=== PATIENT | female | born 1980 | race Caucasian/White ===

== ENCOUNTER 2022-07-09 09:30 | Outpatient (CLI) | payer OTHER, SELFPAY ==
--- OUTSIDE RECORDS SUMMARY | 2022-07-09 10:00 | XMS_ITS | Encounter Summary ---
:1980 Author Organization [facility] Address [address] [place] [address] Care Team Providers Name Role Phone Unavailable Primary Care Provider Unavailable Reason for Visit Reason Comments Skin Check Encounter Details Date Type Department Care Team Description 02/09/2013 Office Visit Ashlyn Moss, Gissell malin for malignant neoplasm of the skin (Primary Dx); Dermatology Dysplastic nevi; [id number] [place] [address] Family history of melanoma; [place] [address] [place], [place] Family history of nonmelanom a skin cancer; [phone] Nevus spilus [phone] (Wo rk) Social History Tobacco Use Types Packs/Day Years Used Date Smoking Tobacco: Never Assessed Sex Assigned at Date Recorded Not on file documented as of this encounter Patient Instructions Patient InstructionsNia Gamble MA - 02/09/2013 1:25 PM CDT DIRECT PHONE NUMBER: NIA [phone]. FEEL FREE TO CALL WITH ANY QUESTIONS OR CONCERNS YOU MAY HAVE. MOLES TO HAVE CHECKED IN CLINIC: BLACK, LEDEZMA OR BROWN IN THE CENTER WITH A RED OR COPPER TONE COLORING AROUND IT. ANY MOLES THAT CHANGE OR DOUBLE IN SIZE. SUNSCREEN: PREFER CLOTHING OVER SUNSCREEN. IF USING SUNSCREEN, PREFER SUNSCREEN WITH ZINC BASE. EX.)VANICREAM SPF 30 OR 60 OR CITIBLOCK BY CLINIQUE. VITAMIN D-3 RECOMMENDATIONS: TAKE VITAMIN D WITH FOOD THAT HAS FAT IN IT THIS HELPS THE BODY ABSORB IT. PREFER GEL CAPSULES OVER SOLID TABLETS. THIS IS AVAILABLE OVER THE COUNTER. VITAMIN D HAS BEENSHOWN TO FIGHT CERTAIN CANCERS, IT'S A NATURAL MOOD BOOSTER, NATURAL IMMUNITY BOOSTER, AND GOOD FOR YOUR MUSCLES, BONES AND BRAIN HEALTH. *RECOMMEND YOU TAKE 2000IU DAILY. FLAKING OF SCALP: *USE A HEAD AND SHOULDERS SHAMPOO WITH ZINC 1 - 2 TIMES WEEK FOR MAINTENANCE. CAN USE MORE OFTEN IF NEEDED. documented in this encounter Progress Notes Ashlyn Wilkinson MD - 02/09/2013 1:34 PM CDT Progress Notes signed by Ashlyn Bingham MD at 02/10/132234 Author: Ashlyn Bingham MD Service: (none) Author Type: Physician Filed: 02/10/132234 Note Time: 02/09/131916 Status: Signed Cash Posting Clerk: Ashlyn Bingham MD (Physician) NAME: ESTER DO MR#: [id number] CSN: [id number] AUTHENTICATING CLINICIAN: Ashlyn Wilkinson MD CONFIRM #: [id number] LOC: 527 CLINIC PROGRESS NOTE DATE OF VISIT: 02/09/2013 : 1980 Ester is a delightful 32-year-old. Her mother is the daughter of Clarence Castillo, and her uncle is Ángel. They both have had atypical moles and Ángel has had a melanoma. She had a fair amount of blistering sunburns growing up. Some sunburns as an adult, but never blistering, and she is out of the sun. She has occasionally use tanning beds, but has not for a long time. She has 2 boys, I think ages 2 and7. PHYSICAL EXAMINATION: On examination, Including scalp, face, neck, chest, back, abdomen, buttocks, groin, arms, legs, hands, feet, nails, perirectal and pubic area, a little bit of red complexion, with both brown and blond hair, highlighted, fair skin, a little bit of acne on the face. We did not discuss. 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 Two slightly darker ones between the scapula that look fine under the dermatoscope, and more fading one closer to the left breast, under it, that is a kind of broken up lacy pattern, reddish brown, light in color, and then one at just above the umbilicus that is darker in the middle, light around the periphery, but uniformly so, and definitely dysplastic, but does not appear to be severely dysplastic. She has a couple dysplastic nevi, inner thighs. Nothing on the genitalia. Perirectal is clear. Arms and legs show less nevi, but there is still definitely a fair amount of brown to light brown nevi. Nothing that was approaching black and nothing that I thought needed to be removed. No sign of any basal cell carcinomas and no actinic keratoses seen either. Again, skin is fair and it is a normal color. ASSESSMENT: Family history of melanoma and non-melanoma skin cancer with blistering sunburns as a child, with dysplastic nevi by exam. PLAN: 1. I would like to see her every 6-12 months. I photographed the back, upper middle and low back, tofollow, and the 2 moles on the abdomen were photographed as well. I will see her back in 6-12 months, sooner if there are any questions or concerns. Talked about what to watch for. 2. Talked about vitamin D. Her level has been checked in the past and it was only 24. I recommend she goes to 2000. Recommend she gives her boys 1000 a day, as well. Talked about sun protection. [employer] Brochure was given. Encouraged Zinc Sunscreen and samples given. VLV:MEDQ C: CONFIRM #: [id number] documented in this encounter Plan of Treatment Not on filedocumented as of this encounter Visit Diagnoses Diagnosis Screening for malignant neoplasm of the skin - Primary Dysplastic nevi Benign neoplasm of skin, site unspecifie d Family history of melanoma Family history of other specified malign ant neoplasm Family history of nonmelanoma skin cance r Family history of skin conditions Nevus spilus Benign neoplasm of skin, site unspecifie d documented in this encounter
--- OUTSIDE RECORDS SUMMARY | 2022-07-09 10:00 | XMS_ITS | Encounter Summary ---
:1980 Author Organization [facility] Address [address] [place] [address] Care Team Providers Name Role Phone Apurva Saldaña M.D. Primary Care Provider [phone] Reason for Referral Outpatient (Routine) - Closed Specialty Diagnoses / Procedures Referred By Contact Refer red To Contact Orthopedic Surgery Cristina Barlow P.A. -C. [facility] Region [address] [place] [address] Referral ID Status Reason Start Date Expiration Date Visits Requ ested Visits Authorized [id number] Closed 03/04/2022 03/04/2023 1 1 MRI/CAT/PET Scan (Routine) - Closed Specialty Diagnoses / Procedures Referred By Contact Refer red To Contact Radiology Diagnoses Pain Knee Left Cristina Barlow P.A.-C. [facility] Region Procedures MR Knee Left without IV Contrast GA MRI LWR EXT JOINT WO CNTRST [address] [place] [address] Referral ID Status Reason Start Date Expiration Date Visits Requ ested Visits Authorized [id number] Closed 03/04/2022 03/04/2023 1 1 Encounter Details Date Type Department Care Team Description 03/04/2022 Orders Only Department of Cristina Barlow, Pain Knee L eft Orthopedic Surgery in P.A[facility]C. (Primary Dx) [place], [place] [address] [facility] [address] [place], [place] [phone] Social History Tobacco Use Types Packs/Day Years Used Date Smoking Tobacco: Never Smokeless Tobacco: Never Alcohol Habits Answer Date Recorded How often do you have a drink containing alcohol? Never 10/21/2021 How many drinks containing alcohol do you have on a typical Not asked day when you are drinking? How often do you have six or more drinks on one occasion? No t asked Comment: Not asked Social Isolation Answer Date Recorded In a typical week, how many times do you More than three trisha es a week 10/21/2021 talk on the phone with family, friends, or neighbors? How often do you get together with friends Twice a week 10/21/2021 or relatives? How often do you attend moravian or Never 2021 tenriism services? Do you belong to any clubs or No 10/21/2021 organizations such as moravian groups, unions, fraternal or athletic groups, or school groups? How often do you attend meetings of the Never 10/21/2021 clubs or organizations you belong to? Are you now , , , 10/21/2021 , never or living with a partner? Physical Activity Answer Date Recorded On average, how many days per week do you engage in moderate to 0 days 10/21/2021 strenuous exercise (like walking fast, running, jogging, dancing, swimming, biking, or other activities that cause a light or heavy sweat)? On average, how many minutes do you engage in exercise at th is 0 min 10/21/2021 level? Stress Answer Date Recorded Do you feel stress - tense, restless, nervous, or anxious, N ot at all 10/21/2021 or unable to sleep at night because your mind is troubled all the time - these days? Financial Resource Strain Answer Date Recorded How hard is it for you to pay for the very basics like Not h amaris at all 10/21/2021 food, housing, medical care, and heating? Intimate Partner Violence Answer Date Recorded Within the last year, have you been afraid of your partner o r No 10/21/2021 ex-partner? Within the last year, have you been humiliated or emotionall y No 10/21/2021 abused in other ways by your partner or ex-partner? Within the last year, have you been kicked, hit, slapped, or No 10/21/2021 otherwise physically hurt by your partner or ex-partner? Within the last year, have you been raped or forced to have any No 10/21/2021 kind of sexual activity by your partner or ex-partner? Food Insecurity Answer Date Recorded Within the past 12 months, you worried that your food would Never true 10/21/2021 run out before you got money to buy more. Within the past 12 months, the food you bought just didn't N ever true 10/21/2021 last and you didn't have money to get more. Transportation Needs Answer Date Recorded In the past 12 months, has lack of transportation kept you f rom No 10/21/2021 medical appointments or from getting medications? In the past 12 months, has lack of transportation kept you f rom No 10/21/2021 meetings, work, or getting things needed for daily living? Housing Stability Answer Date Recorded In the last 12 months, was there a time when you were not ab le No 10/21/2021 to pay the mortgage or rent on time? In the last 12 months, how many places have you lived? 1 10/21/2021 In the last 12 months, was there a time when you did not hav e a No 10/21/[address] to sleep or slept in a alf (including now)? Education Answer Date Recorded What is the highest level of school Associate degree: yisel boateng, 10/20/2021 you have completed or the highest technical, or vocational p maryram degree you have received? 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 documented as of this encounter Plan of Treatment Scheduled Referrals Name Type Priority Associated Order Schedule Diagnoses Orthopedic Surgery Outpatient Referral Routine Ex pected: office visit 03/04/2022 (clinic) (Approximate), Expires: 06/04/2023 documented as of this encounter Results MR Knee Left without IV Contrast (03/11/2022 3:57 PM CDT) Anatomical Region Laterality Modality Lower Extremity, Knee, Musculoskeletal RST LOS, Left Magnetic Resonance Musculoskeletal ARZ LOS, Muskuloskeletal FLA LOS Specimen (Source) Anatomical Collection Method Collection Time Re ceived Time Location / / Volume Laterality 03/12/2022 1:26 PM CDT Impressions 03/12/2022 1:28 PM CDT MRI of the left knee without contrast. ACL and PCL are intact as are the collateral ligaments. Mild intrameniscal degenerati on is present both medially and laterally but no discrete linear tear is present. Mild chondromala camille is present both medially and laterally without a focal defect. Grade I to II chondromalacia but primarily involving the lateral facet with no full-thickness abnormality. The cartilag e of the trochlea is intact. MP FL and lateral retinaculum are intact. Small popliteal cyst. Small joint effusion. Prepatellar bursitis. Narrative 03/12/2022 1:28 PM CDT EXAM: ??MR KNEE LEFT WITHOUT IV CONTRAST COMPARISON: ??Compared to an x-ray from 10/21/2021. Procedure Note Selina Conti M.D. - 03/12/2022For matting of this note might be different from the original. EXAM: MR KNEE LEFT WITHOUT IV CONTRAST COMPARISON: Compared to an x-ray from . IMPRESSION: MRI of the left knee without contrast. A CL and PCL are intact as are the collateral ligaments. Mild intrameniscal degenerati on is present both medially and laterally but no discrete linear tear is present. Mild chondromala camille is present both medially and laterally without a focal defect. Grade I to II chondromalacia but primarily involving the lateral facet with no full-thickness abnormality. The cartilag e of the trochlea is intact. MP FL and lateral retinaculum are intact. Small popliteal cyst. Small joint effusion. Prepatellar bursitis. Cristina Barlow P.A.-C. [facility] MRI PROCEDURES documented in this encounter Visit Diagnoses Diagnosis Pain Knee Left - Primary Pain Knee Left documented in this encounter Additional Health Concerns Assessment Noted Time PHQ-9 Depression Total Score: 3 12/20/2016 9:55 AM CDT documented as of this encounter Care Teams Textile Conservator Relationship Specialty Start Date End Date Apurva Saldaña M.D. PCP - General 03/10/[address] [place] [phone] documented as of this encounter
--- OUTSIDE RECORDS SUMMARY | 2022-07-09 10:00 | XMS_ITS | Encounter Summary ---
:1980 Author Organization [facility] Address [address] [place] [address] Care Team Providers Name Role Phone Unavailable Primary Care Provider Unavailable Reason for Visit Reason Comments Skin Check Encounter Details Date Type Department Care Team Description 03/25/2014 Office Visit Ashlyn Moss, Skin keeleya m for Dermatology malignant neoplasm [address] [address] [facility] (Primary Dx) [place] [address] [place], [place] [phone] (Wo rk) Social History Tobacco Use Types Packs/Day Years Used Date Smoking Tobacco: Never Assessed Sex Assigned at Date Recorded Not on file documented as of this encounter Patient Instructions Patient InstructionsMary Beth Delacruz RN - 03/25/2014 9:09 AM CDT 1. Take Vitamin D 2000 a day. 2. For acne - Adjust diet to Low Sugar, and No Milk. Chocolate, peanuts, peanut butter can also affect skin. Can eat sugar but eat it with a meal. Put protein or fat with sugar. Pop is not good, Diet pop is worse. 3. Use Retin A twice a week for month, you can increase to every other night if needed but don't have to. Can also use on shoulders. 4. Use sunscreen with Zinc in it. Y DIRECT PHONE NUMBER: NIA [phone]. FEEL FREE TO CALL WITH ANY QUESTIONS OR CONCERNS YOU MAY HAVE. MOLES TO HAVE CHECKED IN CLINIC: BLACK, LEDEZMA OR BROWN IN THE CENTER WITH A RED OR COPPER TONE COLORING AROUND IT. ANY MOLES THAT CHANGE OR DOUBLE IN SIZE. SUNSCREEN: PREFER CLOTHING OVER SUNSCREEN. WHEN USING SUNSCREEN, PREFER SUNSCREEN WITH ZINC BASE. * FOR EXAMPLE: VANSREE SPF 30 OR 60, NEUTROGENA SENSITIVE SKIN, CITY BLOCK BY CLINIQUE OR AQUASPORT AVAILABLE AT [employer]. VITAMIN D-3 RECOMMENDATIONS: - TAKE VITAMIN D WITH FOOD THAT HAS FAT IN IT THIS HELPS THE BODY ABSORB IT. - PREFER YOU TAKE IT YEAR ROUND. - CAN ADD UP YOUR VITAMIN D-3 INTAKE FOR THE WEEK AND TAKE IT ALL AT ONCE INSTEAD OF DAILY IF YOU ARE NOT GOOD AT REMEMBERING TO TAKE IT. - PREFER GEL CAPSULES OVER SOLID TABLETS. THIS IS AVAILABLE OVER THE COUNTER. - VITAMIN D HAS BEEN SHOWN TO FIGHT CERTAIN CANCERS, IT'S A NATURAL MOOD BOOSTER, NATURAL IMMUNITY BOOSTER, AND GOOD FOR YOUR MUSCLES, BONES AND BRAIN HEALTH. ACNE: DR. CARRASCO RECOMMENDS THE FOLLOWING DIET ADJUSTMENTS TO HELP IMPROVE ACNE: * DISCONTINUE COWS MILK. ALMOND OR RICE MILK IS OK. SOY MILK IS OK LONG IT IS ORGANIC SOY. (USUALLY OK TO STILL EAT YOGURT, ICE CREAM, AND CHEESE) * REDUCE SUGAR INTAKE. TRY TO EAT SOME PROTEIN WHEN YOU EAT SUGAR TO HELP REDUCE THE INSULIN SURGE. ( HIGH INSULIN CAN CAUSE ACNE) * TRY TO EAT CLEAN. TRY TO AVOID PROCESSED FOODS * AVOID CORN SYRUP * AVOID CORN UNLESS IT IS ORGANIC * TRY TO EAT MORE FRUITS AND VEGETABLES * BE AWARE CHOCOLATE AND PEANUTS CAN CAUSE ACNE FLARES FOR SOME PEOPLE. * REDUCE STRESS LOTION -AQUA GLYCOLIC FACE CREAM -APPLY DAILY TO HELP TREAT THE DRYING EFFECTS OF THE ACNE MEDICATION Thank you for choosing Dermatology at [facility]! We welcome your feedback. Comment cards are located in our lobby. For questions, please call and choose one of the following options: - for appointments and scheduling, press 1 - to speak with a nurse about a medical question from 7:30 am to 5 pm, press 2 - after hours emergencies, follow the instructions to be transferred to the head and neck surgeon provider For medication refills, please contact your pharmacy. For questions regarding billing, please contact [facility] [employer] at . Please consider enrolling in [employer]. Please follow the instructions below to securely access your online medical record. Docstoc allows you to send messages to your doctor, view your test results, renew your prescriptions, schedule appointments, and more. . How Do I Sign Up? 1. In your Internet browser, go to: [email or web address] 2. Click on the Enter Activation Code link under the New User? section. You will see the New Member Sign Up page. 3. Enter your Docstoc Activation Code exactly as it appears below. You will not need to use this code after you???ve completed the sign-up process. If you do not sign up before the expiration date, youmust request a new code. Docstoc Activation Code: [email or web address] Expires: 04/24/2014 9:00 AM 4. Enter the last four digits of your Social Security Number ([id number]) and Date of (mm/dd/yyyy) as indicated and click Next. You will be taken to the next sign-up page. 5. Create a Docstoc ID. This will be your Docstoc login ID and cannot be changed, so think of one that is secure and easy to remember. 6. Create a Docstoc password. You can change your password at any time. 7. Enter your Security Question and Answer. This can be used at a later time if you forget your password. Click Next. 8. Enter your e-mail address. You will receive e-mail notification when new information is availablein Docstoc. 9. Click Sign In. You can now view your medical record. Additional Information If you have questions, you can call [phone] to talk to our Docstoc staff. Remember, Docstoc is NOT to be used for urgent needs. For medical emergencies, dial 911. documented in this encounter Progress Notes Ashlyn Wilkinson MD - 03/25/2014 9:12 AM CDT Progress Notes signed by Ashlyn Carrasco MD at 03/25/14 3170 Author: Ashlyn Carrasco MD Service: (none) Author Type: Physician Filed: 03/25/14 1306 Note Time: 03/25/14 1050 Status: Signed Roof Bolter Operator: Ashlyn Carrasco MD (Physician) NAME: ESTER DO MR#: [id number] CSN: [id number] AUTHENTICATING CLINICIAN: Ashlyn Wilkinson MD CONFIRM #: [id number] LOC: 527 CLINIC PROGRESS NOTE DATE OF VISIT: 03/25/2014 : 1980 Ester is a 33-year-old here for a full-body exam. She has a grandmother, uncle, and a brother that have all had melanoma. Granddaughter of Clarence Castillo. Uncle is Ángel. She has 2 boys, I think age 3 and 8. She has had dysplastic nevi. I have not removed any. I have photographs of some between the scapula, 1 above the umbilicus, and 1 under the left breast. She has a nevus spilus on the left scapular area, about 3 x 1 cm in size. Vitamin D was only 24. I wanted her on 1999. She is currently not taking it. She has seen someone else for acne and was given Retin-A 0.1% that she has at home, and she thinks she might have quit using it because it was irritating. Full-body exam today including scalp, face, neck, chest, back, abdomen, buttocks, groin, arms, legs,hands, feet, nails, perirectal, and pubic area. She is a delightful, beautiful, fair skin, blue eyed, blonde haired, 33-year-old, with freckling over the upper back and shoulders. A fair number of nevi. Some that are fried egg appearance with a little bit darker in the middle and light around it, especially on the low back, and 1 above the umbilicus like that as well. A little bit of a reddish-brown around the periphery, but not worrisome under the dermatoscope. The one above the umbilicus is the largest, maybe 7 mm in size. In the left upper scapula is a nevus spilus. It is unchanged from the photograph. Arms and hands and legs look fine. Face is good as well. A little bit of comedonal acne over the shoulders and the forehead. A little fibrous papule on the left side of the nose. ASSESSMENT: Family history of melanoma with definitely dysplastic nevus, nevus spilus and acne. PLAN: Talked about food and consideration of low sugar and no milk to see if that improved her acne. Chocolate and peanuts are a second thing she could try. She does get it right before her period, but it can be food-induced as well. Went over what to be watching for with the nevi. Encouraged 2000 international units of the vitamin D and a full-body exam on a yearly basis. VLV:EMMANUEL C: CONFIRM #: [id number] documented in this encounter Plan of Treatment Not on filedocumented as of this encounter Visit Diagnoses Diagnosis Skin exam for malignant neoplasm - Prima ry Screening for malignant neoplasm of the skin documented in this encounter
--- OUTSIDE RECORDS SUMMARY | 2022-07-09 10:00 | XMS_ITS | Encounter Summary ---
:1980 Author Organization [facility] Address [address] [place] [address] Care Team Providers Name Role Phone Apurva Saldaña M.D. Primary Care Provider [phone] Encounter Details Date Type Department Care Team Description 05/13/2022 Orders Only [facility] Negrito Larios M.D. [address], [address] [place] [address] [address] [place], [place] [address] [place] [address] [phone] (Wo rk) Social History Tobacco Use Types [...] or relatives? How often do you attend christianity or Never 2021 sikhism services? Do you belong to any clubs or No 10/21/2021 organizations such as christianity groups, unions, fraternal or athletic groups, or [...] place to sleep or slept in a nursing home (including now)? Education Answer Date Recorded What is the highest level of school Associate degree: yisel boateng, 10/20/2021 you have completed or the highest technical, or vocational p ondina degree you have received? 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 PCP - General 03/10/[address] [place] [phone] documented as of this encounter
--- OUTSIDE RECORDS SUMMARY | 2022-07-09 10:00 | XMS_ITS | Encounter Summary ---
:1980 [facility] Address [address] [place] [address] Care Team Providers Name Role Phone Needs Pcp, Assignment Primary Care Provider Reason for Visit Reason Comments APPOINTMENT REQUEST Encounter Details Date Type Department Care Team Description 01/23/2019 Telephone [facility] Kat Carvalho, RN APPOINTMENT REQUEST [address] [place] [address] Social History Tobacco Use Types Packs/Day Years Used Date Smoking Tobacco: Never Smokeless Tobacco: Never Sex Assigned at Date Recorded Not on file documented as of this encounter Nursing Notes Kat Carvalho LPN - 01/25/2019 10:19 AM CDT Ester left message stating that she will take appt on 02/13/19. Scheduled accordingly. Kat Carvalho LPN - 01/25/2019 10:[address] Bingham, offer pt a procedure or surgery time 30min+. Left patient detailed message stating that I have an opening on 02/08/19 at noon or 02/13/19 at 945. Asked her to call back everton and verifyif one of those times would work. SAT Kat Carvalho LPN - 01/23/2019 1:05 PM CDT Pt left message on nurse line stating that she received Dr. Bingham's message about needing to come back next week on January 31 or next week at 945am. Pt is unable to make those times work. She stated she would be available the following week, but there are no 945am slots open. Forwarded to Dr. Bingham to advise if this is to be a surgery time and when patient should be scheduled. documented in this encounter Plan of Treatment Not on filedocumented as of this encounter Visit Diagnoses Not on filedocumented in this encounter Care Teams Behavioral Health Counselor Relationship Specialty Start Date End Date Needs Pcp, Assignment PCP - General 04/06/17 [place] [address] documented as of this encounter
--- OUTSIDE RECORDS SUMMARY | 2022-07-09 10:00 | XMS_ITS | Encounter Summary ---
:1980 Author Organization [facility] Address [address] [place] [address] Care Team Providers Name Role Phone Apurva Saldaña M.D. Primary Care Provider [phone] Reason for Referral Physical Therapy (Routine) - Authorized Specialty Diagnoses / Procedures Referred By Contact Refer red To Contact Diagnoses Pain Knee Left Cristina Barlow P.A.-C. [facility] [place] [facility] Procedures PT Ongoing treatment [address] [place] [address] Referral ID Status Reason Start Date Expiration Date Visits V isits Requested Authorized [id number] Authorized 11/09/2021 09/25/2022 99 99 RVISORY IT SPECIALIST Reason for Visit Physical Therapy (Routine) - Closed Specialty Diagnoses / Procedures Referred By Contact Refer red To Contact Diagnoses Pain Knee Left Cristina Barlow P.A.-[facility] [place] [facility] Procedures PT Evaluate and treat [address] [address] Referral ID Status Reason Start Date Expiration Date Visits Requ ested Visits Authorized [id number] Closed 10/21/2021 10/21/2022 1 1 Encounter Details Date Type Department Care Team Description 11/09/2021 Comprehensive Visit Department of Cristina Barlow P.A.-C. [address] [place] [phone] Pain Knee Left Rehabilitation Liliane Robertson P.T. Services in [address] [phone] Social History Tobacco Use Types Packs/Day Years [...] or relatives? How often do you attend catholic or Never 2021 latter day services? Do you belong to any clubs or No 10/21/2021 organizations such as catholic groups, unions, fraternal or athletic groups, or [...] place to sleep or slept in a fdc (including now)? Education Answer Date Recorded What is the highest level of school Associate degree: yisel boateng, 10/20/2021 you have completed or the highest technical, or vocational p rogram degree you have received? 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 - 11/09/2021 3:00 PM CST Physical Therapy Outpatient Evaluation/Treatment By co-signing this note, the provider certifies the therapy being provided to this patient is reasonable and necessary for the diagnosis or treatment of this patient. SUBJECTIVE Patient's Name: Ester Do Referring Provider: Cristina Barlow P.A.-C. Visit Diagnosis: 1. Pain Knee Left Reason for Referral: Physical therapy evaluate and treat Onset Date: 09/26/19 Payor: [email or web address] / Plan: [employer] / Product Type: Indemnity / NetSpend Visit Count: 1 PERTINENT MEDICAL / SURGICAL HISTORY: Patient Active Problem List Diagnosis ??? Depression Major Recurrent Severe (HCC) ??? Hypothyroidism ??? Acne ??? Bite Cat Hand Open Sequela Left ??? Pain Knee Left Past Surgical History: Procedure Laterality Date ??? AUGMENTATION MAMMOPLASTY N/A 09/26/2006 Breast augmentation ??? CHOLECYSTECTOMY N/A 2000 Cholecystectomy ??? LIGATION OF FALLOPIAN TUBE N/A 2011 Tubal ligation IMAGING: EXAM: DX KNEE LEFT STANDING 3 VIEWS COMPARISON: None FINDINGS: Soft tissues are unremarkable. No fracture or destructive lesion is identified. Knee joint spaces are preserved and symmetric with the right. Incidentally visualized right knee on the AP and sunrise views is unremarkable. IMPRESSION: Negative left knee. Ester Do is a 41 y.o. female who presents to outpatient physical therapy for evaluation. Her symptoms consist of: 1. L knee pain Overall she reports her status is worsening . History of Present Illness:Patient reports having increased left knee pain two years ago while working out. No remarkable MARY GRACE. She reports enjoying treadmill and rowing endurance machines as well as lifting weights. She recalls performing weighted squats with mild pain. She stopped working out in hopes to reduce pain, however pain has just gotten worse over the past two years. 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 Patient goals:Reduce knee pain, return to physical exercise, reduce pain at work Contact monitoring: PPE used during therapy: Therapist was wearing the following PPE throughout entire session: surgicalmask and eye protection Patient was wearing a mask during therapy session: yes OBJECTIVE REVIEW OF SYSTEMS History obtained from chart review PHYSICAL EXAM Pain: pain to palpation to infrapatellar fat pad Gait/Stairs: Patient ambulates with independent upright posture, no antalgia, no assistive device Palpation: Patient has pain to palpation of left infrapatellar fat pad Range of Motion: Patient has full hip, knee, and ankle range of motion Muscle length test: Stew test: positive bilaterally for rectus femoris tightness Hamstrin degrees bilaterally Gastroc: positive for reports of tightness and pulling during ankle DF Von: positive bilaterally for tightness Modified von: negative bilaterally Strength: Full 5/5 strength in hip, knee, and ankle Joint Mobility: 1 quadrant patellar mobility in the medial/lateral and inferior/superior direction Special Tests: Sisi: negative bilaterally TREATMENT Treatment today consisted of: Therapeutic Exercise: -Supine ITB Stretch with Strap -Standing ITB Stretch -Standing Quadriceps Stretch -Seated Hamstring Stretch Home Exercise Program/Education: Access Code: [email or web address] URL: [email or web address] Date: 11/09/2021 Prepared by: JER [place] Exercises Supine ITB Stretch with Strap - 2 x daily - 7 x weekly - 60 hold Standing ITB Stretch - 2 x daily - 7 x weekly - 60 hold Standing Quadriceps Stretch - 2 x daily - 7 x weekly - 60 hold Seated Hamstring Stretch - 2 x daily - 7 x weekly - 60 hold Assessment Clinical Impression: Ms. Do presents to physical therapy with signs and symptoms consistent with L knee pain. Patient presents with patellar hypomobility, pain, decreased muscular contraction, decreased knee mechanics. These impairments impact her ability to perform daily exercise and work related tasks. Patient would benefit from physical therapy to reduce pain and allow full return to prior level of pain free function. Rehab Potential: Ms. Do has Excellent potential to achieve established physical therapy goals within the time frame outlined below, provided she actively participates in her physical therapy treatment plan and home program. Comorbid Conditions: Mental health disorder Clinical Presentation: Stable Examination elements: 3 Clinical Decision Making: Low complexity clinical decision making Functional Goals and Timeframes: PT Outpatient Goals PT Goal #1: Patient will be able to kneel on the ground for work without knee pain PT Goal #1 Date: 11/30/21 PT Goal #2: Patient will be able to perform dual leg squat with 20# weight without knee pain PT Goal #2 Date: 12/14/21 PT Goal #3: Patient will demonstate good patella tracking during quad set in order to improve knee mechanics PT Goal #3 Date: 12/07/21 Plan Ms. Do was educated regarding evaluative findings, diagnosis, prognosis, potential risks andbenefits of rehabilitation interventions. A collaborative effort was used to establish goals and plan of care. She was informed of her right to make decisions regarding her care, including refusal of examination or treatment or selection of services from another provider if desired. The treatment planmay be progressed or modified based upon her response to treatment. Physical Therapy Attestation Statement: Patient agrees with the plan of care and goals. Treatment Plan: Plan: Plan of care initiated Start of Plan of Care: 11/09/2021 Number of Visits:20 visits PT Duration: 90 days PT Frequency: Treatment interventions may include: Treatment/Interventions: Therapeutic exercise, Therapeutic functional activity, Neuromuscular re-education, Manual therapy, Therapeutic modalities as needed Plan for next session: Patellar mobility, STM, strength exercises Time Spent with Patient PT Eval - Low Complexity: 30 min Therapeutic Exercise (min): 15 min Time Calculation Total Timed Units (min): 15 min Total Treatment Time (min): 45 min RVISORY IT SPECIALIST documented in this encounter Plan of Treatment Not on filedocumented as of this encounter Visit Diagnoses Diagnosis Pain Knee Left documented in this encounter Additional Health Concerns Assessment Noted Time PHQ-9 Depression Total Score: 3 12/20/2016 9:55 AM CDT documented as of this encounter Care Teams Transportation Planning Engineer Relationship Specialty Start Date End Date Apurva Saldaña M.D. PCP - General 03/10/[id number] [phone] documented as of this encounter
--- OUTSIDE RECORDS SUMMARY | 2022-07-09 10:00 | XMS_ITS | Encounter Summary ---
:1980 Author Organization [facility] Address [address] [place] [address] Care Team Providers Name Role Phone Unavailable Primary Care Provider Unavailable Reason for Visit Reason Comments Skin Check Encounter Details Date Type Department Care Team Description 06/14/2016 Office Visit Ashlyn Moss, Seborrhe ic keratosis (Primary Dx); Dermatology MD Kathrine oliva; [address] [address] [place] Keloid scar; [place] [address] [place], [place] Other acne; [phone] [id number] Fibrous papule of nose; [phone] (Wo rk) Skin exam for malignant neoplasm; Family hi story of malignant melanoma; Family history of nonmelanoma skin cancer Social History Tobacco Use Types Packs/Day Years Used Date Smoking Tobacco: Never Sex Assigned at Date Recorded Not on file documented as of this encounter Patient Instructions Patient InstructionsMary Beth Dleacruz RN - 06/14/2016 8:54 AM CDT 1. Clothing and shade are the best for sun protection. 2. Use sunscreen with zinc in it. See below for Dr. Bingham's sunscreen recommendations. DIRECT PHONE NUMBER: NIA SOFIA PANFILO [phone]. FEEL FREE TO CALL WITH ANY QUESTIONS OR CONCERNS YOU MAY HAVE. MOLES TO HAVE CHECKED IN CLINIC: BLACK, LEDEZMA OR BROWN IN THE CENTER WITH A RED OR COPPER TONE COLORING AROUND IT. ANY MOLES THAT CHANGE OR DOUBLE IN SIZE. SUNSCREEN: PREFER CLOTHING OVER SUNSCREEN. WHEN USING SUNSCREEN, PREFER SUNSCREEN WITH AT LEAST 5% ZINC BASE. * FOR EXAMPLE: MATT SPF 30 OR 50, NEUTROGENA SENSITIVE SKIN, CITY BLOCK BY CLINIQUE, BLUE LIZARD FOR SENSITIVE SKIN, AND TERRASPORT OR AQUASPORT WHICH ARE AVAILABLE AT [facility]. VITAMIN D-3 RECOMMENDATIONS: - TAKE VITAMIN D [...] A NATURAL MOOD BOOSTER, NATURAL IMMUNITY BOOSTER, NATURAL ANTI-INFLAMMATORY AND GOOD FOR YOUR MUSCLES, BONES AND BRAIN HEALTH. RECOMMENDED LOTIONS: *LOTIONS THAT CONTAIN CERAMIDES. THESE ARE VERY HEALING FOR THE SKIN. *FOR EXAMPLE, CERA VE LOTION, EUCERIN PROFESSIONAL REPAIR, EUCERIN ECZEMA RELIEF, EUCERIN SMOOTHING ESSENTIALS, GOLD SCHUMACHER ECZEMA CARE AND CUREL LOTION. *BEST TO APPLY THESE RIGHT AFTER A SHOWER OR BATH IN ADDITION TO YOUR DAILY USE Thank you for choosing Dermatology at [facility]! We welcome your feedback. Comment cards are located in our lobby. For questions, please call and choose one of the following options: - for appointments and scheduling, press 1 - to speak with a nurse about a medical question from 7:30 am to 5 pm, press 2 - after hours emergencies, follow the instructions to be transferred to the converter operator provider For medication refills, please contact your pharmacy. For questions regarding billing, please contact [facility] at . Please consider enrolling in [employer]. Please follow the instructions below to securely access your online medical record. [employer] allows you to send messages to your doctor, view your test results, renew your prescriptions, schedule appointments, and more. How Do I Sign Up? 1. In your Internet browser, go to: [email or web address] 2. Click on the Enter Activation Code link under the New User? section. You will see the New Member Sign Up page. 3. Enter your [employer] Activation Code exactly as it appears below. You will not need to use this code after you???ve completed the sign-up process. If you do not sign up before the expiration date, youmust request a new code. [employer] Activation Code: [email or web address] Expires: 07/14/2016 8:54 AM 4. Enter the last four digits of your Social Security Number ([id number]) and Date of (mm/dd/yyyy) as indicated and click Next. You will be taken to the next sign-up page. 5. Create a [employer] ID. This will be your [employer] login ID and cannot be changed, so think of one that is secure and easy to remember. 6. Create a [employer] password. You can change your password at any time. 7. Enter your Security Question and Answer. This can be used at a later time if you forget your password. Click Next. 8. Enter your e-mail address. You will receive e-mail notification when new information is availablein [employer]. 9. Click Sign In. You can now view your medical record. Additional Information If you have questions, you can call [phone] to talk to our [employer] staff. Remember, [employer] is NOT to be used for urgent needs. For medical emergencies, dial 911. documented in this encounter Progress Notes Ashlyn Wilkinson MD - 06/14/2016 12:31 PM CDT NAME: ESTER DO MR#: [id number] CSN: [id number] AUTHENTICATING CLINICIAN: Ashlyn Wilkinson MD CONFIRM #: [id number] LOC: 527 CLINIC PROGRESS NOTE DATE OF VISIT: 06/14/2016 : 1980 Ester is a 36-year-old granddaughter of Clarence, niece of Ángle, grandma is Camille. Both Ángel and Camille have had melanoma and her brother has had a melanoma, as well. She has 2 boys, the youngest is in kindergarten this year and I think the oldest is maybe 5th grade. We do have photos of her nevi and I dolike to review that. She is getting less sun. She has asked about what lotion to use on a daily basis on the face, what sunscreen to use. She does use essential oils. Her acne flares before her periods. She is starting a new control pill to see if that helps. If it does not, she will call me andwe will consider spironolactone. She has tried off milk and that was not helpful. She does use Retin-A 0.1% for acne and I will refill that indefinitely. OBJECTIVE: Full-body exam today including scalp, face, neck, chest, back, abdomen, buttocks, groin, arms, legs,hands, feet, nails, perirectal, and pubic area. Beautiful 36-year-old, but with a lot of freckling and sun damage. No lal today. A lot of lentiginous hyperplasia, face, chest and back. Fading mole justabove the belly button that is a little bit browner in the middle, light brown around the periphery,but it looks very much like the picture from a year ago, but fading even more. She has a chocolate brown mole that is probably her darkest, but still small, 4 mm, right upper thigh near the underwear line that looks fine, and a ton of small junctional, probably just mildly dysplastic nevi. She does have inflammatory acne of the jaw and neck area that is not severe, but certainly annoying. A few coleman hemangiomas here and there. ASSESSMENT: Acne, dysplastic nevi, family history of melanoma, small fibrous papule I think on the side of the nose, left. PLAN: As above. Continue sun protection. Talked about what sunscreen I like, talked about clothing 1st, talked about not using chemicals daily through the winter months. Again, she will call if she wants to try spironolactone and she was forewarned I would want to check some labs before and after about a month of being on it. VLV:EMMANUEL C: CONFIRM #: [id number] documented in this encounter Plan of Treatment Not on filedocumented as of this encounter Visit Diagnoses Diagnosis Seborrheic keratosis - Primary Other seborrheic keratosis Nevus spilus Benign neoplasm of skin, site unspecifie d Keloid scar Other acne Fibrous papule of nose Benign neoplasm of skin of other and uns pecified parts of face Skin exam for malignant neoplasm Screening for malignant neoplasm of the skin Family history of malignant melanoma Family history of other specified malign ant neoplasm Family history of nonmelanoma skin cance r Family history of skin conditions documented in this encounter
--- OUTSIDE RECORDS SUMMARY | 2022-07-09 10:00 | XMS_ITS | Encounter Summary ---
:1980 Author Organization [facility] Address [address] [place] [address] Care Team Providers Name Role Phone Apurva Saldaña M.D. Primary Care Provider Encounter Details Date Type Department Care Team Description 04/13/2022 Orders Only [facility] Lamont Nieto M.D. [address] [address] [place], [place] [address] [phone] Social History Tobacco Use Types Packs/Day Years [...] or relatives? How often do you attend judaism or Never 2021 spiritism services? Do you belong to any clubs or No 10/21/2021 organizations such as judaism groups, unions, fraternal or athletic groups, or [...] place to sleep or slept in a chcf (including now)? Education Answer Date Recorded What is the highest level of school Associate degree: yisel boateng, 10/20/2021 you have completed or the highest technical, or vocational p ondina degree you have received? 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 PCP - General 03/10/[address] [place] [phone] documented as of this encounter
--- OUTSIDE RECORDS SUMMARY | 2022-07-09 10:00 | XMS_ITS | Encounter Summary ---
:1980 Author Organization [facility] Address [address] [place] [address] Care Team Providers Name Role Phone Apurva Saldaña M.D. Primary Care Provider [phone] Encounter Details Date Type Department Care Team Description 03/11/2022 Orders Only [facility] [place] P.A.-[place] [address] [address] [place], [place] [phone] (Wo rk) Social History Tobacco Use Types [...] or relatives? How often do you attend anglican or Never 2021 amish services? Do you belong to any clubs or No 10/21/2021 organizations such as anglican groups, unions, fraternal or athletic groups, or [...] place to sleep or slept in a mcfp (including now)? Education Answer Date Recorded What is the highest level of school Associate degree: yisel boateng, 10/20/2021 you have completed or the highest technical, or vocational p ondina degree you have received? 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 PCP - General 03/10/[address] [place] [phone] documented as of this encounter
--- OUTSIDE RECORDS SUMMARY | 2022-07-09 10:00 | XMS_ITS | Encounter Summary ---
:1980 Author Organization [facility] Address [address] [place] [address] Care Team Providers Name Role Phone Apurva Saldaña M.D. Primary Care Provider [phone] Reason for Visit Physical Therapy (Routine) - Authorized Specialty Diagnoses / Procedures Referred By Contact Refer red To Contact Diagnoses Pain Knee Left Cristina Barlow PPelonAPelon-[facility]. [facility] Procedures PT Ongoing treatment [address] [place] [address] Referral ID Status Reason Start Date Expiration Date Visits V isits Requested Authorized [id number] Authorized 11/09/2021 09/25/2022 99 99 Encounter Details Date Type Department Care Team Description 12/01/2021 Clinical Support Department of Cristina Barlow P.APelon-CPelon [address] [place] [phone] Pain Knee Left Rehabilitation Services Liliane Robertson P.T. in [address] [phone] Social History Tobacco Use Types Packs/Day Years [...] or relatives? How often do you attend druze or Never 2021 mormonism services? Do you belong to any clubs or No 10/21/2021 organizations such as druze groups, unions, fraCognection or athletic groups, or school groups? How [...] place to sleep or slept in a senior care (including now)? Education Answer Date Recorded What is the highest level of school Associate degree: yisel boateng, 10/20/2021 you have completed or the highest technical, or vocational p [facility] degree you have received? 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 - 12/01/2021 3:00 PM CST Physical Therapy Outpatient Treatment Note SUBJECTIVE Patient's Name: Ester Loraymundomarielos Referring Provider: Cristina Barlow P.A.-C. Visit Diagnosis: 1. Pain Knee Left Payor: [employer] / Plan: [employer]OURCES / Product Type: Indemnity / No data recorded Epic Visit Count: 4 Patient comments: Patient has been tolerating exercises well. She does not report increased knee pain this session. She has noticed mild improvements in her pain and no longer experiences pain with sitting on the couch. She still avoids kneeling on the knee and twisting motions still cause discomfort. Contact monitoring: PPE used during therapy: Therapist was wearing the following PPE throughout entire session: surgicalmask and eye protection Patient was wearing a mask during therapy session: yes OBJECTIVE Pain: No pain today Sisi's knee: negative on L Thessaly test: mild discomfort on L, did not reproduce familiar pain TREATMENT Treatment today consisted of: Therapeutic Exercise: -Piriformis stretch -Standing quadriceps stretch -Patellar mobilizations -Leg press dual leg 60# -Leg press single leg 30# -Standing band resisted hip abduction -Standing band resisted hip extension -Upright bike x5' -Single leg balance with ball throw to rebounder -Squat with 5 hold at bottom with 15# weight Home Exercise Program/Education: Access Code: [email or web address] URL: [email or web address] ITB stretch, Quad stretch, hamstring stretch, clamshell, sidelying hip abduction, piriformis stretch, band resisted squat, monster walks Pt reports good compliance with her HEP. Assessment Clinical Impression: Patient is a pleasant 41 year old female who presents for continued physical therapy for left knee pain. Patient continues to demonstrate improved quadriceps control during closed chain exercises. She does however demonstrate fatigue with knee valgus after several repetitions. Herpain has decreased slightly, however she does continue to have sharp pain with pivots or kneeling onher L knee. Patient would benefit from physical therapy to reduce pain and allow full return to prior level of pain free function. ?? Functional Goals and Timeframes: PT Goal #1: Patient will be able to kneel on the ground for work without knee pain PT Goal #1 Date: 11/30/2021 PT Goal #2: Patient will be able to perform dual leg squat with 20# weight without knee pain PT Goal #2 Date: 12/14/2021 PT Goal #3: Patient will demonstate good patella tracking during quad set in order to improve knee mechanics PT Goal #3 Date: 12/07/2021 No data recorded Plan Plan for next session: STM, standing quadriceps exercises Time Spent with Patient Therapeutic Exercise (min): 40 min Time Calculation Total Timed Units (min): 40 min Total Treatment Time (min): 40 min R SOFTWARE ENGINEER documented in this encounter Plan of Treatment Not on filedocumented as of this encounter Visit Diagnoses Diagnosis Pain Knee Left documented in this encounter Additional Health Concerns Assessment Noted Time PHQ-9 Depression Total Score: 3 12/20/2016 9:55 AM CDT documented as of this encounter Care Teams Foreign Banknote Teller Trader Relationship Specialty Start Date End Date Apurva Saldaña M.D. PCP - General 03/10/[address] [place] [phone] documented as of this encounter
--- OUTSIDE RECORDS SUMMARY | 2022-07-09 10:00 | XMS_ITS | Encounter Summary ---
:1980 Author Organization [facility] Address [address] [place] [address] Care Team Providers Name Role Phone Needs Pcp, Assignment Primary Care Provider Reason for Visit Reason Comments Skin Check Encounter Details Date Type Department Care Team Description 07/23/2020 Office Visit Ashlyn Moss Sun-dama ged skin (Primary Dx); Dermatology Seborrheic keratosis; [address] [address] [address] Skin exam for malignant neoplasm; [place] [address] [place], [place] Family history of malignant melanoma; [phone] [address] Family history of nonmelanoma skin cance r [phone] (Wo rk) Social History Tobacco Use Types Packs/Day Years Used Date Smoking Tobacco: Never Smokeless Tobacco: Never Sex Assigned at Date Recorded Not on file documented as of this encounter Patient Instructions Patient InstructionsMary Beth Delacruz RN - 07/23/2020 9:00 AM CDT 1. Clothing and shade are the best for sun protection. 2. Use sunblock with zinc in it. See below for Dr. Bingham's sunblock recommendations. DIRECT PHONE NUMBER: PANFILO VLADIMIR MENDEZE [phone]. FEEL FREE TO CALL WITH ANY QUESTIONS OR CONCERNSYOU MAY HAVE. MOLES TO HAVE CHECKED IN CLINIC: BLACK, LEDEZMA OR BROWN IN THE CENTER WITH A RED OR COPPER TONE COLORING AROUND IT. ANY MOLES THAT CHANGE OR DOUBLE IN SIZE. SUNBLOCK: PREFER CLOTHING OVER SUNSCREEN. WHEN USING SUNSCREEN, PREFER SUNBLOCKS THAT ARE ZINC BASED AND ARE AT LEAST 5% ZINC. -VANICREAM SPF 30 OR 50 -CERAVE MINERAL SUNSCREEN -LISA AVAILABLE AT [employer] OR [employer] -BLUE LIZARD (FOR SENSITIVE SKIN OR BABY) -BULLFROG SUNSCREEN -TERRASPORT OR AQUASPORT WHICH ARE AVAILABLE AT [employer] OR ONLINE. -AVEENO MINERAL SUNSCREEN (AVAILABLE AT [email or web address]) *MORE ELEGANT SUNSCREENS WITH ZINC IN IT: -BABO SUNSCREEN (AVAILABLE AT [employer] OR ONLINE) -VIRGILIO AVAILABLE AT [employer] -PACIFICA MINERAL SUNSCREEN AVAILABLE AT [employer] -VIDA-POSAY ANTHELIOS 50 MINERAL ULTRA LIGHT ([email or web address] OR ONLINE) -JUICE BEAUTY SPF 30 TINTED MINERAL MOISTURIZER FOR FACE -JUICE BEAUTY SPORT SPF 30 SPORT SUNSCREEN -BEAUTY COUNTER ALL MINERAL SUNSCREEN STICK, LOTION OR SPRAY -BEAUTY COUNTER DEW SKIN MOISTURIZING COVERAGE FOR FACE -CLINIQUE CITY BLOCK SHEER SPF 25 (NOT CLINIQUE SUPER CITY BLOCK SPF 40) -EVELINE RENNER WHICH IS AVAILABLE AT [employer] *Avoid sunscreens with oxybenzone, parsol 1789 (avobenzone) and octinoxate. ENVIRONMENTAL WORKING GROUP: [email or web address] THIS WILL LIST SUNSCREENS WITH LESS CHEMICALS IN IT THINK DIRTY [employer] THIS WILL LIST PRODUCTS WITH LESS CHEMICALS IN IT VITAMIN D-3 RECOMMENDATIONS: - TAKE VITAMIN D [...] ARE VERY HEALING FOR THE SKIN. *FOR EXAMPLE: -CERA VE CREAM -EUCERIN PROFESSIONAL REPAIR -EUCERIN ECZEMA RELIEF -EUCERIN SMOOTHING ESSENTIALS -GOLD SCHUMACHER ECZEMA CARE *BEST TO APPLY THESE RIGHT AFTER A SHOWER OR BATH IN ADDITION TO YOUR DAILY USE documented in this encounter Progress Notes Ashlyn Wilkinson MD - 07/23/2020 12:00 PM CDT NAME: ESTER DO MR#: [id number] CSN: [id number] AUTHENTICATING CLINICIAN: Ashlyn Wilkinson MD CONFIRM #: [id number] LOC: 527 CLINIC PROGRESS NOTE DATE OF VISIT: 07/23/2020 : 1980 SUBJECTIVE: Ester is a 40-year-old here for full-body exam. She is granddaughter of Clarence, Ángel's niece, and her brother has had a melanoma as well, at least 1. She has had a moderately dysplastic nevus removed that I had to re-excise on the middle upper back superior, and that has healed beautifully. She has kids, 9 and 14. She protects from the sun with clothing and zinc-based sunscreen. She does use Babo and likes it. OBJECTIVE: Full-body exam today including scalp, face, neck, chest, back, abdomen, buttocks, groin, arms, legs,hands, feet, nails, perirectal, and pubic area. I photographed at the right evangelical and the right cheek. She has pigmented AKs and 1 on the left cheek too and I froze those. If they do not clear, she isto call me. She has a fair number of tiny little moles over the chest and back, a few that are a little bit bigger and pinker on the low back. She has a belly button mole above the belly button that has a little hint of an orangey brown color to it, but it looks fine. She is growing a few milia that are minute on the forehead that are not worrisome and maybe 1 fibrous papule on the left side of the nose, not worrisome. No suspicious nevi. Scar on the mid upper back is linear, it has healed well, andno sign of any pigmentation recurring. ASSESSMENT: Probable dysplastic nevi remaining. A dysplastic nevus was excised middle upper back, actually at the same time that was initially biopsied, she had a 2nd normal intradermal nevus, middle upper back. I would like to see her on a yearly basis. We talked about sun protection. We talked about chemicals. I want to talk to her about vitamin D when she returns in a year. Photos were taken and will go from there. VLV:MEDQ C: CONFIRM #: [id number] Betsy Coreas - 07/23/2020 9:00 AM CDT Recall postcard submitted. documented in this encounter Plan of Treatment Not on filedocumented as of this encounter Visit Diagnoses Diagnosis Sun-damaged skin - Primary Other chronic dermatitis due to solar ra diation Seborrheic keratosis Other seborrheic keratosis Skin exam for malignant neoplasm Screening for malignant neoplasm of the skin Family history of malignant melanoma Family history of other specified malign ant neoplasm Family history of nonmelanoma skin cance r Family history of skin conditions documented in this encounter Care Teams Bundle Wrapper Relationship Specialty Start Date End Date Needs Pcp, Assignment PCP - General 04/06/17 [place] [address] documented as of this encounter
--- OUTSIDE RECORDS SUMMARY | 2022-07-09 10:00 | XMS_ITS | Encounter Summary ---
:1980 Author Organization [facility] Address [address] [place] [address] Care Team Providers Name Role Phone Apurva Saldaña M.D. Primary Care Provider [phone] Encounter Details Date Type Department Care Team Description 03/18/2022 Orders Only [facility] Lamont Nieto M.D. [address] [address] [place], [place] [address] [phone] Social History Tobacco Use Types Packs/Day Years [...] or relatives? How often do you attend taoism or Never 2021 amish services? Do you belong to any clubs or No 10/21/2021 organizations such as taoism groups, unions, fraternal or athletic groups, or [...] place to sleep or slept in a jail (including now)? Education Answer Date Recorded What is the highest level of school Associate degree: yisel boateng, 10/20/2021 you have completed or the highest technical, or vocational p ondina degree you have received? 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 PCP - General 03/10/[address] [place] [phone] documented as of this encounter
--- OUTSIDE RECORDS SUMMARY | 2022-07-09 10:00 | XMS_ITS | Encounter Summary ---
:1980 Author Organization [facility] Address [address] [place] [address] Care Team Providers Name Role Phone Apurva Saldaña M.D. Primary Care Provider Reason for Referral Outpatient (Routine) - Closed Specialty Diagnoses / Procedures Referred By Contact Refer red To Contact Diagnoses Pain Knee Left Cristina Barlow P.A.-C. [facility] [place] [facility] Procedures DX Knee Left Standing 3 Views [address] [place] [phone] Referral ID Status Reason Start Date Expiration Date Visits Requ ested Visits Authorized [id number] Closed 10/21/2021 10/21/2022 1 1 STRIAL PAINTER Reason for Visit Outpatient (Routine) - Closed Specialty Diagnoses / Procedures Referred By Contact Refer red To Contact Diagnoses Pain Knee Left Cristina Barlow P.A.-C. [facility] [place] [facility] Procedures DX Knee Left Standing 3 Views [address] [place] [phone] Referral ID Status Reason Start Date Expiration Date Visits Requ ested Visits Authorized [id number] Closed 10/21/2021 10/21/2022 1 1 Encounter Details Date Type Department Care Team Description 10/21/2021 Hospital Encounter Department of Cristina Barlow, Pain Knee Left Radiology in Gerardo Mak P.A.-C. [address] [place] [phone] Social History Tobacco Use Types Packs/Day Years [...] or relatives? How often do you attend islam or Never 2021 mormon services? Do you belong to any clubs or No 10/21/2021 organizations such as islam groups, unions, fraCooledge Lighting or athletic groups, or school groups? How [...] place to sleep or slept in a intermediate (including now)? Education Answer Date Recorded What is the highest level of school Associate degree: yisel boateng, 10/20/2021 you have completed or the highest technical, or vocational p ondina degree you have received? 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 cholecalciferol (VITAMIN Take 1,000 Units by 0 D3) 1,000 Unit tablet mouth. clindamycin-benzoyl Apply topically 2 50 g 2 8 peroxide (BENZACLIN) 1-5 (two) times a day. % gel levothyroxine (SYNTHROID, 2 03/02/2019 LEVOTHROID) 100 mcg tablet levothyroxine (SYNTHROID, Taking one tablet by 0 11/27/2012 LEVOTHROID) 112 mcg mouth every other tablet day ALTERNATING with 100 mcg every other day. UNABLE TO FIND Take 1 each by mouth 1 each 0 05/25/2019 daily. CBD oil, for depression clindamycin-benzoyl APPLY TOPICALLY TWO 50 g 3 021 12/25/2021 peroxide (BENZACLIN) 1-5 TIMES A DAY % gel documented as of this encounter Plan of Treatment Not on filedocumented as of this encounter Procedures Procedure Name Priority Date/Time Associated Comments Diagnosis DX KNEE LEFT RAD - Routine 10/21/2021 8:04 Pain Knee Left Results f or this STANDING 3 VIEWS (most inpatients AM INDUSTRIAL PAINTER procedu re are in and all the results outpatients) section. documented in this encounter Results DX Knee Left Standing 3 Views (10/21/2021 8:04 AM INDUSTRIAL PAINTER) Anatomical Region Laterality Modality Lower Extremity, Knee, Musculoskeletal RST LOS, Left Digital Radiography Musculoskeletal ARZ LOS, Muskuloskeletal FLA LOS Specimen (Source) Anatomical Collection Method Collection Time Re ceived Time Location / / Volume Laterality 10/21/2021 8:11 AM INDUSTRIAL PAINTER Impressions 10/21/2021 8:12 AM INDUSTRIAL PAINTER Negative left knee. Narrative 10/21/2021 8:12 AM INDUSTRIAL PAINTER EXAM: DX KNEE LEFT STANDING 3 VIEWS COMPARISON: None FINDINGS: Soft tissues are unremarkable. No fracture or destructive lesion is identified. Knee joint spaces are preser elizabeth and symmetric with the right. Incidentally visualized right knee on th e AP and sunrise views is unremarkable. Procedure Note Dwight Bernal Jr., M.D. - 2021 EXAM: DX KNEE LEFT STANDING 3 VIEWS COMPARISON: None FINDINGS: Soft tissues are unremarkable. No fracture or destructive lesion is identified. Knee joint spaces are preser elizabeth and symmetric with the right. Incidentally visualized right knee on th e AP and sunrise views is unremarkable. IMPRESSION: Negative left knee. Cristina C Barlow P.A.-C. IMG DIAGNOSTIC IMAGING PROCE DURES documented in this encounter Visit Diagnoses Diagnosis Pain Knee Left documented in this encounter Additional Health Concerns Assessment Noted Time PHQ-9 Depression Total Score: 3 12/20/2016 9:55 AM CDT documented as of this encounter Care Teams Sales Account Director Relationship Specialty Start Date End Date Apurva Saldaña M.D. PCP - General 03/10/[address] [place] [phone] documented as of this encounter
--- OUTSIDE RECORDS SUMMARY | 2022-07-09 10:00 | XMS_ITS | Clinical Summary ---
:1980 Author Organization [facility] [place] [address] Care Team Providers Name Role Phone Lexie Pereira RAIL SPECIALIST Primary Care Provider Allergies Not on File Medications Not on file Active Problems Not on file Social History Tobacco Use Types Packs/Day Years Used Date Never Assessed Sex Assigned at Date Recorded Not on file Plan of Treatment Health Maintenance Due Date Last Done Comments COVID-19 vaccine series (#1) 1980 Tdap 1992 Depression screening for age 12+ 1993 BMI (ht and wt on same day) for age 18+ 1999 Hepatitis C screening for age 18-79 1999 Tetanus booster 2001 Influenza for age 9-49 05/27/2022 Pap test for age 21-65 05/02/2023 05/02/2020, 05/02/2020 Results Not on filefrom Last 3 Months Insurance Payer Benefit Plan / Subscriber ID Effective Dates Phone Addre ss Type Group BLUE CROSS BLUE CROSS OF [id number] 2004-Present [address] [place] [address] Care Teams Ambulance Attendant Relationship Specialty Start Date End Date Lexie Preeira, RAIL SPECIALIST PCP - General Nurse Practitioner 04/11/12 [place] [phone]
--- OUTSIDE RECORDS SUMMARY | 2022-07-09 10:00 | XMS_ITS | Encounter Summary ---
:1980 Author Organization [employer] Address [address] [place] [address] Care Team Providers Name Role Phone Needs Pcp, Assignment Primary Care Provider Reason for Visit Reason Comments Surgery Encounter Details Date Type Department Care Team Description 02/13/2019 Office Visit Ashlyn Moss Dysplast ic nevus Dermatology (Primary Dx) [address] [place] [address] [place] [phone] (Wo rk) Social History Tobacco Use Types Packs/Day Years Used Date Smoking Tobacco: Never Smokeless Tobacco: Never Sex Assigned at Date Recorded Not on file documented as of this encounter Patient Instructions Patient InstructionsMary Beth Delacruz RN - 02/13/2019 9:45 AM CDT 1. Clothing and shade are the best for sun protection. 2. Use sunblock with zinc in it. See below for Dr. Bingham's sunblock recommendations. DIRECT PHONE NUMBER: PANFILO VLADIMIR SUSAN [phone]. FEEL FREE TO CALL WITH ANY QUESTIONS OR CONCERNSYOU MAY HAVE. MOLES TO HAVE CHECKED IN CLINIC: BLACK, LEDEZMA OR BROWN IN THE CENTER WITH A RED OR COPPER TONE COLORING AROUND IT. ANY MOLES THAT CHANGE OR DOUBLE IN SIZE. SUNBLOCK: PREFER CLOTHING OVER SUNSCREEN. WHEN USING SUNSCREEN, PREFER SUNBLOCKS THAT ARE ZINC BASED AND ARE AT LEAST 5% ZINC. -VANICENA SPF 30 OR 50 -VIRGILIO AVAILABLE AT [employer] -PACIFICA MINERAL SUNSCREEN AVAILABLE AT [employer] -LISA AVAILABLE AT [employer] OR [employer] -BLUE LIZARD FOR SENSITIVE SKIN -BULLFROG SUNSCREEN -TERRASPORT OR AQUASPORT WHICH ARE AVAILABLE AT [employer] OR ONLINE. *MORE ELEGANT SUNSCREENS WITH ZINC IN IT: -BABO SUNSCREEN (AVAILABLE AT [employer] OR ONLINE) -JUICE BEAUTY SPF 30 TINTED MINERAL MOISTURIZER FOR FACE -JUICE BEAUTY SPORT SPF 30 SPORT SUNSCREEN -BEAUTY COUNTER ALL MINERAL SUNSCREEN STICK, LOTION OR SPRAY -BEAUTY COUNTER DEW SKIN MOISTURIZING COVERAGE FOR FACE -CLINIQUE CITY BLOCK SHEER SPF 25 (NOT CLINIQUE SUPER CITY BLOCK SPF 40) -EVELINE RENNER WHICH IS AVAILABLE AT [employer] *Avoid sunscreens with oxybenzone, parsol 1789 (avobenzone) [...] BATH IN ADDITION TO YOUR DAILY USE Care Instructions after a Skin Biopsy/Surgery When do I start changing the bandage on my skin biopsy/surgery site? Leave the original bandage/dressing in place for 24 to 48 hours. If you develop bleeding from the site, apply firm pressure directly over the bandage, using the heelof your hand, for [address] bandage on top of the first one - don???t keep removing and replacing dressings. NO PEEKING! Notify us if the bleeding still does not stop. Pain Control: Can ice over the bandage for 20 minutes on, 20 minutes off and rotate on this icing schedule as longas you need. How do I change the bandage on my skin biopsy/surgery site? After the initial 24 to 48 hours, clean the area every day with soap and warm water. Can let the shower water run over the incision. Gently pat dry the area. If you have stitches, use a cotton-tipped applicator to gently remove any crust or scab that has formed. After the area has been cleaned and is dry, apply a small amount of petroleum jelly or Aquaphor healing ointment and apply a new bandage. We prefer that you do not use an antibacterial ointment (i.e. bacitracin, Neosporin) as many people develop a hypersensitivity including a rash and even blistering related to these. Is it okay to shower after having a skin biopsy/surgery? Showering is okay, but please do not soak in a bathtub, hot tub, or pool. This will slow the healingprocess and may create infection. When can I stop bandaging my skin biopsy/surgery site? Continue the wound care process until the area is healed or until stitches are removed. Complete healing usually takes 2-4 weeks. *Can discontinue band- aid/bandage use after one week if wound is dry and healing well, but continue vaseline use until wound is healed or sutures are removed. Wounds heal best when kept moist, try not to let the area dry out. Letting them open to air, drying out, and having a scab form actually causes wounds to take longer to heal. If your skin is getting sensitive to the bandage, use gauze and paper tape. Can I exercise after having a skin biopsy/surgery? Avoid exercising for 2 days and if you have stitches, you will want to restrict your physical activity to avoid strenuous movements that will cause stretching and pulling of the skin for 2 weeks. What signs or symptoms should I call the dermatology department about? Infection after a biopsy or surgery is not likely, but can occur. Mild amounts of redness, bruising,swelling, discomfort and a clear to yellowish to blood- tinged discharge are normal. Signs of Infection include: fever, increasing pain, blood blister, drainage of pus, and extreme heatfrom the site. Please call the clinic at [phone] if you experience any of these symptoms. When should my sutures be removed? Please schedule your nurse appointment at the front office supervisor for the suture removal within 14 days. When will I receive my skin biopsy results? Your skin biopsy specimen will be sent to our laboratory for processing. It will then be interpretedby one of our four board-certified dermatopathologists, Dr. Bryn Cullen, Dr. Roni Arreola, Dr. Tari Hooper, and Dr. Shabbir Son. The dermatopathologists will write their findings in a pathology report. Your provider will then contact you with the results of this pathology report when it is available. Typically you will be contacted 7 to 14 days after your biopsy or procedure. Our pathology services will be listed separately on your bill. If you have further questions about the biopsy process or if you have not received your biopsy results within 2 weeks, please call us at [phone]. documented in this encounter Progress Notes sAhlyn Wilkinson MD - 02/13/2019 12:00 PM CDT NAME: ESTER DO MR#: [id number] CSN: [id number] AUTHENTICATING CLINICIAN: Ashlyn Wilkinson MD CONFIRM #: [id number] LOC: 527 CLINIC PROGRESS NOTE DATE OF VISIT: 02/13/2019 : 1980 SUBJECTIVE: Ester is a 38-year-old granddaughter of Ángel Lima's niece, and her brother has had more than 1 melanoma. She also has a grandmother who has had melanoma. 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 I removed a moleover the middle upper back superiorly last time and it was read out by Dr. Arreola as moderately atypical, extending to the peripheral and deep biopsy margin, excision advised. There were some single cells and irregularly nested cells. With the family history of that, even though there is no pigment remaining in the area, we elected to go back and reexcise it with stitches. EXAMINATION: She has a 1.2 cm shave biopsy scar with no pigmentation, but a mole at about 10 o'clock that is chocolate brown, and a light brown mole at about 4 o'clock from the shave biopsy scar. It was anesthetized with 1% lidocaine with epinephrine at 1:100,000, sterilely prepped and draped. Informed consent wasobtained. Photo was taken pre-excision and post-excision. Elliptical excision, 2.5 cm x 1.2 cm, was made down and through the subcutaneous tissue. Cautery was necessary for hemostasis. Undermining performed, 3 deep 4-0 Vicryl stitches were placed, and five 5-0 Ethilon stitches placed superficially. The deep stitches were in the subcutaneous and dermal tissue. Pressure dressing applied. Wound care inst ructions given verbally and written. My nurses will see her in 2 weeks for suture removal. I will call her in a week with the results and we will go from there. We do need to see her back in 6 months. FINAL DIAGNOSIS Skin and subcutaneous tissue, middle upper back superior, excision: - Organizing biopsy site with no residual dysplastic nevus. ?? COMMENT: I also reviewed the previous biopsy ([id number]). Taken together, the two specimens appear to represent adequate surgical therapy of this melanocyte proliferation. ?? Pt informed on voicemail VLV:MEDQ C: CONFIRM #: [id number] Mary Beth Delacruz RN - 02/13/2019 9:45 AM CDT Images from the original note were not included. Re-excision middle upper back superior Re-excision middle upper back superior documented in this encounter Plan of Treatment Not on filedocumented as of this encounter Procedures Procedure Name Priority Date/Time Associated Comments Diagnosis SURGICAL PATHOLOGY, Routine 02/13/2019 10:04 Dysplastic nevus Results for this DERMATOLOGY AM CDT procedure are i n the results section. documented in this encounter Results Surgical Path, Dermatology (02/13/2019 10:04 AM CDT) Component Value Ref Test Analysis Performed At [facility] gist Range Method Time Signature Case Report Surgical Pathology Report ? Case: [id number] ? 02/16/2019 [facility] Authorizing Provider: ??Ashlyn Cruz MD ? Collected: ? 02/13/2019 10:04 AM ? 11:06 AM DERMATOLO GY Ordering Location: ? [facility] Dermatology ? Received: ?02/14/2019 09:24 AM ? CDT Pathologist: ? Roni Arreola MD ? Specimen: ?Skin excision , middle upper back superior ? FINAL Skin and subcutaneous tissue, middle upper back superi or, excision: 02/16/2019 [facility] Electronically DIAGNOSIS - Organizing biopsy site with no residual dysplastic n evus. 11:06 AM DERMATOLOGY signed by CDT Dm Arreola COMMENT: I also reviewed the previous biopsy ([id number]). Taken together, the two specimens appear to represent adequate surgical therapy of this melanocyte proliferation. MD Dami on 02/16/2019 at 11:06 AM Clinical 02/16/2019 [facility] Information 11:06 AM DERMATOLOGY CDT Gross A. Received in formalin, lab eled with the patient's name and Skin excision - middle upper back superior is a 20 x 10 x 9 mm elliptical excision of skin and subcutis. The resection margin is entirely m 02/16/2019 [facility] 3800 Description arked with blue ink. The spe cimen is serially sectioned into 6 pieces and submitted entirely in 3 cassettes, with tips submitted in cassette 1. CC 11:06 AM DERMATOLOGY CDT Microscopic Microscopic 02/16/2019 [facility] 3800 Description examination is 11:06 AM DERMATOLOGY performed. CDT Embedded 02/16/2019 [facility] 3800 Images 11:06 AM DERMATOLOGY CDT Specimen Anatomical Collection Method Collection Time Receive d Time (Source) Location / / Volume Laterality Skin EXCISION OF SKIN / 02/13/2019 10:04 02/14 9:24 Unknown AM CDT AM CDT Ashlyn Wilkinson MD LAB PATHOLOGY Performing Organization Address City/State/ZIP Code Phon e Number [facility] 3800 DERMATOLOGY [address] [place], [place] [address] documented in this encounter Visit Diagnoses Diagnosis Dysplastic nevus - Primary Benign neoplasm of skin, site unspecifie d documented in this encounter Care Teams Merchant Seaman Relationship Specialty Start Date End Date Needs Pcp, Assignment PCP - General 04/06/17 [place], [place] [id number] documented as of this encounter
--- OUTSIDE RECORDS SUMMARY | 2022-07-09 10:00 | XMS_ITS | Encounter Summary ---
:1980 Author Organization [facility] Address [address] [address] Care Team Providers Name Role Phone Needs Pcp, Assignment Primary Care Provider Reason for Visit Reason Comments Skin Check Encounter Details Date Type Department Care Team Description 01/18/2019 Office Visit Ashlyn Moss, Jarod galvan skin (Primary Dx); Dermatology MD Skin exam for malignant neoplasm; [address] [address] [address] Seborrheic keratosis; [place] [address] [place], [place] Family history of malignant melanoma; [phone] [address] Family history of nonmelanoma skin cance r; [phone] (Wo rk) Neoplasm of skin Social History Tobacco Use Types Packs/Day Years Used Date Smoking Tobacco: Never Smokeless Tobacco: Never Sex Assigned at Date Recorded Not on file documented as of this encounter Patient Instructions Patient InstructionsKat Carvalho LPN - 01/18/2019 8:30 AM CDT 1. Clothing and shade are the best for sun protection. 2. Use sunblock with zinc in it. See below for Dr. Bingham's sunblock recommendations. 3. Milk, high sugar (especially high fructose corn syrup), and processed foods are common causes of adult acne. DIRECT PHONE NUMBER: JUSTIN [phone]. FEEL FREE TO CALL WITH ANY QUESTIONS OR CONCERNSYOU MAY HAVE. Care Instructions after a Skin Biopsy/Surgery When [...] the bandage, use gauze and paper tape. What signs or symptoms should I call the dermatology department about? Infection after a biopsy or surgery is not likely, but can occur. Mild amounts of redness, bruising,swelling, discomfort and a clear to yellowish to blood- tinged discharge are normal. Signs of Infection include: fever, increasing pain, blood blister, drainage of pus, and extreme heatfrom the site. Please call the clinic at [phone] if you experience any of these symptoms. When will I receive my skin biopsy [...] within 2 weeks, please call us at [phone]. Liquid Nitrogen Treatment (Cryotherapy) How it Works: Liquid nitrogen (Cryotherapy) is a cold liquified gas, with a temperature of -321?? F.It's used to freeze and destroy superficial skin growths. Treatment Goals: Treatment with liquid nitrogen may cause the treated area to appear red or swollen anywhere from a few hours to a couple of days. Usually a scab/crust forms, which will fall off by itself in 1 to 3 weeks. The skin growth will fall off with the scab, leaving healthy new skin. This new skin is typically gl accountant, and will usually blend in color-garcia over time. You May Experience: Liquid nitrogen causes stinging and mild pain while the growth is being frozen and then thaws. The worst discomfort occurs during the first five to 10 minutes of the procedure, but can sometimes last significantly longer. A blister, sometimes a blood blister, may form. If this occurs, you may pop the blister with a cleanneedle, but leave the roof of the blister intact on the skin. If this does happen, keep the area covered with a Band-Aid and use Vaseline or antibiotic ointment. Areas that are prone to blistering are the eyelids and hands. The blisters and swelling are part of the treatment and will gradually heal. No special care is needed, you can wash as usual and use makeup or other cosmetics. You also may experience some redness, swelling, tenderness, weeping, or crusts/scabs. Try not to pick at, itch, or scrub the area. If the treated sore area feels sore or irritated, you can keep it covered. Avoid excessive sun exposure since this can result in persistent darkening at the treated sites. PLEASE NOTE: Sometimes, growths have to be re-frozen. If your growth is not cured by liquid nitrogen, please make a return appt. Uncommon: Call the nurse's line below if you have any white, green, or yellow fluid damage or any sign of an apparent infection. Nurse Line: MOLES TO HAVE CHECKED IN CLINIC: BLACK, LEDEZMA OR BROWN IN THE CENTER WITH A RED OR COPPER TONE COLORING AROUND IT. ANY MOLES THAT CHANGE OR DOUBLE IN SIZE. SUNBLOCK: PREFER CLOTHING OVER SUNSCREEN. WHEN USING SUNSCREEN, PREFER SUNBLOCKS THAT ARE ZINC BASED AND ARE AT LEAST 5% ZINC. -VANICREAM SPF 30 OR 50 -VIRGILIO (also available in spray-Sun Sheild Clear [place] SPF 30) AVAILABLE AT [employer] THYME -PACIFICA MINERAL SUNSCREEN AVAILABLE AT [employer] -LISA AVAILABLE AT [employer]! OR [employer] -BLUE LIZARD FOR SENSITIVE SKIN -BULLFROG SUNSCREEN -TERRASPORT OR AQUASPORT WHICH ARE AVAILABLE AT [employer] OR ONLINE. -BABO SUNSCREEN (AVAILABLE AT [employer] OR ONLINE) *MORE ELEGANT SUNSCREENS WITH ZINC IN IT: -JUICE BEAUTY SPF 30 TINTED MINERAL MOISTURIZER FOR FACE -JUICE BEAUTY SPORT SPF 30 SPORT SUNSCREEN -BEAUTY COUNTER ALL MINERAL SUNSCREEN STICK, LOTION OR SPRAY -BEAUTY COUNTER DEW SKIN MOISTURIZING COVERAGE FOR FACE -CLINIQUE CITY BLOCK SHEER SPF 25 (NOT CLINIQUE SUPER CITY BLOCK SPF 40) -EVELINE RENNER WHICH IS AVAILABLE AT [employer] [facility] *Avoid sunscreens with oxybenzone, parsol 1789 (avobenzone) [...] Thank you for choosing Dermatology at [facility]! We welcome your feedback. Comment cards are located in our lobby. For questions, please call and choose one of the following options: - for appointments and scheduling, press 1 - to speak with a nurse about a medical question from 7:30 am to 5 pm, press 2 - after hours emergencies, follow the instructions to be transferred to the manager operations provider For medication refills, please contact your pharmacy. For questions regarding billing, please contact [employer] at . documented in this encounter Progress Notes Ashlyn Wilkinson MD - 01/18/2019 12:00 PM CDT NAME: ESTER DO MR#: [id number] CSN: [id number] AUTHENTICATING CLINICIAN: Ashlyn Wilkinson MD CONFIRM #: [id number] LOC: 527 CLINIC PROGRESS NOTE DATE OF VISIT: 01/18/2019 : 1980 SUBJECTIVE: Ester is a 38-year-old here for full-body exam. She is Clarence's granddaughter, Ángel's niece. Her brother has had melanoma, and her uncle and grandmother have had as well. She has used Retin-A for acnein the past. 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 Her snores, so she has been using earplugs for her ears and she is getting a little bit of pimpling in the ears. She also gets pimples along the hair line. She has had no nevi removed, but I have photographed several and we compared today. She has 1 moleon the right upper back, near midline, that is really sore and gets caught on bras and clothing. OBJECTIVE: Full-body exam, including scalp, face, neck, chest, back, abdomen, buttocks, groin, arms, legs, hands, feet, and nails, perirectal and pubic area. She has a little bit of comedonal acne along the jawline. She has 3 junctional freckles on the right side of the face. She feels like the middle 1 might begetting larger, but she does not want any treatment or biopsy of that today. We photographed to watch. She has a mole that I have a picture of in the chart that looks really worrisome on the chart; on the body, it looks like it is fading and is fine. It is a mole above the umbilicus, it is kind a target like and it is fading and going away. She has a little warty growth on the left inner forearm. Shetried wart treatment and did not clear. She has a nevus spilus on the left back. She has a mole on the middle upper back that I think has changed drastically from the photograph, so maybe increased 50%in size. It is medium brown, but it is losing some color off to the side or spreading out a little bit, light brown, and I just want to get rid of it. It is approaching 8 mm in size and I think it should go. Below that middle upper back one, still on the middle upper back but inferior, is a fleshy, irritated intradermal nevus. She has many other nevi and she should be followed regularly, and she should be out of the sun. Zinc-based sunscreen, but better clothing, just zinc where she cannot clothe. She makes her own zinc sunscreen. ASSESSMENT: Rule out severely dysplastic nevus middle upper back superior. Rule out irritated intradermal nevus middle upper back inferior. Lentigines versus junctional nevi right side of the face; follow. Acne; talked at length about diet, and even though she flares only the week before her period, it still can b e an allergy. I will see her back for full-body exam. I probably should see her in a longer appointment, but informed consent was obtained. 1% lidocaine with epinephrine at 1:100,000 was injected into the back lesions, and deep shave biopsies were done to clear them. The spots on the right cheek were photographed only, and I will want to watch those closely. I want to see her back in 6 months, longerappointment. I will call her in a week with biopsy diagnosis. FINAL DIAGNOSIS A. 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 ?? COMMENT (A): This nevus has architectural features associated with dysplastic nevi and moderate cytologic atypia. Melan-A immunostain highlights single and irregularly nested cells along and above the dermoepidermal junction, involving adnexal epithelium, and in the superficial dermis. As the lesion is present at tjhe biopsy margin, EXCISION IS ADVISED to ensure complete removal. ?? B. 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 Pt informed- will excise on 02/13 VLV:MEDQ C: CONFIRM #: [id number] Kat Carvalho LPN - 01/18/2019 8:30 AM CDT Images from the original note were not included. Middle upper back superior- biopsy Middle upper back inferior- biopsy documented in this encounter Plan of Treatment Not on filedocumented as of this encounter Procedures Procedure Name Priority Date/Time Associated Comments Diagnosis SURGICAL PATHOLOGY, Routine 01/18/2019 8:47 AM Neoplasm of ski n Results for this DERMATOLOGY CDT procedure are i n the results section. documented in this encounter Results Surgical Path, Dermatology (01/18/2019 8:47 AM CDT) Component Value Ref Test Analysis Performed At [facility] gist Range Method Time Signature Case Report Surgical Pathology Report ? Case: [id number] ? 01/23/2019 [facility] 3800 Authorizing Provider: ??Aslhyn Cruz MD ? Collected: ? 01/18/2019 08:47 AM ? 10:11 AM DERMATOLO GY Ordering Location: ? [facility] ? Received: ?01/19/2019 10:22 AM ? CDT Pathologist: ? Roni Arreola MD ? Specimens: ?? A) - Skin shav e, middle upper back superior ? B) - Skin shave, middle upper back inferior ? FINAL A. Skin, middle upper back superior, shave: 01/23/2019 [facility] 3800 Electronically DIAGNOSIS - Compound dysplastic melano cytic nevus with moderate atypia, extending to peripheral and deep biopsy margins. 10:11 AM DERMATOLOGY signed by CDT Dm Arreola COMMENT (A): This nevus has architectural features associated with dysplastic nevi and moderate cytologic atypia. Melan-A immunostain highlights single and irregularly nested cells along and above the judy Lomax MD on ermoepidermal junction, invo lving adnexal epithelium, and in the superficial dermis. As the lesion is present at tjhe biopsy margin, EXCISION IS ADVISED to ensure complete removal. 12/27 at 10:11 AM B. Skin, middle upper back inferior , shave: - Irritated benign intraderm al melanocytic nevus with features of congenital onset, present at deep biopsy margin. Clinical A. r/o atypical nevus 01/23/2019 [facility] 380 0 Information B. r/o atypical nevus 10:11 AM DERMAT OLOGY CDT Gross A. Received in formalin, lab eled with the patient's name and Skin shave - middle upper back superior is a 9 x 8 x 1 mm shave biopsy of skin. The specimen is marked with yellow ink, trisected, and submitted entirely in one cassette. 01/23/2019 [facility] 3800 Description 10:11 AM DERMATOLOGY B. Received in formalin, lab eled with the patient's name and Skin shave - middle upper back inferior is a 7 x 5 x 1 mm shave biopsy of skin. The specimen is marked with black ink, bisected, and submitted entirely in one cassette. DS CDT Microscopic Microscopic 01/23/2019 [facility] 3800 Description examination is 10:11 AM DERMATOLOGY performed. CDT Special Stains The stain controls have been reviewed and stain appr opriately. 01/23/2019 [facility] 3800 10:11 AM DERMATOLOGY CDT Embedded 01/23/2019 [facility] 3800 Images 10:11 AM DERMATOLOGY CDT Specimen (Source) Anatomical Collection Method Collection Time Re ceived Time Location / / Volume Laterality Skin SHAVE BIOPSY OF 01/18/2019 8:47 9 SKIN / Unknown AM CDT 10:22 AM CDT Skin structure SHAVE BIOPSY OF 01/18/2019 8:47 019 (body structure) SKIN / Unknown AM CDT 10:22 AM CDT Ashlyn Wilkinson MD LAB PATHOLOGY Performing Organization Address City/State/ZIP Code Phon e Number [facility] 3800 DERMATOLOGY [address] [place], [place] [address] documented in this encounter Visit Diagnoses Diagnosis Sun-damaged skin - Primary Other chronic dermatitis due to solar ra diation Skin exam for malignant neoplasm Screening for malignant neoplasm of the skin Seborrheic keratosis Other seborrheic keratosis Family history of malignant melanoma Family history of other specified malign ant neoplasm Family history of nonmelanoma skin cance r Family history of skin conditions Neoplasm of skin ([facility]) Neoplasm of unspecified nature of bone, soft tissue, and skin documented in this encounter Care Teams Snow Ranger Relationship Specialty Start Date End Date Needs Pcp, Assignment PCP - General 04/06/17 [place] [address] documented as of this encounter
--- OUTSIDE RECORDS SUMMARY | 2022-07-09 10:00 | XMS_ITS | Clinical Summary ---
:1980 Author Organization [facility] Address [address], [place] [address] Care Team Providers Name Role Phone Needs Pcp, Assignment Primary Care Provider Source Comments You are receiving this document as you are listed as the primary care provider,follow-up provider, or the patient has been referred to you for consultation.This is in compliance with the Medicare and Medicaid EHR Incentive Program,which states Providers who transition their patient to another setting of careor provider of care or refers their patient to another provider of care shouldprovide summarycare record for each transition of care or referral. [employer] Allergies No known active allergies Medications Medication Sig Dispensed Refills Start End Date Status Date levothyroxine (AKA Take 112 mcg 0 Active SYNTHROID) 112 MCG by mouth daily 3 tablet (every 24 hours). tretinoin (AKA Apply 0 Activ e RETIN-A) 0.1 % cream topically 3 nightly. Apply to cleansed and dried skin. clindamycin Apply 0 Active (CLINDAGEL) 1 % gel topically 2 3 times daily. escitalopram oxalate Take 5 mg by 0 Active (AKA LEXAPRO) 5 MG mouth daily 4 tablet (every 24 hours). escitalopram oxalate Take 10 mg by 0 Active (AKA LEXAPRO) 10 MG mouth daily 4 tablet (every 24 hours). cholecalciferol Take 1,000 0 Act leola (VITAMIN D3) 1000 Units by mouth units tablet daily. sertraline (ZOLOFT) daily. 0 Active 50 MG tablet 0 tretinoin, Facial Apply 45 g 11 04/07/20 Di scontinued Wrinkles, (REFISSA) topically 4 15 (Duplicate 0.05 % cream nightly. Apply Th erapy) to cleansed and dried skin. Social History Tobacco Use Types Packs/Day Years Used Date Smoking Tobacco: Never Smokeless Tobacco: Never Sex Assigned at Date Recorded Not on file Plan of Treatment Health Maintenance Due Date Last Done Comments Cervical Cancer Screening Due 1980 Hep C Screening (Preventive 1980 Services) HepB (1) 1980 COVID-19 Vaccine (#1) 1980 HIV Screening (Preventive 1997 Services) Adult Preventive Visit 1999 Influenza (#1) 2022 07/13/2013, 09/26/2009 DTaP/Tdap/Td (2 - Tdap) 05/24/2026 05/24/2016 Zoster/Shingles (1 of 2) 2031 HPV Vaccine Aged Out No longer eligib le based on patient's age to complete this to [facility] HepA Aged Out No longer eligib le based on patient's age to complete this to pic Hib Aged Out No longer eligib le based on patient's age to complete this to pic IPV (Polio) Aged Out No longer eligib le based on patient's age to complete this to pic MCV4 Aged Out No longer eligib le based on patient's age to complete this to pic Pneumococcal Aged Out No longer eligib le based on patient's age to complete this to pic Insurance Payer Benefit Plan Subscriber ID Effective Dates Phone Address Type / Group BCBS BCBS CCS BLUE [id number] 2017-Katherine [address] [address] Commercial LINK t [place] [id number] [facility] [id number] 2021-Prese [phone] [address] [place] [address] Hi, Personal/Family Self 1980 [address] (Home) [address] [phone] AV[place]ASH [place] , ([place]) [place] [address] Care Teams Senior Firewall Engineer Relationship Specialty Start Date End Date Needs Pcp, Assignment PCP - General 04/06/17 [place] [address]
--- OUTSIDE RECORDS SUMMARY | 2022-07-09 10:00 | XMS_ITS | Encounter Summary ---
:1980 Author Organization [facility] Address [address] [place] [address] Care Team Providers Name Role Phone Needs Pcp, Assignment Primary Care Provider Reason for Visit Reason Comments Skin Check Encounter Details Date Type Department Care Team Description 01/12/2018 Office Visit Ashlyn Moss Sun-dama ged skin (Primary Dx); Dermatology Seborrheic keratosis; [address] [address] [address] Skin exam for malignant neoplasm; [place] [address] [place], [place] Family history of malignant melanoma; [phone] [address] Family history of nonmelanoma skin cance r [phone] (Wo rk) Social History Tobacco Use Types Packs/Day Years Used Date Smoking Tobacco: Never Smokeless Tobacco: Never Sex Assigned at Date Recorded Not on file documented as of this encounter Patient Instructions Patient InstructionsMary Beth Delacruz RN - 01/12/2018 9:15 AM CDT 1. Clothing and shade are the best for sun protection. 2. Use sunscreen with zinc in it. See below for Dr. Bingham's sunscreen recommendations. DIRECT PHONE NUMBER: VLADIMIR DAVIS [phone]. FEEL FREE TO CALL WITH ANY QUESTIONS OR CONCERNS YOU MAY HAVE.PANFILO MOLES TO HAVE CHECKED IN CLINIC: BLACK, LEDEZMA OR BROWN IN THE CENTER WITH A RED OR COPPER TONE COLORING AROUND IT. ANY MOLES THAT CHANGE OR DOUBLE IN SIZE. SUNSCREEN: PREFER CLOTHING OVER SUNSCREEN. WHEN USING SUNSCREEN, PREFER SUNSCREEN THAT ARE ZINC BASED AND ARE AT LEAST 5% ZINC. * FOR EXAMPLE: VANICREAM SPF 30 OR 50, NEUTROGENA SENSITIVE SKIN, LISA, BLUE LIZARD FOR SENSITIVE SKIN, BULLFROG SUNSCREEN, AND TERRASPORT OR AQUASPORT WHICH ARE AVAILABLE AT [employer] OR ONLINE. *MORE ELEGANT SUNSCREENS WITH ZINC IN IT CITY BLOCK BY EVELINE BRO MD WHICH IS AVAILABLE AT [employer]: [email or web address] THIS WILL LIST [...] USE Thank you for choosing Dermatology at [facility]! We welcome your feedback. Comment cards are located in our lobby. For questions, please call and choose one of the following options: - for appointments and scheduling, press 1 - to speak with a nurse about a medical question from 7:30 am to 5 pm, press 2 - after hours emergencies, follow the instructions to be transferred to the mason helper provider For medication refills, please contact your pharmacy. For questions regarding billing, please contact [employer] at . Please consider enrolling in [employer]works. Please follow the instructions below to securely access your online medical record. [employer]works allows you to send messages to your doctor, view your test results, renew your prescriptions, schedule appointments, and more. How Do I Sign Up? 1. In your Internet browser, go to: [email or web address] 2. Click on the Enter Activation Code link under the New User? section. You will see the New Member Sign Up page. 3. Enter your [employer]works Activation Code exactly as it appears below. You will not need to use this code after you???ve completed the sign-up process. If you do not sign up before the expiration date, youmust request a new code. [employer] Activation Code: [email or web address] Expires: 02/11/2018 9:13 AM 4. Enter the last four digits of your Social Security Number ([id number]) and Date of (mm/dd/yyyy) as indicated and click Next. You will be taken to the next sign-up page. 5. Create a payworks ID. This will be your payworks login ID and cannot be changed, so think of one that is secure and easy to remember. 6. Create a payworks password. You can change your password at any time. 7. Enter your Security Question and Answer. This can be used at a later time if you forget your password. Click Next. 8. Enter your e-mail address. You will receive e-mail notification when new information is availablein payworks. 9. Click Sign In. You can now view your medical record. Additional Information If you have questions, you can call [phone] to talk to our payworks staff. Remember, [employer]works is NOT to be used for urgent needs. For medical emergencies, dial 911. documented in this encounter Progress Notes Ashlyn Wilkinson MD - 01/12/2018 9:33 AM CDT NAME: ESTER DO MR#: [id number] CSN: [id number] AUTHENTICATING CLINICIAN: Ashlyn Wilkinson MD CONFIRM #: [id number] LOC: 527 CLINIC PROGRESS NOTE DATE OF VISIT: 01/12/2018 : 1980 Ester is a 37-year-old here for full-body exam. She is granddaughter to Clarence and Ángel, and her uncle and Camille, her grandma, have all had melanoma. Her brother has had a melanoma as well. 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 She makes her own sunscreen out of non-nanoparticle zinc, Ramirez butter, coconut oil, essential oils. She uses this on her kids and on herself, but she does more clothing for sun protection as well. She had a fair amount of sun in her younger years. She uses Retin-A for acne, and we talked briefly. She is doing well, and she had no acne on exam today. EXAMINATION: Including scalp, face, neck, chest, back, abdomen, buttocks, groin, arms, legs, hands, feet, nails, perirectal and pubic area. She looks great. She has strawberry-blondish hair. It is certainly dyed but appears to be a strawberry- blond coloration, as well goes along with her family history. She has a fair number of junctional jentigines, lentigines over the shoulders and back and a fair number of nevi scattered over the back as well. I have photographs of the upper back and lower back. She has a nevus spilus left mid lateral back. She has a couple brown moles in the middle back that really are verybanal and look good. She has a few on the low back that are a little bit darker but look fine, lacy p attern. She has 1 on the right upper inner arm that is a little bit teardrop shaped, light brown, and it looks like it is breaking up and fading under the dermatoscope. Most interesting one is above the belly button that is fading. It is darker in the middle, light around the periphery, much supervisor telephone answering service than it has been, and again, broken up, fading pattern, does not look scary or worrisome. Scalp is clear except for a couple coleman hemangiomas. Face is beautiful with some normal compound nevi. Maybe a fibrous papule on the side of the nose near the alar groove. Feet show a couple freckly moles on the toes. Genitalia are clear. Perirectal is clear. A few nevi on the buttocks. She has no lal at all. ASSESSMENT: Very busy exam with strong family history of melanoma and congenital nevi, junctional dysplastic nevi, but excellent sun protection. We went over the ABCDEs of melanoma. Went over her sun protection, and she is a star. Recommended a yearly exam. I would refill Retin-A when needing that. VLV:MEDQ C: CONFIRM #: [id number] documented in this encounter Plan of Treatment [...] conditions documented in this encounter Care Teams Drag Out Worker Relationship Specialty Start Date End Date Needs Pcp, Assignment PCP - General 04/06/17 [place] [address] documented as of this encounter
--- OUTSIDE RECORDS SUMMARY | 2022-07-09 10:00 | XMS_ITS | Clinical Summary ---
:1980 Author Organization [facility] Address [address] [place] [address] Care Team Providers Name Role Phone Apurva Saldaña M.D. Primary Care Provider Source Comments Patient records contain information from all sites at [facility]. For routine questions regarding patient records, call [phone] during business hours, M-F 8:00 AM - 5:00 PM Central Time. Record requests for emergency care only can be directed to [phone] at any time.[facility] Allergies No known active allergies Medications Medication Sig Dispensed Refills Start Date End Date Status clindamycin-benzoyl Apply topically 2 50 g 2 01/25/2018 Active peroxide (BENZACLIN) (two) times a day. 1-5 % gel cholecalciferol Take 1,000 Units 0 Active (VITAMIN D3) 1,000 by mouth. Unit tablet levothyroxine 2 03/02/2019 Activ e (SYNTHROID, LEVOTHROID) 100 mcg tablet levothyroxine Taking one tablet 0 11/27/2012 Active (SYNTHROID, by mouth every LEVOTHROID) 112 mcg other day tablet ALTERNATING with 100 mcg every other day. UNABLE TO FIND Take 1 each by 1 each 0 05/25/2019 Active mouth daily. CBD oil, for depression amoxicillin-pot Take 1 tablet by 20 tablet 0 10/15/2021 Active clavulanate mouth every 12 (AUGMENTIN) 875-125 mg (twelve) hours. per tablet Additional Information Patient not taking. Reported on 04/19/2022 fluocinonide (LIDEX) APPLY TO AFFECTED 60 g 2 05/13/2022 05/13/2023 Active 0.05 % ointment AREA(S) OF HANDS AND FINGERS TOPICALLY TWO TIMES A DAY FOR UP TO 2 WEEKS AT A TIME levothyroxine TAKE 1 TABLET BY 90 tablet 3 04/13/2022 04/13/20 Active (SYNTHROID, LEVOTHROID) MOUTH DAILY 112 mcg tablet levothyroxine TAKE 1 TABLET BY 30 tablet 0 03/18/2022 03/18/20 23 Active (SYNTHROID, LEVOTHROID) MOUTH DAILY 112 mcg tablet sertraline (ZOLOFT) 100 Take 1 tablet (100 30 tablet 5 022 Active mg tablet mg total) by mouth every morning. Active Problems Problem Noted Date Pain Knee Left 11/09/2021 Bite Cat Hand Open Sequela Left 10/18/2021 Hypothyroidism 05/25/2019 Acne 05/25/2019 Depression Major Recurrent Severe 01/28/2014 Overview: Stopped RX treatment 03/2019 Encounters Date Type Specialty Care Team Description 06/01/2022 [facility]amm[facility] Apurva Rosales M.D. Breast Cancer 05/13/2022 Orders Only Pharmacy Negrito Freitas M.D. 04/19/2022 Office Visit Orthopedic Surgery Carlos Enrique Everett, Pain Knee Left M.D. (Primary Dx) 04/13/2022 Orders Only Pharmacy Lamont Flores M.D. from Last 3 Months Immunizations Name Administration Dates Next Due Influenza Split 09/26/2009 Influenza, Unspecified 07/13/2013, 09/26/2009 Rabies (Imovax) 10/18/2021, 10/15/2021 Rabies, intramuscular, historical 10/22/2021 Tdap 10/15/2021, 05/24/2016 Family History Medical History Relation Name Comments Cancer Aunt 1 Cancer Aunt 2 Melanoma Brother Melanoma Grandfather Cancer Grandmother 1 Breast cancer Grandmother 2 Maternal Melanoma Grandmother 2 Maternal Depression Mother EtOH - Alcohol Mother Melanoma Uncle Relation Name Status Comments Aunt 1 Aunt 2 Brother Grandfather Grandmother 1 Grandmother 2 Maternal Mother Uncle Social History Tobacco Use Types Packs/Day Years [...] do you attend islam or Never 2021 mandaen services? Do you belong to any clubs or No 10/21/2021 organizations such as islam groups, unions, fraIdeaForest or athletic groups, or school groups? How [...] place to sleep or slept in a usp (including now)? Education Answer Date Recorded What is the highest level of school Associate degree: yisel boateng, 10/20/2021 you have completed or the highest technical, or vocational p ondina degree you have received? 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 Vital Signs Vital Sign Reading Time Taken Comments Blood Pressure 136/74 10/15/2021 4:40 PM PICTURES EDITOR Pulse 74 10/15/2021 4:40 PM PICTURES EDITOR Temperature 36.8 ??C (98.2 ??F) 10/15/2021 4:40 PM PICTURES EDITOR Respiratory Rate 16 10/15/2021 4:40 PM PICTURES EDITOR Oxygen Saturation 98% 10/15/2021 4:40 PM PICTURES EDITOR Inhaled Oxygen Concentration - - Weight 65 kg (143 lb 4.8 oz) 10/15/2021 4:56 PM PICTURES EDITOR Height 164 cm (5' 4.57) 05/25/2019 11:33 AM CDT Body Mass Index 24.17 05/25/2019 11:33 AM CDT Plan of Treatment Health Maintenance Due Date Last Done Comments Depression Monitoring 1980 (PHQ-9) HIV Screening 1980 Hepatitis B Vaccines (1 of 1980 3 - 3-dose series) Hepatitis C Screening 1980 Mammogram 1980 COVID-19 Vaccine (3 - 04/10/2021 02/13/2021, 01/16/2021 Booster for Moderna series) Influenza Vaccine (#1) 2022 07/13/2013, 09/26/2009, 09/26/2009 Thyroid Stimulating Hormone 03/17/2023 03/17/2022, 10/22/19 22, (TSH) test for thyroid 08/31/2021, Additional function history exists Cervical Cancer Screening 05/02/2023 05/02/2020, 05/24/2016 , 02/27/2013, Additional history exists Lipid (Cholesterol) 04/25/2025 04/25/2020, 03/17/2012 Screening DTaP,Tdap,and Td Vaccines 10/15/2031 10/15/2021, 05/24/2016 (3 - Td or Tdap) Pneumococcal vaccine (0-64 Aged Out No lo nger eligible years) based on patient 's age to complete this topic Insurance Payer Benefit Plan / Subscriber ID Effective Phone Address T ype Group Dates [facility] [id number] 2020-Pres [phone] [address] [employer] [phone] [place] [address] Care Teams Camera Technician Relationship Specialty Start Date End Date Apurva Saldaña M.D. PCP - General 03/10/[address] [place] [address] [place] [phone]
--- OUTSIDE RECORDS SUMMARY | 2022-07-09 10:00 | XMS_ITS | Encounter Summary ---
:1980 Author Organization [facility] Address [address] [place] [address] Care Team Providers Name Role Phone Apurva Saldaña M.D. Primary Care Provider [phone] Reason for Visit Physical Therapy (Routine) - Authorized Specialty Diagnoses / Procedures Referred By Contact Refer red To Contact Diagnoses Pain Knee Left Cristina Barlow P.A.-Gary. [facility] Procedures PT Ongoing treatment [address] [place] [phone] Referral ID Status Reason Start Date Expiration Date Visits V isits Requested Authorized [id number] Authorized 11/09/2021 09/25/2022 99 99 Encounter Details Date Type Department Care Team Description 11/24/2021 Clinical Support Department of Cristina Barlow P.APelon-CPelon [address] [place] [phone] Pain Knee Left Rehabilitation Services Liliane Robertson P.T. in [address] [phone] Social History Tobacco Use Types Packs/Day Years [...] or relatives? How often do you attend tenriism or Never 2021 yarsanism services? Do you belong to any clubs or No 10/21/2021 organizations such as tenriism groups, unions, [email or web address] or athletic groups, or school groups? How [...] place to sleep or slept in a halfway (including now)? Education Answer Date Recorded What is the highest level of school Associate degree: yisel boateng, 10/20/2021 you have completed or the highest technical, or vocational p [facility] degree you have received? 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 - 11/24/2021 3:00 PM CST Physical Therapy Outpatient Treatment Note SUBJECTIVE Patient's Name: Ester Loraymundomarielos Referring Provider: Cristina Barlow P.A.-C. Visit Diagnosis: 1. Pain Knee Left Payor: [employer] / Plan: [employer] / Product Type: Indemnity / No data recorded Epic Visit Count: 3 Patient comments: Patient reports lingering L knee pain. Her pain is the worse when she kneels and when she stands up initially. She has returned to some exercise and completes without pain. Contact monitoring: PPE used during therapy: Therapist was wearing the following PPE throughout entire session: surgicalmask and eye protection Patient was wearing a mask during therapy session: yes OBJECTIVE Pain: L knee tenderness Palpation: Pain to palpation of left inferior fat pad and medial retincular fibers Palpation: Patient has pain to palpation of left infrapatellar fat pad ?? Joint Mobility: 1 quadrant??patellar mobility in the medial/lateral and inferior/superior direction TREATMENT Treatment today consisted of: Manual Therapy: -Patellar mobilization each direction x10 -STM to infrapatellar fat pad and medial retincular fibers Therapeutic Exercise: -Quad set -Straight leg raise -Quad stretch -Forward step ups -Lateral heel taps off step -Backward step ups -Band resisted hip abduction -Band resisted hip extension -Band resisted squat to promote hip abduction -Band resisted monster walks Home Exercise Program/Education: Access Code: [email or web address] URL: [email or web address] ITB stretch, Quad stretch, hamstring stretch, clamshell, sidelying hip abduction, piriformis stretch, band resisted squat, monster walks Pt reports good compliance with her HEP. Assessment Clinical Impression: Patient is a pleasant 41 year old female who presents for continued physical therapy for left knee pain. Today she demonstrates knee valgus with single leg squats. Patient demonstrates decreased strength in L VMO and restrictions in left medial retinacular fibers of the knee causing poor patellar mechanics during knee flexion. We performed STM and strength exercises today to tolerance. Patient would benefit from physical therapy to reduce pain and allow full return to prior level of pain free function. Functional Goals and Timeframes: PT Goal #1: [...] recorded Plan Plan for next session: STM, VMO exercises, strength. Time Spent with Patient Manual Therapy (min): 15 min Therapeutic Exercise (min): 23 min Time Calculation Total Timed Units (min): 38 min Total Treatment Time (min): 38 min T EFFECTS SPECIALIST documented in this encounter Plan of Treatment Not on filedocumented as of this encounter Visit Diagnoses Diagnosis Pain Knee Left documented in this encounter Additional Health Concerns Assessment Noted Time PHQ-9 Depression Total Score: 3 12/20/2016 9:55 AM CDT documented as of this encounter Care Teams Ob Nurse Relationship Specialty Start Date End Date Apurva Saldaña M.D. PCP - General 03/10/[address] [place] [phone] documented as of this encounter
--- OUTSIDE RECORDS SUMMARY | 2022-07-09 10:00 | XMS_ITS | Encounter Summary ---
:1980 Author Organization [facility] Address [address] [place] [address] Care Team Providers Name Role Phone Apurva Saldaña M.D. Primary Care Provider [phone] Reason for Referral MRI/CAT/PET Scan (Routine) - Closed Specialty Diagnoses / Procedures Referred By Contact Refer red To Contact Radiology Diagnoses Pain Knee Left Cristina Barlow P.A.-C. [facility] [place] [facility] Procedures MR Knee Left without IV Contrast AL MRI LWR EXT JOINT WO CNTRST [address] [place] [phone] Referral ID Status Reason Start Date Expiration Date Visits Requ ested Visits Authorized [id number] Closed 03/04/2022 03/04/2023 1 1 Reason for Visit MRI/CAT/PET Scan (Routine) - Closed Specialty Diagnoses / Procedures Referred By Contact Refer red To Contact Radiology Diagnoses Pain Knee Left Cristina Barlow P.A.-C. [facility] [place] [facility] Procedures MR Knee Left without IV Contrast AL MRI LWR EXT JOINT WO CNTRST [address] [place] [phone] Referral ID Status Reason Start Date Expiration Date Visits Requ ested Visits Authorized [id number] Closed 03/04/2022 03/04/2023 1 1 Encounter Details Date Type Department Care Team Description 03/11/2022 Hospital Encounter Department of Cristina Barlow, Pain Knee Left Radiology in [facility]. [address] [place] [phone] Social History Tobacco Use Types Packs/Day [...] or relatives? How often do you attend yarsani or Never 2021 mormonism services? Do you belong to any clubs or No 10/21/2021 organizations such as yarsani groups, unions, fraternal or athletic groups, or [...] place to sleep or slept in a long-term (including now)? Education Answer Date Recorded What is the highest level of school Associate degree: yisel boateng, 10/20/2021 you have completed or the highest technical, or vocational p ondina degree you have received? 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 cholecalciferol (VITAMIN Take 1,000 Units by 0 D3) 1,000 Unit tablet mouth. clindamycin-benzoyl Apply topically 2 50 g 2 8 peroxide (BENZACLIN) 1-5 % (two) times a day. gel levothyroxine (SYNTHROID, 2 03/02/2019 LEVOTHROID) 100 mcg tablet levothyroxine (SYNTHROID, Taking one tablet by 0 11/27/2012 LEVOTHROID) 112 mcg tablet mouth every other day ALTERNATING with 100 mcg every other day. sertraline (ZOLOFT) 100 mg Take 1 tablet (100 mg 30 tablet 5 03/11/2022 tablet total) by mouth every morning. UNABLE TO FIND Take 1 each by mouth 1 each 0 05/25/2019 daily. CBD oil, for depression documented as of this encounter Plan of Treatment Not on filedocumented as of this encounter Procedures Procedure Name Priority Date/Time Associated Comments Diagnosis MR KNEE LEFT RAD - Routine 03/11/2022 3:57 Pain Knee Left Results f or this WITHOUT IV (most inpatients PM CDT procedure a re in CONTRAST and all the results outpatients) section. documented in this encounter Results MR Knee Left without [...] documented as of this encounter Care Teams Catalog Library Assistant Relationship Specialty Start Date End Date Apurva Saldaña M.D. PCP - General 03/10/[address] [place] [phone] documented as of this encounter
--- OUTSIDE RECORDS SUMMARY | 2022-07-09 10:00 | XMS_ITS | Encounter Summary ---
:1980 Author Organization [facility] Address [address], [place] [address] Care Team Providers Name Role Phone Needs Pcp, Assignment Primary Care Provider Reason for Visit Reason Comments Clinician Finder Team Encounter Details Date Type Department Care Team Description 12/22/2017 Telephone CODING DEPT ONLY 5050 Needs Pcp, Clinic viviana Finder Team FAMILY MEDICINE Assignment [place], [place] [address] Social History Tobacco Use Types Packs/Day Years Used Date Smoking Tobacco: Never Sex Assigned at Date Recorded Not on file documented as of this encounter Plan of Treatment Not on filedocumented as of this encounter Visit Diagnoses Not on filedocumented in this encounter Care Teams Still Operator Batch Or Continuous Relationship Specialty Start Date End Date Needs Pcp, Assignment PCP - General 04/06/17 [place] [address] documented as of this encounter
--- OUTSIDE RECORDS SUMMARY | 2022-07-09 10:00 | XMS_ITS | Encounter Summary ---
:1980 Author Organization [facility] Address [address] [place] [address] Care Team Providers Name Role Phone Apurva Saldaña M.D. Primary Care Provider [phone] Reason for Visit Physical Therapy (Routine) - Authorized Specialty Diagnoses / Procedures Referred By Contact Refer red To Contact Diagnoses Pain Knee Left Cristina Barlow P.APelon-Gary. [facility] Procedures PT Ongoing treatment [address] [place] [phone] Referral ID Status Reason Start Date Expiration Date Visits V isits Requested Authorized [id number] Authorized 11/09/2021 09/25/2022 99 99 Encounter Details Date Type Department Care Team Description 11/16/2021 Clinical Support Department of Cristina Barlow P.APelon-CPelon [address] [place] [phone] Pain Knee Left Rehabilitation Services Liliane Robertson P.T. in [address] [phone] Social History Tobacco Use Types Packs/Day Years [...] or relatives? How often do you attend mu-ism or Never 2021 tenriism services? Do you belong to any clubs or No 10/21/2021 organizations such as mu-ism groups, unions, fraComeks or athletic groups, or school groups? How [...] or the highest technical, or vocational p [facility] degree you have received? 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 - 11/16/2021 7:00 AM CST Physical Therapy Outpatient Treatment Note SUBJECTIVE Patient's Name: Ester Loraymundomarielos Referring Provider: Cristina Barlow P.A.-C. Visit Diagnosis: 1. Pain Knee Left Payor: [employer] RESOURCES / Plan: [employer] RESOURCES / Product Type: Indemnity / No data recorded Epic Visit Count: 2 Patient comments: Patient reports feeling okay. Her knee pain remains, she was unable to complete her exercises much last week due to being very busy with work. Contact monitoring: PPE used during therapy: Therapist was wearing the following PPE throughout entire session: surgicalmask and eye protection Patient was wearing a mask during therapy session: yes OBJECTIVE Pain: No pain at rest, minimal pain with activity and with palpation. Palpation: Patient has pain to palpation of left infrapatellar fat pad ?? Joint Mobility: 1 quadrant patellar mobility in the medial/lateral and inferior/superior direction TREATMENT Treatment today consisted of: Manual Therapy: -Patellar mobilization each direction x10 -STM to infrapatellar fat pad Therapeutic Exercise: -Supine ITB Stretch with Strap -Standing ITB Stretch -Standing Quadriceps Stretch -Seated Hamstring Stretch -Passive sidelying quad stretch -Passive sidelying ITB stretch -Supine passive piriformis stretch -Quad set x15 Sidelying Hip Abduction Seated Table Piriformis Stretch Supine Figure 4 Piriformis Stretch with Leg Extension Home Exercise Program/Education: Access Code: [email or web address] URL: [email or web address] Date: 11/09/2021 Prepared by: JER Little ?? Exercises Supine ITB Stretch with Strap - 2 x daily - 7 x weekly - 60 hold Standing ITB Stretch - 2 x daily - 7 x weekly - 60 hold Standing Quadriceps Stretch - 2 x daily - 7 x weekly - 60 hold Seated Hamstring Stretch - 2 x daily - 7 x weekly - 60 hold Clamshell with Resistance - 1 x daily - 5-7 x weekly - 2-3 sets - 10 reps Sidelying Hip Abduction - 1 x daily - 5-7 x weekly - 2-3 sets - 10 reps Seated Table Piriformis Stretch - 2 x daily - 7 x weekly - 60 hold Supine Figure 4 Piriformis Stretch with Leg Extension - 2 x daily - 7 x weekly - 60 hold Pt reports fair compliance with her HEP. Assessment Clinical Impression: Patient is a pleasant 41 year old female who presents for continued physical therapy for left knee pain. Today we provided with patient with hip stretching and strengthening exercises. Patient tolerates well, was encouraged to complete all exercises 1x/week. We will see patient back in 1 week to work on STM, stretching, and standing strength exercises. Patient would benefit from physical therapy to [...] data recorded Plan Plan for next session: Tennis ball for piriformis Time Spent with Patient Therapeutic Exercise (min): 34 min Time Calculation Total Timed Units (min): 34 min Total Treatment Time (min): 34 min PATIONAL THERAPY DIRECTOR documented in this encounter Plan of Treatment Not on filedocumented as of this encounter Visit Diagnoses Diagnosis Pain Knee Left documented in this encounter Additional Health Concerns Assessment Noted Time PHQ-9 Depression Total Score: 3 12/20/2016 9:55 AM CDT documented as of this encounter Care Teams License Issuer Relationship Specialty Start Date End Date Apurva Saldaña M.D. PCP - General 03/10/[address] [place] [phone] documented as of this encounter
--- OUTSIDE RECORDS SUMMARY | 2022-07-09 10:00 | XMS_ITS | Encounter Summary ---
:1980 Author Organization [facility] Address [address] [place] [address] Care Team Providers Name Role Phone Apurva Saldaña M.D. Primary Care Provider [phone] Reason for Referral Outpatient (Routine) - Authorized Specialty Diagnoses / Procedures Referred By Contact Refer red To Contact Diagnoses Screening Mammogram Breast Cancer Apurva Saldaña [facility] [place] [facility] Procedures BI Breast Screening Bilateral with Tomosynthesis Abram Rosales [address] [place] [phone] Referral ID Status Reason Start Date Expiration Date Visits V isits Requested Authorized [id number] Authorized 06/01/2022 06/01/2023 1 1 Encounter Details Date Type Department Care Team Description 06/01/2022 Orders Only [facility] PCP [facility] Daja Osuna, Scr eening Mammogram MARJORIET Apurva Rosales M.D. Breast Cancer [address] [place] [phone] (Wo rk) Social History Tobacco Use Types [...] or relatives? How often do you attend religious or Never 2021 gnosticism services? 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 encounter Plan of Treatment Scheduled Orders Name Type Priority Associated Order Schedule Diagnoses BI Breast Screening Imaging RAD - Routine (most Screening Mamm ogram Expected: Bilateral with inpatients and all Breast Cancer 2021, Tomosynthesis outpatients) Expires: 11/28/2022 documented as of this encounter Visit Diagnoses Diagnosis Screening Mammogram Breast Cancer documented in this encounter Additional Health Concerns Assessment Noted Time PHQ-9 Depression Total Score: 3 12/20/2016 9:55 AM CDT documented as of this encounter Care Teams Block Placer Relationship Specialty Start Date End Date Apurva Saldaña M.D. PCP - General 03/10/[address] [place] [phone] documented as of this encounter
--- OUTSIDE RECORDS SUMMARY | 2022-07-09 10:00 | XMS_ITS | Encounter Summary ---
:1980 Author Organization [employer] Address [address] [place] [address] Care Team Providers Name Role Phone Unavailable Primary Care Provider Unavailable Reason for Visit Reason Comments Skin Check Encounter Details Date Type Department Care Team Description 04/07/2015 Office Visit Ashlyn Moss Sun-dama ged skin (Primary Dx); Dermatology MD Other seborrheic keratosis; [address] [address] [address]; [place] [address] [place], [place] Family history of malignant melanoma; [phone] [address] Family history of nonmelanoma skin cance r; [phone] (Wo rk) Screening for malignant neoplasm of the skin; Dysplasti c nevus; Nevus spilus; Acne, unspecifi ed acne type Social History Tobacco Use Types Packs/Day Years Used Date Smoking Tobacco: Never Assessed Sex Assigned at Date Recorded Not on file documented as of this encounter Patient Instructions Patient InstructionsNia Gamble MA - 04/07/2015 8:46 AM CDT DIRECT PHONE NUMBER: NIA WHITTAKER [phone]. FEEL FREE TO CALL WITH ANY QUESTIONS OR CONCERNS YOU MAY HAVE. MOLES TO HAVE CHECKED IN CLINIC: BLACK, LEDEZMA OR BROWN IN THE CENTER WITH A RED OR COPPER TONE COLORING AROUND IT. ANY MOLES THAT CHANGE OR DOUBLE IN SIZE. SUNSCREEN: PREFER CLOTHING OVER SUNSCREEN. WHEN USING SUNSCREEN, PREFER SUNSCREEN WITH ZINC BASE. * FOR EXAMPLE: VANSREE SPF 30 OR 50, NEUTROGENA SENSITIVE SKIN, CITY BLOCK BY CLINIQUE, BLUE LIZARD OR AQUASPORT WHICH IS AVAILABLE AT [facility]. VITAMIN D-3 RECOMMENDATIONS: - TAKE VITAMIN D [...] LOTION, EUCERIN PROFESSIONAL REPAIR, EUCERIN ECZEMA RELIEF, AND CUREL LOTION. *BEST TO APPLY THESE RIGHT AFTER A SHOWER OR BATH IN ADDITION TO YOUR DAILY USE ACNE: * RETIN-A: USE TWICE A WEEK. - MAY WANT TO RUBBER BAND IT TO YOUR TOOTH PASTE SO YOU CAN REMEMBER TO USE IT. * CLINDAMYCIN: OK TO CONTINUE USING * REFRAIN FROM COWS MILK YOU ALREADY ARE AND THEN REDUCE SUGAR. COULD CONSIDER GLUTEN FREE. (DAIRY PRODUCTS ARE USUALLY STILL FINE TO EAT - YOGURT, ICE-CREAM, AND CHEESE ECT. * CAN CONTINUE TO USE COCONUT OIL YOU DISCUSSED * FOOD ALLERGIES CAN CAUSE ACNE - SOME COMMON FOOD ALLERGIES: STRAWBERRIES, EGGS, SOY, CORN, WHEAT, CHOCOLATE, SHELL FISH, TOMATO, PEANUTS AND NUTS CAN CAUSE ACNE FLARES FOR SOME PEOPLE Thank you for choosing Dermatology at [facility]! We welcome your feedback. Comment cards are located in our lobby. For questions, please call and choose one of the following options: - for appointments and scheduling, press 1 - to speak with a nurse about a medical question from 7:30 am to 5 pm, press 2 - after hours emergencies, follow the instructions to be transferred to the finance consultant provider For medication refills, please contact your pharmacy. For questions regarding billing, please contact [facility] at . Please consider enrolling in [employer]. Please follow the instructions below to securely access your online medical record. [employer] allows you to send messages to your doctor, view your test results, renew your prescriptions, schedule appointments, and more. How Do I Sign Up? 1. In your Internet browser, go to: [email or web address] 2. Click on the Enter Activation Code link under the New User? section. You will see the New Member Sign Up page. 3. Enter your [employer] Activation Code exactly as it appears below. You will not need to use this code after you???ve completed the sign-up process. If you do not sign up before the expiration date, youmust request a new code. [employer] Activation Code: [email or web address] Expires: 05/07/2015 8:28 AM 4. Enter the last four digits of your Social Security Number ([id number]) and Date of (mm/dd/yyyy) as indicated and click Next. You will be taken to the next sign-up page. 5. Create a [employer] ID. This will be your [employer] login ID and cannot be changed, so think of one that is secure and easy to remember. 6. Create a [employer] password. You can change your password at any time. 7. Enter your Security Question and Answer. This can be used at a later time if you forget your password. Click Next. 8. Enter your e-mail address. You will receive e-mail notification when new information is availablein [employer]. 9. Click Sign In. You can now view your medical record. Additional Information If you have questions, you can call [phone] to talk to our [employer] staff. Remember, [employer] is NOT to be used for urgent needs. For medical emergencies, dial 911. documented in this encounter Progress Notes Ashlyn Wilkinson MD - 04/07/2015 9:13 AM CDT Progress Notes signed by Ashlyn Bingham MD at 04/07/152117 Author: Ashlyn Bingham MD Service: (none) Author Type: Physician Filed: 04/07/152117 Note Time: 04/07/15 6992 Status: Signed Electronics Scale Tester: Ashlyn Bnigham MD (Physician) NAME: ESTER DO MR#: [id number] CSN: [id number] AUTHENTICATING CLINICIAN: Ashlyn Wilkinson MD CONFIRM #: [id number] LOC: 527 CLINIC PROGRESS NOTE DATE OF VISIT: 04/07/2015 : 1980 Ester is a 35-year-old granddaughter of Clarence and niece to Ángel. Ángel has had melanoma, and her grandmother Camille has had melanoma as well. Also her brother who lives [place], I believe, has had melanoma. She has 2 boys, age 3 and 8. She has made her own sunscreen but maybe did not put enough zinc in and burned a little bit on the upper back and shoulders recently. She has had terrible acne and sheis not sure why. She did go off milk. She cut down the sugars. She has made her own soap with some essential oils and coconut. We have photographs in the chart of some of her nevi we want to follow. Abhishek give her Retin-A 0.1% for the acne, but she forgets to use it. Full-body exam today including scalp, face, neck, chest, back, abdomen, buttocks, groin, arms, legs,hands, feet, nails, perirectal, and pubic area, reveals strawberry blond with fine inflammatory papules that are tiny, scattered almost diffusely across the forehead and the sides of the face, a littlebit central face, and definitely neck as well. It looks much more allergenic than real true acne, and so we talked at length about topicals, but I did not talk to her about essential oils and that maybe something we will have to think about. 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 She has a mole on the middle midback that is light brown, probably her largest, and 1 on the left upper back that is more of a compound dysplastic nevus. She has a few on the low back, 3 in a row. They are unchanged from the photographs, although the photographs make them look more atypical. Umbilical mole above the belly button is kind of target shaped with a darker center, realty loan specialist periphery, and a small little light brown nevus at the edge, a eloisa within at the edge that is unchanged from the photograph. But the photograph makes this mole look much redder and darker and it is really light in color above the umbilicus, but it is a better size at about 8 mm. Perirectal is clear. A little bit of sunburn over the upper chest, shoulders, upper back. ASSESSMENT: Dysplastic nevi. Family history of melanoma. Acneiform rash, may be contact or allergy. PLAN: Talked about foods to avoid, but I think I will actually call her and tell her to get the essential oils out of her facial wash and see if that makes a difference too, just because people can get allergic. Went over what to be watching for. Encouraged better sun protection with clothing. [employer] brochure given. Retin-A I would restart twice a week, slowly increasing if tolerated and needed, and consider some dietary changes as well. Maybe peanuts eliminate and/or eggs. There are a lot of food allergies in the family, and we will go from there. VLV:MEDQ C: CONFIRM #: [id number] documented in this encounter Plan of Treatment Not on filedocumented as of this encounter Visit Diagnoses Diagnosis Sun-damaged skin - Primary Other chronic dermatitis due to solar ra diation Other seborrheic keratosis Caf?? au lait spot Other dyschromia Family history of malignant melanoma Family history of other specified malign ant neoplasm Family history of nonmelanoma skin cance r Family history of skin conditions Screening for malignant neoplasm of the skin Dysplastic nevus Benign neoplasm of skin, site unspecifie d Nevus spilus Benign neoplasm of skin, site unspecifie d Acne, unspecified acne type documented in this encounter
--- OUTSIDE RECORDS SUMMARY | 2022-07-09 10:00 | XMS_ITS | Encounter Summary ---
:1980 Author Organization [facility] Address [address] [place] [address] Care Team Providers Name Role Phone Apurva Saldaña M.D. Primary Care Provider [phone] Encounter Details Date Type Department Care Team Description 02/24/2022 Clinical Communication [facility] Ros[facility] M.[facility] [address] [address] [place], [place] [phone] (Work) [phone] Social History Tobacco Use Types Packs/Day Years [...] or relatives? How often do you attend mosque or Never 2021 congregation services? Do you belong to any clubs or No 10/21/2021 organizations such as mosque groups, unions, fraternal or athletic groups, or [...] place to sleep or slept in a care home (including now)? Education Answer Date Recorded What is the highest level of school Associate degree: yisel boateng, 10/20/2021 you have completed or the highest technical, or vocational p ondina degree you have received? 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 - 03/04/2022 2:15 PM CDT Patient was left a voicemail to contact scheduling to schedule a left knee mri and follow up with Cristina around a week later. Telephone Encounter - Apurva Saldaña M.D. - 02/25/2022 8:58 AM CDT Forwarding to orthopedics as I have not seen patient for this problem. Telephone Encounter - Phylicia Mattson - 02/25/2022 8:54 AM CDT No mention of MRI in PT notes. Please advise. Telephone Encounter - Gertrude Vu - 02/24/2022 4:22 PM CDT ORDER/LAB/REFERRAL REQUEST: Name of test/referral/order requested: MRI Reason for request: Patient called wondering if provider can order an MRI of her knee based of notesfrom physical therapist, please call patient to advise Date needed: MONIKA Routing: -Order and Lab requests go to [facility] PCP PANEL MANAGERS -Referral Requests go to PCPs METAL RIVET MACHINE OPERATOR pool ??? Please pend orders prior to routing to PCP/Provider ??? DOS/PASS are encouraged to pend orders prior to forwarding message documented in this encounter Plan of Treatment Not on filedocumented as of this encounter Visit Diagnoses Not on filedocumented in this encounter Additional Health Concerns Assessment Noted Time PHQ-9 Depression Total Score: 3 12/20/2016 9:55 AM CDT documented as of this encounter Care Teams Tree Shear Operator Relationship Specialty Start Date End Date Apurva Saldaña M.D. PCP - General 03/10/[address] [place] [phone] documented as of this encounter
--- OUTSIDE RECORDS SUMMARY | 2022-07-09 10:00 | XMS_ITS | Encounter Summary ---
:1980 Author Organization [facility] Address [address] [place] [address] Care Team Providers Name Role Phone Apurva Saldaña M.D. Primary Care Provider [phone] Reason for Visit Reason Comments Pain Follow-up Outpatient (Routine) - Closed Specialty Diagnoses / Procedures Referred By Contact Refer red To Contact Orthopedic Surgery Cristina Barlow P.A. -C. [address] [phone] Referral ID Status Reason Start Date Expiration Date Visits Requ ested Visits Authorized [id number] Closed 03/04/2022 03/04/2023 1 1 Encounter Details Date Type Department Care Team Description 04/19/2022 Office Visit Department of Everett Monaco Pain Knee Left Orthopedic Surgery in [place]. (Primary Dx) [address] [phone] Social History Tobacco Use Types Packs/Day Years [...] or relatives? How often do you attend faith or Never 2021 samaritan services? Do you belong to any clubs or No 10/21/2021 organizations such as faith groups, unions, fraternal or athletic groups, or [...] to sleep or slept in a senior living (including now)? Education Answer Date Recorded What is the highest level of school Associate degree: yisel boateng, 10/20/2021 you have completed or the highest technical, or vocational p ondina degree you have received? 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 - 04/19/2022 1:30 PM CDT CHIEF COMPLAINT/REASON FOR VISIT Follow up left knee pain. HISTORY OF PRESENT ILLNESS Ester is a 42-year-old female who has been dealing with a couple of years of knee pain that is morenoticeable in deep flexion positions. She states that she cannot sit in ijeoma-cross applesauce type position, which is what she noticed 2 years ago. Ultimately, the symptoms continued to be problematic, even with some therapy. She states that therapy has been helpful for her patellofemoral symptoms. She states that the pain at the IT band and about the kneecap has gotten better with PT, but this is only if she does the exercises on a daily basis. She is wondering if there are other options to help her symptoms or if there is something that has damaged the knee that is not allowing her to progress back to her weighted squats and exercises like she used to do. She is still doing some rowing and somelow-impact things without significant pain. She is not using any anti-inflammatories, topical ointments, heat or ice. Again, the therapy has been helpful for her patellofemoral syndrome. OBJECTIVE PHYSICAL EXAMINATION The patient is alert and pleasant, in no acute distress. Evaluation of the left hip reveals flexion of 90, internal rotation of 50, external rotation of 50 without significant pain. Impingement maneuver is negative, but does produce lateral hip pain about the IT band and in the greater trochanteric bursa. She has tenderness along the IT band, all the way down to Gerdy's tubercle. She has excellent patellar tracking with some mild lateral tightness today on clinical exam. She has no J-tracking, but does have tight hamstrings when trying to perform this maneuver actively. She has an intact range of motion with a couple degrees of hyperextension. Flexion is to 130 degrees today without significant pain again and good patellar tracking. Stable ligamentous exam to varus and valgus stress, posterior drawer, and Tanya's. DIAGNOSTICS MRI and x-rays were reviewed with the patient today. MRI does show a well-positioned patella. Some mild chondromalacia laterally without focal loss. Somemild chondromalacia of the condyles, but without focal loss. Collaterals and cruciates are intact. Menisci are intact. ASSESSMENT / PLAN #1 Left knee pain #2 Left patellofemoral pain syndrome PLAN: At this point in time, the patient does have some chondromalacia, but at this juncture, I do not think that is severe enough to warrant further injectable management. I think that the therapy is appropriate for her to continue focusing on stretching and strengthening, but making that next step ba ck into the weighted world where she was doing more active strengthening. I did tell her to be mindful of her position and the technique of squats, lunges, and another activities that she may do, to try and focus on VMO strengthening, and limit the stress across her kneecap. We also discussed some of the lower impact exercises and avoidance of higher impact exercise like running and jumping. In the future, if she were to continue to have some symptoms, hip x-rays to evaluate for any focal signs in the hip that might be contributing to some of the IT band tightness and patellofemoral symptoms would be an appropriate next step. The patient understands the above. Her questions were answered. We will s ee her back in the clinic as discussed for her knee symptomatology. documented in this encounter Plan of Treatment Not on filedocumented as of this encounter Visit Diagnoses Diagnosis Pain Knee Left - Primary documented in this encounter Additional Health Concerns Assessment Noted Time PHQ-9 Depression Total Score: 3 12/20/2016 9:55 AM CDT documented as of this encounter Care Teams Street Car Inspector Relationship Specialty Start Date End Date Apurva Saldaña M.D. PCP - General 03/10/[address] [place] [phone] documented as of this encounter
--- OUTSIDE RECORDS SUMMARY | 2022-07-09 10:00 | XMS_ITS | Encounter Summary ---
:1980 Author Organization [facility] Address [address] [place] [address] Care Team Providers Name Role Phone Apurva Saldaña M.D. Primary Care Provider [phone] Encounter Details Date Type Department Care Team Description 02/24/2022 Clinical Communication Department of Cristina Barlow, [place] [address] [place] [phone] Social History Tobacco Use Types Packs/Day Years [...] or relatives? How often do you attend sikh or Never 2021 mandaen services? Do you belong to any clubs or No 10/21/2021 organizations such as sikh groups, unions, fraternal or athletic groups, or [...] place to sleep or slept in a retirement (including now)? Education Answer Date Recorded What is the highest level of school Associate degree: yisel boateng, 10/20/2021 you have completed or the highest technical, or vocational p ondina degree you have received? 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 PCP - General 03/10/[address] [place] [phone] documented as of this encounter
--- OUTSIDE RECORDS SUMMARY | 2022-07-09 10:01 | XMS_ITS | Encounter Summary ---
:1980 Author Organization [facility] Address [address] [place] [address] Care Team Providers Name Role Phone Apurva Saldaña M.D. Primary Care Provider [phone] Reason for Referral Specialty Diagnoses / Procedures Referred By Contact Refer red To Contact Garo Sawyer, C.N .PPelon [facility] Region [address] [place] [phone] Referral ID Status Reason Start Date Expiration Date Visits Requ ested Visits Authorized Scheduling Instructions Order will need to be released when anirudh ent arrives. SUPERVISOR Reason for Visit Reason Comments Animal Bite Encounter Details Date Type Department Care Team Description 10/15/2021 Emergency [facility] Garo Sawyer B ite Cat Hand Open Initial Left (Primary Dx); Department C.N.P. Need Vaccine Immunization Rabies [address] [place] [address] [address] [place], [place] Prasanth Tripathi [address] [place] [phone] (Wo rk) Social History Tobacco Use Types [...] or relatives? How often do you attend buddhism or Never 2021 pentecostal services? Do you belong to any clubs or No 10/21/2021 organizations such as buddhism groups, unions, fraPinocular or athletic groups, or school groups? How [...] place to sleep or slept in a residential (including now)? Sex Assigned at Date Recorded Female 10/20/2021 8:03 PM DIVE SUPERVISOR documented as of this encounter Last Filed Vital Signs Vital Sign Reading Time Taken Comments Blood Pressure 136/74 10/15/2021 4:40 PM DIVE SUPERVISOR Pulse 74 10/15/2021 4:40 PM DIVE SUPERVISOR Temperature 36.8 ??C (98.2 ??F) 10/15/2021 4:40 PM DIVE SUPERVISOR Respiratory Rate 16 10/15/2021 4:40 PM DIVE SUPERVISOR Oxygen Saturation 98% 10/15/2021 4:40 PM DIVE SUPERVISOR Inhaled Oxygen Concentration - - Weight 65 kg (143 lb 4.8 oz) 10/15/2021 4:56 PM DIVE SUPERVISOR Height - - Body Mass Index 24.17 05/25/2019 11:33 AM CDT documented in this encounter Discharge Instructions Discharge InstructionsStGaro herrera, C.N.P. - 10/15/2021 5:39 PM CST You were given the IMMOVAX for rabies vaccine. You need three more doses to finish the series. Day 3 10/18/21 ( have to get in [facility]) Day 7 10/22/21 - schedule for the clinic [facility] and call them tomorrow to order it. Day 14 10/29/21 at the [facility]. Any signs of infection which includes swelling, redness, drainage, pain return to the ED. Antibiotics as scheduled. SUPERVISOR documented in this encounter Medications at Time of Discharge [...] % gel documented as of this encounter ED Notes Garo Sawyer, C.N.P. - 10/15/2021 5:07 PM CST Images from the original note were not included. CHIEF COMPLAINT/REASON FOR VISIT Animal Bite HISTORY OF PRESENT ILLNESS Ester Do is a 41 y.o. who has no past medical history on file. Patient presents to the emergency Department with complaints of cat bite. Patient presents to the emergency department after a getting bit by a feral cat. Patient states there has been and orange cat that has been out and about in the neighborhood. She states it was in her garage common appeared to be hurts so she went to pick it up and bring it back to the inspector agricultural commodities and the cat scratched and then bit her. She did call 2 people who she thought might have only CT, they both came over looked at it and they both stated that this was not there CT. In the meantime the CT did escape and is now on the run. Patient is concerned since it was essentially a unprovoked bite (cat scared and possibly hurt) if she would need rabies injections. She states she did call the nurse line and they recommend she be evaluated. Patient thinks her tetanus was in last 5 years. Patient is complainingof left hand pain at the site of bites. She has 2 bites on the dorsum of the hand and 2 bites in thepalmar surface of the hand. This happened within the last 2 hours. Patient denies any other injury. History provided by: Patient REVIEW OF SYSTEMS Constitutional: Negative for chills, diaphoresis, fatigue and fever. Respiratory: Negative for cough and shortness of breath. Gastrointestinal: Negative for nausea and vomiting. Musculoskeletal: Positive for extremity pain. Negative for arthralgias and myalgias. Skin: Positive for wound. Negative for rash. Allergic/Immunologic: Negative for immunocompromised state. Neurological: Negative for dizziness, weakness and headaches. Hematological: Negative for adenopathy. Does not bruise/bleed easily. All other systems reviewed and are negative. Allergies Reviewed in medical record Current Medications Reviewed in Medical Record. PAST HISTORY Medical History reviewed. No pertinent past medical history. Patient Active Problem List Diagnosis ??? Depression Major Recurrent Severe (HCC) ??? Hypothyroidism ??? Acne Surgical Past Surgical History: Procedure Laterality Date ??? AUGMENTATION MAMMOPLASTY N/A 09/26/2006 Breast augmentation ??? CHOLECYSTECTOMY N/A 2000 Cholecystectomy ??? LIGATION OF FALLOPIAN TUBE N/A 2011 Tubal ligation Family Reviewed in Medical Record Social History Social History Tobacco Use ??? Smoking status: Never Smoker ??? Smokeless tobacco: Never Used Substance Use Topics ??? Alcohol use: Not on file Social History Substance and Sexual Activity Drug Use Not on file OBJECTIVE Initial Vital Signs / Weights Initial Vitals Temperature Pulse Rate Heart Rate Resp Rate Blood Pressure SpO2 10/15/21 1640 10/15/21 1640 -- 10/15/21 1640 10/15/21 1640 10/15/21 1640 36.8 ??C 74 16 136/74 98 % Pain Score 10/15/21 1701 0 - No pain Wt Readings from Last 3 Encounters: 10/15/21 65 kg 05/25/19 65.4 kg 11/27/12 56.4 kg PHYSICAL EXAMINATION Constitutional: Nursing note and vitals reviewed. She appears well-developed and well-nourished. No distress. HENT: Nose: No nasal discharge. Mouth/Throat: Oropharynx is clear and moist. Mucous membranes are moist. No tonsillar exudate. Eyes: Conjunctivae are normal. Pupils are equal, round, and reactive to light. Neck: Neck supple. Cardiovascular: Normal rate. Pulses are strong and palpable. Capillary refill: takes less than 3 seconds, Pulmonary/Chest: Effort normal. No respiratory distress. Musculoskeletal: General: Normal range of motion. Hands: Cervical back: Normal range of motion and neck supple. Lymphadenopathy: She has no cervical adenopathy. Neurological: Alert and oriented to person, place, and time. Skin: Skin is warm, dry and intact. Psychiatric: She has a normal mood and affect. DIAGNOSTICS Procedures rabbies immune globulin infiltrated around bites on left hand See separate procedure note. ED COURSE Final Diagnoses: as of 10/15/211753 Bite Cat Hand Open Initial Left Need Vaccine Immunization Rabies INTERVENTIONS Medications rabies immune globulin (PF) injection 1,305 Units (HyperRAB,IMOGAM) (1,305 Units intramuscular Givenby Other 10/15/21 1740) rabies (PF) vaccine 2.5 Units (IMOVAX) (2.5 Units intramuscular Given 10/15/21 171) Tdap: Aqiwgfc-iagkepuyyf-klaqbhkwi pertussis (PF) vaccine 0.5 mL (0.5 mL intramuscular Given ) MEDICAL DECISION MAKING IMPRESSION AND PLAN Patient presents to the emergency department with cat bite. This was a feral cat. She was unable to catch it and keep it contained after the bite. She was able to catch it and lock it in her garage until her to neighbors came to look at it to see if it wa there capped, they both stated that it was notthere cat. The cat somehow then got loose. Differential diagnosis includes but not limited to fracture, infection, cat bite, need for immunizations. Did discuss the risk benefits versus rabies vaccination. Since this is a feral cat, she does not believe should be able to catch it in contain it We did start a rabies vaccination as well as the rabiesimmune globulin. She was given the schedule for day 3, day 7, day 14 IMMOVAX rabies vaccination schedule. She will have her return to the emergency department on day 3, however day 7 and 14 she should be able to get at her clinic. The wounds were cleansed, there is no evidence of infection at this time. Her tetanus was updated. The wounds were then dressed. Both the immune globulin which was instilled into the wounds, and the IMMOVAX were initiated on today's visit. Was place on Abx prophylaxis with Augmentin. I reviewed previous medical records including documentation from previous visits. DIAGNOSIS Final diagnoses: [S61.452A] Bite Cat Hand Open Initial Left [Z29.14] Need Vaccine Immunization Rabies DISPOSITION DISCHARGE/TRANSFER VITAL SIGNS Vitals: 10/15/21 1640 BP: 136/74 Pulse: 74 Resp: 16 Temp: 36.8 ??C SpO2: 98% ED DISCHARGE MEDS ED Prescriptions Medication Sig Dispense Start Date End Date Auth. Provider amoxicillin-pot clavulanate (AUGMENTIN) 875-125 mg per tablet Take 1 tablet by mouth every 12 (twelve) hours. 20 tablet 10/15/2021 Garo Sawyer, C.N.P. FOLLOW UP Consults and Follow-ups to Schedule Rabies immunization office visit; Oct 15, 2022 Rabies PEP regimen Days 3, 7, 14. Orders are standing; and may need to be released on today's visit in order to administer and document the vaccine. Region: [facility] Order will need to be released when patient arrives. Garo Sawyer, DNP, ED TRANSPORTER, COMMERCIAL JOURNEYMAN ELECTRICIAN-C, AGACNP-BC, ENP-C Emergency Medicine Garo Sawyer, C.N.P. 10/15/21 180 SUPERVISOR documented in this encounter Plan of Treatment Scheduled Referrals Name Type Priority Associated Diagnoses Order S chedule Rabies immunization Outpatient Routine Bite Cat Hand Open 3 Occurrences office visit; Referral Initial Left starting Need Vaccine 10/15/2021 unti l Immunization Rabies 10/15/19 23 documented as of this encounter Visit Diagnoses Diagnosis Bite Cat Hand Open Initial Left - Primar y Need Vaccine Immunization Rabies documented in this encounter Administered Medications Administered Medications Medication Order MAR Action Action Date Dose Rate Site Rabies Immune Globulin Given 10/15/2021 17:40 DIVE SUPERVISOR 1,305 Units Intramuscular documented in this encounter Additional Health Concerns Assessment Noted Time PHQ-9 Depression Total Score: 3 12/20/2016 9:55 AM CDT documented as of this encounter Care Teams Vacuum Form Operator Relationship Specialty Start Date End Date Apurva Saldaña M.D. PCP - General 03/10/[address] [place] [phone] documented as of this encounter
--- OUTSIDE RECORDS SUMMARY | 2022-07-09 10:01 | XMS_ITS | Encounter Summary ---
:1980 Author Organization [facility] Address [address] [place] [address] Care Team Providers Name Role Phone Apurva Saldaña M.D. Primary Care Provider [phone] Encounter Details Date Type Department Care Team Description 01/13/2021 Orders Only [facility] Sa calixto Carrasquillo M.D. [address] [place], [place] [phone] (Wo rk) Social History Tobacco Use Types [...] do you attend tenriism or Never 2021 congregational services? Do you belong to any clubs or No 10/21/2021 organizations such as tenriism groups, unions, fraternal or athletic groups, or [...] or slept in a long-term (including now)? 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 PCP - General 03/10/[address] [place] [phone] documented as of this encounter
--- OUTSIDE RECORDS SUMMARY | 2022-07-09 10:01 | XMS_ITS | Encounter Summary ---
:1980 Author Organization [facility] Address [address] [place] [address] Care Team Providers Name Role Phone Apurva Saldaña M.D. Primary Care Provider [phone] Reason for Visit Reason Comments rabies vaccine Patient needs second dose of her rabies vaccine Encounter Details Date Type Department Care Team Description 10/18/2021 Emergency [place] Albaro Barboza, Need Vac cine Emergency Department TRANSPORTATION REFRIGERATION TECHNICIAN, C.N.P. Immunization Rabies [address] [place] [address] (Primary Dx) [place] [phone] (Wo rk) Social History Tobacco Use Types [...] or relatives? How often do you attend presybeterian or Never 2021 yazdanism services? Do you belong to any clubs or No 10/21/2021 organizations such as presybeterian groups, unions, fraternal or athletic groups, or [...] at Date Recorded Female 10/20/2021 8:03 PM TAG PRESS OPERATOR documented as of this encounter Discharge Instructions Discharge InstructionsAlbaro Barboza APRN, C.N.P. - 10/18/2021 3:14 PM TAG PRESS OPERATOR Get your day 7 and day 14 shots at [facility] these be on 10/22 and 10/29 PRESS OPERATOR documented in this encounter Medications at Time [...] documented as of this encounter ED Notes Albaro Barboza APRN, C.N.P. - 10/18/2021 3:27 PM CST Images from the original note were not included. SUBJECTIVE CHIEF COMPLAINT/REASON FOR VISIT rabies vaccine (Patient needs second dose of her rabies vaccine) HISTORY OF PRESENT ILLNESS Patient is a 41-year-old female coming for her 2nd rabies shot (day 3 dose). She also notes that shehad some swelling in her left hand after receiving the immune globulin. He was concerned as today isher 1st day of feeling better she just wants her hand evaluated. Denies any fevers chills and statesthat her overall symptoms have significantly improved. She does have her day 7 and day 14 does scheduled at [facility]. She is not appear toxic at this time. History provided by: Patient REVIEW OF SYSTEMS Constitutional: Negative for fatigue and fever. Musculoskeletal: Positive for joint swelling (improved) and extremity pain. Skin: Positive for wound. Negative for color change. Allergic/Immunologic: Negative for immunocompromised state. Hematological: Does not bruise/bleed easily. Psychiatric/Behavioral: The patient is not nervous/anxious. OBJECTIVE Initial Vitals [10/18/21 1523] Temp Pulse Heart Rate Resp BP SpO2 -- -- -- -- -- -- Pain Score 4 PHYSICAL EXAMINATION Constitutional: Nursing note and vitals reviewed. HENT: Head: Normocephalic and atraumatic. Mouth/Throat: Mucous membranes are moist. Cardiovascular: Capillary refill: takes less than 3 seconds, Pulmonary/Chest: Effort normal. Musculoskeletal: General: No tenderness, deformity or edema. Normal range of motion. Hands: Neurological: Alert and oriented to person, place, and time. Skin: Skin is warm, dry and normal color. ASSESSMENT/PLAN IMPRESSION AND PLAN Patient pleasant 41-year-old female coming in for evaluation of left hand after cat bite. She was seen on and was told to come in today for rabies vaccination series. She has her last 2 vaccine ointment set up. Her overall evaluation shows no signs of significant infection at this time. She has been taking her Augmentin. Her swelling has gone down significantly after mucosa injected into thewound. She started to feel better. I provided reassurance. The patient was discharged stable condition after receiving her 2nd dose. Final Diagnoses: as of 10/18/21 1552 Need Vaccine Immunization Rabies - Day 3 dose Albaro Barboza, JOHN, C.N.P. 10/18/21 1556 PRESS OPERATOR documented in this encounter Plan of Treatment Not on filedocumented as of this encounter Visit Diagnoses Diagnosis Need Vaccine Immunization Rabies - Prima ry Bite Cat Hand Open Sequela Left documented in this encounter Additional Health Concerns Assessment Noted Time PHQ-9 Depression Total Score: 3 12/20/2016 9:55 AM CDT documented as of this encounter Care Teams Sheet Layer Relationship Specialty Start Date End Date Apurva Saldaña M.D. PCP - General 03/10/[address] [place] [phone] documented as of this encounter
--- OUTSIDE RECORDS SUMMARY | 2022-07-09 10:01 | XMS_ITS | Encounter Summary ---
:1980 Author Organization [facility] Address [address] [place] [address] Care Team Providers Name Role Phone Apurva Saldaña M.D. Primary Care Provider [phone] Encounter Details Date Type Department Care Team Description 12/25/2020 Orders Only [facility] Alli Barillas M.D. [address] [address] [place], [place] [phone] Social History Tobacco Use Types Packs/Day Years [...] or relatives? How often do you attend congregation or Never 2021 jewish services? Do you belong to any clubs or No 10/21/2021 organizations such as congregation groups, unions, fraternal or athletic groups, or [...] place to sleep or slept in a [facility]cc (including now)? 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 PCP - General 03/10/[address] [place] [phone] documented as of this encounter
--- OUTSIDE RECORDS SUMMARY | 2022-07-09 10:01 | XMS_ITS | Encounter Summary ---
:1980 Author Organization [facility] Address [address] [place] [address] Care Team Providers Name Role Phone Apurva Saldaña M.D. Primary Care Provider [phone] Encounter Details Date Type Department Care Team Description 09/10/2019 Orders Only [facility] Tamanna Saldaña For MNT Apurva Rosales M.D. Therapeutic Drug [address] [place] [address] Therapy [facility] [place] [phone] (Wo rk) Social History Tobacco Use [...] or relatives? How often do you attend rastafarian or Never 2021 confucianist services? Do you belong to any clubs or No 10/21/2021 organizations such as rastafarian groups, unions, fraternal or athletic groups, or [...] place to sleep or slept in a skilled nursing (including now)? 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 PCP - General 03/10/[address] [place] [phone] documented as of this encounter
--- OUTSIDE RECORDS SUMMARY | 2022-07-09 10:01 | XMS_ITS | Encounter Summary ---
:1980 Author Organization [facility] Address [address] [place] [address] Care Team Providers Name Role Phone Apurva Saldaña M.D. Primary Care Provider [phone] Encounter Details Date Type Department Care Team Description 06/02/2021 Orders Only [facility] Daja Osuna, Scr eening Mammogram MNT Apurva Rosales M.D. Breast Cancer [address] [place] [phone] (Wo rk) Social History Tobacco Use Types [...] or relatives? How often do you attend samaritan or Never 2021 confucianist services? Do you belong to any clubs or No 10/21/2021 organizations such as samaritan groups, unions, fraternal or athletic groups, or [...] place to sleep or slept in a assisted (including now)? 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 PCP - General 03/10/[address] [place] [phone] documented as of this encounter
--- OUTSIDE RECORDS SUMMARY | 2022-07-09 10:01 | XMS_ITS | Encounter Summary ---
:1980 Author Organization [facility] Address [address] [place] [address] Care Team Providers Name Role Phone Apurva Saldaña M.D. Primary Care Provider [phone] Encounter Details Date Type Department Care Team Description 06/17/2020 Orders Only [facility] MNT Daja Osuna, Screening Lipid Apurva Rosales M.D. [address] [place] [phone] (Wo rk) Social History Tobacco Use [...] or relatives? How often do you attend rastafari or Never 2021 jainism services? 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 PCP - General 03/10/[address] [place] [phone] documented as of this encounter
--- OUTSIDE RECORDS SUMMARY | 2022-07-09 10:01 | XMS_ITS | Encounter Summary ---
:1980 Author Organization [facility] Address [address] [place] [address] Care Team Providers Name Role Phone Apurva Saldaña M.D. Primary Care Provider [phone] Encounter Details Date Type Department Care Team Description 09/01/2021 Orders Only [facility] MNT Daja Osuna, Screening Lipid Apurva Rosales M.D. [address] [place] [phone] (Wo rk) Social History Tobacco Use [...] or relatives? How often do you attend advent or Never 2021 synagogue services? Do you belong to any clubs or No 10/21/2021 organizations such as advent groups, unions, fraternal or athletic groups, or [...] place to sleep or slept in a group home (including now)? Sex Assigned at Date Recorded Female 10/20/2021 8:03 PM PRIMARY CARE NURSE PRACTITIONER documented as of this encounter Plan of Treatment Not on filedocumented as of this encounter Visit Diagnoses Diagnosis Screening Lipid documented in this encounter Additional Health Concerns Assessment Noted Time PHQ-9 Depression Total Score: 3 12/20/2016 9:55 AM CDT documented as of this encounter Care Teams It Telecom Technician Relationship Specialty Start Date End Date Apurva Saldaña M.D. PCP - General 03/10/[address] [place] [phone] documented as of this encounter
--- OUTSIDE RECORDS SUMMARY | 2022-07-09 10:01 | XMS_ITS | Encounter Summary ---
:1980 [address] Organization [facility] Address [address] [place] [address] Care Team Providers Name Role Phone Apurva Saldaña M.D. Primary Care Provider [phone] Encounter Details Date Type Department Care Team Description 04/28/2020 Clinical Communication Department of [facility], [address] [address] [place], [place] [phone] (Work) [phone] Social History Tobacco Use Types Packs/Day Years [...] or relatives? How often do you attend pentecostal or Never 2021 confucianism services? Do you belong to any clubs or No 10/21/2021 organizations such as pentecostal groups, unions, fraternal or athletic groups, or [...] place to sleep or slept in a correction (including now)? 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 - 04/28/2020 10:56 AM CDT Called Ester and let her know that her orthotics are here and she can pick them up a the front [facility]. documented in this encounter Plan of Treatment Not on filedocumented as of this encounter Visit Diagnoses Not on filedocumented in this encounter Additional Health Concerns Assessment Noted Time PHQ-9 Depression Total Score: 3 12/20/2016 9:55 AM CDT documented as of this encounter Care Teams Senior Risk Manager Relationship Specialty Start Date End Date Apurva Saldaña M.D. PCP - General 03/10/[address] [place] [phone] documented as of this encounter
--- OUTSIDE RECORDS SUMMARY | 2022-07-09 10:01 | XMS_ITS | Encounter Summary ---
:1980 Author Organization [facility] Address [address] [place] [address] Care Team Providers Name Role Phone Apurva Saldaña M.D. Primary Care Provider [phone] Reason for Referral Outpatient (Routine) - Closed Specialty Diagnoses / Procedures Referred By Contact Refer red To Contact Family Medicine Apurva Saldaña MARJORIE Rosales M.D. 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 [address] [place] [phone] (Wo rk) Social History Tobacco Use [...] or relatives? How often do you attend baptist or Never 2021 oriental orthodox services? 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 documented as of this encounter Plan of Treatment Scheduled Orders Name Type Priority Associated Diagnoses [facility] Lab Routine Hypothyroidism Expected: , (Thyroid-Stimulating Expires : 11/27/2023 Hormone - Sensitive) Scheduled Referrals Name Type Priority Associated Diagnoses [facility] Outpatient Referral Routine Expec jose enrique: office visit 12/10/2020, (clinic) Expires: 11/27/2023 documented as of this encounter Visit Diagnoses Diagnosis Hypothyroidism documented in this encounter Additional Health Concerns Assessment Noted Time PHQ-9 Depression Total Score: 3 12/20/2016 9:55 AM CDT documented as of this encounter Care Teams Test Preparer Relationship Specialty Start Date End Date Apurva Saldaña M.D. PCP - General 03/10/[id number] [address] documented as of this encounter
--- OUTSIDE RECORDS SUMMARY | 2022-07-09 10:01 | XMS_ITS | Encounter Summary ---
:1980 Author Organization [facility] Address [address] [place] [address] Care Team Providers Name Role Phone Apurva Saldaña M.D. Primary Care Provider [phone] Encounter Details Date Type Department Care Team Description 06/04/2021 Orders Only [facility] PCP [facility] Daja Osuna, Scr eening Mammogram MNT Apurva Rosales M.D. Breast Cancer [address] [place] [phone] (Wo rk) Social History Tobacco Use Types [...] or relatives? How often do you attend sabianist or Never 2021 spiritism services? 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 PCP - General 03/10/[address] [place] [phone] documented as of this encounter
--- OUTSIDE RECORDS SUMMARY | 2022-07-09 10:01 | XMS_ITS | Encounter Summary ---
:1980 Author Organization [facility] Address [address] [place] [address] Care Team Providers Name Role Phone Apurva Saldaña M.D. Primary Care Provider [phone] Reason for Referral Physical Therapy (Routine) - Closed Specialty Diagnoses / Procedures Referred By Contact Refer red To Contact Diagnoses Pain Knee Left Cristina Barlow P.A.-C. [facility] [place] [facility] Procedures PT Evaluate and treat [address] [place] [phone] Referral ID Status Reason Start Date Expiration Date Visits Requ ested Visits Authorized [id number] Closed 10/21/2021 10/21/2022 1 1 L ADMINISTRATOR Outpatient (Routine) - Closed Specialty Diagnoses / Procedures Referred By Contact Refer red To Contact Diagnoses Pain Knee Left Cristina Barlow P.A.-C. [facility] [place] [facility] Procedures DX Knee Left Standing 3 Views [address] [place] [address] Referral ID Status Reason Start Date Expiration Date Visits Requ ested Visits Authorized [id number] Closed 10/21/2021 10/21/2022 1 1 L ADMINISTRATOR Reason for Visit Reason Comments Pain Encounter Details Date Type Department Care Team Description 10/21/2021 Comprehensive Visit Department of Barlow, Cristina C, Pain Knee Left Orthopedic Surgery P.A.-C. (Primary Dx) in [place], [address] [place] [address] [address] [facility] [address] [place], [place] [phone] (Work) [phone] Social History Tobacco Use Types Packs/Day Years [...] or relatives? How often do you attend shinto or Never 2021 latter-day services? Do you belong to any clubs or No 10/21/2021 organizations such as shinto groups, unions, fraternal or athletic groups, or [...] place to sleep or slept in a detention (including now)? Education Answer Date Recorded What is the highest level of school Associate degree: yisel boateng, 10/20/2021 you have completed or the highest technical, or vocational p maryram degree you have received? 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 - 10/21/2021 8:00 AM CST CHIEF COMPLAINT/REASON FOR VISIT Left knee pain. HISTORY OF PRESENT ILLNESS Ms. Do is a 41-year-old female presents to clinic today with left knee pain. This is anterolateral. She states that sometime ago she started a workout program. She had some knee pain when she first started. This resolved when she consistently was working out. Since she has stopped working out,now has return of her knee pain and discomfort. She is not sure if she should get back to working out or discontinue squats or what the next step should be for her. She denies numbness, tingling, fevers, chills. OBJECTIVE PHYSICAL EXAMINATION Alert and oriented x3, no distress. Skin is intact. Sensation to light touch intact. Capillary refill less than 3 seconds. Palpable pedal pulse. Calf soft, nontender. Negative Elizabeth's. She has range ofmotion today full without limitation. A couple degrees of hyperextension. Flexes to 135 degrees. Stable to valgus and varus stress testing. Tanya's with an endpoint. She has no medial or lateral joint line tenderness. I can reproduce her symptoms with patellar grind testing. She has no swelling or effusion today. ASSESSMENT / PLAN #1 Patellofemoral syndrome, left knee PLAN: At our appointment today we did discuss treatment plan and treatment options. Ultimately, we are going to get her working with physical therapy back to some strengthening. Ultimately, if she has continued symptoms we discussed return to clinic and possible treatment options. All of her questionsand concerns were answered today. She is encouraged to call with any. Radiographs were reviewed. L ADMINISTRATOR documented in this encounter Plan of Treatment Not on filedocumented as of this encounter Results DX Knee Left Standing 3 Views (10/21/2021 8:04 AM EMAIL ADMINISTRATOR) Anatomical Region Laterality Modality Lower Extremity, Knee, Musculoskeletal RST LOS, Left Digital Radiography Musculoskeletal ARZ LOS, Muskuloskeletal FLA LOS Specimen (Source) Anatomical Collection Method Collection Time Re ceived Time Location / / Volume Laterality 10/21/2021 8:11 AM EMAIL ADMINISTRATOR Impressions 10/21/2021 8:12 AM EMAIL ADMINISTRATOR Negative left knee. Narrative 10/21/2021 8:12 AM EMAIL ADMINISTRATOR EXAM: DX KNEE LEFT STANDING 3 VIEWS [...] is unremarkable. IMPRESSION: Negative left knee. Cristina Barlow P.A.-C. [facility] documented in this encounter Visit Diagnoses Diagnosis Pain Knee Left - Primary Pain Knee Left documented in this encounter Additional Health Concerns Assessment Noted Time PHQ-9 Depression Total Score: 3 12/20/2016 9:55 AM CDT documented as of this encounter Care Teams Cell Liner Relationship Specialty Start Date End Date Apurva Saldaña M.D. PCP - General 03/10/[address] [place] [phone] documented as of this encounter
--- OUTSIDE RECORDS SUMMARY | 2022-07-09 10:01 | XMS_ITS | Encounter Summary ---
:1980 Author Organization [facility] Address [address] [place] [address] Care Team Providers Name Role Phone Apurva Saldaña M.D. Primary Care Provider [phone] Reason for Referral Specialty Diagnoses / Procedures Referred By Contact Refer red To Contact Andrew Saldaña M.D. [address] [phone] Referral ID Status Reason Start Date Expiration Date Visits Requ ested Visits Authorized L ERECTOR APPRENTICE Encounter Details Date Type Department Care Team Description 08/25/2021 Orders Only [facility] PCP [facility] Apurva Saldaña M.D. [address] [place] [phone] (Wo rk) Social History Tobacco Use [...] or relatives? How often do you attend mormonism or Never 2021 gnosticism services? Do you belong to any clubs or No 10/21/2021 organizations such as mormonism groups, unions, frafamPlus or athletic groups, or school groups? How [...] place to sleep or slept in a long term (including now)? 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 PCP - General 03/10/[address] [phone] documented as of this encounter
--- OUTSIDE RECORDS SUMMARY | 2022-07-09 10:01 | XMS_ITS | Encounter Summary ---
:1980 Author Organization [facility] Address [address] [place] [address] Care Team Providers Name Role Phone Apurva Saldaña M.D. Primary Care Provider [phone] Reason for Visit Reason Comments Med Refill Encounter Details Date Type Department Care Team Description 03/26/2020 Refill Department of [facility] Andrew Saldaña Med Refill Medicine, [place] [facility], [place] [phone] [place] [phone] Social History Tobacco Use Types Packs/Day Years [...] do you attend shinto or Never 2021 alevism services? Do you belong to any clubs [...] or slept in a fdc (including now)? 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 - 04/01/2020 3:17 PM CDT PO # [phone] Telephone Encounter - Liliane Robison R.N. - 04/01/2020 9:44 AM CDT Called [employer] to request new pair of orthotics for Ester. Telephone Encounter - Liliane Robison R.N. - 03/27/2020 11:47 AM CDT Patient returns call and would like new pair of orthotics, she states her insurance will cover one pair every year. We discuss that I will not be calling insurance to ensure prior auth of payment,that is something she would have to do. I will contact [employer] when I am back working in [place] next week to request a new pair of orthotics. Telephone Encounter - Liliane Robison R.N. - 03/27/2020 9:24 AM CDT Message left asking for patient to return call. Telephone Encounter - Jane Gilbert - 03/26/2020 3:59 PM CDT Name of Medication: Orthopedic inserts Primary Provider: Apurva Osuna M.D. Strength: Frequency: Pharmacy (include location): [facility] Patient states that podiatry got the inserts for her. Please call patient documented in this encounter Plan of Treatment Not on filedocumented as of this encounter Visit Diagnoses Not on filedocumented in this encounter Additional Health Concerns Assessment Noted Time PHQ-9 Depression Total Score: 3 12/20/2016 9:55 AM CDT documented as of this encounter Care Teams Busgirl Relationship Specialty Start Date End Date Apurva Sadlaña M.D. PCP - General 03/10/[address] [place] [phone] documented as of this encounter
--- OUTSIDE RECORDS SUMMARY | 2022-07-09 10:02 | XMS_ITS | Encounter Summary ---
:1980 Author Organization [facility] Address [address] [place] [address] Care Team Providers Name Role Phone Apurva Saldaña M.D. Primary Care Provider [phone] Encounter Details Date Type Department Care Team Description 04/19/2019 Clinical Communication Department of Irina Quiroz [facility] in , [facility], [address] [address] [place], [place] [phone] (Work) [phone] Social History Tobacco Use Types Packs/Day Years Used Date Smoking Tobacco: Never Alcohol Habits Answer Date Recorded [...] or relatives? How often do you attend mandaeism or Never 2021 anglican services? Do you belong to any clubs or No 10/21/2021 organizations such as mandaeism groups, unions, fraternal or athletic groups, or [...] place to sleep or slept in a snf (including now)? 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 - 04/19/2019 1:21 PM CDT Called Ester to notify her that her custom orthotics are ready to be picked up at her conveniece. She will f/u PRN with podiatry. All questions and concerns at this time have been addressed. documented in this encounter Plan of Treatment Not on filedocumented as of this encounter Visit Diagnoses Not on filedocumented in this encounter Additional Health Concerns Assessment Noted Time PHQ-9 Depression Total Score: 3 12/20/2016 9:55 AM CDT documented as of this encounter Care Teams Personal Clothing Laundry Aide Relationship Specialty Start Date End Date Apurva Saldaña M.D. PCP - General 03/10/[address] [place] [phone] documented as of this encounter
--- OUTSIDE RECORDS SUMMARY | 2022-07-09 10:02 | XMS_ITS | Encounter Summary ---
:1980 Author Organization [facility] Address [address] [place] [address] Care Team Providers Name Role Phone Unavailable Primary Care Provider Unavailable Encounter Details Date Type Department Care Team Description 06/13/2015 Hospital Encounter HX [facility] Rancho Manzanares M.D. [address] [place] [phone] (Wo rk) Social History Tobacco Use Types Packs/Day Years Used Date Smoking Tobacco: Never Assessed Alcohol Habits Answer Date Recorded How often [...] or relatives? How often do you attend jew or Never 2021 taoist services? Do you belong to any clubs or No 10/21/2021 organizations such as jew groups, unions, fraternal or athletic groups, or [...] or slept in a detention (including now)? 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 encounter Last Filed Vital Signs Vital Sign Reading Time Taken Comments Blood Pressure 117/69 06/13/2015 8:37 AM CDT Pulse 73 06/13/2015 8:37 AM CDT Temperature - - Respiratory Rate 18 06/13/2015 8:37 AM CDT Oxygen Saturation - - Inhaled Oxygen Concentration - - Weight 62 kg (136 lb 11 oz) 06/13/2015 8:37 AM CDT Height 164 cm (5' 4.57) 06/13/2015 8:37 AM CDT Body Mass Index 23.05 06/13/2015 8:37 AM CDT documented in this encounter Medications at Time of Discharge Medication Sig Dispensed Refills Start Date End Date levothyroxine Taking one tablet by 0 11/27/2012 (SYNTHROID, LEVOTHROID) mouth every other day 112 mcg tablet ALTERNATING with 100 mcg every other day. cholecalciferol, vitamin Chew 1 tablet daily. 0 0 11/27/2012 05/25/2019 D3, (VITAMIN D3) 1,000 unit tablet,chewable clindamycin phosphate Apply topically. 0 02/10/20 13 05/25/2019 (CLINDAGEL) 1 % gel, once daily omega-3 fatty acids Take 1 capsule by 0 3 05/25/2019 (FISH OIL) 500 mg mouth daily. capsule documented as of this encounter H&P Notes Rancho Saldaña M.D. - 06/13/2015 6:27 PM CDT Clinic Full Note CHIEF COMPLAINT/REASON FOR VISIT annual physical, skin talk, labs , refills HISTORY OF PRESENT ILLNESS Ester presents today for annual exam. She has a few things to discuss. Her acne has been driving her crazy. She sees a funeral home assistant annually who thought it looked like she could be having an allergic reaction. She has been on multiple medications in the past. Retin A works but the last time she started, it made her skin worse and when it had not improved after 4 weeks she stopped it. Benzyl peroxide also seems to help but she is not using it currently. Right now she is using clindamycin topical and coconut oil. These medications dry her skin. She reports that her acne gets worse before and during her period and then it takes a month to get back under control. It is especially bad on her neck. Ramon holley has tried eliminating dairy from her diet but that made no difference. Patient states before trying to eliminate anything else she would prefer to see an tapping machine operator automatic. She also feels like she gets a yeast infection before the start of her period and then it improves with her period. She feels like there is some sort of imbalance. This happened in the past before her thyroid problems were diagnosed. Patient also reports that she is up 21 pounds from her average weight. This has been a slow progressionover the past couple of years. She reports that her diet is not the best and she has not had a consistent exercise routine. She was also started on Lexapro during this time. Before being on Lexapro heranxiety would keep her from eating things because it upset her stomach. She is now able to eat more because her anxiety is under better control. MEDICATIONS Benzaclin topical gel, 1 armani, in the morning and the evening(apply to only the affected areas), Topical, 2xDay, 5 refills clindamycin 1% topical gel, 1 armani, Topical, 2xDay, 11 refills levothyroxine 112 mcg (0.112 mg) oral tablet, 112 mcg, 1 tab(s), PO, Daily, 3 refills Lexapro 10 mg oral tablet, 15 mg, 1.5 tab(s), PO, Daily, 3 refills tretinoin 0.05% topical cream, 1 armani, Topical, Bedtime, 11 refills ALLERGIES NKA No Known Medication Allergies PAST MEDICAL HISTORY Chronic Acne vulgaris Depression Major Recurrent Severe Disorder Post Traumatic Stress (PTSD) Prolonged Gestational diabetes Graves' disease Hyperthyroidism NOS, without mention of crisis or storm 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 SOCIAL HISTORY Patient has been for 12 years. She has 2 sons. 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 No tobacco or alcohol. No set exercise routine. SOCIAL HISTORY Date Time: 06/13/2015 08:42 Tobacco: Smoking Status: Never smoker Exposure: Care provider denies smoking in home Alcohol: Use: No Recreational Drugs: Use: None Type: No Results Found FAMILY HISTORY Mother:Positive: Depression; EtOH - Alcohol Father:Family History Unknown. Brother: Negative: Aunt ( at 50 year(s)):Positive: Cancer - unknown origin Aunt ( at 40 year(s)):Positive: Cancer - unknown origin Grandmother ( at 70 year(s)):Positive: Cancer - unknown origin Brother: Negative: Brother:Positive: Melanoma Grandmother (Maternal):Positive: CA - Breast cancer; Melanoma Uncle:Positive: Melanoma Grandfather:Positive: Melanoma HEALTH MAINTENANCE Lipid 2012 Pap 2013 SYSTEMS REVIEW Constitutional: Energy low. Weight gain. No fevers, chills, loss of appetite, weight gain or weightloss. Skin: As per HPI. HEENT: No headaches, blurry vision, double vision, difficulty hearing, ringing in the ears, runny nose, oral lesions, or sore throat. Neck: No neck pain or stiffness. Cardiovascular: Rare palpitations. No chest pain. Lung: No cough, hemoptysis, or shortness of breath. Breast: No masses, rash, or nipple discharge. GI: No abdominal pain, flank tenderness, nausea, vomiting, constipation, diarrhea, or rectal bleeding. : No dysuria, frequency, urgency, or hematuria. Vaginal irritation and bloating before period. Nopelvic pain, vaginal discharge. Musculoskeletal: No joint or muscle pain. No back pain. Neurologic: No numbness, tingling, or vertigo. Psychiatric: Sleep is hit or miss. No anxiety, or depression. Endocrine: No polydipsia, polyuria, or temperature intolerance. VITAL SIGNS T: 37.3 ??C (Core) HR: 73 RR: 18 BP: 117 / 69 SpO2: 98% HT: 164 cm WT: 62 kg BMI: 23.05 PHYSICAL EXAMINATION General: Alert and oriented. No acute distress. Head: Atraumatic. Normocephalic Eyes: Pupils equal, round, and reactive to light. Extraocular movements intact. Ears: Tympanic membranes clear with good light reflex. Nose: No nasal discharge. Mouth: Oral mucosa moist. No oral lesions. Throat: No oropharyngeal erythema. Neck: Supple. No lymphadenopathy. No carotid bruits. No thyromegaly. Cardiovascular exam: Regular rate and rhythm. Normal S1 and S2. No murmurs, rubs, or gallops. Lungs: Clear to auscultation bilaterally. Breasts: Symmetric contour bilaterally. No masses, dimpling, skin changes, or peau d'orange. No nipple discharge. No axillary lymphadenopathy bilaterally. Abdomen: Soft. Nontender. No masses, rebound, or guarding. Normoactive bowel sounds. Extremities: No pedal edema. 2+ dorsalis pedis pulses bilaterally. Skin: Patient has diffuse tiny papules on her face with some erythema. Patient has numerous irregular moles on her back. Psychiatric: Mood is stable. Neurologic: Cranial nerves 2-12 grossly intact. No focal deficits. LAB RESULTS -----CHEMISTRY----- Glucose Fastin TSH: 1.54 06/13/15 IMPRESSION/REPORT/PLAN 1. Exam General Medical NOS (GME) Wellness exams up to date. We discussed recommendations for mammograms. Encouraged patient to starta regular exercise routine to aid in weight management. [place]dered: [place] [facility] [place] [id number] 2. Hypothyroidism NOS TSH normal. Levothyroxine refilled. Ordered: [place] [id number] 3. Gestational Diabetes Mellitus Pers Hx Not Blood sugar checked and normal. Ordered: OV Est Pt Prev Svc [id number] 4. Acne NOS Recommended that she go back to the benzyl peroxide and Clindagel. She may need to try the Retin A in the future again if things are not improving. Ordered: OV Est Pt [place] [facility] [place] [id number] Electronically Signed By: RANCHO MARTINEZ MD On: 06/18/2015 06:30 PM Source: [facility] POWERCHART Document Id: [id number] documented in this encounter Nursing Notes Candie Dumont L.P.N. - 06/26/2015 3:01 PM CDT Patient called reporting that pharmacy does not have the RX for face cream. 06/13/15 Ben[facility]aclin sentto [facility] electronically. Call placed to Pharmacy and they report that prescription was picked upon 06/14/2015 attempt to call patient to clarify message left for her to call back. Electronically Signed By: CANDIE DUMONT LPN On: 06/26/2015 03:06 PM Source: [facility] tagUin Document Id: [id number] documented in this encounter Miscellaneous Notes Miscellaneous - Rancho Saldaña M.D. - 06/18/2015 6:56 PM CDT Normal Results Letter 18 June 2015 ESTER DO [address] [place] [id number] Dear ESTER DO, I am pleased to report that your results from the following diagnostic test(s) are normal. Please follow up with us as we discussed during your visit or sooner if you have any concerns. If you have questions or concerns, please do not hesitate to call our office. Result Name Current Result Previous Result Normal Range Glucose Fasting (mg/dL) 81 06/13/2015 70 - 99 TSH (mIU/L) 1.54 06/13/2015 1.43 08/26/2014 0.27 - 4.20 Sincerely, RANCHO MARTINEZ [address] [place] [id number] Electronic Signature Electronically Signed By: RANCHO MARTINEZ MD On: 18 June 2015 This document has images extracted. Source: [facility] tagUin Document Id: [id number] Electronically signed by Conversion, [facility] Tool Grinder Operator Surface [id number] at 02/21/2017 12:01 PM CDT Miscellaneous - Rancho Saldaña M.D. - 06/13/2015 9:59 AM CDT Ambulatory Patient Summary [address] [id number] Visit Information Name: ESTER DO [facility] Number: [id number] Current Date: 06/13/2015 09:59:26 Physicians Attending Provider: RANCHO MARTINEZ MD Primary Care Provider: RANCHO MARTINEZ MD ESTER DO has been given the following list of follow-up instructions, medication list, and patient education materials: Follow-up Instructions Your Medications Here is a list of your medications. It is important to take your medications as directed. Use a pillbox or chart to help remind you to take your medications. Please let your doctor or nurse know if you have problems taking your medications. Medication/Strength How to Take Indications/Special Instructions/Comments/Notes for Patient Medication Changes/Routing clindamycin-benzoyl peroxide topical (Benzaclin topical gel) 1 armani, Topical, two times a day in the morning and the evening (apply to only the affected areas) Routed to [address] [id number] escitalopram (Lexapro 10 mg oral tablet) 1.5 Tablet(s), Oral, once a day mood Routed to [address] [address] levothyroxine (levothyroxine 112 mcg (0.112 mg) oral tablet) 1 Tablet(s), Oral, once a day low thyroid Routed to [address] [address] tretinoin topical (tretinoin 0.05% topical cream) 1 armani, Topical, once a day (at bedtime) Stop Taking the Following Medications: clindamycin topical (clindamycin 1% topical gel) Medication list as of 06-13-15 09:59 Attention: If you have any medications at home that are not on this list, DO NOT take them until youcontact your provider for clarification. Give a copy of your medication list to your primary care provider. Update your medication list any time medications or doses are changed and carry your medication list at all times in case of emergency. Electronically Signed By: RANCHO MARTINEZ MD Signed On:13-JUN-2015 09:59:12 Your Allergies & Intolerances Substance Reaction Symptoms Category Comments No Known Allergies Drug No Known Medication Allergies Drug NO KNOWN DRUG ALLERGIES Your Problem List Problem Status Onset Comments Gestational diabetes Active 2011 Streptococcosis Active 2012 Acne vulgaris Active 09/26/2010 Hyperthyroidism NOS, without mention of crisis or storm Active 02/27/13 unknown date of dx Graves' disease Active 11/27/2012 Erythrocytosis Active 03/26/2013 12/22/13 No active medical problems Depression Major Recurrent Severe Active Disorder Post Traumatic Stress (PTSD) Prolonged Active Your Upcoming Appointments Date Time Location Provider No Appointments found Attention: Contact your local Clinic if further appointment detail needed. Consider Using Patient Online Services Patient Online Services is a secure online and Mobile application that lets you: ?? View lab and test results ?? View portions of your medical record including clinical notes, immunizations and discharge summaries ?? Request an appointment or medication refill ?? Review your appointment schedule ?? Send secure messages to your care team Its easy to create an account if you dont have one. Go to [email or web address] and click on Create Your Account. Then, follow the directions to complete the online form. Youll be asked for your [facility] number which you can find at the top of this document. Your Goals/Additional instructions: Source: [facility] POWERCHART Document Id: [id number] Miscellaneous - Rancho Saldaña M.D. - 06/13/2015 9:59 AM CDT Ambulatory Discharge Medication List [address] [id number] Visit Information Name: ESTER DO NOE [facility] Number: [id number] Visit Date: 06/13/2015 09:59:24 Attending Provider: RANCHO MARTINEZ MD Primary Care Provider: RANCHO MARTINEZ MD ESTER DO NOE has been given the following list of medications: Your Medications It is important to take your medications as directed. Use a pill box or chart to help remind you to take your medications. Please let your doctor or nurse know if you have problems taking your medications. Medication/Strength How to Take Indications/Special Instructions/Comments/Notes for Patient Medication Changes/Routing clindamycin-benzoyl peroxide topical (Benzaclin topical gel) 1 armani, Topical, two times a day in the morning and the evening (apply to only the affected areas) Routed to [address] [id number] escitalopram (Lexapro 10 mg oral tablet) 1.5 Tablet(s), Oral, once a day mood Routed to [address] [address] levothyroxine (levothyroxine 112 mcg (0.112 mg) oral tablet) 1 Tablet(s), Oral, once a day low thyroid Routed to [address] [id number] tretinoin topical (tretinoin 0.05% topical cream) 1 armani, Topical, once a day (at bedtime) Stop Taking the Following Medications: clindamycin topical (clindamycin 1% topical gel) Medication list as of 06-13-15 09:59 Attention: If you have any medications at home that are not on this list, DO NOT take them until youcontact your provider for clarification. Give a copy of your medication list to your primary care provider. Update your medication list any time medications or doses are changed and carry your medication list at all times in case of emergency. Electronically Signed By: RANCHO MARTINEZ MD Signed On:13-JUN-2015 09:59:12 Additional Information: Source: [facility] POWERCHART Document Id: [id number] Miscellaneous - Lesia Chappell L.P.N. - 06/13/2015 8:42 AM CDT Health Assessment Health Assessment Entered On: 06/13/2015 8:42 CDT Performed On: 06/13/2015 8:42 CDT by LESIA CHAPPELL LPN Health Assessment Complete Health Assessment Complete or Modified : Annual Health Assessment Annual Health Assessment Completed : Yes LESIA CHAPPELL [facility] - 06/13/2015 8:42 CDT Nutrition Nutrition Risk Factors by History Adult : None LESIA CHAPPELL [facility] - 06/13/2015 8:42 CDT Functional Current Daily Living Assistance : None LESIA CHAPPELL [facility] - 06/13/2015 8:42 CDT Dependent Habits Tobacco Use/Currently Using : No Exposure to Tobacco Smoke : Care provider denies smoking in home Smoking Status : Never smoker LESIA CHAPPELL [facility] 06/13/2015 8:42 CDT Caffeine Use Grid Caffeine Use : Current Type : Soft drinks, Tea Frequency : Daily LESIA CHAPPELL [facility] - 06/13/2015 8:42 CDT Recreational Drug Use Grid Drug Use : None LESIA CHAPPELL [facility] 06/13/2015 8:42 CDT Psychosocial Domestic Abuse Concerns : None Behavioral Health Screen/Safety Assmt : No Yarsanism Preference : LESIA Mejia [facility] - 06/13/2015 8:42 CDT Advance Directive Advanced Directives : No Advance Directive Additional Information : No LESIA CHAPPELL [facility] - 06/13/2015 8:42 CDT Educ Needs Learning Style Preference Adult Grid Patient : None Family : None LESIA CHAPPELL [facility] - 06/13/2015 8:42 CDT [facility] Document Id: [id number] CDT!31 Miscellaneous - Lesia Chappell, L.P.N. - 06/13/2015 8:37 AM CDT Adult Ventilating Expert Intake/History Adult Ventilating Expert Intake/History Entered On: 06/13/2015 8:41 CDT Performed On: 06/13/2015 8:37 CDT by LESIA CHAPPELL LPN Intake Chief Complaint : annual physical, skin talk, labs , refills Temperature Core : 37.3 DegC(Converted to: 99.1 DegF) Peripheral Pulse Rate : 73 /min Respiratory Rate : 18 /min Heart Rhythm : Regular Systolic Blood Pressure : 117 mmHg Diastolic Blood Pressure : 69 mmHg NIBP Mean : 85 mmHg BP Location : Left upper extremity Blood Pressure Cuff Size : Regular SpO2 : 98 % Oxygen Therapy : Room air Height : 164 cm(Converted to: 5 ft 5 inch(es), 65 inch(es)) Actual Weight : 62 kg(Converted to: 136 lb 11 oz) Weight Source : Standing scale Dosing Weight Clinic : 62 kg Clinic BSA : 1.68 Body Mass Index : 23.05 kg/m2 LESIA CHAPPELL [facility] - 06/13/2015 8:37 CDT General Info Languages : Slovenian Is Patient Female and 13-50 no hysterectomy : Yes Status : Patient denies Are you ? : No LESIA CHAPPELL [facility] - 06/13/2015 8:37 CDT Subjective Pain Symptoms : No LESIA CHAPPELL [facility] - 06/13/2015 8:37 CDT Dependent Habits Tobacco Use/Currently Using : No Exposure to Tobacco Smoke : Care provider denies smoking in home Smoking Status : Never smoker Alcohol Use : No LESIA CHAPPELL [facility] - 06/13/2015 8:37 CDT Caffeine Use Grid Caffeine Use : Current Type : Soft drinks, Tea Frequency : Daily LESIA CHAPPELL [facility] - 06/13/2015 8:37 CDT Recreational Drug Use Grid Drug Use : None LESIA CHAPPELL [facility] - 06/13/2015 8:37 CDT [facility] Document Id: [id number] CDT!40 Telephone Encounter - Conversion, Historical Provider Ser - 04/09/2015 8:51 AM CDT Addendum by JHONY BASSETT V on 09 April 2015 13:09:45 CDT Submitted: Order:Thyroid Stimulating Hormone (TSH) Details: Routine, 04/23/2015 0:00 CDT, 2 Weeks, Hypothyroidism NOS Signed by JHONY BASSETT V Pt LVM asking to do before visit. From: JHONY BASSETT V To: JHONY BASSETT V; Sent: 04/09/2015 08:51:37 CDT Pt LVM returning Candy's call. Said she would like to have TSH done in the summer (instead of Aug) as that is when she has her annual exam.Call returned & LVM advising she could discuss @ visit as not a fasting test. Or she could have done ahead of time if she preferred. However she may want to just wait & have @ visit in case other labs are needed then she would only need one lab draw. Source: [facility] POWERCHART Document Id: [id number] documented in this encounter Plan of Treatment Not on filedocumented as of this encounter Procedures Procedure Name Priority Date/Time Associated Diagnosis Comme nts GLUCOSE, FASTING, Routine 06/13/2015 8:28 AM Resu lts for this S/P CDT procedure are i n the results section. documented in this encounter Results Glucose, Fasting (06/13/2015 8:28 AM CDT) P athologist Signature Glucose, 81 70 - 99 POWERCHART Fasting, S MGDL Specimen (Source) Anatomical Collection Method Collection Time Re ceived Time Location / / Volume Laterality Blood 06/13/2015 8:28 AM CDT Rancho Osuna M.D. LAB BLOOD NON ADD-ON Performing Organization Address City/State/ZIP Code Phon e Number POWERCHART documented in this encounter Visit Diagnoses Not on filedocumented in this encounter Additional Health Concerns Assessment Noted Time PHQ-9 Depression Total Score: 19 01/28/2014 11:12 AM C DT documented as of this encounter
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
--- OUTSIDE RECORDS SUMMARY | 2022-07-09 10:02 | XMS_ITS | Encounter Summary ---
:1980 Author Organization [facility] Address [address] [place] [address] Care Team Providers Name Role Phone Unavailable Primary Care Provider Unavailable Encounter Details Date Type Department Care Team Description 03/18/2014 Hospital Encounter HX [facility] Radha Butler, Ph.D., M.A., L.M.F.T. Social History Tobacco Use Types Packs/Day Years [...] do you attend islam or Never 2021 mu-ism services? 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 capsule documented as of this encounter Miscellaneous Notes Miscellaneous - Poly Zhou L.P.N. - 03/18/2014 10:30 AM CDT Quality Measures Quality Measures Entered On: 04/05/2014 10:30 CDT Performed On: 03/18/2014 10:30 CDT by POLY ZHOU LPN Depression PHQ-9 Score : 8 POLY ZHOU LPN - 04/05/2014 10:30 CDT Source: [facility] POWERCHART Document Id: [id number] CDT!3 Miscellaneous - Poly Zhou L.P.N. - 03/11/2014 10:30 AM CDT Quality Measures Quality Measures Entered On: 04/05/2014 10:30 CDT Performed On: 03/11/2014 10:30 CDT by POLY ZHOU LPN Depression PHQ-9 Score : 9 POLY ZHOU LPN - 04/05/2014 10:30 CDT Source: [facility] Document Id: [id number] CDT!3 Miscellaneous - Poly Zhou L.P.N. - 03/04/2014 10:30 AM CDT Quality Measures Quality Measures Entered On: 04/05/2014 10:30 CDT Performed On: 03/04/2014 10:30 CDT by POLY ZHOU LPN Depression PHQ-9 Score : 8 POLY ZHOU LPN - 04/05/2014 10:30 CDT Source: [place] Document Id: [id number] CDT!3 Miscellaneous - Poly Zhou L.P.N. - 02/25/2014 9:47 AM CDT Quality Measures Quality Measures Entered On: 04/05/2014 10:30 CDT Performed On: 02/25/2014 9:47 CDT by POLY ZHOU LPN Depression PHQ-9 Score : 9 POLY ZHOU LPN - 04/05/2014 9:47 CDT Source: [facility] Document Id: [id number] CDT!3 Miscellaneous - Poly Zhou L.P.N. - 02/20/2014 9:46 AM CDT Quality Measures Quality Measures Entered On: 04/05/2014 9:46 CDT Performed On: 02/20/2014 9:46 CDT by POLY ZHOU LPN Depression PHQ-9 Score : 11 KURT, POLY Talamantes LPN - 04/05/2014 9:46 CDT Source: [facility] Document Id: [id number] CDT!3 Miscellaneous - Poly Zhou L.P.N. - 02/13/2014 9:45 AM CDT Quality Measures Quality Measures Entered On: 04/05/2014 9:46 CDT Performed On: 02/13/2014 9:45 CDT by POLY ZHOU LPN Depression PHQ-9 Score : 12 KURT POLY Talamantes LPN - 04/05/2014 9:45 CDT Source: [facility] Document Id: [id number] CDT!3 Miscellaneous - Poly Zhou L.P.N. - 02/04/2014 9:45 AM CDT Quality Measures Quality Measures Entered On: 04/05/2014 9:45 CDT Performed On: 02/04/2014 9:45 CDT by POLY ZHOU LPN Depression PHQ-9 Score : 19 POLY ZHOU LPN - 04/05/2014 9:45 CDT Source: [facility] Document Id: [id number] CDT!3 documented in this encounter Plan of Treatment Not on filedocumented as of this encounter Visit Diagnoses Not on filedocumented in this encounter Additional Health Concerns Assessment Noted Time PHQ-9 Depression Total Score: 19 01/28/2014 11:12 AM C DT documented as of this encounter
--- OUTSIDE RECORDS SUMMARY | 2022-07-09 10:02 | XMS_ITS | Encounter Summary ---
:1980 Author Organization [facility] Address [address] [place] [address] Care Team Providers Name Role Phone Unavailable Primary Care Provider Unavailable Encounter Details Date Type Department Care Team Description 06/17/2014 Hospital Encounter HX [facility] Radha Pedersen, Ph.D., M.A., L.M.F.T. Social History Tobacco Use [...] do you attend shinto or Never 2021 confucianism services? Do you [...] slept in a senior care (including now)? 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 capsule documented as of this encounter Plan of Treatment Not on filedocumented as of this encounter Visit Diagnoses Not on filedocumented in this encounter Additional Health Concerns Assessment Noted Time PHQ-9 Depression Total Score: 19 01/28/2014 11:12 AM C DT documented as of this encounter
--- OUTSIDE RECORDS SUMMARY | 2022-07-09 10:02 | XMS_ITS | Encounter Summary ---
:1980 Author Organization [facility] Address [address] [place] [address] Care Team Providers Name Role Phone Apurva Saldaña M.D. Primary Care Provider [phone] Reason for Visit Reason Comments Pre-op Exam D&C on 05/30/2019 [facility] ospital Appointment Request (Routine) - Closed Specialty Diagnoses / Procedures Referred By Contact Refer red To Contact Family Medicine Referral ID Status Reason Start Date Expiration Date Visits Requ ested Visits Authorized [id number] Closed 05/25/2019 05/24/2020 1 1 Encounter Details Date Type Department Care Team Description 05/25/2019 Office Visit Department of Family J Luis Silveira Preope ratienid Exam (Primary Dx); Grace Greene M.D. Bleeding Dysfunctional Uterine; Clinic, in [place], [facility] [address] Depression Major Recurrent Severe (HCC) [place], [place] [address] [address] [address] [phone] (Work) [phone] Social History Tobacco Use Types Packs/Day Years [...] or relatives? How often do you attend jewish or Never 2021 alevism services? 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 - 05/25/2019 11:30 AM CDT CHIEF COMPLAINT: Ester Do is a 39 y.o. female here for preop exam. 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 Polyps seen on recent US. She stopped taking anti-depressant med about one month ago. Started CBD oil instead. So far, depression is well controlled. SYSTEMS REVIEW There is no history of difficulty with anesthesia, bleeding tendencies, blood clots, heart valve disease, chest pain or dyspnea. She is capable of physical exertion without chest pain or dyspnea. Patient denies any recent illness. No fevers, chills, sweats or cough. No recent changes in weight. Wt Readings from Last 3 Encounters: 05/25/19 65.4 kg 11/27/12 56.4 kg PAST MEDICAL HISTORY No past medical history on file. Problem List 1. Depression Major Recurrent Severe (HCC) Overview Stopped RX treatment 03/2019 2. Hypothyroidism Relevant Medications levothyroxine (SYNTHROID, LEVOTHROID) 100 mcg tablet levothyroxine (SYNTHROID, LEVOTHROID) 112 mcg tablet 3. Acne PAST SURGICAL HISTORY Past Surgical History: Procedure Laterality Date ??? AUGMENTATION MAMMOPLASTY N/A 09/26/2006 Breast augmentation ??? CHOLECYSTECTOMY N/A 2000 Cholecystectomy ??? LIGATION OF FALLOPIAN TUBE N/A 2011 Tubal ligation ALLERGIES No Known Allergies Social History Tobacco Use Smoking Status Never Smoker Smokeless Tobacco Never Used FAMILY HISTORY No family history of difficulty with anesthesia, bleeding tendencies or blood clots. OBJECTIVE Patient in no distress. Looks well nourished. BP 112/67 (BP Location: Left arm, Patient Position: Sitting, Cuff Size: Regular) Pulse 60 Temp 36.8 ??C (Temporal) Ht 164 cm Wt 65.4 kg SpO2 99% BMI 24.32 kg/m?? Alert and attentive. Normal mood/behavior. Oropharynx normal. Posterior pharynx seen without tongue depressor. Respiratory effort is normal. Lungs clear to auscultation bilaterally. Heart rate is regular. No murmur. No lower extremity edema bilaterally. Facial motor strength is normal bilaterally. Speech clear. Skin is warm and dry with normal color. POC HGB = 13.6 ASSESSMENT / PLAN New med list after this visit: Current Outpatient Medications Medication Sig Dispense Refill ??? cholecalciferol (VITAMIN D3) 1,000 Unit tablet Take 1,000 Units by mouth. ??? clindamycin-benzoyl peroxide (BENZACLIN) 1-5 % gel Apply topically 2 (two) times a day. 50 g 2 ??? levothyroxine (SYNTHROID, LEVOTHROID) 100 mcg tablet 2 ??? levothyroxine (SYNTHROID, LEVOTHROID) 112 mcg tablet Taking one tablet by mouth every other day ALTERNATING with 100 mcg every other day. ??? UNABLE TO FIND Take 1 each by mouth daily. CBD oil, for depression 1 each 0 No current facility-administered medications for this visit. No evidence of functionally compromising cardiac or pulmonary status. Patient may proceed to surgerywithout further testing. She is low risk for cardiopulmonary complications from this procedure. total time this visit = 25 minutes. 15 min spent in counseling and/or coordination of care for the problems listed above. documented in this encounter Plan of Treatment Not on filedocumented as of this encounter Procedures Procedure Name Priority Date/Time Associated Diagnosis Comme nts HEMOGLOBIN (HGB), Routine 05/25/2019 12:13 Result s for this POCT, B PM CDT procedure are i n the results section. HEMOGLOBIN (HGB), Routine 05/25/2019 12:09 Bleeding Dysfunctio nal Results for this POCT, B PM CDT Uterine procedure are i n the results section. documented in this encounter Results Hemoglobin (HGB), POCT (05/25/2019 12:13 PM CDT) P athologist Signature Hemoglobin, 13.6 11.6 - 15.0 05/25/2019 POCT, B g/dL 12:13 PM CDT Specimen Anatomical Collection Method Collection Time Receive d Time (Source) Location / / Volume Laterality Blood 05/25/2019 12:13 05/25/2019 PM CDT 12:15 PM CDT Generic [facility] POCT ORDERABLES - DEVICE Performing Organization Address City/State/ZIP Code Phon e Number [facility]- [address] [place] [phone] [facility] Hemoglobin (HGB), POCT (05/25/2019 12:09 PM CDT) Analysis Performed At Patho logist Time Signature Hemoglobin, Collected DEFAULT 05/25/2019 POCT, B 12:09 PM CDT Specimen Anatomical Collection Method Collection Time Receive d Time (Source) Location / / Volume Laterality Blood (Blood, 05/25/2019 12:09 05/25/2019 Capillary) PM CDT 12:09 PM CDT J Luis Silveira M.D. LAB POCT ORDERABLES - DEVICE Performing Organization Address City/State/ZIP Code Phon e Number [facility]- [address] [place] [phone] [facility] documented in this encounter Visit Diagnoses Diagnosis Preoperative Exam - Primary Bleeding Dysfunctional Uterine Depression Major Recurrent Severe (HCC) documented in this encounter Additional Health Concerns Assessment Noted Time PHQ-9 Depression Total Score: 3 12/20/2016 9:55 AM CDT documented as of this encounter Care Teams Plastic Eye Technician Relationship Specialty Start Date End Date Apurva Saldaña M.D. PCP - General 03/10/[address] [place] [phone] documented as of this encounter
--- OUTSIDE RECORDS SUMMARY | 2022-07-09 10:02 | XMS_ITS | Encounter Summary ---
:1980 Author Organization [facility] Address [address] [place] [address] Care Team Providers Name Role Phone Unavailable Primary Care Provider Unavailable Encounter Details Date Type Department Care Team Description 06/10/2014 Hospital Encounter HX [facility] Radha [...] or relatives? How often do you attend adventism or Never 2021 buddhism services? Do you belong to any clubs or No 10/21/2021 organizations such as adventism groups, unions, fraternal or athletic groups, or [...] place to sleep or slept in a fpc (including now)? 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 - 06/10/2014 10:52 AM CDT Quality Measures Quality Measures Entered On: 06/11/2014 10:52 CDT Performed On: 06/10/2014 10:52 CDT by POLY ZHOU LPN Depression PHQ-9 Score : 8 POLY ZHOU LPN - 06/11/2014 10:52 CDT Source: [facility] POWERCHART Document Id: [id number] CDT!3 documented in this encounter Plan of Treatment Not on filedocumented as of this encounter Visit Diagnoses Not on filedocumented in this encounter Additional Health Concerns Assessment Noted Time PHQ-9 Depression Total Score: 19 01/28/2014 11:12 AM C DT documented as of this encounter
--- OUTSIDE RECORDS SUMMARY | 2022-07-09 10:02 | XMS_ITS | Encounter Summary ---
:1980 Author Organization [facility] Address [address] [place] [address] Care Team Providers Name Role Phone Unavailable Primary Care Provider Unavailable Encounter Details Date Type Department Care Team Description 08/26/2014 Hospital Encounter HX [facility] Radha [...] or relatives? How often do you attend lutheran or Never 2021 jew services? Do you belong to any clubs or No 10/21/2021 organizations such as lutheran groups, unions, fraternal or athletic groups, or [...] slept in a care home (including now)? 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
--- OUTSIDE RECORDS SUMMARY | 2022-07-09 10:02 | XMS_ITS | Encounter Summary ---
:1980 Author Organization [facility] Address [address] [place] [address] Care Team Providers Name Role Phone Unavailable Primary Care Provider Unavailable Encounter Details Date Type Department Care Team Description 06/13/2015 Hospital Encounter HX [facility] Apurva Saldaña M.D. [address] [phone] (Wo rk) Social History Tobacco Use [...] do you attend shinto or Never 2021 islam services? 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 documented in this encounter Results Thyroid-Stimulating Hormone-Sensitive (s-TSH) (06/13/2015 8:28 AM CDT) P athologist Signature TSH 1.54 0.27 - 4.20 POWERCHART (Thyrotropin) MIUL Specimen (Source) Anatomical Collection Method Collection Time Re ceived Time Location / / Volume Laterality Blood 06/13/2015 8:28 AM CDT Apurva Osuna M.D. LAB BLOOD ADD-ON Performing Organization Address City/State/ZIP Code Phon e Number POWERCHART documented in this encounter Visit Diagnoses Not on filedocumented in this encounter Additional Health Concerns Assessment Noted Time PHQ-9 Depression Total Score: 19 01/28/2014 11:12 AM C DT documented as of this encounter
--- OUTSIDE RECORDS SUMMARY | 2022-07-09 10:02 | XMS_ITS | Encounter Summary ---
:1980 Author Organization [facility] Address [address] [place] [address] Care Team Providers Name Role Phone Apurva Saldaña M.D. Primary Care Provider [phone] Encounter Details Date Type Department Care Team Description 03/28/2019 Orders Only [facility] MNT Daja Osuna, Screening Lipid Apurva Rosales M.D. [address] [place] [phone] (Wo rk) Social History Tobacco Use [...] many times do you More than three rtisha es a week 10/21/2021 talk on the phone with family, friends, or neighbors? How often do you get together with friends Twice a week 10/21/2021 or relatives? How often do you attend bahai or Never 2021 latter day services? Do you belong to any clubs or No 10/21/2021 organizations such as bahai groups, unions, fraternal or athletic groups, or [...] or slept in a alf (including now)? 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 PCP - General 03/10/[address] [place] [phone] documented as of this encounter
--- OUTSIDE RECORDS SUMMARY | 2022-07-09 10:02 | XMS_ITS | Encounter Summary ---
:1980 Author Organization [facility] Address [address] [place] [address] Care Team Providers Name Role Phone Apurva Saldaña M.D. 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 Pain Appointment Request (Routine) - Closed Specialty Diagnoses / Procedures Referred By Contact Refer red To Contact Orthopedic Surgery Referral ID Status Reason Start Date Expiration Date Visits Requ ested Visits Authorized [id number] Closed 02/16/2019 02/16/2020 1 Encounter Details Date Type Department Care Team Description 04/02/2019 Comprehensive Visit Department of Wai Quiroz Generalized (Primary Dx); Orthopedic Surgery [facility] [place] [facility] in [place], [address] [address] [place], [place] [phone] (Work) [phone] Social History Tobacco Use Types Packs/Day Years [...] do you attend presybeterian or Never 2021 anglican services? 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 - 04/02/2019 8:30 AM CDT CHIEF COMPLAINT / REASON FOR VISIT Chief Complaint Patient presents with ??? 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 ??? Left Foot - Pain HISTORY OF PRESENT ILLNESS Ester Do is a 38 y.o. female who presents for evaluation of bilateral foot pain left slightly worse than the right this been going on for several years. She has purchased multiple nkna-uqh-eqglvyh inserts and does wear good tennis shoes. She states she has no pain upon 1st getting up inthe morning but after long period without proper support she has a lot of discomfort in her feet especially her toes. PAST MEDICAL HISTORY, SURGICAL HISTORY, SOCIAL HISTORY, FAMILY HISTORY, ALLERGIES, and MEDICATIONS were reviewed per the electronic health record tab dated 04/02/2019. ROS: Hepatic - negative, Constitutional - negative, Integumentary - negative, GI - negative, Musculoskeletal - see HPI PHYSICAL EXAMINATION: Neurovascular status intact bilaterally. Subtalar joint ankle joint range of motion within normal limits without crepitus pain or restriction. She does have a pes cavus deformity, but no hammertoe development. There is no erythema, edema, ecchymosis, or signs of acute process. No hyperkeratotic lesions plantarly or otherwise. IMPRESSION/REPORT Pes cavus bilaterally with generalized foot pain PLAN: Recommended that we proceed with custom orthotics. It impressions were made today and will be sent in for fabrication. Patient to be notified upon receipt of the orthotics and to break them in gradually with wearing them a little bit more each day. Follow-up if there is any further questions problems concerns or she desires another pair. documented in this encounter Plan of Treatment Not on filedocumented as of this encounter Visit Diagnoses Diagnosis Pain Limb Generalized - Primary Talipes Cavus Congenital documented in this encounter Additional Health Concerns Assessment Noted Time PHQ-9 Depression Total Score: 3 12/20/2016 9:55 AM CDT documented as of this encounter Care Teams Resource Protection Specialist Relationship Specialty Start Date End Date Apurva Saldaña M.D. PCP - General 03/10/[address] [place] [phone] documented as of this encounter
--- OUTSIDE RECORDS SUMMARY | 2022-07-09 10:02 | XMS_ITS | Encounter Summary ---
:1980 Author Organization [facility] Address [address] [place] [address] Care Team Providers Name Role Phone Apurva Saldaña M.D. Primary Care Provider Reason for Visit Reason Comments Med Refill Encounter Details Date Type Department Care Team Description 01/24/2018 Refill Department of [facility] Andrew Saldaña Med Refill Medicine, [facility], [place] [phone] [id number] [phone] Social History Tobacco Use Types Packs/Day Years [...] or relatives? How often do you attend amish or Never 2021 yarsani services? Do you belong to any clubs or No 10/21/2021 organizations such as amish groups, unions, fraternal or athletic groups, or [...] or slept in a chcf (including now)? 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 PCP - General 03/10/[address] [place] [phone] documented as of this encounter
--- OUTSIDE RECORDS SUMMARY | 2022-07-09 10:02 | XMS_ITS | Encounter Summary ---
:1980 Author Organization [facility] Address [address] [place] [address] Care Team Providers Name Role Phone Unavailable Primary Care Provider Unavailable Encounter Details Date Type Department Care Team Description 06/03/2014 Hospital Encounter HX [facility] Radha [...] or relatives? How often do you attend hindu or Never 2021 sikhism services? 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
--- OUTSIDE RECORDS SUMMARY | 2022-07-09 10:02 | XMS_ITS | Encounter Summary ---
:1980 Author Organization [facility] Address [address] [place] [address] Care Team Providers Name Role Phone Unavailable Primary Care Provider Unavailable Encounter Details Date Type Department Care Team Description 08/19/2014 Hospital Encounter [facility]X [facility] Radha [...] or relatives? How often do you attend confucianist or Never 2021 druze services? 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
--- OUTSIDE RECORDS SUMMARY | 2022-07-09 10:02 | XMS_ITS | Encounter Summary ---
:1980 Author Organization [facility] Address [address] [place] [address] Care Team Providers Name Role Phone Unavailable Primary Care Provider Unavailable Encounter Details Date Type Department Care Team Description 05/24/2016 Hospital Encounter HX [facility] Esme Giang M.D. [address] [place], [place] [address] (Wo rk) Social History Tobacco Use Types [...] or relatives? How often do you attend protestant or Never 2021 episcopal services? 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 - 05/24/2016 2:38 PM CDT Clinic Full Note CHIEF COMPLAINT/REASON FOR VISIT Yearly physical. Medication review HISTORY OF PRESENT ILLNESS Patient is a 36 year old female who presents today for a wellness exam. No acute concerns. Current Medical Conditions Grave's disease-- s/p thyroidectomy now with postsurgical hypothyroidism hx of gestational diabetes depression/anxiety/PTSD acne Family History unknown biological history Social History . Two sons 10 and 5. 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 Nonsmoker. HCM Tdap today. PAP 2012. MEDICATIONS Benzaclin topical gel, 1 armani, in the morning and the evening(apply to only the affected areas), Topical, 2xDay, 5 refills clindamycin 1% topical gel, 1 armani, Topical, Daily, 11 refills Fish Oil, PO, Daily levothyroxine 112 mcg (0.112 mg) oral tablet, 112 mcg, 1 tab(s), low thyroid, PO, Daily, 3 refills Lexapro 10 mg oral tablet, 15 mg, 1.5 tab(s), mood, PO, Daily, 3 refills, * tretinoin 0.05% topical cream, 1 armani, Topical, Bedtime, 11 refills Vitamin D3 2000 intl units oral tablet, 2,000 IntU, 1 tab(s), PO, Daily * indicates non-compliance ALLERGIES NKA No Known Medication Allergies PAST MEDICAL HISTORY Chronic Acne vulgaris Depression Major Recurrent Severe Disorder Post Traumatic Stress (PTSD) Prolonged Gestational diabetes Graves' disease Hyperthyroidism NOS, without mention of crisis or storm Streptococcosis Historical No historical problems PROCEDURES/SURGICAL HISTORY Pap smear (2010), Tubal ligation (2010), Breast augmentation (09/26/2006), Cholecystectomy (1999), GENERAL SURG (ABSTRACTED) - lap galbladder (), TUBAL LIGATION - 2010 (). SOCIAL HISTORY Date Time: 05/24/2016 14:05 Tobacco: Smoking Status: Never smoker Exposure: Care provider denies smoking in home, Other: Never Alcohol: Use: No Recreational Drugs: Use: None [...] Breast cancer; Melanoma Uncle:Positive: Melanoma Grandfather:Positive: Melanoma SYSTEMS REVIEW GENERAL: No weight gain, no weight loss, no fever in past month, no chills, no sweats, no fatigue EENT: No blurred vision, no double vision, no eye pain, no sinus problems, no hoarseness, no difficulty swallowing, no mouth sores, no diminished hearing, no ringing in ears, no enlarged glands PULMONARY: No shortness of breath, no cough, no wheezing, no sputum, no hemoptysis CARDIAC: No valve problems, no Chest pain, no Chest pressure, no rapid beating, no irregular beating, no dependent edema, pain in calves or with walking, no difficulty moving arms and legs GI: No heartburn, no nausea, no vomiting, no stomach trouble, no constipation, no diarrhea, no blood in BMs, no change in BMs REPRODUCTIVE: Is heterosexual , no change in sex drive or performance BREAST: No lumps of breast, no nipple discharge, no pain in breast : No vaginal discharge, no burning/pain with urination, no difficulty starting stream, no difficulty emptying bladder, no excessive urination MUSCULOSKELETAL: No joint pain, no joint swelling, no joint stiffness, no muscle pain, no muscle stiffness, no back pain, no back stiffness SKIN: No skin rashes, no skin sores, no change in moles NEURO: No significant headaches, no slurred speech, no seizures, no dizziness, no loss of consciousness, no memory loss ENDOCRINE: No excessive thirst, no excessive bruising VITAL SIGNS T: 37.2 ??C (Core) HR: 60 RR: 16 BP: 110 / 65 SpO2: 100% HT: 164 cm WT: 65.2 kg BMI: 24.24 PHYSICAL EXAMINATION GENERAL: Patient is in no distress. Capable of full communication without difficulty. Patient is polite and cooperative. Appropriately dressed and normal hygiene. HEENT: Normocephalic. EOMI, PERRLA, Canals patent, TMs normal. Oropharynx without lesion of mucosa.Pharyngeal rises symmetrically without exudate. NECK: No nodes, no thyromegaly. No bruit auscultated. HEART: Regular rate and rhythm. No murmurs, gallops or rubs noted. LUNGS: Clear to auscultation bilaterally. No expiratory wheeze. No accessory muscles of respirationnoted. BREASTS: Soft breast tissue without predominant mass or nodularity. No nipple discharge. Nipples everted bilaterally. No axillary or supraclavicular adenopathy. ABDOMEN: Nontender to palpation. No hepato-splenomegaly. No mass. Normal bowel sounds in all 4 quadrants. PELVIS: Normal external genitalia. No vaginal discharge. Mucosa moist and well rugated. Cervix is midline. Pap smear is taken by thin-prep technology. Bimanual exam shows no adnexal fullness. No cervical motion tenderness. Anus appears normal. EXTREMITIES: No neurovascular compromise. No cyanosis, clubbing or edema. No abnormal limb length. IMPRESSION/REPORT/PLAN 1. Well Adult Exam Normal PAP and pelvic today- continue good diet and exercise. 2. Graves' disease TSH and free T4 today. On replacement- refilled today. 3. Encounter for immunization Tdap updated today. Electronically Signed By: LORNA OHARA MD On: 05/29/2016 05:54 PM Source: [facility] POWERCHART Document Id: [id number] documented in this encounter Miscellaneous Notes Telephone Encounter - Conversion, Historical Provider Ser - 09/07/2016 9:52 AM CST *Phone Message Document Contains Addenda Addendum by RANCHO BYRNE CMA on September 07, 2016 10:34:17 HOSTESS CASHIER Pt informed Rx sent to [facility]. From: HECTOR LESTER I ([facility] Client Architect) To: [facility] Nurse Mari; Sent: 09/07/2016 09:52:49 HOSTESS CASHIER Subject: *Phone Message Caller is: ( x ) Patient ( ) Mother ( ) Father ( ) Spouse ( ) Daughter ( ) Son ( ) Pharmacy ( ) Other: Physician: Lorna Ohara MD Patient MRN #: Reason for Call: Message: Patient has been waiting for phone call from Dr Ohara. Please renew Levothyroxine - pharmacy is [facility]. Do not call in RX for control at this time, she is changing PCP. Phone number is [phone]. Advice/Action: Source used: ( ) Verbalizes understanding of instructions ( ) Instructed to call back if symptoms worsen or do not resolve ( ) Refused to see provider ( ) Appointment Scheduled ( ) OK to leave message on voice mail ( ) Patient told to expect return call: ( ) today ( ) tomorrow ( ) next work day ( ) Patient's email ( ) Patient told physician out of office, will call upon return call on ( ) ( ) Patient told physician out of office, routed to other physician ( ) Other ( ) Call back telephone number ( ) Call back cell phone number ( ) [facility] Document Id: [id number] Miscellaneous - Matthew Sutton L.P.N. - 09/03/2016 12:48 PM CST *General Message Document Contains Addenda Addendum by MATTHEW SUTTON LPN on September 03, 2016 16:16:55 HOSTESS CASHIER From: MATTHEW SUTTON LPN ([facility] Nurse Mari) To: MATTHEW SUTTON LPN; Sent: 09/03/2016 16:16:55 HOSTESS CASHIER Subject: FW: *General Message Addendum by TREVOR BAH RN on September 03, 2016 14:55:02 HOSTESS CASHIER Submitted: Order:levothyroxine (levothyroxine 112 mcg (0.112 mg) oral tablet) 1 tab(s) PO Daily low thyroid Qty: 7 tab(s) Duration: 7 day(s) Refills: 0 Substitutions Allowed Route To Pharmacy - [facility] Signed by TREVOR BAH RN 09/03/2016 14:54:35 [facility] Guerra) To: TREVOR BAH RN; Cc: LORNA OHARA MD; Sent: 09/03/2016 12:48:02 HOSTESS CASHIER Subject: *General Message Patient called concerned that she has not had not heard back regarding her requests. She is needing a refill of levothyroxine and control. Request was sent to PCP for levothyroxine but is pendingapproval. Could you please prescribe a weeks worth until provider approves? Patient is also concerned she has not heard back to if she should continue her current controlor start a new based on symptoms she described in a previous portal message. Source: [facility] Document Id: [id number] Electronically signed by Conversion, [facility] Bistro Attendant [id number] at 02/20/2017 2:32 AM CDT Lorna Polanco M.D. - 06/02/2016 4:07 PM CDT Normal Results Letter June 02, 2016 ESTER VERAS [address] [id number] Dear ESTER VERAS, I am pleased to report that your results from the following diagnostic test(s) are normal. Please follow up with us as we discussed during your visit or sooner if you have any concerns. If you have questions or concerns, please do not hesitate to call our office. Normal PAP. Result Name Current Result Accession Nbr-Honor [id number] 05/24/2016 Final Diagnosis-Honor See Comment 05/24/2016 Cytotech-Honor See Comment 05/24/2016 Spec Desc-Honor See Comment 05/24/2016 Sincerely, LORNA OHARA [address] [place] [address] Electronic Signature Electronically Signed By: LORNA OHARA MD On: June 02, 2016 This document has images extracted. Source: [facility] [employer] Document Id: [id number] Electronically signed by Conversion, [facility] Bistro Attendant [id number] at 02/20/2017 2:32 AM CDT Lorna Polanco M.D. - 05/25/2016 9:54 AM CDT Normal Results Letter May 25, 2016 ESTER MEMBRENOQUINTONCody [address] [id number] Dear ESTER VERAS, I am pleased to report that your results from the following diagnostic test(s) are normal. Please follow up with us as we discussed during your visit or sooner if you have any concerns. If you have questions or concerns, please do not hesitate to call our office. Result Name Current Result Previous Result Normal Range T4 Total-Honor (mcg/dL) 9.5 05/24/2016 4.5 - 11.7 - TSH (mIU/L) 0.35 05/24/2016 1.54 06/13/2015 0.27 - 4.20 Sincerely, LORNA OHARA [address] [place] [address] Electronic Signature Electronically Signed By: LORNA OHARA MD On: May 25, 2016 This document has images extracted. Source: [facility] [employer] Document Id: [id number] Miscellaneous - Candie Dumont L.P.NPelon - 05/24/2016 2:22 PM CDT MnVFC Eligibility MnVFC Eligibility Entered On: 05/24/2016 14:22 CDT Performed On: 05/24/2016 14:22 CDT by CANDIE DUMONT LPN [facility] Eligibility Provided MnVFC eligibility information : No CANDIE DUMONT LPN - 05/24/2016 14:22 CDT Source: [facility] [employer] Document Id: [id number] CDT!3 Darielacellaneous - Candie Dumont L.P.N. 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 Medication review Temperature Core : 37.2 DegC(Converted to: 99.0 DegF) Peripheral Pulse Rate : 60 /min Respiratory Rate : 16 /min Heart Rhythm : Regular Systolic Blood Pressure : 110 mmHg Diastolic Blood Pressure : 65 mmHg NIBP Mean : 80 mmHg BP Location : Left upper extremity Blood Pressure Cuff Size : Regular SpO2 : 100 % Oxygen Therapy : Room air Height : 164 cm(Converted to: 5 ft 5 inch(es), 65 inch(es)) Actual Weight : 65.2 kg(Converted to: 143 lb 12 oz) Weight Source : Standing scale Dosing Weight Clinic : 65.2 kg Clinic BSA : 1.72 Body Mass Index : 24.24 kg/m2 CANDIE DUMONT LPN - 05/24/2016 14:05 CDT General Info Languages : Khmer Is Patient Female and 13-50 no hysterectomy : Yes Status : Patient denies Are you ? : No CANDIE DUMONT LPN - 05/24/2016 14:05 CDT Subjective Pain Symptoms : No CANDIE DUMONT LPN - 05/24/2016 14:05 CDT Dependent Habits Exposure to Tobacco Smoke : Care provider denies smoking in home, Other: Never Smoking Status : Never smoker Tobacco 2A : No Tobacco Use/Currently Using : No Tobacco Use/Last 30 Days : No Tobacco Use/Last 12 months : No Alcohol Use : No CANDIE DUMONT LPN - 05/24/2016 14:05 CDT Caffeine Use Grid Caffeine Use : Current Type : Soft drinks, Tea Frequency : Occasionally CANDIE DUMONT LPN - 05/24/2016 14:05 CDT Recreational Drug Use Grid Drug Use : None CANDIE DUMONT LPN - 05/24/2016 14:05 CDT Source: View3 Document Id: [id number] CDT!43 Miscellaneous - Abelardo Jennings - 05/24/2016 11:11 AM CDT Quality Measures Quality Measures Entered On: 05/26/2016 11:12 CDT Performed On: 05/24/2016 11:11 CDT by ABELARDO JENNINGS Depression PHQ-9 Score : 3 ABELARDO JENNINGS - 05/26/2016 11:11 CDT Source: View3 Document Id: [id number] CDT!3 documented in this encounter Plan of Treatment Not on filedocumented as of this encounter Procedures Procedure Name Priority Date/Time Associated Diagnosis Comme nts THINPREP SCREEN HPV Routine 05/24/2016 3:00 PM Re sults for this REFLEX CDT procedure are i n the results section. THYROID-STIMULATING Routine 05/24/2016 2:05 PM Re sults for this HORMONE-SENSITIVE CDT procedure are in (S-TSH) the results section. T4 (THYROXINE), TOT Routine 05/24/2016 2:05 PM Re sults for this ONLY, S CDT procedure are i n the results section. documented in this encounter Results Pathology ThinPrep Screen HPV Reflex (05/24/2016 3:00 PM CDT) [facility] gist Method Time Signature HXAccession [id number] POWERCHART [facility] HXFinal See Comment POWERCHART [facility] Comment: A. ??ThinPrep Pap Test Screen (Cervical/ Endocervical HPV >= 30 years old): Satisfactory for evaluation. Negative for intraepithelial lesion or m alignancy. Fungal organisms morphologically consist ent with Magalie species High Risk HPV testing results are NEGATI VE. See specific genotype results below. HPV with Genotyping, PCR, ThinPrep: HPV High Risk Type 16, PCR: ??NEGATIVE HPV High Risk Type 18, PCR: ??NEGATIVE HPV other High Risk types, PCR: ??NEGATI VE Other High Risk HPV types include: ??31, 33, 35, 39, 45, 51, 52, 56, 58, 59, 66, and 68. [facility] See Comment POWERCHART Comment: Report electronically signed by ISABEL Lui(ASCP) 06/02/2016 09:35 Interpreted by: KATHI Jose(ASCP) Specimen (Source) Anatomical Collection Method Collection Time Re ceived Time Location / / Volume Laterality Cervix/Endocervix 05/24/2016 3:00 PM CDT Lorna Ohara M.D. LAB PAP PATHDX ORDERABLES Performing Organization Address City/State/ZIP Code Phon e Number POWERCHART Thyroid-Stimulating Hormone-Sensitive (s-TSH) (05/24/2016 2:05 PM CDT) P athologist Signature TSH 0.35 0.27 - 4.20 POWERCHART (Thyrotropin) MIUL Comment: Biotin has been identified by the timmy cturer as a potential interfering substance. Higher concentrations of biotin may be found in multivitamins, hair/nail supplements, and workout supplements. If the result does not match clinical observat ions, repeat testing after patient refrains from the use of supplements for at least 12 hours. Specimen (Source) Anatomical Collection Method Collection Time Re ceived Time Location / / Volume Laterality Blood 05/24/2016 2:05 PM CDT Lorna Ohara M.D. LAB BLOOD ADD-ON Performing Organization Address City/State/ZIP Code Phon e Number POWERCHART T4 (Thyroxine), Total Only (05/24/2016 2:05 PM CDT) P athologist Signature T4 (Thyroxine), 9.5 4.5 - 11.7 POWERCHART Total Only, [facility] Comment: Test Performed by: [place] [address] Solar Crew Member: Moses Sanchez II, M.D., Ph.D. Specimen (Source) Anatomical Collection Method Collection Time Re ceived Time Location / / Volume Laterality Blood 05/24/2016 2:05 PM CDT Lorna Ohara M.D. LAB BLOOD ADD-ON Performing Organization Address City/State/ZIP Code Phon e Number POWERCHART documented in this encounter Visit Diagnoses Not on filedocumented in this encounter Additional Health Concerns Assessment Noted Time PHQ-9 Depression Total Score: 19 01/28/2014 11:12 AM C DT documented as of this encounter
--- OUTSIDE RECORDS SUMMARY | 2022-07-09 10:02 | XMS_ITS | Encounter Summary ---
:1980 Author Organization [facility] Address [address] [place] [address] Care Team Providers Name Role Phone Unavailable Primary Care Provider Unavailable Encounter Details Date Type Department Care Team Description 10/07/2014 Hospital Encounter HX [facility] Radha [...] or relatives? How often do you attend synagogue or Never 2021 orthodoxy services? Do you belong to any clubs or No 10/21/2021 organizations such as synagogue groups, unions, fraternal or athletic groups, or [...] place to sleep or slept in a prison (including now)? 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
--- OUTSIDE RECORDS SUMMARY | 2022-07-09 10:02 | XMS_ITS | Encounter Summary ---
:1980 Author Organization [facility] Address [address] [place] [address] Care Team Providers Name Role Phone Unavailable Primary Care Provider Unavailable Encounter Details Date Type Department Care Team Description 04/22/2014 Hospital Encounter HX [facility] Radha Butler, Ph.D., [...] or relatives? How often do you attend sikhism or Never 2021 jewish services? 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 Last Filed Vital Signs Vital Sign Reading Time Taken Comments Blood Pressure - - Pulse - - Temperature - - Respiratory Rate - - Oxygen Saturation - - Inhaled Oxygen Concentration - - Weight - - Height 164 cm (5' 4.57) 04/22/2014 5:52 PM CDT Body Mass Index - - [...] Encounter - Conversion, Historical Provider Ser - 10/07/2014 8:38 AM CST fatigue Document Contains Addenda Addendum by SHERRON ALONZO DNP, FNP on 07 October 2014 09:23:21 HEAD PORTER addressed From: JHONY BASSETT V To: SHERRON ALONZO DNP, FNP; Sent: 10/07/2014 08:38:12 HEAD PORTER Subject: fatigue Pt LVM requesting you call her @ [phone] as she is bothered by fatigue but doesn't want to keepincreasing meds. Last seen by you in December. Indicated she had hoped to make appt today but no openings. Attempted to contact pt for more details as I don't see any recent medication increases. Only able to LVM requesting pt call w/ more info. Source: [facility] POWERCHART Document Id: [id number] Miscellaneous - Conversion, Historical Provider Ser - 06/03/2014 1:39 PM CDT Med Management Document Contains Addenda Addendum by JHONY BASSETT V on 03 June 2014 14:14:28 CDT pt updated Addendum by SHERRON ALONZO DNP, FNP on 03 June 2014 13:43:29 CDT From: SHERRON ALONZO DNP, FNP Sent: 06/03/2014 13:43:28 CDT Subject: RE:Med Management Approved Order:escitalopram (Lexapro 10 mg oral tablet) 1.5 tab(s) PO Daily Qty: 135 tab(s) Duration: 90 day(s) Refills: 1 Substitutions Allowed Route To Pharmacy - [facility] Signed by SHERRON ALONZO DNP, FNP 06/03/2014 13:42:54 From: JHONY BASSETT V To: SHERRON ALONZO DNP, FNP; JHONY BASSETT V; Sent: 06/03/2014 13:39:19 CDT Subject: Med Management On hold pending signature Order:escitalopram (Lexapro 10 mg oral tablet) 1.5 tab(s) PO Daily Qty: 135 tab(s) Duration: 90 day(s) Refills: 1 Substitutions Allowed Route To Pharmacy - [facility] Pt reports you told her to increase her lexapro to 15mg about 6 weeks ago when she had her son in for a visit. No notes found to support this. Pharmacy told her they need a new rx Source: [facility] POWERCHART Document Id: [id number] Miscellaneous - Poly Zhou, L.P.N. - 2014 8:46 AM CDT Quality Measures Quality Measures Entered On: 04/23/2014 8:47 CDT Performed On: 2014 8:46 CDT by POLY ZHOU LPN Depression PHQ-9 Score : 9 POLY ZHOU LPN - 04/23/2014 8:46 CDT Source: [facility] POWERCHART Document Id: [id number] CDT!3 documented in this encounter Plan of Treatment Not on filedocumented as of this encounter Visit Diagnoses Not on filedocumented in this encounter Additional Health Concerns Assessment Noted Time PHQ-9 Depression Total Score: 19 01/28/2014 11:12 AM C DT documented as of this encounter
--- OUTSIDE RECORDS SUMMARY | 2022-07-09 10:02 | XMS_ITS | Encounter Summary ---
:1980 Author Organization [facility] Address [address] [place] [address] Care Team Providers Name Role Phone Unavailable Primary Care Provider Unavailable Encounter Details Date Type Department Care Team Description 01/18/2017 Hospital Encounter HX [facility] Apurva Zamora, Nia SALINAS, C.N.P. [address] [place], [place] [phone] (Wo rk) Social History Tobacco Use Types [...] do you attend tenriism or Never 2021 latter-day services? 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 capsule documented as of this encounter Progress Notes Apurva Thompson R.N. - 01/18/2017 3:25 PM CDT S: Ester is here today as suggested by her PCP. She has bothersome symptoms leading up to her monthly menses that she would like to discusse. She states that for 2 weeks prior to her monthly period, she experiences an increase in stress, agitation, swelling/bloating, acne, night sweats. She also reports that her periods are heavy, cramping - there are 1-2 days each cycle that I wish I could just lay down with a heating pad on my back. She states that she has paid close attention to diet, and made adjustments that have brought a small amount of relief. She tried 2 different OCPs, but stopped dueto headaches and dizziness. Has used some essential oils with slight relief. She has a history of Graves disease, has been stable on her levothyrozine dose. She is also taking Lexapro for anxiety. She had weaned herself off, but now restarted due to worsening anxiety. Today she is inquring if these symptoms may be due to perimenopause, or if there is something that she is overlooking. She states I know some of this might be due to medication side effects, or from the synthetic thyroid replacement.Her Grandmother and aunts (she is unsure about her mother) went through menopause in their 30s. States that prior to children and OCP use, she also experienced heavy periods. Ester also notes today that she has experienced increase in headaches when exercising. She does notfeel that anything is tight or pinched, has made adjustments to they type of exercise she is doing. But, within 10 minutes of physical activity, she will experience a migraine type headache, is not sen sitive to light. Past medical: Erythrocytosis Graves' disease Streptococcosis Gestational diabetes Acne vulgaris Depression Major Recurrent Severe Disorder Post Traumatic Stress (PTSD) Prolonged Hyperthyroidism NOS, without mention of crisis or storm Allergies: NKA No Known Medication Allergies Medications: cholecalciferol: 2,000 IntU,1 tab(s),PO,Daily clindamycin-benzoyl peroxide topical: 1 armani,Topical,2xDay,in the morning and the evening(apply to only the affected areas) escitalopram: 5 mg,0.5 tab(s),PO,Daily,mood levothyroxine: 112 mcg,1 tab(s),PO,Daily,low thyroid levothyroxine: 112 mcg,1 tab(s),PO,Daily,low thyroid omega-3 polyunsaturated fatty acids: PO,Daily tretinoin topical: 1 armani,Topical,Bedtime O: NAD, good affect. appropriate throughout visit. VITAL SIGNS Temperature Core: 36.7 Peripheral Pulse Rate: 60 Respiratory Rate: 18 BLOOD PRESSURE Systolic Blood Pressure: 104 Diastolic Blood Pressure: 64 MEASUREMENTS Height: 164 Actual Weight: 64.2 Body Mass Index: 23.87 A/P: Heavy, crampy periods. PMS symptoms. DId not tolerate OCPs. We discussed trial of Depo provera, Nexplanon, or LnG IUDs. She will consider. We also discussed use of higher doses of NSAIDs 1-2 days priorto onset of menses and continuing for 5-7 days to help with cramping and bleeding. She will try this. I discussed with her the reassurance that her periods are occuring monthly. We reviewed the averageage of menopause in the [place] is age 51, but taking into account her family history she may be perimenopausal. I discussed with her that there is no specific test to diagnose or predict menopause. She verbalizes understanding. We discussed the possibility of her symptoms being due to medication side effects as well. We also discussed further evaluation such as ultrasound and/or endometrial biopsy should her periods become irregular. headaches with exercise. she is considering chiropractic evaluation. I did suggest neurology consultshould her headaches worsen. Electronically Signed By: APURVA THOMPSON CNP, RN On: 01/18/2017 03:46 PM Source: [facility] Document Id: [id number] documented in this encounter Miscellaneous Notes Miscellaneous - Gabrielle Cardozo L.PPelonN. 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/History Entered On: 01/18/2017 14:36 CDT Performed On: 01/18/2017 14:34 CDT by GABRIELLE CARDOZO LPN Intake Chief Complaint : Menopause Temperature Core : 36.7 DegC(Converted to: 98.1 DegF) Peripheral Pulse Rate : 60 /min Respiratory Rate : 18 /min Heart Rhythm : Regular Systolic Blood Pressure : 104 mmHg Diastolic Blood Pressure : 64 mmHg NIBP Mean : 77 mmHg BP Location : Left upper extremity Blood Pressure Cuff Size : Regular Height : 164 cm(Converted to: 5 ft 5 inch(es), 65 inch(es)) Actual Weight : 64.2 kg(Converted to: 141 lb 9 oz) Dosing Weight Clinic : 64.2 kg Clinic BSA : 1.71 Body Mass Index : 23.87 kg/m2 GABRIELLE CARDOZO LPN - 01/18/2017 14:34 CDT General Info Languages : Icelandic Is Patient Female and 13-50 no hysterectomy : Yes Status : Patient denies Are you ? : No GABRIELLE CARDOZO [facility] - 01/18/2017 14:34 CDT Subjective Pain Symptoms : No GABRIELLE CARDOZO [facility] - 01/18/2017 14:34 CDT Dependent Habits Exposure to Tobacco Smoke : Care provider denies smoking in home, Other: Never Smoking Status : Never smoker Tobacco 2A : No Tobacco Use/Currently Using : No Tobacco Use/Last 30 Days : No Tobacco Use/Last 12 months : No GABRIELLE CARDOZO [facility] - 01/18/2017 14:34 CDT Caffeine Use Grid Caffeine Use : Current Type : Soft drinks, Tea Frequency : Occasionally GABRIELLE CARDOZO [facility] 01/18/2017 14:34 CDT Recreational Drug Use Grid Drug Use : None GABRIELLE CARDOZO [facility] 01/18/2017 14:34 CDT Source: [facility] [employer] Document Id: [id number] CDT!39 documented in this encounter Plan of Treatment Not on filedocumented as of this encounter Visit Diagnoses Not on filedocumented in this encounter Additional Health Concerns Assessment Noted Time PHQ-9 Depression Total Score: 3 12/20/2016 9:55 AM CDT documented as of this encounter
--- OUTSIDE RECORDS SUMMARY | 2022-07-09 10:02 | XMS_ITS | Encounter Summary ---
:1980 Author Organization [facility] Address [address] [place] [address] Care Team Providers Name Role Phone Apurva Saldaña M.D. Primary Care Provider [phone] Encounter Details Date Type Department Care Team Description 07/26/2017 Orders Only Department of Family Bobby Saldaña creening Examination Diabetes Mellitus; Medicine, Wayne Rosales M.D. General Medical Examination Adult; [facility], [place] [address] Thyrotox icosis With Diffuse Goiter Without Thyrotoxic Crisis Or Storm [address] [address] [place], [place] [phone] (Work) [phone] Social History Tobacco Use Types Packs/Day Years [...] or relatives? How often do you attend cheondoism or Never 2021 sabianist services? 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 PCP - General 03/10/[address] [place] [phone] documented as of this encounter
--- OUTSIDE RECORDS SUMMARY | 2022-07-09 10:02 | XMS_ITS | Encounter Summary ---
:1980 Author Organization [facility] Address [address] [place] [address] Care Team Providers Name Role Phone Unavailable Primary Care Provider Unavailable Encounter Details Date Type Department Care Team Description 04/08/2014 Hospital Encounter HX [facility] Radha Butler, Ph.D., M.A., L.M.F.T. [...] do you attend taoism or Never 2021 hindu services? Do you belong to any clubs [...] or slept in a mcfp (including now)? 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 - 10/07/2014 8:47 AM CST Quality Measures Quality Measures Entered On: 10/11/2014 8:47 [employer] Performed On: 10/07/2014 8:47 [employer]IM[employer] by POLY ZHOU LPN Depression PHQ-9 Score : 6 POLY ZHOU LPN - 10/11/2014 8:47 [employer]IMMER [employer] Source: [facility] POWERCHART Document Id: [id number] TRIMMER PRESS CLIPPINGS!3 MER PRESS CLIPPINGS documented in this encounter Plan of Treatment Not on filedocumented as of this encounter Visit Diagnoses Not on filedocumented in this encounter Additional Health Concerns Assessment Noted Time PHQ-9 Depression Total Score: 19 01/28/2014 11:12 AM C DT documented as of this encounter
--- OUTSIDE RECORDS SUMMARY | 2022-07-09 10:02 | XMS_ITS | Encounter Summary ---
:1980 Author Organization [facility] Address [address] [place] [address] Care Team Providers Name Role Phone Unavailable Primary Care Provider Unavailable Encounter Details Date Type Department Care Team Description 09/09/2014 Hospital Encounter HX [facility] Radha [...] do you attend hindu or Never 2021 druze services? 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 Last Filed Vital Signs Vital Sign Reading Time Taken Comments Blood Pressure - - Pulse - - Temperature - - Respiratory Rate - - Oxygen Saturation - - Inhaled Oxygen Concentration - - Weight - - Height 164 cm (5' 4.57) 09/09/2014 4:40 PM KNOT TIER Body Mass Index - - documented in [...] of this encounter Miscellaneous Notes Miscellaneous - Conversion, Historical Provider Ser - 09/09/2014 10:28 AM KNOT TIER Med Management Document Contains Addenda Addendum by SHERRON ALONZO DNP, FNP on 10 September 2014 06:16:17 KNOT TIER From: SHERRON ALONZO DNP, FNP Sent: 09/10/2014 06:16:16 KNOT TIER Subject: RE:Med Management Approved with modifications: Order:clindamycin-benzoyl peroxide topical (Benzaclin topical gel) 1 armani Topical 2xDay in the morning and the evening (apply to only the affected areas) Qty: 25 gm Refills: 5 Substitutions Allowed Route To Pharmacy - [facility] Signed by SHERRON ALONZO DNP, FNP 09/10/2014 06:15:40 From: JHONY BASSETT V To: SHERRON ALONZO DNP, FNP; JHONY BASSETT V; Sent: 09/09/2014 10:28:01 KNOT TIER Subject: Med Management On hold pending signature Order:clindamycin-benzoyl peroxide topical (Benzaclin topical gel) 1 armani Topical 2xDay in the morning and the evening (apply to only the affected areas) Qty: 25 gm Refills: 0 Substitutions Allowed Route To Pharmacy - [facility] last seen in December for GI issues. Last filled 05/01 Source: [facility] POWERCHART Document Id: [id number] documented in this encounter Plan of Treatment Not on filedocumented as of this encounter Visit Diagnoses Not on filedocumented in this encounter Additional Health Concerns Assessment Noted Time PHQ-9 Depression Total Score: 19 01/28/2014 11:12 AM C DT documented as of this encounter
--- OUTSIDE RECORDS SUMMARY | 2022-07-09 10:02 | XMS_ITS | Encounter Summary ---
:1980 Author Organization [facility] Address [address] [place] [address] Care Team Providers Name Role Phone Unavailable Primary Care Provider Unavailable Encounter Details Date Type Department Care Team Description 12/20/2016 Hospital Encounter HX [facility] Rancho Manzanares M.D. [address] [place] [phone] (Wo rk) Social History Tobacco Use [...] or relatives? How often do you attend methodist or Never 2021 orthodoxy services? 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 - 12/20/2016 6:02 AM CDT Clinic Full Note CHIEF COMPLAINT/REASON FOR VISIT Here for further evaluation of hormonal symptoms. HISTORY OF PRESENT ILLNESS Ester presents today to discuss her hormones. Since being diagnosed with Grave's disease 4 years ago, nothing has been the same. Recently, she has been dealing with night sweats during her cycle, mood swings, poor sleep, worsening acne, and bloating with her cycle to the point that her clothes don'tfit. She works very hard on a healthy diet and good exercise routine. She has tried limiting wheat, dairy, sugar, and dye. She was tried on Irylt-ooy-aivtnx which she took in the past, but this gave her a migraine for the 3 months that she took it and her other symptoms did not change. She was then tried on a different OCP, but she felt lightheaded and nauseous, so she only took this for 1 month. Selene feels rested. She does not think she snores at night and denies frequent leg movements. She does grind her teeth. She does not know when her mom went through menopause. MEDICATIONS Benzaclin topical gel, 1 armani, in the morning and the evening(apply to only the affected areas), Topical, 2xDay, 5 refills clindamycin 1% topical gel, 1 armani, Topical, Daily, 11 refills Fish Oil, PO, Daily levothyroxine 112 mcg (0.112 mg) oral tablet, 112 mcg, 1 tab(s), low thyroid, PO, Daily, 3 refills levothyroxine 112 mcg (0.112 mg) oral tablet, 112 mcg, 1 tab(s), low thyroid, PO, Daily, 0 refills Lexapro 10 mg oral tablet, 15 mg, 1.5 tab(s), mood, PO, Daily, 3 refills Ortho Tri-Cyclen oral tablet, 1 tab(s), PO, Daily, 3 refills tretinoin 0.05% topical cream, 1 armani, Topical, Bedtime, 11 refills Vitamin D3 2000 intl units oral tablet, 2,000 IntU, 1 tab(s), PO, Daily ALLERGIES NKA No Known Medication Allergies PAST [...] - 2010 (). SOCIAL HISTORY Date Time: 12/20/2016 09:12 Tobacco: Smoking Status: Never smoker Exposure: Care [...] Melanoma Uncle:Positive: Melanoma Grandfather:Positive: Melanoma SYSTEMS REVIEW As per HPI. VITAL SIGNS T: 36.8 ??C (Core) HR: 72 BP: 116 / 64 SpO2: 100% HT: 164 cm WT: 64.2 kg BMI: 23.87 PHYSICAL EXAMINATION General: Alert and oriented. No acute distress. Neck: Supple. No lymphadenopathy. No carotid bruits. No thyromegaly. Cardiovascular exam: Regular rate and rhythm. Normal S1 and S2. No murmurs, rubs, or gallops. Lungs: Clear to auscultation bilaterally. Extremities: No pedal edema. Skin: A few healing papules on her cheeks. IMPRESSION/REPORT/PLAN 1. Premenstrual Syndrome (PMS) Recent labs reviewed. Patient has symptoms consistent with PMS. She has been tried on 2 OCPs without improvement and is on Lexapro. I recommended that we refer to gynecology for further evaluation/treatment. Patient was willing to do this. 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 Some may be past due or may be coming due in the next three months. If youhave already scheduled any or all of these services, thank you. We recognize that this may or may not include all of your individualized health care needs; however, we are happy to help you with any and all primary care concerns you may have. Past Due Diabetes Screening: recommended preventive service starting at age 18 Coming Due (in the next three months) Fasting Lipid Panel (on or soon after Mar 17, 2017): recommended preventive service starting at age 35 Thyroid Stimulating Hormone (TSH) Test (on or soon after May 24, 2017) It may be possible to bundle some of the above services together to make your visit with us more convenient. Please call [phone] to schedule services that are past due or that may shortly become due (thank you if you have already done so). We will follow up in three to six months should you have more services to schedule at that time. If you have already received any of the listed past due or upcoming services outside of [facility], please call [phone] to add them to your medical record. You may want to consider contacting your health insurance company to make sure these services are covered and find out if there will be any [id number] expense. If you have any questions about the services listed above, or if you are no longer receiving care from [facility], please contact us at [phone]. Thank you for partnering to provide you with the best care possible. Thank you for choosing us, Rancho Osuna M.D. and the [facility], for your health care needs! Sincerely, AUSTIN PIMENTEL Electronic Signature Electronically Signed By: AUSTIN PIMENTEL On: March 08, 2017 This document has images extracted. Source: [facility] POWERCHART Document Id: [id number] Miscellaneous - Candie Dumont L.PPelonN. - 12/20/2016 9:55 AM CDT PHQ-9 PHQ-9 Entered On: 12/24/2016 9:56 CDT Performed On: 12/20/2016 9:55 CDT by CANDIE DUMONT LPN PHQ-9 Little interest or pleasure in doing things : Not at all Feeling down, depressed, or hopeless : Not at all Trouble falling or staying asleep, or sleeping too much : More than half the days Feeling tired or having little energy : Several days Poor appetite or overeating : Not at all Feeling bad about yourself or that you are a failure : Not at all Trouble concentrating on things : Not at all Moving or speaking slowly; restless or fidgety : Not at all Thoughts that you would be better off /hurting self : Not at all PHQ-9 Calculated Score : 3 Problems make work, home, or dealing with others : Not difficult at all CANDIE DUMONT LPN - 12/24/2016 9:55 CDT Source: [employer] Document Id: [id number] CDT!13 Miscellaneous - Rancho Yin M.D. - 12/20/2016 9:30 AM CDT Ambulatory Patient Summary [address] [id number] Visit Information Name: EDAESTER NOE [facility] Number: [id number] Current Date: 12/20/2016 09:30:30 Physicians Attending Provider: RANCHO YIN MD Primary Care Provider: RANCHO YIN MD ERICACody ESTER LIU has been given the following list of [...] Take Indications/Special Instructions/Comments/Notes for Patient Medication Changes/Routing cholecalciferol (Vitamin D3 2000 intl units oral tablet) 1 Tablet(s), Oral, once a day clindamycin-benzoyl peroxide topical (Benzaclin topical gel) 1 armani, Topical, two times a day in the morning and the evening (apply to only the affected areas) escitalopram (Lexapro 10 mg oral tablet) 0.5 Tablet(s), Oral, once a day mood This is a CHANGE levothyroxine (levothyroxine 112 mcg (0.112 mg) oral tablet) 1 Tablet(s), Oral, once a day low thyroid levothyroxine (levothyroxine 112 mcg (0.112 mg) oral tablet) 1 Tablet(s), Oral, once a day low thyroid omega-3 polyunsaturated fatty acids (Fish Oil) Oral, once a day tretinoin topical (tretinoin 0.05% topical cream) 1 armani, Topical, once a day (at bedtime) Stop Taking the Following Medications: Medication list as of 12-20-16 09:30 Attention: If you have any medications at home that are not on this list, DO NOT take them until youcontact your provider for clarification. Give a copy of your medication list to your primary care provider. Update your medication list any time medications or doses are changed and carry your medication list at all times in case of emergency. Electronically Signed By: RANCHO YIN MD Signed On:20-DEC-2016 09:30:11 Your Allergies & Intolerances Substance Reaction Symptoms [...] if you dont have one. Go to [email or web address] and click on Create Your Account. Then, follow the directions to complete the online form. Youll be asked for your [facility] number which you can find at the top of this document. Your Goals/Additional instructions: Source: [facility] POWERCHART Document Id: [id number] Miscellaneous - Rancho Yin M.D. - 12/20/2016 9:30 AM CDT Ambulatory Discharge Medication List [address] [id number] Visit Information Name: ESTER DO NOE [facility] Number: [id number] Current Date: 12/20/2016 09:30:29 Attending Provider: RANCHO YIN MD Primary Care Provider: RANCHO YIN MD QAMARJUANYCody ESTER LIU has been given the following list of medications: Your Medications It is important to take your medications as directed. Use a pill box or chart to help remind you to take your medications. Please let your doctor or nurse know if you have problems taking your medications. Medication/Strength How to Take Indications/Special Instructions/Comments/Notes for Patient Medication Changes/Routing cholecalciferol (Vitamin D3 2000 intl units oral tablet) 1 Tablet(s), Oral, once a day clindamycin-benzoyl peroxide topical (Benzaclin topical gel) 1 armani, Topical, two times a day in the morning and the evening (apply to only the affected areas) escitalopram (Lexapro 10 mg oral tablet) 0.5 Tablet(s), Oral, once a day mood This is a CHANGE levothyroxine (levothyroxine 112 mcg (0.112 mg) oral tablet) 1 Tablet(s), Oral, once a day low thyroid levothyroxine (levothyroxine 112 mcg (0.112 mg) oral tablet) 1 Tablet(s), Oral, once a day low thyroid omega-3 polyunsaturated fatty acids (Fish Oil) Oral, once a day tretinoin topical (tretinoin 0.05% topical cream) 1 armani, Topical, once a day (at bedtime) Stop Taking the Following Medications: Medication list as of 12-20-16 09:30 Attention: If you have any medications at home that are not on this list, DO NOT take them until youcontact your provider for clarification. Give a copy of your medication list to your primary care provider. Update your medication list any time medications or doses are changed and carry your medication list at all times in case of emergency. Electronically Signed By: RANCHO YIN MD Signed On:20-DEC-2016 09:30:11 Additional Information: Source: [facility] POWERCHART Document Id: [id number] Miscellaneous - Rosie Lombardi, L.P.N. - 12/20/2016 9:12 AM CDT Health Assessment Health Assessment Entered On: 12/20/2016 9:12 CDT Performed On: 12/20/2016 9:12 CDT by ROSIE LOMBARDI Health Assessment Complete Health Assessment Complete or Modified : Annual Health Assessment Annual Health Assessment Completed : Yes ROSIE LOMBARDI - 12/20/2016 9:12 CDT Nutrition Nutrition Risk Factors by History Adult : None ROSIE LOMBARDI - 12/20/2016 9:12 CDT Functional Current Daily Living Assistance : None ROSIE LOMBARDI - 12/20/2016 9:12 CDT Dependent Habits Exposure to Tobacco Smoke : Care provider denies smoking in home, Other: Never Smoking Status : Never smoker Tobacco 2A : No Tobacco Use/Currently Using : No Tobacco Use/Last 30 Days : No Tobacco Use/Last 12 months : No Alcohol Use : No ROSIE LOMBARDI - 12/20/2016 9:12 CDT Caffeine Use Grid Caffeine Use : Current Type : Soft drinks, Tea Frequency : Occasionally ANGELES LOMBARDIAMERICO Talamantes - 12/20/2016 9:12 CDT Recreational Drug Use Grid Drug Use : None ROSIE LOMBARDI Albin - 12/20/2016 9:12 CDT Psychosocial Domestic Abuse Concerns : None Behavioral Health Screen/Safety Assmt : No Restoration Preference : ANGELES BeltreAMERICO Talamantes - 12/20/2016 9:12 CDT Advance Directive Advanced Directives : No Advance Directive Additional Information : No ANGELES LOMBARDIAMERICO Talamantes - 12/20/2016 9:12 CDT Educ Needs Learning Style Preference Adult Grid Patient : Verbal explanation Family : Verbal explanation LEVIANGELESROSIE L - 12/20/2016 9:12 CDT [facility]: [facility] Document Id: [id number] CDT!35 Miscellaneous - Rosie Lombardi, L.P.N. - 12/20/2016 8:56 AM CDT Adult Lay Out Technician Intake/History Adult Lay Out Technician Intake/History Entered On: 12/20/2016 9:01 CDT Performed On: 12/20/2016 8:56 CDT by ROSIE LOMBARDI Intake Chief Complaint : Here for further evaluation of hormonal symptoms. Ambulatory Intake Additional Information : Entire month is peaks/valleys. Mood swings, acne, bloating, night sweats, poor sleep routine, cramping, heavy flow. Flows 5-8 days depending. Temperature Core : 36.8 DegC(Converted to: 98.2 DegF) Peripheral Pulse Rate : 72 /min Systolic Blood Pressure : 116 mmHg Diastolic Blood Pressure : 64 mmHg NIBP Mean : 81 mmHg BP Location : Left upper extremity Blood Pressure Cuff Size : Regular SpO2 : 100 % Oxygen Therapy : Room air Height : 164 cm(Converted to: 5 ft 5 inch(es), 65 inch(es)) Actual Weight : 64.2 kg(Converted to: 141 lb 9 oz) Weight Source : Standing scale Dosing Weight Clinic : 64.2 kg Clinic BSA : 1.71 Body Mass Index : 23.87 kg/m2 ROSIE LOMBARDI - 12/20/2016 8:56 CDT General Info Information Given By : Patient Languages : Danish Is Patient Female and 13-50 no hysterectomy : Yes Status : Patient denies Are you ? : No ROSIE LOMBARDI - 12/20/2016 8:56 CDT Subjective Pain Symptoms : No ROSIE LOMBARDI - 12/20/2016 8:56 CDT Dependent Habits Exposure to Tobacco Smoke : Care provider denies smoking in home, Other: Never Smoking Status : Never smoker Tobacco 2A : No Tobacco Use/Currently Using : No Tobacco Use/Last 30 Days : No Tobacco Use/Last 12 months : No Alcohol Use : No ROSIE LOMBARDI - 12/20/2016 8:56 CDT Caffeine Use Grid Caffeine Use : Current Type : Soft drinks, Tea Frequency : Occasionally ROSIE LOMBARDI - 12/20/2016 8:56 CDT Recreational Drug Use Grid Drug Use : None ROSIE LOMBARDI - 12/20/2016 8:56 CDT Source: [facility] POWERCHART Document Id: [id number] CDT!43 documented in this encounter Plan of Treatment Not on filedocumented as of this encounter Visit Diagnoses Not on filedocumented in this encounter Additional Health Concerns Assessment Noted Time PHQ-9 Depression Total Score: 3 12/20/2016 9:55 AM CDT documented as of this encounter
--- OUTSIDE RECORDS SUMMARY | 2022-07-09 10:02 | XMS_ITS | Encounter Summary ---
:1980 Author Organization [facility] Address [address] [place] [address] Care Team Providers Name Role Phone Unavailable Primary Care Provider Unavailable Encounter Details Date Type Department Care Team Description 08/26/2014 Hospital Encounter HX [facility] Lexie Alonzo, JOHN, C.N.P., D.N.P. [address], [place] [phone] (Wo rk) Social History Tobacco Use Types [...] or relatives? How often do you attend latter-day or Never 2021 holiness services? 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 - 08/27/2014 6:17 AM CALL CENTER RECEPTIONIST Normal Results Letter 27 August 2014 ESTER VERAS [address] [place] [id number] Dear ESTER VERAS, Your thyroid function is nice and normal! I renewed your medication and sent the prescription to your pharmacy for levothyroxine 112 mcg daily. If you have questions or concerns, please do not hesitateto call our office. Result Name Current Result Previous Result Normal Range TSH (mIU/L) 1.43 08/26/2014 1.01 09/03/2013 0.27 - 4.20 Sincerely, LEXIE ALONZO [id number] [address] Electronic Signature Electronically Signed By: LEXIE ALONZO DNP, ELECTROMECHANICAL ENGINEER On: 27 August 2014 This document has images extracted. Source: [facility] POWERCHART Document Id: [id number] Electronically signed by Conversion, [facility] Ocular Care Technician [id number] at 02/22/2017 9:10 PM CDT documented in this encounter Plan of Treatment Not on filedocumented as of this encounter Procedures Procedure Name Priority Date/Time Associated Diagnosis Comme nts THYROID-STIMULATING Routine 08/26/2014 5:50 PM Re sults for this HORMONE-SENSITIVE CALL CENTER RECEPTIONIST procedure are in (S-TSH) the results section. documented in this encounter Results Thyroid-Stimulating Hormone-Sensitive (s-TSH) (08/26/2014 5:50 PM CALL CENTER RECEPTIONIST) P athologist Signature TSH 1.43 0.27 - 4.20 POWERCHART (Thyrotropin) MIUL Specimen (Source) Anatomical Collection Method Collection Time Re ceived Time Location / / Volume Laterality Blood 08/26/2014 5:50 PM CALL CENTER RECEPTIONIST Lexie Alonzo APRN, C.N.P., D.N.P. LAB BLOOD ADD- ON Performing Organization Address City/State/ZIP Code Phon e Number POWERCHART documented in this encounter Visit Diagnoses Not on filedocumented in this encounter Additional Health Concerns Assessment Noted Time PHQ-9 Depression Total Score: 19 01/28/2014 11:12 AM C DT documented as of this encounter
--- OUTSIDE RECORDS SUMMARY | 2022-07-09 10:02 | XMS_ITS | Encounter Summary ---
:1980 Author Organization [facility] Address [address] [place] [address] Care Team Providers Name Role Phone Unavailable Primary Care Provider Unavailable Encounter Details Date Type Department Care Team Description 01/19/2016 Hospital Encounter [facility]X [facility] Radha [...] do you attend methodist or Never 2021 catholic services? Do you belong to any clubs [...] slept in a senior living (including now)? 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
--- OUTSIDE RECORDS SUMMARY | 2022-07-09 10:02 | XMS_ITS | Encounter Summary ---
:1980 Author Organization [facility] Address [address] [place] [address] Care Team Providers Name Role Phone Unavailable Primary Care Provider Unavailable Encounter Details Date Type Department Care Team Description 08/05/2014 Hospital Encounter [facility]X [facility] Radha [...] do you attend hindu or Never 2021 christian services? 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
--- OUTSIDE RECORDS SUMMARY | 2022-07-09 10:03 | XMS_ITS | Encounter Summary ---
:1980 Author Organization [facility] Address [address] [place] [address] Care Team Providers Name Role Phone Unavailable Primary Care Provider Unavailable Encounter Details Date Type Department Care Team Description 02/13/2014 Hospital Encounter HX [facility] Radha Butler, Ph.D., M.A., L.M.F.T. Social [...] or relatives? How often do you attend uatsdin or Never 2021 pentecostalism services? 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
--- OUTSIDE RECORDS SUMMARY | 2022-07-09 10:03 | XMS_ITS | Encounter Summary ---
:1980 Author Organization [facility] Address [address] [place] [address] Care Team Providers Name Role Phone Unavailable Primary Care Provider Unavailable Encounter Details Date Type Department Care Team Description 03/15/2012 Hospital Encounter [facility] Lexie Pereira, JOHN, C.N.P., D.N.P. [address] [place], [place] [phone] (Wo rk) Social History [...] or relatives? How often do you attend oriental orthodox or Never 2021 episcopalian services? 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
--- OUTSIDE RECORDS SUMMARY | 2022-07-09 10:03 | XMS_ITS | Encounter Summary ---
:1980 Author Organization [facility] Address [address] [place] [address] Care Team Providers Name Role Phone Unavailable Primary Care Provider Unavailable Encounter Details Date Type Department Care Team Description 03/17/2012 Hospital Encounter HX [facility] Lexie Alonzo, JOHN, C.N.P., D.N.P. [address], [place] [phone] (Wo rk) Social History [...] do you attend uatsdin or Never 2021 rastafarian services? 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 - 03/21/2012 2:42 PM CDT Results Notification Document Contains Addenda Addendum by GABRIELLE CHOI LPN on 21 March 2012 16:27:09 CDT Copy of labs sent to patient. From: LEXIE ALONZO DNP, FNP To: GABRIELLE CHOI LPN Sent: 03/21/2012 14:42:44 CDT ! Show up: 03/21/2012 19:42:44 [facility] Subject: Results Notification Actions: Notify patient of results Source: [facility] POWERCHART Document Id: [id number] Miscellaneous - Lexie Alonzo D.N.P., C.N.P. - 03/18/2012 10:58 AM CDT Results Notification From: LEXIE ALONZO DNP, FNP To: CAROL IRWIN RN Sent: 03/18/2012 10:58:26 CDT ! Show up: 03/18/2012 15:58:26 [facility] Subject: Results Notification Actions: Notify patient of results Source: [facility] POWERCHART Document Id: [id number] documented in this encounter Plan of Treatment Not on filedocumented as of this encounter Procedures Procedure Name Priority Date/Time Associated Diagnosis Comme nts LIPID PANEL, S Routine 03/17/2012 8:05 AM Results for this CDT procedure are i n the results section. THYROID AUTOABS Routine 03/17/2012 8:05 AM Result s for this PROFILE, S CDT procedure are i n the results section. T3 Routine 03/17/2012 8:05 AM Results f or this (TRIIODOTHYRONINE), CDT procedur e are in TOT, S the results section. T4 (THYROXINE), Routine 03/17/2012 8:05 AM Result s for this FREE, S CDT procedure are i n the results section. documented in this encounter Results (ABNORMAL) T3 (Triiodothyronine), Total (03/17/2012 8:05 AM CDT) P athologist Signature T3 237 (H) 80 - 190 POWERCHART (Triiodothyron NGDL ine), Total, S Comment: Test Performed by: [facility] [employer] [address] [address] Sales Advisory Manager: Jassi allan III, M.D. Specimen (Source) Anatomical Collection Method Collection Time Re ceived Time Location / / Volume Laterality Blood 03/17/2012 8:05 AM CDT Lexie Alonzo APRN, C.N.P., D.N.P. LAB BLOOD ADD- ON Performing Organization Address City/State/ZIP Code Phon e Number POWERCHART (ABNORMAL) Thyroid Autoantibodies Profile (03/17/2012 8:05 AM CDT) Patholo gist Method Time Signature Thyroperoxidase Ab, 207.8 (H) <9.0 POWERCHART S INTUML Comment: Test Performed by: [facility] [address] [place] [id number] Sales Advisory Manager: Jassi allan III, M.D. Thyroglobulin Antibody, S 556 (H) <116 INTUML PO WERCHART Comment: If thyroglobulin antibody measurement is performed to assess the reliability of the thyrogl obulin assay for thyroid cancer patient follow-up, a thyroglobulin antibody result =/>22 IU/mL may result i n falsely decreased thyroglobulin values. The thyroglobulin antibody testing metho d is an electrochemiluminescence assay manufactu red by [employer] and performed on the Modular or Naty system. Values obtained from different assay met hods or kits may be different and cannot be u sed interchangeably. Test Performed by: [place] [address] Sales Advisory Manager: Jassi allan III, M.D. Specimen (Source) Anatomical Collection Method Collection Time Re ceived Time Location / / Volume Laterality Blood 03/17/2012 8:05 AM CDT Lexie Alonzo APRN, C.N.P., D.N.P. LAB BLOOD NON ADD-ON Performing Organization Address City/[facility]/ZIP Code Phon e Number POWERCHART (ABNORMAL) T4 (Thyroxine), Free (03/17/2012 8:05 AM CDT) P athologist Signature T4 2.5 (H) 0.8 - 1.8 POWERCHART (Thyroxine), NGDL Free, S Specimen (Source) Anatomical Collection Method Collection Time Re ceived Time Location / / Volume Laterality Blood 03/17/2012 8:05 AM CDT Lexie Alonzo APRN, C.N.P., D.N.P. LAB BLOOD ADD- ON Performing Organization Address City/State/ZIP Code Phon e Number POWERCHART (ABNORMAL) Lipid Panel (03/17/2012 8:05 AM CDT) P athologist Signature Cholesterol, 106 0 - 200 POWERCHART Total MGDL Comment: <200 mg/dL Desirable 200-239 mg/dL Borderline High >239 mg/dL High HX HDL 54 35 - 60 MGDL POWERCHART Comment: > 60 mg/dL Desirable 40 ? 60 mg/dL Low Risk <40 mg/dL Undesirable Triglycerides 94 9 - 150 MGDL POWERCHART Comment: <150 mg/dL Desirable 150-199 mg/dL Borderline High 200-499 mg/dL High > 499 Very High Calculated LDL 34 (L) 100 - 129 MGDL POWERCHART Total Cholesterol/HDL Ratio 2 PO WERCHART Specimen (Source) Anatomical Collection Method Collection Time Re ceived Time Location / / Volume Laterality Blood 03/17/2012 8:05 AM CDT Lexie Alonzo APRN, C.N.P., D.N.P. LAB BLOOD ADD- ON Performing Organization Address City/State/ZIP Code Phon e Number POWERCHART documented in this encounter Visit Diagnoses Not on filedocumented in this encounter Additional Health Concerns Assessment Noted Time PHQ-9 Depression Total Score: 17 03/07/2012 7:23 PM CD T documented as of this encounter
--- OUTSIDE RECORDS SUMMARY | 2022-07-09 10:03 | XMS_ITS | Encounter Summary ---
:1980 Author Organization [facility] Address [address] [place] [address] Care Team Providers Name Role Phone Unavailable Primary Care Provider Unavailable Encounter Details Date Type Department Care Team Description 03/16/2013 - Hospital Encounter HX [facility] Alonzo, Evi kishan 10/23/2013 TOBI Talamantes, JOHN, C.N.P., D.N.P. [address] [place] [address] Social History Tobacco Use Types Packs/Day Years [...] do you attend uatsdin or Never 2021 anabaptism services? 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 - 04/27/2013 12:00 AM CDT [id number] DISCHARGE SUMMARY Patient was evaluated and treated within physical therapy for chronic back pain under referral of Sherron Alonzo. She was seen for a total of 1 evaluation and 4 treatment sessions. Her plan of care included patient education in home exercise program, range of motion, stretching, core stabilization and posture training. Patient achieved all goals noting resolution of numbness and tingling, reductionin headaches, reduction in pain levels to a 0 out of 10. The only limitation was noted on cervical range of motion, some tightness noted on the left side bending which is limited by less than 25%. Homeexercise program was going well and without difficulty. She is able to perform her job duties without reproduction of symptoms at this time. She is doing a different task at work as well, which is alsohelping. IMPRESSION/REPORT/PLAN Today, we did perform PA mobs to the thoracic spine, performed manual scapular stretches, manual cervical traction as well stretching the upper trapezius, levator scapulae and suboccipital muscles. We then progressed home exercise program. Patient will perform quadruped positioning on the exercise ball with upper and lower extremity extension, horizontal abduction, turning thumb up beginning with 1-pound weight, prone bilateral shoulder extension on the exercise ball beginning with 2-pounds progressing up to 5-pounds as tolerated. Table push-ups have been going well so we will have her go ahead andtry push-ups on the floor with patient in her knees, prone rows with 2-pounds increasing to 8 to 10-pounds as able, prone on the exercise ball, protraction at 2-pounds, progressing up to 8 to 10-pounds as able, scaption is safe and independent and no difficulty is noted will have patient perform this prone on the exercise ball without resistance, may increase to 1 to 2-pounds as tolerated and prone bilateral shoulder flexion also beginning without weight progressing to a 1 to 2-pounds as able. She will perform these in her home exercise program that 3- times, 10-repetitions every other day. She verbalized understanding, was given a written handout with illustrations. PATIENT EDU #1 Patient Education Ready to learn No apparent learning barriers were identified Learning preferences include listening Explained diagnosis and treatment plan Patient/Child/Caregiver expressed understanding of the content. Tolerated the session well. PLAN: Plan at this time is to discharge patient into an independent home exercise program due to progress and goal achievement. Patient is in agreement with this plan of care. At this time patient willbe discharged from therapy services. Kat Ferrara D.P.T./scot Electronically Signed By: KAT FERRARA On: 04/30/2013 10:02 AM Source: [facility] MHSDOLBEYNONRADSYS Document Id: [id number] documented in this encounter Medications at Time [...] documented as of this encounter Progress Notes Kat Ferrara P.T. - 04/09/2013 12:00 AM CDT [id number] CHIEF COMPLAINT/REASON FOR VISIT Patient has no new complaints. Overall she is feeling improvements, especially on the neck pain still having a fair amount of thoracic pain. IMPRESSION/REPORT/PLAN Today, we did perform PA mobs to the thoracic spine. We also performed manual mobilizations of the scapulas bilaterally as well as manual scapular stretches. We also performed manual traction to the cervical spine as well as cervical stretches of the upper trapezius, levator scapulae and suboccipital muscles. Patient tolerated these well. We did progress her home exercise program. We added scaption with 1-pound weights. She has already added resistance with horizontal abduction. She will continue with this. She will continue with extension in prone. We will have do this on the exercise ball doing it bilaterally. She will also add prone rows and protraction in supine with resistance 2 to 3 pounds. Patient will continue with other exercises as previously instructed. She tolerated the session well. Total treatment time today was 30 minutes. Plan is to continue. Kat Ferrara D.P.T./shaka DOCID: [110] Electronically Signed By: KAT FERRARA On: 04/12/2013 01:28 PM Source: [facility] MHSDOLBEYNONRADSYS Document Id: [id number] Kat Ferrara P.T. - 04/02/2013 12:00 AM CDT [id number] CHIEF COMPLAINT/REASON FOR VISIT Patient has no new complaints. She reports has felt some swelling but no increase in pain. Home exercise program is going well. IMPRESSION/REPORT/PLAN Today we did progress that home exercise program. She will continue with stretching as needed for work. For strengthening, she will perform quadruped positioning, upper and lower extremity extension, as well as bilateral shoulder retraction with purple Thera-Band. Progressed wall push-ups to table push-ups, and also will have patient perform horizontal abduction in supine position without resistance as well as extension without resistance. Patient may increase weight if she is able to do 30 repetitions consecutively increasing by 1 pound performing 3 times 10 repetitions every other day. Patient tolerated these well without difficulty and was given a written handout with illustrations. PATIENT EDUCATION: Ready to learn No apparent learning barriers were identified Learning preferences include listening Explained diagnosis and treatment plan Patient/Child/Caregiver expressed understanding of the content We then performed manual traction to the cervical spine stretching the upper trapezius and levator scapulae. Performed PA mobs at grades 1 and 2 to the thoracic spine. We then performed manual scapularstretches bilaterally. Patient tolerated treatment session well. Total treatment time today was 30 minutes. Plan is to continue. Kat Ferrara D.P.T./shaka DOCID: [110] Electronically Signed By: KAT FERRARA On: 04/13/2013 09:59 AM Source: [facility] [employer] [facility] Document Id: [id number] Kat Ferrara PLolly. - 03/26/2013 12:00 AM CDT [id number] CHIEF COMPLAINT/REASON FOR VISIT Patient has no new complaints. Reporting exercises are going well and minimizing her flareups at work. PHYSICAL EXAMINATION We initiated light manual traction as well as stretching of the suboccipital, levator scapulae and upper trapezius muscles. Performed light trigger point release to the upper trapezius. We also performed scapular mobilizations and PA glides to the thoracic spine to grades 1 and 2. IMPRESSION/REPORT/PLAN Patient tolerated treatment well. Total treat time today was 30 minutes. Plan is to continue. We didreview pectoral door stretch and making mild change which improved her stretching technique. She tolerated this well. Plan is to continue in one week. Kat Ferrara D.P.T./ DOCID: [110] Electronically Signed By: KAT FERRARA On: 03/30/2013 01:51 PM Source: [facility] [employer] You CanSDOLBEYNONRADSYS Document Id: [id number] documented in this encounter Consult Notes Kat Ferrara P.T. - 03/16/2013 12:00 AM CDT [id number] CHIEF COMPLAINT/REASON FOR VISIT Patient is referred physical therapy by Sherron Alonzo. Patient reports her reason for therapy is back pain. She reports her goals of therapy are for advice and instruction on proper movement. She reports her symptoms began with insidious onset 2 to 3 years ago noticed mostly after having her baby she has not had any recent surgery, has not had any treatment or imaging performed. She reports pain ranges from a 5 out of 10 at best to a 9 out of 10 at worst. Symptoms are constant, dull, weak, aching, throbbing, sharp and numbness and tingling also noted. Noted primarily in the thoracic spine. Patient does have headaches associated with this as well. Patient reports her symptoms are constant but dovary in intensity. Symptoms are worse with sitting and prolonged standing, worse at work. The pain does cause her to wake up at night as well as numbness in the arms extending into all digits equal bilaterally. This is intermittent. She is able to reduce this by repositioning in a supine position witharms rested at her side. Patient denies any numbness in the legs. Denies any changes in fine motor skills or dexterity. Symptoms tend to be better with the use of ibuprofen, but she has discontinued that. Physical limitations are noted as sitting, reaching taking a deep breath, turning her head, standing and sleeping. In the past few months, the patient has had headaches, has had pain, denies any fever or chills, nausea or vomiting, numbness in the genital or anal area, dizziness or fainting, unexplained weakness, unexplained weight change, problems with vision, hearing or speech or difficulty withbowel or bladder function. Patient reports her overall health as good. She does exercise three to four times per week, has moderate stress, does not smoke and does drink caffeinated beverages seven times per week. She denies any difficulty with communication. 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 She has been working full duty has not missed any days of work due to her pain. HISTORY OF PRESENT ILLNESS Patient does have bladder leakage and bladder frequency, does have gestational diabetes, does have thyroid problems. She is taking for medications a multivitamin, B12, vitamin D, levothyroxine, and ibuprofen as needed for pain control. PHYSICAL EXAMINATION Patient did complete the ambulatory fall assessment. She has not had any falls within the last year.Patient does not pose an increased risk of falls at this time. Observation: Patient demonstrates a moderate rounded shoulder posture with mild forward head. Patient does have an increase cervical lordosis and thoracic kyphosis. Cervical range of motion, flexion islimited by 25%, extension limited by 90%, bilateral side bending and bilateral rotation are both within normal limits. Upper extremity range of motion is also within normal limits. Trunk range of motion, flexion limited by 25% and extension limited by 75%. Bilateral side bending is within normal limits. Heel and toe walking is negative. Straight leg raises negative. Manual muscle testing of the upperextremities is a 4 out of 5 in strength. Manual muscle testing of the lower extremities is a 5 out of 5 in strength. Manager Cardiac Cath strength is intact and equal bilaterally. Deep tendon reflexes in the arms and the legs are intact and equal bilaterally. Patient demonstrates trigger points in the bilateral uppertrapezius with the left greater than the right. Spurling's compression and distraction were negative. Position, cervical spine does not reproduce symptoms of pain. However, trigger point release does reproduce symptoms of pain in the arms with the left greater than the right. Patient will be treated for back pain. PATIENT EDUCATION: Ready to learn No apparent learning barriers were identified Learning preferences include listening Explained diagnosis and treatment plan Patient/Child/Caregiver expressed understanding of the content Patient consents to physical therapy. She requires skilled physical therapy to develop a home exercise program, reduce her levels of pain, improve her posture, and improve strength and flexibility. IMPRESSION/REPORT/PLAN We initiated extensive home exercise program and provided patient education regarding treatment planof care. Suggested patient try heat for 15 to 20 minutes or a warm bath to help with muscle relaxation. We also encouraged patient to work on stretching on her breaks at work including upper trapezius,levator scapulae, pectoral door stretch and rhomboid stretch holding for 20 seconds, performing 3 to4 repetitions one to two times per day. We also instructed the patient on a home strengthening program which included wall push-ups, bilateral shoulder retraction with a purple Thera-Band and quadrupedpositioning with TA sets and upper extremity elevation progressing up to three times 10 repetitions daily as tolerated. Encouraged patient to perform a walking program. Educated patient on posture and body mechanics as far as lifting up her small children. Patient verbalized understanding. All questions were answered. Patient was provided with a written handout with illustrations. PATIENT GOALS: 1. Patient will safely and independently perform an independent home exercise program in 2 weeks. 2. Patient will report a 50% reduction in pain at worst in 4 to 6 weeks. 3. Patient will demonstrate full cervical and trunk range of motion in 4 to 6 weeks. 3. Patient will demonstrate improved upper extremity strength by a minimum of one muscle grade in 4 to 6 weeks. 4. Patient will note resolution of numbness and tingling in 4 to 6 weeks. PLAN OF CARE: Patient education, home exercise program, stretching, strengthening, core stabilization and posture training. May use modalities as needed for pain control. We will consider the use of TENS to control chronic pain. Also continue further instruction on body mechanics and lifting techniques . Patient will be seen one to two times per week for up to 4 to 6 weeks. Plan of care will be progressed on the next treatment session and we will likely initiate manual therapies for the thoracic spine with pain mobilizations to thoracic spine as well as rhomboid and cervical stretching and manual soft tissue mobilization with trigger point release and progressing home exercise program as able. Kat Ferrara D.P.T./shaka cc: Sherron Alonzo D.N.P./F.N.P Electronically Signed By: KAT FERRARA On: 04/13/2013 03:08 PM Co-Signed By: SHERRON ALONZO [facility] On: 04/16/2013 08:30 AM Source: 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 please let her know. Also let her know that I did order this to be done inOctober, so I don't know why it was canceled, thank you.Also, she does not need an appointment. Addendum by KAT BULLARD RN on 27 August 2013 14:38:48 [employer] From: KAT BULLARD RN To: SHERRON ALONZO DNP, FNP; Sent: 08/27/2013 14:38:48 [employer] Subject: RE: General Message I believe so. She also wanted to know if she needed to see you or just start with the lab. So I am assuming just lab for now...Is that correct? 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 If she wants this again, I can reinstate, is that the case? From: KAT BULLARD RN To: SHERRON ALONZO DNP, FNP; Sent: 08/27/2013 12:56:03 [employer] Subject: General Message Patient thinks she is due for TSH, said you wanted to check it in [address] order, thanks. Also, does she need to see you too or just lab? Source: [facility] [place] Document Id: [id number] Electronically signed by Conversion, [facility] Neurourologist [id number] at 02/23/2017 9:16 AM CDT Miscellaneous - Conversion, Historical Provider Ser - 04/16/2013 1:37 PM CDT Med Management Document Contains Addenda Addendum by SHERRON ALONZO DNP, FNP on 16 April 2013 13:40:09 CDT From: SHERRON ALONZO DNP, FNP To: JHONY BASSETT V; Sent: 04/16/2013 13:40:08 CDT Subject: RE:Med Management Approved Order:fluconazole (Diflucan 150 mg oral tablet) 1 tab(s) PO Once Qty: 1 tab(s) Refills: 0 Substitutions Allowed PRN yeast infection Route To Pharmacy - [facility] Signed by SHERRON ALONZO DNP, FNP 04/16/2013 13:40:04 From: JHONY BASSETT V To: SHERRON ALONZO DNP, FNP; JHONY BASSETT V; Sent: 04/16/2013 13:37:53 CDT Subject: Med Management On hold pending signature Order:fluconazole (Diflucan 150 mg oral tablet) 1 tab(s) PO Once Qty: 1 tab(s) Refills: 0 Substitutions Allowed PRN yeast infection Route To Pharmacy - [facility] Pt reports she started using metronidazole 2 days ago but is going out of town for a wedding so requesting this if cream doesn't work Source: [facility] [place] Document Id: [id number] Miscellaneous - Alok Gómez, RPelonN. - 03/19/2013 11:03 AM CDT Triage From: ALOK DUBOIS RN Sent: 03/19/2013 11:03:05 CDT Subject: Triage Pt called to report an itchy red spot that she thinks is some kind of bug bite. She noticed it yesterday and described it as itchy, red, puffy and raised. Today, her primary complaint is that it is itchy. She states that yesterday she may noticed a red rash immediatly arround the presumed bite area but it is not present today. She thought this might be a bullseye rash. She does not recall receiving abug bite and she did not see a tick on that area or any other area of her body. Denies fever, chills, muscle aches and rash. Advised pt to call the clinic if she develops a bullseye rash, fever, chills, muscle aches or if the bite develpes signs of infection. Pt verbalized understanding and agrees to kaveh daniels. Source: [facility] POWERCHART Document Id: [id number] Electronically signed by Conversion, [facility] Neurourologist [id number] at 02/23/2017 9:16 AM CDT documented in this encounter Plan of Treatment Not on filedocumented as of this encounter Visit Diagnoses Not on filedocumented in this encounter Additional Health Concerns Assessment Noted Time PHQ-9 Depression Total Score: 4 02/28/2013 4:39 PM CDT documented as of this encounter
--- OUTSIDE RECORDS SUMMARY | 2022-07-09 10:03 | XMS_ITS | Encounter Summary ---
:[address] [facility] Address [address] [place] [id number] Care Team Providers Name Role Phone Unavailable Primary Care Provider Unavailable Encounter Details Date Type Department Care Team Description 03/11/2014 Hospital Encounter HX [facility] Radha Butler, Ph.D., M.A., [...] or relatives? How often do you attend roman catholic or Never 2021 yazidism services? Do you belong to any clubs or No 10/21/2021 organizations such as roman catholic groups, unions, fraternal or athletic groups, [...] place to sleep or slept in a longterm (including now)? 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
--- OUTSIDE RECORDS SUMMARY | 2022-07-09 10:03 | XMS_ITS | Encounter Summary ---
:1980 Author Organization [facility] Address [address] [place] [address] Care Team Providers Name Role Phone Unavailable Primary Care Provider Unavailable Encounter Details Date Type Department Care Team Description 01/18/2013 Hospital Encounter HX [facility] Lexie Alonzo, JOHN, C.N.P., D.N.P. [address], [place] [phone] (Wo rk) Social History [...] or relatives? How often do you attend hinduism or Never 2021 yarsanism services? Do you belong to any clubs or No 10/21/2021 organizations such as hinduism groups, unions, fraternal or athletic groups, or [...] slept in a nursing home (including now)? Sex Assigned at Date Recorded Female 10/20/2021 8:03 PM [employer]IST documented as of this encounter Medications at Time of Discharge Medication Sig Dispensed Refills Start Date End Date levothyroxine Taking one tablet by 0 11/27/2012 (SYNTHROID, LEVOTHROID) mouth every other day 112 mcg tablet ALTERNATING with 100 mcg every other day. cholecalciferol, vitamin Chew 1 tablet daily. 0 0 11/27/2012 05/25/2019 D3, (VITAMIN D3) 1,000 unit tablet,chewable omega-3 fatty acids Take 1 capsule by 0 3 05/25/2019 (FISH OIL) 500 mg mouth daily. capsule documented as of this encounter Miscellaneous Notes Miscellaneous - Lexie Alonzo D.N.P., C.N.P. - 01/19/2013 8:03 AM CDT Normal Results Letter 19 January 2013 ESTER VERAS [address] [id number] Dear ESTER VERAS, I am pleased to report that your results from the following diagnostic test(s) are normal. I recommend we target your TSH level between 0.5-3.0. Let's recheck this in 6 months and I will call you with these results. I hope you are otherwise doing well! Please follow up with me if you have any concerns. If you have questions or concerns, please do not hesitate to call our office. Result Name Current Result Previous Result Normal Range TSH (mcIU/mL) 2.91 01/18/2013 (L) <0.00 03/10/2012 0.30 - 5.00 Sincerely, LEXIE ALONZO [address] [place] [address] Electronic Signature Electronically Signed By: LEXIE ALONZO DNP, FNP On: 19 January 2013 This document has images extracted. Source: [facility] POWERCHART Document Id: [id number] documented in this encounter Plan of Treatment Not on filedocumented as of this encounter Procedures Procedure Name Priority Date/Time Associated Diagnosis Comme nts THYROID-STIMULATING Routine 01/18/2013 5:25 PM Re sults for this HORMONE-SENSITIVE CDT procedure are in (S-TSH) the results section. documented in this encounter Results Thyroid-Stimulating Hormone-Sensitive (s-TSH) (01/18/2013 5:25 PM CDT) P athologist Signature TSH 2.91 0.30 - 5.00 POWERCHART (Thyrotropin) MCIUML Specimen (Source) Anatomical Collection Method Collection Time Re ceived Time Location / / Volume Laterality Blood 01/18/2013 5:25 PM CDT Lexie Alonzo APRN, C.N.P., D.N.P. LAB BLOOD ADD- ON Performing Organization Address City/State/ZIP Code Phon e Number POWERCHART documented in this encounter Visit Diagnoses Not on filedocumented in this encounter Additional Health Concerns Assessment Noted Time PHQ-9 Depression Total Score: 17 03/07/2012 7:23 PM CD T documented as of this encounter
--- OUTSIDE RECORDS SUMMARY | 2022-07-09 10:03 | XMS_ITS | Encounter Summary ---
:1980 Author Organization [facility] Address [address] [place] [address] Care Team Providers Name Role Phone Unavailable Primary Care Provider Unavailable Encounter Details Date Type Department Care Team Description 10/12/2013 Hospital Encounter HX [facility]ILY ME Sherron Alonzo, JOHN, C.N.P., D. N.P. [address] [place] [address] (Wo rk) Social History Tobacco Use Types [...] do you attend christianity or Never 2021 pentecostalism services? Do you [...] at Date Recorded Female 10/20/2021 8:03 PM GATEKEEPER documented as of this encounter Last Filed Vital Signs Vital Sign Reading Time Taken Comments Blood Pressure 78/58 10/12/2013 8:14 AM GATEKEEPER Pulse 65 10/12/2013 8:14 AM GATEKEEPER Temperature - - Respiratory Rate 18 10/12/2013 8:14 AM GATEKEEPER Oxygen Saturation - - Inhaled Oxygen Concentration - - Weight 55.1 kg (121 lb 7.6 oz) 10/12/2013 8:14 AM GATEKEEPER Height - - Body Mass Index 20.56 02/27/2013 5:50 PM CDT documented in this encounter Medications [...] documented as of this encounter Progress Notes Sherron Alonzo D.N.P., C.N.P. - 10/12/2013 8:01 AM CST [id number] CHIEF COMPLAINT/REASON FOR VISIT Multiple issues. HISTORY OF PRESENT ILLNESS The patient is a 33-year-old female who presents to the clinic today with a chief complaint of having multiple issues. She indicates that for approximately the past year she has had on and off issues of nausea and a decreased appetite. She then indicates that when she feels the need to have a bowel movement she will begin feeling lightheaded, having chills and sweats and feeling like she might pass out. She indicates that this occurs anywhere from daily to weekly. She indicates that she occasionallyalso has more of a blurry like sensation to her vision. She does have a history of Graves disease, though I will note that her last TSH was obtained on September 03, 2013, noted be 1.01. She is currently taking her levothyroxine in which she tolerates quite well of 112 mcg by mouth daily. She indicates that she has not had any abnormal menstrual bleeding and indicates that her menses is approximately for 6 days duration. She indicates 2 to 3 of these days are generally heavier but indicates that she has not had any breakthrough bleeding or abnormal uterine bleeding. She indicates on average she is getting approximately 9 hours of sleep at night because she is so fatigued. She indicates that she is trying to be more conscientious of her diet and overall eating well. She indicates that she has not had any changes in urination. She denies having fevers, chills, or vomiting and denies shortness of breath or difficulty breathing. PAST MEDICAL/SURGICAL HISTORY Reviewed. Please see chart. FAMILY HISTORY Reviewed. Please see chart. MEDICATIONS Reviewed. Please see chart. ALLERGIES Reviewed. Please see chart. PHYSICAL EXAMINATION GENERAL: The patient is alert and oriented times 3. HEAD: Normocephalic, atraumatic. PUPILS: Pupils equal, round, and reactive to light and accommodation OROPHARYNX: [place] and moist. TMs: Bilateral tympanic membranes are clear. Bony landmarks noted and within normal limits. NARES: Patent. No erythema or drainage noted. NECK: No anterior or posterior lymphadenopathy noted. HEART: Regular. S1, S2. No murmurs, rubs or gallops noted. LUNGS: Clear to auscultation. No prolonged expiratory phases, wheezing, rales or rhonchi noted. SKIN: Without unusual rashes or suspicious lesions LABORATORY: WBC 5.9, hemoglobin 14.1, RDW 11.4, lymphocyte 19.7%, differential otherwise unremarkable. Sodium 138.3, potassium 3.7, creatinine 0.7, GFR greater than 60, AST 18, ALT 13. Urine was yellowand clear. Trace protein, 1+ ketone, 2+ blood were noted. Negative nitrite, leukocytes and white blood cells were noted(patient is presently menstruating). JENNIFER, free T3 and T4 are presently pending. IMPRESSION/REPORT/PLAN Nausea and history of hyperthyroidism. PLAN: Discussed overall findings at length with the patient. Presently at this time I will plan on contacting the patient regarding the remainder of her laboratory results. These findings overall were discussed at length with the patient. Patient stated understanding the plan as she denied having any further questions. Patient ambulated out of the clinic in no acute distress. Patient Education Ready to learn No apparent learning barriers were identified Learning preferences include listening Explained diagnosis and treatment plan Patient/Child/Caregiver expressed understanding of the content Sherron Alonzo D.N.P./[facility] Electronically Signed By: SHERRON ALONZO DNP, FNP On: 10/13/2013 09:09 AM Source: [facility] MHSDOLBEYNONRADSYS Document Id: [id number] KEEPER documented in this encounter Miscellaneous Notes Miscellaneous - Peyton Grimm R.N. - 12/31/2013 12:28 PM CDT General Message Document Contains Addenda Addendum by PEYTON GRIMM RN on 04 January 2014 15:41:04 CDT LM for pt Addendum by SHERRON ALONZO DNP, FNP on 04 January 2014 15:37:07 CDT From: SHERRON ALONZO DNP, FNP To: PEYTON GRIMM RN; Sent: 01/04/2014 15:37:07 CDT Subject: RE: General Message Addendum by SHERRON ALONZO DNP, FNP on 04 January 2014 15:37:04 CDT please call her and let her know to put together a diary and come in and see me again, I think her and I need to start from the beginning again and determine if we need a referral. From: PEYTON GRIMM RN To: SHERRON ALONZO DNP, FNP; JHONY BASSETT V; Sent: 12/31/2013 12:28:22 CDT Subject: General Message Pt calls, visit in September with you. STill having the same issues. You did lab work, she got the normal results. She reports that you said to call if it continued and everything has. If you have any specific questions to ask to help determine what is going on, please call. [phone], [place] to LM. Source: [facility] POWERCHART Document Id: [id number] Electronically signed by Conversion, [facility] Bead Machine Operator [id number] at 02/22/2017 8:52 AM CDT Miscellaneous - Sherron Alonzo D.N.P., C.N.P. - 10/15/2013 2:28 PM GATEKEEPER Results Notification Document Contains Addenda Addendum by SHERRON ALONZO DNP, FNP on 16 October 2013 12:59:00 GATEKEEPER ntoed. Addendum by SHARMILA BRADSHAW LPN on 15 October 2013 15:37:36 GATEKEEPER From: SHARMILA BRADSHAW LPN To: SHERRON ALONZO DNP, FNP; Sent: 10/15/2013 15:37:36 GATEKEEPER Show up: 10/15/2013 15:35:00 GATEKEEPER Subject: RE: Results Notification Spoke with Svitlana regarding below results. States, would like to wait and not do labs right now. From: SHERRON ALONZO DNP, FNP To: SHARMILA BRADSHAW LPN; Sent: 10/15/2013 14:28:44 GATEKEEPER ! Show up: 10/15/2013 20:28:44 [facility] Subject: Results Notification Actions: Notify patient of results Reminder Comments: can you please call svitlana and tell her everything is normal. I could do a fasting AM cortisol levelon her and check her hormones next if she would like??? I am sending a copy of these labs but wantedto see if I should order more. please advise. Results: Date Result Name Value Ref Range 10/12/2013 08:45 T4 Free-Tidwell 1.4 ng/dL 10/12/2013 08:45 JENNIFER Hep-2 Sub-Tidwell <1:40 (<1:40 (Negative) - ) 10/12/2013 08:45 H pylori IgG-Tidwell Negative (Negative - ) 10/12/2013 08:45 H pylori IgG Idx-Tidwell 0.77 Source: [facility] [employer] Document Id: [id number] Electronically signed by Conversion, [facility] Bead Machine Operator [id number] at 02/22/2017 8:52 AM CDT Jelani - Sherron Alonzo D.N.P., C.N.P. - 10/15/2013 2:27 PM GATEKEEPER Normal Results Letter 15 October 2013 SVITLANA EDA [address] [id number] Dear SVITLANA DO, I am pleased to report that your results from the following diagnostic test(s) are all normal. Please follow up with us as we discussed during your visit or sooner if you have any concerns. If you havequestions or concerns, please do not hesitate to call our office. Result Name Current Result Normal Range T4 Free-Tidwell (ng/dL) 1.4 10/12/2013 JENNIFER Hep-2 Sub-Tidwell <1:40 10/12/2013 <1:40 (Negative) - H pylori IgG-Tidwell Negative 10/12/2013 Negative - H pylori IgG Idx-Tidwell 0.77 10/12/2013 Sincerely, SHERRON ALONZO [address] [place] [address] Electronic Signature Electronically Signed By: SHERRON ALONZO DNP, SUZIE On: 15 October 2013 This document has images extracted. Source: [facility] [employer] Document Id: [id number] Electronically signed by Conversion, [facility] Bead Machine Operator [id number] at 02/22/2017 8:52 AM CDT Jelani - Sherron Alonzo D.N.P., C.N.P. - 10/13/2013 9:07 AM GATEKEEPER Normal Results Letter 13 October 2013 SVITLANA DO [address] [id number] Dear SVITLANA DO, I am pleased to report that your results from the following diagnostic test(s) are normal. Please follow up with us as we discussed during your visit or sooner if you have any concerns. If you have questions or concerns, please do not hesitate to call our office. Result Name Current Result Normal Range T3 Free-Tidwell (pg/mL) 2.9 10/12/2013 2.0 - 3.5 - Sincerely, SHERRON ALONZO [address] [place] [id number] Electronic Signature Electronically Signed By: SHERRON ALONZO DNP, FNP On: 13 October 2013 This document has images extracted. Source: [facility] POWERCHART Document Id: [id number] Electronically signed by Conversion, [facility] Bead Machine Operator [id number] at 02/22/2017 8:52 AM CDT Miscellaneous - Sherron Alonzo, D.N.P., C.N.P. - 10/12/2013 2:58 PM GATEKEEPER Ambulatory Patient Summary [address] [address] Visit Information Name: SVITLANA DO [facility] Number: [id number] Current Date: 10/12/2013 14:58:36 Physicians Attending Provider: SHERRON ALONZO DNP, FNP Primary Care Provider: SHERRON ALONZO DNP, FNP SVITLANA DO has been given the following list [...] Take Indications/Special Instructions/Comments/Notes for Patient Medication Changes/Routing clindamycin topical (clindamycin 1% topical gel) 1 armani, Topical, two times a day clindamycin-benzoyl peroxide topical (Benzaclin topical gel) 1 armani, Topical, two times a day in the morning and the evening (apply to only the affected areas) cyanocobalamin (Vitamin B12) 1 tab, Oral, once a day levothyroxine (levothyroxine 112 mcg (0.112 mg) oral tablet) 1 Tablet(s), Oral, once a day multivitamin (multivitamin) Oral, once a day omega-3 polyunsaturated fatty acids (omega-3 polyunsaturated fatty acids 667 mg with Vitamin D oral capsule) 1 cap, Oral, once a day tretinoin topical (tretinoin 0.05% topical cream) 1 armani, Topical, once a day (at bedtime) Stop Taking the Following Medications: fluconazole (Diflucan 150 mg oral tablet) Medication list as of 10-12-13 14:58 Attention: If you have any medications at home that are not on this list, DO NOT take them until youcontact your provider for clarification. Give a copy of your medication list to your primary care provider. Update your medication list any time medications or doses are changed and carry your medication list at all times in case of emergency. 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 Your Goals/Additional instructions: Source: [facility] POWERCHART Document Id: [id number] KEEPER Miscellaneous - Sherron Alonzo, D.N.P., C.N.P. - 10/12/2013 2:58 PM GATEKEEPER Ambulatory Depart Summary [address] [place] [address] Visit Information Name: SVITLANA DO [facility] Number: [id number] Visit Date: 10/12/2013 14:58:32 Attending Provider: SHERRON ALONZO DNP, FNP Primary Care Provider: SHERRON ALONZO DNP, FNP QAMARSVITLANA MOLINA has been given the following list of medications: Your Medications It is important to take your medications as directed. Use a pill box or chart to help remind you to take your medications. Please let your doctor or nurse know if you have problems taking your medications. Medication/Strength How to Take Indications/Special Instructions/Comments/Notes for Patient Medication Changes/Routing clindamycin topical (clindamycin 1% topical gel) 1 armani, Topical, two times a day clindamycin-benzoyl peroxide topical (Benzaclin topical gel) 1 armani, Topical, two times a day in the morning and the evening (apply to only the affected areas) cyanocobalamin (Vitamin B12) 1 tab, Oral, once a day levothyroxine (levothyroxine 112 mcg (0.112 mg) oral tablet) 1 Tablet(s), Oral, once a day multivitamin (multivitamin) Oral, once a day omega-3 polyunsaturated fatty acids (omega-3 polyunsaturated fatty acids 667 mg with Vitamin D oral capsule) 1 cap, Oral, once a day tretinoin topical (tretinoin 0.05% topical cream) 1 armani, Topical, once a day (at bedtime) Stop Taking the Following Medications: fluconazole (Diflucan 150 mg oral tablet) Medication list as of 10-12-13 14:58 Attention: If you have any medications at home that are not on this list, DO NOT take them until youcontact your provider for clarification. Give a copy of your medication list to your primary care provider. Update your medication list any time medications or doses are changed and carry your medication list at all times in case of emergency. Additional Information: Source: [facility] POWERCHART Document Id: [id number] KEEPER Miscellaneous - Sherron Alonzo, Carline.N.P., C.N.P. - 10/12/2013 11:38 AM GATEKEEPER Normal Results Letter 12 October 2013 SVITLANA DO [address] [id number] Dear SVITLANA DO, Please follow up with us as we discussed during your visit or sooner if you have any concerns. If you have questions or concerns, please do not hesitate to call our office. Result Name Current Result Normal Range UA Color Yellow 10/12/2013 Yellow - UA Spec Grav >=1.030 10/12/2013 1.000 - 1.030 UA pH 5.5 10/12/2013 5.0 - 8.0 UA Protein Trace 10/12/2013 Negative - UA Glucose Negative 10/12/2013 Negative - UA Ketones 1+ 10/12/2013 Negative - UA Bili Negative 10/12/2013 Negative - UA Urobilinogen 0.2 10/12/2013 UA Blood 2+ 10/12/2013 Negative - UA Nitrite Negative 10/12/2013 Negative - UA Leuk Est Negative 10/12/2013 Negative - UA WBC Negative 10/12/2013 UA RBC 0-2 10/12/2013 0-2 - UA Appear Clear 10/12/2013 Clear - UA Epi Few 10/12/2013 Sodium Lvl (mM/L) 138.3 10/12/2013 135.0 - 145.0 Potassium Lvl (mmol/L) 3.7 10/12/2013 3.6 - 4.8 Chloride (mmol/L) 102 10/12/2013 98 - 107 CO2 (mmol/L) 26.0 10/12/2013 23.0 - 29.0 AGAP (mmol/L) 14 10/12/2013 10 - 20 Alkaline Phosphatase (U/L) 46 10/12/2013 37 - 98 Glucose Lvl (mg/dL) 84 10/12/2013 [address] - 139 Creatinine (mg/dL) 0.70 10/12/2013 0.60 - 1.30 EGFR (MDRD) (mL/min/1.73m2) >60 10/12/2013 >=60 - EGFR (MDRD) (mL/min/1.73m2) >60 10/12/2013 >=60 - BUN (mg/dL) 14 10/12/2013 7 - 18 Calcium Lvl (mg/dL) 9.0 10/12/2013 8.6 - 10.0 Protein Total (g/dL) 7.3 10/12/2013 6.3 - 7.9 Albumin Lvl (g/dL) 4.7 10/12/2013 3.5 - 5.0 AST (U/L) 18 10/12/2013 12 - 31 ALT (U/L) (L) 13 10/12/2013 15 - 37 Bili Total (mg/dL) 0.9 10/12/2013 0.1 - 1.0 Hgb (g/dL) 14.1 10/12/2013 12.0 - 15.5 Hct (%) 41.3 10/12/2013 34.9 - 44.5 WBC (x10(9)/L) 5.9 10/12/2013 3.4 - 10.5 RBC (x10(12)/L) 4.55 10/12/2013 3.90 - 5.03 MCV (fL) 90.8 10/12/2013 82.0 - 98.0 RDW (%) (L) 11.4 10/12/2013 11.9 - 15.5 Platelet (x10(9)/L) 160 10/12/2013 150 - 450 Neutro % (%) 72.4 10/12/2013 42.0 - 77.0 Lymph % (%) (L) 19.7 10/12/2013 23.0 - 44.0 Ada % (%) 6.9 10/12/2013 2.0 - 18.0 Eos % (%) 1.0 10/12/2013 1.0 - 5.0 Baso % (%) 0.0 10/12/2013 0.0 - 1.0 Neutro Absolute (10(9)/L) 4.27 10/12/2013 1.70 - 7.00 Lymph Absolute (x10(9)/L) 1.16 10/12/2013 0.90 - 2.90 Ada Absolute (x10(9)/L) 0.41 10/12/2013 0.30 - 0.90 Eos Absolute (x10(9)/L) 0.06 10/12/2013 0.05 - 0.50 Baso Absolute (x10(9)/L) 0.00 10/12/2013 0.00 - 0.30 Differential? Auto 10/12/2013 Sincerely, SHERRON ALONZO [facility] [place] [address] Electronic Signature Electronically Signed By: SHERRON ALONZO DNP, FNP On: 12 October 2013 This document has images extracted. Source: [facility] POWERCHART Document Id: [id number] Electronically signed by Marie [facility] Bead Machine Operator [id number] at 02/22/2017 8:52 AM CDT Miscellaneous - Lesia Chappell, L.P.N. - 10/12/2013 8:14 AM CST Adult Salesperson Furniture Intake/History Adult Salesperson Furniture Intake/History Entered On: 10/12/2013 8:17 GATEKEEPER Performed On: 10/12/2013 8:14 GATEKEEPER by LESIA CHAPPELL [facility] Intake Chief Complaint : keep getting sick Onset of Symptoms : 1 year ago Temperature Core : 35.8 DegC(Converted to: 96.4 DegF) (LOW) Peripheral Pulse Rate : 65 /min Respiratory Rate : 18 /min Heart Rhythm : Regular Systolic Blood Pressure : 78 mmHg (<LLOW) Diastolic Blood Pressure : 58 mmHg NIBP Mean : 65 mmHg BP Location : Left upper extremity Blood Pressure Cuff Size : Regular SpO2 : 98 % Oxygen Therapy : Room air Actual Weight : 55.1 kg(Converted to: 121 lb 8 oz) Weight Source : Standing scale Dosing Weight Clinic : 55.1 kg LESIA CHAPPELL CHEESE BLENDER - 10/12/2013 8:14 GATEKEEPER General Info Information Given By : Patient Preferred Communication Mode : Verbal Languages : Maltese LESIA CHAPPELL LPN - 10/12/2013 8:14 GATEKEEPER Subjective Pain Symptoms : No LESIA CHAPPELL LPN - 10/12/2013 8:14 GATEKEEPER Dependent Habits Tobacco Use/Currently Using : No Exposure to Tobacco Smoke : Care provider denies smoking in home Smoking Status : Never smoker LESIA CHAPPELL LPN - 10/12/2013 8:14 GATEKEEPER Tobacco Use Grid Last Use : never LESIA CHAPPELL LPN - 10/12/2013 8:14 GATEKEEPER Alcohol Use : No LESIA CHAPPELL LPN - 10/12/2013 8:14 GATEKEEPER Caffeine Use Grid Caffeine Use : Current Type : Soft drinks, Tea Frequency : Daily LESIA CHAPPELL LPN - 10/12/2013 8:14 GATEKEEPER Recreational Drug Use Grid Drug Use : None LESIA CHAPPELL LPN - 10/12/2013 8:14 GATEKEEPER Source: [facility] POWERCHART Document Id: [id number] KEEPER documented in this encounter Plan of Treatment Not on filedocumented as of this encounter Procedures Procedure Name Priority Date/Time Associated Comments Diagnosis URINALYSIS, ROUTINE Routine 10/12/2013 9:12 AM Re sults for this GATEKEEPER procedure are i n the results section. URINE MICROSCOPIC Routine 10/12/2013 9:12 AM Resu lts for this GATEKEEPER procedure are i n the results section. HELICOBACTER PYLORI Routine 10/12/2013 8:45 AM Re sults for this [facility] [facility] GATEKEEPER procedure are in the results section. AUTOMATED Routine 10/12/2013 8:45 AM Results f or this DIFFERENTIAL, B GATEKEEPER procedure ar e in the results section. ANTINUCLEAR ABS (JENNIFER), Routine 10/12/2013 8:45 AM Results for this HEP-2 SUBSTRATE, S GATEKEEPER procedure are in the results section. CBC WITH DIFFERENTIAL, Routine 10/12/2013 8:45 AM Results for this B GATEKEEPER procedure are i n the results section. T3 (TRIIODOTHYRONINE), Routine 10/12/2013 8:45 AM Results for this FREE, S GATEKEEPER procedure are i n the results section. T4 (THYROXINE), FREE, Routine 10/12/2013 8:45 AM Results for this S GATEKEEPER procedure are i n the results section. COMPREHENSIVE Routine 10/12/2013 8:45 AM Results for this METABOLIC PANEL, S/P GATEKEEPER procedu re are in the results section. documented in this encounter Results Urine Microscopic (10/12/2013 9:12 AM GATEKEEPER) Analysis Performed At Patho logist Time Signature HXUr WBC Negative POWERCHART Red Blood Cell 0-2 0 - 2 POWERCHART Clump, Urine HXUr Epithelial Few POWERCHART Comment: Squamous Specimen Anatomical Collection Method Collection Time Receive d Time (Source) Location / / Volume Laterality Urine 10/12/2013 9:12 AM 4 9:12 GATEKEEPER AM GATEKEEPER Sherron Alonzo APRN C.N.P., D.N.P. LAB URINE IRAM RICHARD Performing Organization Address City/State/ZIP Code Phon e Number POWERCHART Urinalysis, Routine (10/12/2013 9:12 AM GATEKEEPER) Patholo gist Method Time Signature HXUr Color Yellow Yellow POWERCHART Appearance Clear Clear POWERCHART Glucose Negative Negative POWERCHART HXBILIRUBIN Negative Negative POWERCHART Ketones, QL(U) 1+ Negative POWERCHART Specific >=1.030 1.000 - POWERCHART [place], POCT, U 1.030 pH, POCT, Urine 5.5 5.0 - 8.0 POWERCHART Protein, Ur, Dip Trace Negative POWERCHART Urobilinogen 0.2 POWERCHART HXNITRITE Negative Negative POWERCHART HXBLOOD 2+ Negative POWERCHART Leukocyte Negative Negative POWERCHART Esterase Source Clean Void POWERCHART Urine Specimen (Source) Anatomical Collection Method Collection Time Re ceived Time Location / / Volume Laterality Urine 10/12/2013 9:12 AM GATEKEEPER Sherron Alonzo APRN, C.N.P., D.N.P. LAB URINE ORDE RABLES Performing Organization Address City/[facility] Code Phon e Number POWERCHART (ABNORMAL) Automated Differential (10/12/2013 8:45 AM GATEKEEPER) [facility] gist Method Time Signature Neutro % 72.4 42.0 - POWERCHART 77.0 Lymphocytes % 19.7 (L) 23.0 - POWERCHART 44.0 HX Ada % 6.9 2.0 - 18.0 POWERCHART HX Eos % 1.0 1.0 - 5.0 POWERCHART HX Baso % 0.0 0.0 - 1.0 POWERCHART Absolute 4.27 1.70 - POWERCHART Neutrophils 7.00 109L Lymphocytes 1.16 0.90 - POWERCHART 2.90 X109L Monocytes 0.41 0.30 - POWERCHART 0.90 X109L Eosinophils 0.06 0.05 - POWERCHART 0.50 X109L Absolute 0.00 0.00 - POWERCHART Basophil 0.30 X109L Specimen Anatomical Collection Method Collection Time Receive d Time (Source) Location / / Volume Laterality Blood 10/12/2013 8:45 AM 4 8:45 GATEKEEPER AM GATEKEEPER Sherron Alonzo APRN, C.N.P., D.N.P. LAB BLOOD ADD- ON Performing Organization Address City/[facility] Code Phon e Number POWERCHART (ABNORMAL) CBC with Differential (10/12/2013 8:45 AM GATEKEEPER) [facility] gist Method Time Signature Leukocytes 5.9 3.4 - 10.5 POWERCHART X109L Erythrocytes 4.55 3.90 - POWERCHART 5.03 [id number] Hemoglobin 14.1 12.0 - POWERCHART 15.5 GDL Hematocrit 41.3 34.9 - POWERCHART 44.5 MCV 90.8 82.0 - POWERCHART 98.0 FL HX RDW 11.4 (L) 11.9 - POWERCHART 15.5 Platelet Count 160 150 - 450 POWERCHART X109L HXDifferential? Auto POWERCHART Specimen (Source) Anatomical Collection Method Collection Time Re ceived Time Location / / Volume Laterality Blood 10/12/2013 8:45 AM GATEKEEPER Sherron Alonzo APRN C.N.P., D.N.P. LAB BLOOD ADD- ON Performing Organization Address City/State/ZIP Code Phon e Number POWERCHART T3 (Triiodothyronine), Free (10/12/2013 8:45 AM GATEKEEPER) P athologist Signature T3 2.9 2.0 - 3.5 POWERCHART (Triiodothyroni PGML ne), Free, S Comment: Test Performed by: [place] [address] Patients Transporter: Jassi allan III, M.D. Specimen (Source) Anatomical Collection Method Collection Time Re ceived Time Location / / Volume Laterality Blood 10/12/2013 8:45 AM GATEKEEPER Gary Freeman APRN.N.P., D.N.P. LAB BLOOD ADD- ON Performing Organization Address City/State/[facility] Code Phon e Number POWERCHART T4 (Thyroxine), Free (10/12/2013 8:45 AM GATEKEEPER) P athologist Signature T4 (Thyroxine), 1.4 NGDL POWERCHART Free, S Comment: -- REFERENCE VALUE -- 0.8-1.8 Elevated values are seen in patients on thyroxine therapy. Test Performed by: [place] [address] Patients Transporter: Jassi allan III, M.D. Specimen (Source) Anatomical Collection Method Collection Time Re ceived Time Location / / Volume Laterality Blood 10/12/2013 8:45 AM GATEKEEPER Sherron Alonzo APRN, C.N.P., D.N.P. LAB BLOOD ADD- ON Performing Organization Address City/State/ZIP Code Phon e Number POWERCHART JENNIFER (Antinuclear Antibodies), HEp-2 Substrate (10/12/2013 8:45 AM GATEKEEPER) athologist Signature HXANA Hep-2 <1:40 <1:40 POWERCHART [place] (Negative) Comment: No Titer performed, JENNIFER screen is negati ve. Test Performed by: [place] [address] Patients Transporter: Mirta Amos, Ph. D. Specimen (Source) Anatomical Collection Method Collection Time Re ceived Time Location / / Volume Laterality Blood 10/12/2013 8:45 AM GATEKEEPER Sherron Alonzo APRN, C.N.P., D.N.P. LAB BLOOD NON ADD-ON Performing Organization Address City/[facility] Code Phon e Number POWERCHART HELICOBACTER PYLORI IGG AB-[place] SHELG (10/12/2013 8:45 AM GATEKEEPER) athologist [facility] HXH pylori Negative Negative POWERCHART IgG-[place] HXH pylori IgG 0.77 POWERCHART Idx-[place] Comment: Results with Index Values of <8.95 are n egative. Test Performed by: [place] [address] Patients Transporter: Jassi allan III, M.D. Specimen (Source) Anatomical Collection Method Collection Time Re ceived Time Location / / Volume Laterality Blood 10/12/2013 8:45 AM GATEKEEPER Sherron Alonzo APRN, C.N.P., D.N.P. LAB HISTORICAL ORDERS Performing Organization Address City/State/ZIP Code Phon e Number POWERCHART (ABNORMAL) CMP (Comprehensive Metabolic Panel) (10/12/2013 8:45 AM GATEKEEPER) [facility] Method Time Signature Anion Gap 14 10 - 20 POWERCHART MMOLL Alkaline 46 37 - 98 POWERCHART Phosphatase, S UL Alanine 13 (L) 15 - 37 POWERCHART Amniotransferase, LD UL Aspartate 18 12 - 31 POWERCHART Aminotransferase UL (AST), S Bilirubin, Total, S 0.9 0.1 - 1.0 POWERCHART MGDL BUN (Blood Urea 14 7 - 18 POWERCHART Nitrogen), S MGDL Chloride, S 102 98 - 107 POWERCHART MMOLL CO2 Total 26.0 23.0 - POWERCHART 29.0 MMOLL Creatinine 0.70 0.60 - POWERCHART 1.30 MGDL Total Protein, S 7.3 6.3 - 7.9 POWERCHART GDL Glucose 84 70 - 139 POWERCHART MGDL Calcium, Total, S 9.0 8.6 - POWERCHART 10.0 MGDL Sodium, S 138.3 135.0 - POWERCHART 145.0 MML Potassium, S 3.7 3.6 - 4.8 POWERCHART MMOLL Albumin, S 4.7 3.5 - 5.0 POWERCHART GDL HXeGFR (MDRD) >60 >=60 POWERCHART [id number] 2 eGFR Black/ >60 >=60 POWERCHART [place] [id number] 2 Specimen (Source) Anatomical Collection Method Collection Time Re ceived Time Location / / Volume Laterality Blood 10/12/2013 8:45 AM GATEKEEPER Sherron Alonzo APRN, C.N.P., D.N.P. LAB BLOOD ADD- ON Performing Organization Address City/State/ZIP Code Phon e Number POWERCHART documented in this encounter Visit Diagnoses Not on filedocumented in this encounter Additional Health Concerns Assessment Noted Time PHQ-9 Depression Total Score: 4 02/28/2013 4:39 PM CDT documented as of this encounter
--- OUTSIDE RECORDS SUMMARY | 2022-07-09 10:03 | XMS_ITS | Encounter Summary ---
:1980 Author Organization [facility] Address [address] [place] [address] Care Team Providers Name Role Phone Unavailable Primary Care Provider Unavailable Encounter Details Date Type Department Care Team Description 03/26/2013 Hospital Encounter HX [facility] Sandra Shin M.D. [address] [place] [phone] (Wo rk) Social History Tobacco Use Types [...] or relatives? How often do you attend scientologist or Never 2021 latter day services? 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 - 03/26/2013 8:10 AM CDT [id number] CONSULTATION CC: Ester Do is a 32 year old . She is being seen at the request of Lexie López NP, for evaluation and management of vaginal bulge. HPI: Patient has history of two children over 9 pounds. Patient reports pressure all the time, feelslike everything is dropping. She notice increased leakage after urination. She feels like always going to bathroom. She feels like she is not completely emptying, especially at night when she lays down. She does have to wait and wait to empty. Sometimes, she gets up and walks around to empty. She denies bulging in vaginal introitus. She reports increasing discomfort with intercourse. Pain occurs with intercourse. She reports in the last several cycles, she noticed increasing pain after menstruation. She reports leakage with coughing, laughing and sneezing. She reports leakage even sometimes with bending over. Occurrence most of the time. She denies history of endometriosis, fibroids or cysts. She denies history of recent URI, asthma. She reports regular BM for awhile. She was diagnosed with hyperthyroid she had associated constipation. She feels that BM are better, but not regular. She was diagnosed IBS. She reports BM are still every 4 days to twice weekly. She reports a lot of straining sometimes with BM. She denies any rectal bleeding. She reports no history of UTI. Patient's last menstrual period was 03/15/2013. Contraception: tubal ligation Menstrual/Withdraw bleeding: Every 28-30 days Flow: normal for 4-5 Days. 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 Social History Main Topics Smoking status: Never Smoker Smokeless tobacco: Never Used Alcohol Use: No Drug Use: No Sexually Active: Yes -- Male partner(s) Control/ Protection: Surgical tubal ligation Other Topics Concern Not on file Social History Narrative No narrative on file REVIEW OF SYSTEMS: NEUROLOGIC: negative. EYES: negative. ENT: negative. GI: negative. BREAST: negative. 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 CV: negative. PULMONARY: No shortness of breath, dyspnea on exertion, cough, or hemoptysis. MUSCULOSKELETAL: negative. PSYCH: negative. PHYSICAL EXAM BP 100/56 Wt 55.248 kg (121 lb 12.8 oz) LMP 03/15/2013 There is no height on file to calculate BMI. General Appearance: Awake, alert, appropriate appearance for age. No acute distress Neurologic Exam: Normal gait and speech, no tremor. Psychiatric Exam: Normal mood and appropriate affect HEENT Exam: Normocephalic, no lesions; ears atraumatic; eyes PERRLA bilaterally; naso normal; OP normal.l Neck / Thyroid Exam: Supple, no thyroid nodularity or masses, anterior and posterior cervical lymph nodes are negative for lymphadenopathy bilaterally. Chest/Respiratory Exam: Normal chest wall and respirations. Clear to auscultation. Cardiovascular Exam: Regular rate and rhythm. S1, S2, no murmur, click, gallop, or rubs. Breast Exam: On gross exam, there is no dimpling, puckering, skin discoloration, nipple retraction or discharge bilaterally. On palpation, there are no masses, tumors, lumps, bumps bilaterally. Gastrointestinal Exam: Soft, non-tender, no masses, no guarding or rebound tenderness; liver and spleen edges are not palpable. Pelvic Exam Female: Vulva: grossly unremarkable, no lesions or masses noted, labia majora - normal, labia minora - normal, clitoris - normal, Bartholin gland - normal, Dresden's glands - normal Urethral meatus: normal without any lesions. Vagina: normal vaginal mucosa without lesions Cervical Appearance: multiparous without lesions . A Pap smear was obtained: no A GC/Chlam DNA probe was obtained:no Bimanual exam reveals a normal uterus and adnexa, the uterus anteverted, approximately 8 size and non-tender. No CMT. No adnexal tenderness or masses. Bladder non-tender and well supported. No appreciable uterine prolapse, cystocele, rectocele noted. Recto-vaginal confirms bimanual exam; normal external anal sphincter tone; no recto-vaginal septum masses. Lymphatic Exam: Non-palpable nodes in supra-clavicular, axillary, and inguinal lymph nodes bilaterally. Musculoskeletal Exam: Back is straight and non-tender, full ROM of upper and lower extremities. Skin: no rash or abnormalities ASSESSMENT/PLAN: 1. JOE (stress urinary incontinence, female) (625.6) UA Complete ([facility]), URINE CULTURE, PHYSICAL THERAPY (RW/ZU) REFERRAL 2. Dyspareunia (625.0) Differential diagnosis of incontinence discussed with patient including UTI, JOE related to nerve injury. Discussed normal exam with patient. Discussed treatment options with Kegel exercise, referral to PT (pelvic floor training) or surgery; discussed advantages and disadvantages of each option. Patient elected to proceed with pelvic floor training through PT at this time. In regards to dyspareunia, I discussed differential diagnosis with patient. I discussed possible changes after her deliveries related to cervix and uterus. She may be feeling discomfort with pressure on cervix and uterus during intercourse. She will work with position changes during intercourse for now. She will return in 3 months for follow up. Main Antonio MD March 26, 2013 8:38 AM Source: [facility] Document Id: [id number] documented in this encounter Miscellaneous Notes Miscellaneous - Mendoza Antonio M.D. - 03/26/2013 8:10 AM CDT [id number] Ester [place] [address] [facility] [address] March 28, 2013 Dear Ms. Do: I am writing to inform you the results of the laboratory tests you had done during your recent visitto the clinic. Your results included : Your UA was normal. It was a pleasure to see you in the clinic. If you have any further questions or problems, please contact our office at [phone]. Sincerely, Dr Main Antonio MD Dept. JUNIOR MEDIA BUYER [facility] in [place] Source: [facility] Document Id: [id number] documented in this encounter Plan of Treatment Not on filedocumented as of this encounter Visit Diagnoses Not on filedocumented in this encounter Additional Health Concerns Assessment Noted Time PHQ-9 Depression Total Score: 4 02/28/2013 4:39 PM CDT documented as of this encounter
--- OUTSIDE RECORDS SUMMARY | 2022-07-09 10:03 | XMS_ITS | Encounter Summary ---
:1980 Author Organization [facility] Address [address] [place] [address] Care Team Providers Name Role Phone Unavailable Primary Care Provider Unavailable Encounter Details Date Type Department Care Team Description 11/14/2012 Hospital Encounter HX [facility] Lexie Alonzo, JOHN, C.N.P., D.N.P. [address] [place], [place] [phone] (Wo rk) Social History [...] you attend oriental orthodox or Never 2021 judaism services? Do you belong to any clubs [...] at Date Recorded Female 10/20/2021 8:[address] ORDERLY documented as of this encounter Miscellaneous Notes Miscellaneous - Lexie Alonzo D.N.P., C.N.P. - 11/22/2012 1:[address] ORDERLY Results Notification Document Contains Addenda Addendum by LEXIE ALONZO DNP, FNP on 30 November 2012 14:55:04 COURT ORDERLY LM with pt. indicating I was returning her call, will await return call back. Addendum by SHARMILA BRADSHAW LPN on 27 November 2012 10:04:16 COURT ORDERLY From: SHARMILA BRADSHAW LPN To: LEXIE ALONZO DNP, FNP; Sent: 11/27/2012 10:04:16 COURT ORDERLY Show up: 11/27/2012 10:03:00 COURT ORDERLY Subject: RE: Results Notification Ester called today and wants to talk with you regarding her visit at [place]. Also forgot to give her these results. Today at home [phone] From: LEXIE ALONZO DNP, FNP To: HSARMILA BRADSHAW LPN Sent: 11/22/2012 13:59:54 COURT ORDERLY ! Show up: 11/22/2012 19:59:54 [facility] Subject: Results Notification Actions: Note to Nurse Source: [facility] POWERCHART Document Id: [id number] Electronically signed by Marie [facility] Cement Or Concrete Finishing Supervisor [id number] at 02/23/2017 10:09 AM CDT documented in this encounter Plan of Treatment Not on filedocumented as of this encounter Procedures Procedure Name Priority Date/Time Associated Diagnosis Comme nts THYROID FUNCTION Routine 11/14/2012 5:40 PM Resul ts for this CASCADE, S COURT ORDERLY procedure are i n the results section. documented in this encounter Results Thyroid Function [place] (11/14/2012 5:[address] ORDERLY) P athologist Signature TSH, Sensitive 0.7 0.3 - 5.0 POWERCHART JOVANI Comment: Test Performed by: [place] [address] Lever Operator: Jassi allan III, M.D. Specimen (Source) Anatomical Collection Method Collection Time Re ceived Time Location / / Volume Laterality Blood 11/14/2012 5:[address] ORDERLY Lexie Alonzo APRN, C.N.P., D.N.P. LAB BLOOD ADD- ON Performing Organization Address City/State/ZIP Code Phon e Number POWERCHART documented in this encounter Visit Diagnoses Not on filedocumented in this encounter Additional Health Concerns Assessment Noted Time PHQ-9 Depression Total Score: 17 03/07/2012 7:23 PM CD T documented as of this encounter
--- OUTSIDE RECORDS SUMMARY | 2022-07-09 10:03 | XMS_ITS | Encounter Summary ---
:1980 Author Organization [facility] Address [address] [place] [address] Care Team Providers Name Role Phone Unavailable Primary Care Provider Unavailable Encounter Details Date Type Department Care Team Description 09/03/2013 Hospital Encounter HX [facility] Lexie Alonzo, JOHN, C.N.P., D.N.P. [address] [place], [place] [phone] (Wo rk) Social History [...] or relatives? How often do you attend temple or Never 2021 adventist services? 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 - 09/03/2013 11:29 AM HERB DIGGER Normal Results Letter 03 September 2013 ESTER VERAS [address] [id number] Dear ESTER VERAS, Your thyroid results are nicely normal! I would recommend we recheck them again in a year and/or sooner if you think we need to. I have sent a refill of your levothyroxine to [facility] for you. Please follow up with us as we discussed during your visit or sooner if you have any concerns. If you have questions or concerns, please do not hesitate to call our office. Result Name Current Result Previous Result Normal Range TSH (mcIU/mL) 1.01 09/03/2013 2.91 01/18/2013 0.30 - 5.00 Sincerely, LEXIE ALONZO [address] [place] [address] Electronic Signature Electronically Signed By: LEXIE ALONZO DNP, FNP On: 03 September 2013 This document has images extracted. Source: [facility] POWERCHART Document Id: [id number] Electronically signed by Conversion, [facility] Title Manager [id number] at 02/23/2017 4:15 PM CDT documented in this encounter Plan of Treatment Not on filedocumented as of this encounter Procedures Procedure Name Priority Date/Time Associated Diagnosis Comme nts THYROID-STIMULATING Routine 09/03/2013 8:22 AM Re sults for this HORMONE-SENSITIVE HERB DIGGER procedure are in (S-TSH) the results section. documented in this encounter Results Thyroid-Stimulating Hormone-Sensitive (s-TSH) (09/03/2013 8:22 AM HERB DIGGER) P athologist Signature TSH 1.01 0.30 - 5.00 POWERCHART (Thyrotropin) MCIUML Specimen (Source) Anatomical Collection Method Collection Time Re ceived Time Location / / Volume Laterality Blood 09/03/2013 8:22 AM HERB DIGGER Lexie Alonzo APRN, C.N.P., D.N.P. LAB BLOOD ADD- ON Performing Organization Address City/State/ZIP Code Phon e Number POWERCHART documented in this encounter Visit Diagnoses Not on filedocumented in this encounter Additional Health Concerns Assessment Noted Time PHQ-9 Depression Total Score: 4 02/28/2013 4:39 PM CDT documented as of this encounter
--- OUTSIDE RECORDS SUMMARY | 2022-07-09 10:03 | XMS_ITS | Encounter Summary ---
:1980 Author Organization [facility] Address [address] [place] [address] Care Team Providers Name Role Phone Unavailable Primary Care Provider Unavailable Encounter Details Date Type Department Care Team Description 02/13/2014 Hospital Encounter [facility] Radha Butler, Ph.D., M.A., L.M.F.T. [...] do you attend samaritan or Never 2021 bahai services? 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 - 01/28/2014 11:12 AM CDT PHQ-9 PHQ-9 Entered On: 02/01/2014 11:13 CDT Performed On: 01/28/2014 11:12 CDT by POLY ZHOU LPN PHQ-9 Little interest or pleasure in doing things : Nearly every day Feeling down, depressed, or hopeless : Nearly every day Trouble falling or staying asleep, or sleeping too much : Nearly every day Feeling tired or having little energy : Nearly every day Poor appetite or overeating : More than half the days Feeling bad about yourself or that you are a failure : Nearly every day Trouble concentrating on things : More than half the days Moving or speaking slowly; restless or fidgety : Not at all Thoughts that you would be better off /hurting self : Not at all PHQ-9 Calculated Score : 19 Problems make work, home, or dealing with others : Very difficult POLY ZHOU LPN - 02/01/2014 11:12 CDT Source: [facility] POWERCHART Document Id: [id number] CDT!13 documented in this encounter Plan of Treatment Not on filedocumented as of this encounter Visit Diagnoses Not on filedocumented in this encounter Additional Health Concerns Assessment Noted Time PHQ-9 Depression Total Score: 19 01/28/2014 11:12 AM C DT documented as of this encounter
--- OUTSIDE RECORDS SUMMARY | 2022-07-09 10:03 | XMS_ITS | Encounter Summary ---
:1980 Author Organization [facility] Address [address] [place] [address] Care Team Providers Name Role Phone Unavailable Primary Care Provider Unavailable Encounter Details Date Type Department Care Team Description 02/20/2014 Hospital Encounter [facility] Radha Butler, Ph.D., M.A., L.M.F.T. [...] or relatives? How often do you attend alevism or Never 2021 mandaeism services? 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
--- OUTSIDE RECORDS SUMMARY | 2022-07-09 10:03 | XMS_ITS | Encounter Summary ---
:1980 Author Organization [facility] Address [address] [place] [address] Care Team Providers Name Role Phone Unavailable Primary Care Provider Unavailable Encounter Details Date Type Department Care Team Description 01/28/2014 Hospital Encounter [facility] Radha Butler, Ph.D., M.A., [...] do you attend taoism or Never 2021 jainism services? 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 - 01/31/2014 4:56 PM CDT General Message Document Contains Addenda Addendum by LEXIE ALONZO DNP, FNP on 31 Jan 2014 19:53:23 CDT noted, lexapro 10 mg initiated due to depression, discussed with pt. From: LESIA CHAPPELL LPN To: LEXIE ALONZO DNP, SUZIE; Sent: 01/31/2014 16:56:05 CDT Subject: General Message Lexie, spoke with pt. ,she did listen to the message you left .She would still like to speak to you.Also she would like to speak to you about her son OLE Bonilla 03/03/2006.Thank you. co Source: [facility] POWERCHART Document Id: [id number] Electronically signed by Conversion, [facility] Piercing Artist [id number] at 02/22/2017 6:29 AM CDT documented in this encounter Plan of Treatment Not on filedocumented as of this encounter Visit Diagnoses Not on filedocumented in this encounter Additional Health Concerns Assessment Noted Time PHQ-9 Depression Total Score: 19 01/28/2014 11:12 AM C DT documented as of this encounter
--- OUTSIDE RECORDS SUMMARY | 2022-07-09 10:03 | XMS_ITS | Encounter Summary ---
:1980 Author Organization [facility] Address [address] [place] [address] Care Team Providers Name Role Phone Unavailable Primary Care Provider Unavailable Encounter Details Date Type Department Care Team Description 03/04/2014 Hospital Encounter [facility] Radha Butler, Ph.D., M.A., [...] or relatives? How often do you attend gnosticism or Never 2021 anglican services? Do you belong to any clubs or No 10/21/2021 organizations such as gnosticism groups, unions, fraternal or athletic groups, or [...] place to sleep or slept in a half-way (including now)? 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 Medications at [...] Miscellaneous - Conversion, Historical Provider Ser - 01/31/2014 12:27 PM CDT returning your call Document Contains Addenda Addendum by JHONY BASSETT V on 01 Feb 2014 09:26:58 CDT Called pt as it appears you actually sent rx to [facility] Addendum by SHERRON ALONZO DNP, FNP on 31 Jan 2014 16:46:39 CDT From: SHERRON ALONZO DNP, FNP To: JHONY BASSETT V; Sent: 01/31/2014 16:46:39 CDT Subject: RE: returning your call Addendum by SHERRON ALONZO DNP, FNP on 31 Jan 2014 16:46:36 CDT LM returning call, recommend lexapro 10 mg po daily #90 with no refills, scipt not sent as I am notsure if this is something she wants to do, awaiting return call back but out of office tuesday and tuesday, thank you. From: JHONY BASSETT V To: SHERRON ALONZO DNP, FNP; Sent: 01/31/2014 12:27:58 CDT Subject: returning your call Pt returned your call. Details unknown as no notes in chart. Can be reached @ work [phone]. After 4:30pm call cellphone [phone] Source: [facility] POWERCHART Document Id: [id number] documented in this encounter Plan of Treatment Not on filedocumented as of this encounter Visit Diagnoses Not on filedocumented in this encounter Additional Health Concerns Assessment Noted Time PHQ-9 Depression Total Score: 19 01/28/2014 11:12 AM C DT documented as of this encounter
--- OUTSIDE RECORDS SUMMARY | 2022-07-09 10:03 | XMS_ITS | Encounter Summary ---
:1980 Author Organization [facility] Address [address] [place] [address] Care Team Providers Name Role Phone Unavailable Primary Care Provider Unavailable Encounter Details Date Type Department Care Team Description 02/25/2014 Hospital Encounter [facility] Radha Butler, Ph.D., M.A., [...] or relatives? How often do you attend adventist or Never 2021 yazidi services? 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
--- OUTSIDE RECORDS SUMMARY | 2022-07-09 10:03 | XMS_ITS | Encounter Summary ---
:1980 Author Organization [facility] Address [address] [place] [address] Care Team Providers Name Role Phone Unavailable Primary Care Provider Unavailable Encounter Details Date Type Department Care Team Description 01/18/2014 Hospital Encounter HX [facility] ME Sherron Alonzo, JOHN, C.N.P., D. N.P. [address] [place] [address] (Wo rk) Social History Tobacco [...] do you attend adventist or Never 2021 episcopal services? 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 - 01/18/2014 10:25 AM CDT [id number] CHIEF COMPLAINT/REASON FOR VISIT GI issues. HISTORY OF PRESENT ILLNESS Patient is a 33-year-old female that presents to the clinic today with a complicated medical historyof having some gastrointestinal related like symptoms of bowel irritability. She describes this moreas a fullness sensation and indicates that 1 occasion at night she ended up having 16 different bowel movements. She indicates that she is not having any head or neck discomfort and indicates that she did have a history of having some blurred vision which has resolved. She has occasional lightheadedness and indicates that it occurs at any point in time, but maybe movement of her head makes it worse. She indicates that nothing makes it better, nothing makes it worse and it occurs so infrequently she does not even know how often it occurs. She indicates that she is not having shortness of breath or difficulty breathing, fevers, or chills. 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 She indicates that she is not having any heart or lung issues that she is aware of. She reports that she did do a dairy and a gluten free diet for approximately 4 weeks duration with no improvement in her symptoms. She indicates that attimes she will lay wake at night worried that she may wake up sick in the morning which she thinks may underlying exacerbate her symptoms. She indicates that she wonders if she would actually have anxiety that may be stemming from early adolescent years. She is wondering about possibly staying on probiotics that she has just recently initiated versus starting melatonin. She indicates that she is not having any diarrhea or blood in her stool. She otherwise indicates that she is not having any other further concerns or issues at this time. PAST MEDICAL/SURGICAL HISTORY Reviewed. Please see chart. FAMILY HISTORY Reviewed. Please see chart. MEDICATIONS Reviewed. Please see chart. ALLERGIES Reviewed. Please see chart. PHYSICAL EXAMINATION GENERAL: Patient is an alert, well-nourished, 33-year-old female, that appears to be in no acute distress. HEAD: Normocephalic, atraumatic. Remainder of further examination deferred at this time. IMPRESSION/REPORT/PLAN Reports of delayed gastric emptying versus anxiety. PLAN: Discussed the overall findings at length with the patient. We did spend some time counseling regarding her current symptoms as they pertain to possible dietary allergies. However, she has had a complete workup involving gluten testing and has also gone through some trials herself with the process of elimination with her diet. After further discussing the findings, we had come to the conclusion that I felt more than likely her symptoms were exacerbated due to possibly some underlying anxiety. Idid refer the patient to our behavioral therapist which can follow up with her regarding this issue in which an appointment was made for her in 1 week duration. Patient felt very comfortable with this treatment plan. She otherwise denied having any further questions or concerns. Patient ambulated out of the clinic in no acute distress. PATIENT EDUCATION Ready to learn. No apparent learning barriers were identified. Learning preferences include listening. Explained diagnosis and treatment plan. Patient/Child/Caregiver expressed understanding of the content. Sherron Alonzo D.N.P./Beverley/darline Electronically Signed By: SHERRON ALONZO DNP, FNP On: 01/18/2014 03:26 PM Source: [facility] MHSDOLBEYNONRADSYS Document Id: [id number] documented in this encounter Miscellaneous Notes Miscellaneous - Sherron Alonzo D.N.P., C.N.P. - 01/18/2014 11:59 AM CDT Ambulatory Patient Summary [address] [id number] Visit Information Name: ESTER DO [facility] Number: [id number] Current Date: 01/18/2014 11:59:43 Physicians Attending Provider: SHERRON ALONZO DNP, FNP Primary Care Provider: SHERRON ALONZO DNP, FNP QAMAREBONYESTER NO has been given the following list of [...] evening (apply to only the affected areas) levothyroxine (levothyroxine 112 mcg (0.112 mg) oral tablet) 1 Tablet(s), Oral, once a day tretinoin topical (tretinoin 0.05% topical cream) 1 armani, Topical, once a day (at bedtime) Stop Taking the Following Medications: Medication list as of 01-18-14 11:59 Attention: If you have any medications at home that are not on this list, DO NOT take them until youcontact your provider for clarification. Give a copy of your medication list to your primary care provider. Update your medication list any time medications or doses are changed and carry your medication list at all times in case of emergency. 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 Your Goals/Additional instructions: Source: [facility] POWERCHART Document Id: [id number] Miscellaneous - Sherron Alonzo, Carline.N.P., C.N.P. - 01/18/2014 11:59 AM CDT Ambulatory Discharge Medication List [id number] [place], [place] [phone] Visit Information Name: ESTER DO [facility] Number: [id number] Visit Date: 01/18/2014 11:59:41 Attending Provider: SHERRON ALONZO DNP, FNP Primary Care Provider: SHERRON ALONZO DNP, FNP QAMARTRACY ESTER LIU has been given the following [...] evening (apply to only the affected areas) levothyroxine (levothyroxine 112 mcg (0.112 mg) oral tablet) 1 Tablet(s), Oral, once a day tretinoin topical (tretinoin 0.05% topical cream) 1 armani, Topical, once a day (at bedtime) Stop Taking the Following Medications: Medication list as of 01-18-14 11:59 Attention: If you have any medications at home that are not on this list, DO NOT take them until youcontact your provider for clarification. Give a copy of your medication list to your primary care provider. Update your medication list any time medications or doses are changed and carry your medication list at all times in case of emergency. Electronically Signed By: SHERRON ALONZO DNP, FNP Signed On:18-JAN-2014 11:59:33 Additional Information: Source: [facility] POWERCHART Document Id: [id number] Miscellaneous - Yolis South L.P.N. - 01/18/2014 10:28 AM CDT Adult Patient Service Specialist Intake/History Adult Patient Service Specialist Intake/History Entered On: 01/18/2014 10:31 CDT Performed On: 01/18/2014 10:28 CDT by SOUTH, HETTIE L HEALTH AND SAFETY CONSULTANT Intake Chief Complaint : Discuss issues and if needs referral Temperature Core : 36.6 DegC(Converted to: 97.9 DegF) Peripheral Pulse Rate : 56 /min (LOW) Respiratory Rate : 16 /min Heart Rhythm : Regular Systolic Blood Pressure : 96 mmHg Diastolic Blood Pressure : 60 mmHg NIBP Mean : 72 mmHg BP Location : Right upper extremity Blood Pressure Cuff Size : Regular Height : 163.7 cm(Converted to: 5 ft 4 inch(es), 64 inch(es)) Actual Weight : 55.9 kg(Converted to: 123 lb 4 oz) Weight Source : Standing scale Dosing Weight Clinic : 55.9 kg Clinic BSA : 1.59 Body Mass Index : 20.86 kg/m2 YOLIS SOUTH LPN - 01/18/2014 10:28 CDT General Info Information Given By : Patient Languages : Spanish YOLIS SOUTH LPN - 01/18/2014 10:28 CDT Subjective Pain Symptoms : No YOLIS SOUTH LPN - 01/18/2014 10:28 CDT Dependent Habits Tobacco Use/Currently Using : No Tobacco Use/Last 12 months : No Tobacco Use/Advised to Quit : No Exposure to Tobacco Smoke : Care provider denies smoking in home Smoking Status : Never smoker YOLIS SOUTH LPN - 01/18/2014 10:28 CDT Tobacco Use Grid Last Use : never YOLIS SOUTH LPN - 01/18/2014 10:28 CDT Alcohol Use : No YOLIS SOUTH LPN - 01/18/2014 10:28 CDT Caffeine Use Grid Caffeine Use : Current Type : Soft drinks, Tea Frequency : Daily YOLIS SOUTH LPN - 01/18/2014 10:28 CDT Recreational Drug Use Grid Drug Use : None YOLIS SOUTH LPN - 01/18/2014 10:28 CDT [facility] Document Id: [id number]!41 documented in this encounter Plan of Treatment Not on filedocumented as of this encounter Visit Diagnoses Not on filedocumented in this encounter Additional Health Concerns Assessment Noted Time PHQ-9 Depression Total Score: 4 02/28/2013 4:39 PM CDT documented as of this encounter
--- OUTSIDE RECORDS SUMMARY | 2022-07-09 10:03 | XMS_ITS | Encounter Summary ---
:1980 Author Organization [facility] Address [address] [place] [address] Care Team Providers Name Role Phone Unavailable Primary Care Provider Unavailable Encounter Details Date Type Department Care Team Description 02/04/2014 Hospital Encounter HX [facility] Radha Butler, Ph.D., M.A., [...] do you attend christianity or Never 2021 buddhism services? 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
--- OUTSIDE RECORDS SUMMARY | 2022-07-09 10:03 | XMS_ITS | Encounter Summary ---
:1980 Author Organization [facility] Address [address] [place] [address] Care Team Providers Name Role Phone Unavailable Primary Care Provider Unavailable Encounter Details Date Type Department Care Team Description 07/13/2013 Hospital Encounter HX [facility] Lexie Pereira, JOHN, C.N.P., D. N.P. [address] [place] [address] (Wo rk) Social History Tobacco [...] or relatives? How often do you attend anabaptist or Never 2021 synagogue services? 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
--- OUTSIDE RECORDS SUMMARY | 2022-07-09 10:03 | XMS_ITS | Encounter Summary ---
:1980 Author Organization [facility] Address [address] [place] [address] Care Team Providers Name Role Phone Unavailable Primary Care Provider Unavailable Encounter Details Date Type Department Care Team Description 02/27/2013 Hospital Encounter HX [facility] Sherron Alonzo, JOHN, C.N.P., D. N.P. [address] [place] [address] (Wo rk) Social History Tobacco [...] do you attend sabianist or Never 2021 rastafari services? Do you belong to any clubs [...] or slept in a usp (including now)? 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 - 02/27/2013 5:47 PM CDT [id number] CHIEF COMPLAINT/REASON FOR VISIT Routine physical examination. HISTORY OF PRESENT ILLNESS Patient is a 32-year-old female who presents to clinic today for routine physical examination. She otherwise indicates that she has been having some chronic ongoing chronic back pain to the upper mid and lower back. She indicates she is not taking anything to help the symptoms. She indicates that she has also been having some chronic fatigue-like symptoms. She wonders if this may be secondary to the fact that she may not be getting adequate sleep at night. She does indicate that she grits her teeth at night but generally tries to wear her retainer at night. She indicates that she is eating 3 miles per day incorporating fruits and vegetables into her diet and having approximately 3 servings almost at every meal of either. She does indicate that she needs to be a little more proactive regarding hercalcium intake though indicates that she does eat yogurt and cheese and has rice milk in the morning. She is physically active at least three times per week. 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 She otherwise indicates she has also been having some ongoing issues with some stress incontinence. She indicates that she has been trying some Kegel exercise with minimal help. She is wondering if she could follow up with gynecology for further evaluation. She otherwise denies having any other further concerns or issues. PAST MEDICAL HISTORY/SURGICAL HISTORY Past medical history includes acne vulgaris. Gestational by diabetes diagnosed in 2010. Graves' disease diagnosed in 2012. Hypothyroidism diagnosed in 2012. Streptococcus diagnosed in 2011. SURGICAL HISTORY: Past surgical history includes breast augmentation in 2006. Cholecystectomy in 1999. Tubal ligation in 2010. FAMILY HISTORY Past family history includes a mother currently alive with a history of alcoholism and depression. Father with unknown medical history. Two brothers currently alive and well. One aunt at 40 years of age secondary to brain cancer. One aunt at 50 years of age secondary to brain cancer. Grandmother at 70 years of age secondary to brain cancer. A grandmother with history of melanoma and grandfather with history of melanoma. One brother with a history of melanoma and an uncle with history of melanoma. 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 Has 2 children, 2, para 2. She denies any tobacco usage and denies any alcohol usage. Denies any illicit drug use. ALLERGIES Clindamycin. CURRENT MEDICATIONS Medications include: 1. Tretinoin 0.1% topical cream. 2. Levothyroxine 112 mcg by mouth daily. 3. Clindamycin with benzyl peroxide topically twice a day. 4. Fish oil with omega-3 by mouth daily. 5. Multivitamin 1 tablet by mouth daily. 6. Vitamin B12 by mouth daily. PHYSICAL EXAMINATION GENERAL: Patient is alert and oriented x 3. HEENT: Head is normocephalic and atraumatic. PERRLA. Oropharynx is pink and moist. Bilateral TMs areclear. Bony landmarks are noted and within normal limits. Nares are patent with no erythema or drainage noted. NECK: No anterior or posterior lymphadenopathy noted. HEART: Heart is regular with normal S1 and S2. No murmurs, rubs or gallops are noted. LUNGS: Lungs are clear to auscultation. No prolonged expiratory phases. No wheezing, rales or rhonchi are noted. SKIN: Skin without any unusual rashes or suspicious lesions noted. BREASTS: Breast implants are noted on breast examination. BACK: Patient does have some kyphosis noted on examination. LABORATORY: Pap is presently pending. IMPRESSION/REPORT/PLAN 1. History of back pain. 2. Female stress incontinence. 3. Acne vulgaris. 4. Routine medical examination. PLAN: 1. Back pain: At this time, given her kyphosis, I did give her information regarding kyphosis from the [facility] site. We will plan on having her follow up with physical therapy for further evaluation regarding her back pain. Indicated that I would also like her to journal her back pain and any symptoms that she may be having contributing to this over the next couple weeks and update me with this information. Patient felt comfortable with this treatment plan. 2. Female stress incontinence. At this time, we will plan on having her follow up with [facility] for further evaluation. I will note on physical examination with a stress-induced cough, I do feel a little bit of a cystocele, though the examination was otherwise unremarkable. We will plan on having her follow up in which referral has been made. Patient understands the plan. 3. Acne vulgaris: I did authorize of a renewal of the patient's tretinoin that she would like to trial a lower dose of treatment that would be less drying to her face. Tretinoin 0.05% topical cream to be applied to the affected areas at bedtime as needed was prescribed. Advised if symptoms do not improve follow-up would be warranted. The patient understands this plan. 3. Routine medical examination: At this time, we will plan on contacting patient regarding her Pap results. If her Pap is normal, I would recommend she would be next due in 3 years duration. These findings were overall discussed at length with patient. Patient understands this plan. She otherwise denied any further questions or concerns. Patient ambulated out of the clinic in no acute distress. Patient Education #1 Patient/child/caregiver is ready to learn. No apparent learning barriers were identified. Learning preferences included listening. Explained diagnosis and treatment plan. Patient/child/caregiver expressed understanding of the content. Tracy OrtizNPelonPPelon/Beverley/stephanie Electronically Signed By: SHERRON ALONZO DNP, PHARMACEUTICAL OFFICER On: 03/02/2013 03:12 PM Source: [facility] MHSDOLBEYNONRADSYS Document Id: [id number] documented in this encounter Nursing Notes Yolis South L.P.N. 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 Antonio on 03/26/13 at 0810. Electronically Signed By: YOLIS SOUTH LPN On: 03/02/2013 04:29 PM Source: [facility] Watch-Sites Document Id: [id number] Rose Marie Camarillo L.P.NPelon - 03/02/2013 1:19 PM CDT referral Appointment rescheduled for patient with Dr. Antonio on March 26 in [place] at 810am at [facility] tod discuss bladder prolapse. Electronically Signed By: ROSE MARIE CHOI LPN On: 03/02/2013 01:20 PM Source: [facility] Watch-Sites Document Id: [id number] Rose Marie Camarillo L.P.NPelon - 03/02/2013 12:52 PM CDT referral-[facility] Appointment scheduled for patient at [facility] for March [address] Pineda to discuss bladder prolapse. Patient can call [phone] if needing to reschedule. Will fax records to [phone]. Left message for patient to call back. Electronically Signed By: ROSE MARIE CHOI LPN On: 03/02/2013 12:54 PM Source: [facility] Watch-Sites Document Id: [id number] documented in this encounter Miscellaneous Notes Miscellaneous - Sherron Alonzo D.N.P., C.N.P. - 03/06/2013 12:48 PM CDT Normal Results Letter 06 March 2013 ESTER DO [address] [id number] Dear ESTER DO, I am pleased to report that your results from your PAP were normal. Your next PAP will be due in 3 years. Please follow up with us as we discussed during your visit or sooner if you have any concerns. If you have questions or concerns, please do not hesitate to call our office. Sincerely, SHERRON ALONZO [address] [place] [address] Electronic Signature Electronically Signed By: SHERRON ALONZO DNP, PHARMACEUTICAL OFFICER On: 06 March 2013 This document has images extracted. Source: [facility] Watch-Sites Document Id: [id number] Electronically signed by Marie [facility] Cent[facility] Qualitative Executive Researcher [id number] at 02/23/2017 1:02 AM CDT Miscellaneous - Sherron Alonzo D.N.PPelon, C.N.P. - 03/02/2013 12:19 PM CDT General Message Document Contains Addenda Addendum by ROSE MARIE CHOI LPN on 02 March 2013 12:55:37 CDT Appointment scheduled for 03/07/[address] Pineda at [facility]. From: SHERRON ALONZO DNP, PHARMACEUTICAL OFFICER To: ROSE MARIE CHOI LPN; Sent: 03/02/2013 12:19:06 CDT Subject: General Message Maritasunday, can you please schedule an appt. in [place] with [facility] to discuss stress incontinence with pt. She has been doing kegals with no improvement and would like to discuss bladder prolapse with them, thank you. Source: [facility] Document Id: [id number] Electronically signed by Conversion, [facility] Qualitative Executive Researcher [id number] at 02/23/2017 1:02 AM CDT Miscellaneous - Sherron Alonzo, D.N.P., C.N.P. - 03/02/2013 12:17 PM CDT General Message From: SHERRON ALONZO DNP, SUZIE Sent: 03/02/2013 12:17:40 CDT Subject: General Message Source: [employer] Document Id: [id number] Electronically signed by Conversion, [facility] Qualitative Executive Researcher [id number] at 02/23/2017 1:02 AM CDT Miscellaneous - Amber Alarcon, LPelonP.N. - 02/28/2013 4:39 PM CDT PHQ-9 PHQ-9 Entered On: 02/28/2013 16:40 CDT Performed On: 02/28/2013 16:39 CDT by AMBER ALARCON LPN, RT PHQ-9 Little interest or pleasure in doing things : Not at all Feeling down, depressed, or hopeless : Not at all Trouble falling or staying asleep, or sleeping too much : More than half the days Feeling tired or having little energy : More than half the days Poor appetite or overeating : Not at all Feeling bad about yourself or that you are a failure : Not at all Trouble concentrating on things : Not at all Moving or speaking slowly; restless or fidgety : Not at all Thoughts that you would be better off /hurting self : Not at all PHQ-9 Calculated Score : 4 AMBER ALARCON LPN, RT - 02/28/2013 16:39 CDT Source: [facility] POWERCHART Document Id: [id number] CDT!12 Miscellaneous - Sherron Alonzo D.N.P., C.N.P. - 02/27/2013 6:51 PM CDT Ambulatory Patient Summary [id number] [place] [address] Visit Information Name: ESTER DO [facility] Number: [id number] Current Date: 02/27/2013 18:51:07 Physicians Attending Provider: SHERRON ALONZO DNP, FNP Primary Care Provider: SHERRON ALONZO DNP, FNP Your Medications Here is a list of your medications. It is important to take your medications as directed. Use a pillbox or chart to help remind you to take your medications. Please let your doctor or nurse know if you have problems taking your medications. Medication/Strength Dose Route Frequency Indications/Special Instructions/Comments tretinoin topical (tretinoin 0.05% topical cream) 1 armani Topical once a day (at bedtime) omega-3 polyunsaturated fatty acids (omega-3 polyunsaturated fatty acids 667 mg with Vitamin D oral capsule) 1 cap(s) Oral once a day cyanocobalamin (Vitamin B12) 1 tab Oral once a day levothyroxine (levothyroxine 112 mcg (0.112 mg) oral tablet) 112 mcg Oral once a day clindamycin-benzoyl peroxide topical (Benzaclin topical gel) 1 armani Topical two times a day in the morning and the evening (apply to only the affected areas) fluconazole (Diflucan 150 mg oral tablet) 150 mg Oral once as needed for yeast infection multivitamin (multivitamin) Oral once a day Attention: If you have any medications at home that are not on this list, DO NOT take them until youcontact your provider for clarification. 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 - 02/27/2013 6:51 PM CDT Ambulatory Depart Summary [address] [address] Visit Information Name: EDA ESTER NOE [facility] Number: [id number] Visit Date: 02/27/2013 18:51:06 Attending Provider: SHERRON ALONZO DNP, FNP Primary Care Provider: SHERRON ALONZO DNP, FNP HASEEBQUINTONESTER Ross has been given the following list of medications: Your Medications It is important to take your medications as directed. Use a pill box or chart to help remind you to take your medications. Please let your doctor or nurse know if you have problems taking your medications. Medication/Strength Dose Route Frequency Indications/Special Instructions/Comments tretinoin topical (tretinoin 0.05% topical cream) 1 armani Topical once a day (at bedtime) omega-3 polyunsaturated fatty acids (omega-3 polyunsaturated fatty acids 667 mg with Vitamin D oral capsule) 1 cap(s) Oral once a day cyanocobalamin (Vitamin B12) 1 tab Oral once a day levothyroxine (levothyroxine 112 mcg (0.112 mg) oral tablet) 112 mcg Oral once a day clindamycin-benzoyl peroxide topical (Benzaclin topical gel) 1 armani Topical two times a day in the morning and the evening (apply to only the affected areas) fluconazole (Diflucan 150 mg oral tablet) 150 mg Oral once as needed for yeast infection multivitamin (multivitamin) Oral once a day Attention: If you have any medications at home that are not on this list, DO NOT take them until youcontact your provider for clarification. Additional Information: Source: [facility] POWERCHART Document Id: [id number] Miscellaneous - Yolis South L.P.N. 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 Intake/History Entered On: 02/27/2013 17:57 CDT Performed On: 02/27/2013 17:50 CDT by YOLIS SOUTH LPN Intake Chief Complaint : General physical, has concerns and questions Temperature Core : 36.8 DegC(Converted to: 98.2 DegF) Peripheral Pulse Rate : 60 /min Respiratory Rate : 16 /min Systolic Blood Pressure : 94 mmHg Diastolic Blood Pressure : 66 mmHg NIBP Mean : 75 mmHg BP Location : Right upper extremity Blood Pressure Cuff Size : Regular Height : 163.7 cm(Converted to: 5 ft 4 inch(es), 64.45 inch(es)) Actual Weight : 55.6 kg(Converted to: 122 lb 9 oz) Weight Source : Standing scale Dosing Weight Clinic : 55.6 kg Clinic BSA : 1.59 Body Mass Index : 20.75 kg/m2 YOLIS SOUTH LPN - 02/27/2013 17:50 CDT General Info Information Given By : Patient Languages : Dutch YOLIS SOUTH LPN - 02/27/2013 17:50 CDT Subjective Pain Symptoms : No YOLIS SOUTH LPN - 02/27/2013 17:50 CDT Dependent Habits Tobacco Use/Currently Using : No Tobacco Use/Last 12 months : No Tobacco Use/Advised to Quit : No Exposure to Tobacco Smoke : Care provider denies smoking in home Smoking Status : Never smoker YOLIS SOUTH LPN - 02/27/2013 17:50 CDT Tobacco Use Grid Last Use : never YOLIS SOUTH LPN - 02/27/2013 17:50 CDT Alcohol Use : No YOLIS SOUTH LPN - 02/27/2013 17:50 CDT Caffeine Use Grid Caffeine Use : Current Type : Soft drinks, Tea Frequency : Daily YOLIS SOUTH LPN - 02/27/2013 17:50 CDT Recreational Drug Use Grid Drug Use : None YOLIS SOUTH LPN - 02/27/2013 17:50 CDT Allergy (As Of: 02/27/2013 17:57:27 CDT) Allergies (Active) clindamycin Estimated Onset Date: Unspecified ; Created By: ROSE MARIE CHOI LPN; Reaction Status: Active ; Category: Drug ; Substance: clindamycin ; Type: Allergy ; Updated By: ROSE MARIE CHOI LPN; Reviewed Date: 02/27/2013 13:38 CDT Source: [facility] Document Id: [id number] CDT!40 Miscellaneous - Yolis South L.P.N. - 02/27/2013 5:50 PM CDT Health Assessment Health Assessment Entered On: 02/27/2013 17:57 CDT Performed On: 02/27/2013 17:50 CDT by YOLIS SOUTH LPN Health Assessment Complete Health Assessment Complete or Modified : Annual Health Assessment Annual Health Assessment Completed : Yes YOLIS SOUTH LPN - 02/27/2013 17:50 CDT Nutrition Nutrition Risk Factors by History Adult : None YOLIS SOUTH LPN - 02/27/2013 17:50 CDT Functional Current Daily Living Assistance : None YOLIS SOUTH LPN - 02/27/2013 17:50 CDT Dependent Habits Tobacco Use/Currently Using : No Exposure to Tobacco Smoke : Care provider denies smoking in home Smoking Status : Never smoker YOLIS SOUTH LPN - 02/27/2013 17:50 CDT Tobacco Use Grid Last Use : never YOLIS SOUTH LPN - 02/27/2013 17:50 CDT Caffeine Use Grid Caffeine Use : Current Type : Soft drinks, Tea Frequency : Daily YOLIS SOUTH LPN - 02/27/2013 17:50 CDT Recreational Drug Use Grid Drug Use : None YOLIS SOUTH ORTHOPAEDIC SURGEON - 02/27/2013 17:50 CDT Psychosocial Domestic Abuse Concerns : None YOLIS SOUTH ORTHOPAEDIC SURGEON - 02/27/2013 17:50 CDT Advance Directive Advanced Directives : No Advance Directive Additional Information : No YOLIS SOUTH ORTHOPAEDIC SURGEON - 02/27/2013 17:50 CDT Educ Needs Learning Style Preference Adult Grid Patient : None Family : None YOLIS SOUTH ORTHOPAEDIC SURGEON - 02/27/2013 17:50 CDT Source: [facility] POWERCHART Document Id: [id number] CDT!32 documented in this encounter Plan of Treatment Not on filedocumented as of this encounter Procedures Procedure Name Priority Date/Time Associated Diagnosis Comme nts THINPREP SCREEN HPV Routine 02/27/2013 6:50 PM Re sults for this REFLEX CDT procedure are i n the results section. documented in this encounter Results Pathology ThinPrep Screen HPV Reflex (02/27/2013 6:50 PM CDT) [facility] gist Method Time Signature Interpretation [id number] POWERCHART HXThPrep Scrn See Comment POWERCHART [facility] Comment: A. ??ThinPrep Pap Test Screen (Cervical/ Endocervical HPV Reflex): Satisfactory for evaluation. Negative for intraepithelial lesion or m alignancy. HXThPrep Scrn [facility] See Comment CECILIA RCHART Comment: Report electronically signed by KATHI Rosenberg(ASCP) 03/06/2013 08:48 Interpreted by: KATHI Rosenberg(ASCP) [facility] See Comment POWERCHART Comment: A. ??ThinPrep Pap Test Screen (Cervical/ Endocervical HPV Reflex): Received cloudy specimen in ThinPrep via l. Test Performed by: [address] [address] Furnace Liner: Jassi allan III, M.D. Specimen (Source) Anatomical Collection Method Collection Time Re ceived Time Location / / Volume Laterality Cervix/Endocervix 02/27/2013 6:50 PM CDT Sherron Alonzo APRN C.N.P., D.N.P. LAB PAP PATHDX ORDERABLES Performing Organization Address City/State/ZIP Code Phon e Number POWERCHART documented in this encounter Visit Diagnoses Not on filedocumented in this encounter Additional Health Concerns Assessment Noted Time PHQ-9 Depression Total Score: 4 02/28/2013 4:39 PM CDT documented as of this encounter
--- OUTSIDE RECORDS SUMMARY | 2022-07-09 10:03 | XMS_ITS | Encounter Summary ---
:1980 Author Organization [facility] Address [address] [place] [address] Care Team Providers Name Role Phone Unavailable Primary Care Provider Unavailable Encounter Details Date Type Department Care Team Description 03/15/2012 Hospital Encounter HX [facility] Lexie Alonzo, JOHN, C.N.P., D.N.P. [address], [place] [phone] (Wo rk) Social History [...] or relatives? How often do you attend baptism or Never 2021 sikh services? Do you belong to any clubs or No 10/21/2021 organizations such as baptism groups, unions, fraternal or athletic groups, or [...] or slept in a halfway (including now)? 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 From: RYDER ACOSTA To: LEXIE ALONZO DNP, FNP; Sent: 03/16/2012 10:27:50 CDT Subject: General Message Michael Owen, I am wondering if you could call me regarding some add-on testing that you have requested on one of your patients. I have a different option for you if you would like. Thanks, [facility] phone: [phone] Etelvina sent this to your email, but then I thought maybe we should also send you a message via [employer]. Thanks Anthony Pak in lab [facility] Document Id: [id number] documented in this encounter Plan of Treatment Not on filedocumented as of this encounter Visit Diagnoses Not on filedocumented in this encounter Additional Health Concerns Assessment Noted Time PHQ-9 Depression Total Score: 17 03/07/2012 7:23 PM CD T documented as of this encounter
--- OUTSIDE RECORDS SUMMARY | 2022-07-09 10:03 | XMS_ITS | Encounter Summary ---
:1980 Author Organization [facility] Address [address] [place] [address] Care Team Providers Name Role Phone Unavailable Primary Care Provider Unavailable Encounter Details Date Type Department Care Team Description 09/07/[address] [facility] Lexie Alonzo, JOHN, C.N.P., D.N.P. [address] [place], [place] [phone] (Wo rk) Social History [...] or relatives? How often do you attend sabianism or Never 2021 judaism services? 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 - 09/08/2013 8:05 PM FINE PATCHER Normal Results Letter 08 September 2013 ESTER DO [address] [id number] Dear ESTER DO, I am pleased to report that your results from the following diagnostic test(s) are normal. I do not see that there is an allergy to gluten or dairy, but again, as we discussed, some people will have normal results but may have an intolerance or a sensitivity to these kinds of foods. Please follow up with us as we discussed during your visit or sooner if you have any concerns. If you have questions or concerns, please do not hesitate to call our office. Result Name Current Result Normal Range IgE-Tidwell (kU/L) 9.8 09/07/2013 TTG IgA-Tidwell (unit/mL) <1.2 09/07/2013 <4.0 (Negative) - Sincerely, LEXIE ALONZO [address] [place] [address] Electronic Signature Electronically Signed By: LEXIE ALONZO DNP, MEAT CUTTER On: 08 September 2013 This document has images extracted. Source: [facility] POWERCHART Document Id: [id number] documented in this encounter Plan of Treatment Not on filedocumented as of this encounter Procedures Procedure Name Priority Date/Time Associated Comments Diagnosis TISSUE TRANSGLUTAMINASE Routine 09/07/2013 10:10 Results for this (TTG) AB, IGA, S AM FINE PATCHER procedure a re in the results section. IMMUNOGLOBULIN E (IGE), Routine 09/07/2013 10:10 Results for this S AM FINE PATCHER procedure are i n the results section. documented in this encounter Results Immunoglobulin E (IgE) (09/07/2013 10:10 AM FINE PATCHER) [facility] Method Time Signature Immunoglobulin E 9.8 KUL POWERCHART (IgE), S Comment: -- REFERENCE VALUE -- Mean ??13.2 +1SD ??41.0 +2SD 127.0 Test Performed by: [place] [address] Bead Stringer: Jassi allan III, M.D. Specimen (Source) Anatomical Collection Method Collection Time Re ceived Time Location / / Volume Laterality Blood 09/07/2013 10:10 AM FINE PATCHER Gary Freeman APRN.N.PPelon, D.N.P. LAB BLOOD ADD- ON Performing Organization Address City/State/ZIP Code Phon e Number POWERCHART tTG (Tissue Transglutaminase), Antibody, IgA (09/07/2013 10:10 AM FINE PATCHER) [facility] Method Time Signature Tissue <1.2 <4.0 POWERCHART Transglutaminase Ab, (Negative) IgA, S UNITML Comment: Test Performed by: [place] [address] Bead Stringer: Jassi allan III, M.D. Specimen (Source) Anatomical Collection Method Collection Time Re ceived Time Location / / Volume Laterality Blood 09/07/2013 10:10 AM FINE PATCHER Gary Freeman APRN.N.P., D.N.P. LAB BLOOD ADD- ON Performing Organization Address City/State/ZIP Code Phon e Number POWERCHART documented in this encounter Visit Diagnoses Not on filedocumented in this encounter Additional Health Concerns Assessment Noted Time PHQ-9 Depression Total Score: 4 02/28/2013 4:39 PM CDT documented as of this encounter
--- OUTSIDE RECORDS SUMMARY | 2022-07-09 10:04 | XMS_ITS | Encounter Summary ---
:1980 Author Organization [facility] Address [address] [place] [address] Care Team Providers Name Role Phone None, Pcp Primary Care Provider Unavailable Encounter Details Date Type Department Care Team Description 03/27/2021 Ancillary Procedure Wayne Little Radiolo gy [address] [place], [place] [address] Social History Tobacco Use Types Packs/Day Years Used Date Never Smoker Smokeless Tobacco: Never Used Alcohol Use Standard Drinks/Week Comments Not Currently 0 (1 standard drink = 0.6 oz pure alcoho l) Sex Assigned at Date Recorded Not on file documented as of this encounter Plan of Treatment Not on filedocumented as of this encounter Procedures Procedure Name Priority Date/Time Associated Diagnosis Comme nts XR ANKLE 3+ VIEWS Routine 03/27/2021 11:48 AM Grade 2 ankle Re sults for this LEFT CDT sprain, left, procedure are in initial encounter the result s section. documented in this encounter Results X-ray Ankle 3+ Views Left (03/27/2021 11:48 AM CDT) Anatomical Region Laterality Modality Lower Extremities, Ankle Left Radiographic Im aging Specimen (Source) Anatomical Collection Method Collection Time Re ceived Time Location / / Volume Laterality 03/27/2021 11:48 AM CDT Impressions 03/27/2021 12:26 PM CDT IMPRESSION: Unremarkable. Narrative 03/27/2021 12:26 PM CDT INDICATION: left ankle pain after rolling 2 weeks ag o COMPARISON: None FINDINGS: ANKLE COMPLETE LEFT MIN 3 VIEWS There is no soft tissue swelling. ??Bone mineralization is normal. ??No fracture, dislocation or lytic or blasti c lesion. The ankle mortise is intact. Procedure Note Kristy Varela MD - 03/27/2021Formattin g of this note might be different from the original. INDICATION: left ankle pain after rolling 2 weeks ag o COMPARISON: None FINDINGS: ANKLE COMPLETE LEFT MIN 3 VIEWS There is no soft tissue swelling. Bone m ineralization is normal. No fracture, dislocation or lytic or blasti c lesion. The ankle mortise is intact. IMPRESSION: Unremarkable. Alli Caballero MD IMG XR PROCEDURES documented in this encounter Visit Diagnoses Not on filedocumented in this encounter Care Teams Salesperson Meats Relationship Specialty Start Date End Date None, Pcp PCP - General Elevator Constructor Hydraulic 03/27/[address] [place] [phone] documented as of this encounter
--- OUTSIDE RECORDS SUMMARY | 2022-07-09 10:04 | XMS_ITS | Encounter Summary ---
:1980 Author Organization [facility] Address [address] [place] [address] Care Team Providers Name Role Phone None, Pcp Primary Care Provider Unavailable Reason for Visit Reason Onset Date Comments Med Refill 12/25/2020 Encounter Details Date Type Department Care Team Description 12/25/2020 Refill [place] Chitra Berumen, Acne, unspecified acne [address] RISK CONTROL REPRESENTATIVE, RECEPTIONIST SECRETARY type [place], [place] [address] [address] [facility] [address] [phone] [place], [place] [address] Social History Tobacco Use Types Packs/Day Years Used Date Never Smoker Smokeless Tobacco: Never Used Alcohol Use Standard Drinks/Week Comments Not Currently 0 (1 standard drink = 0.6 oz pure alcoho l) Sex Assigned at Date Recorded Not on file documented as of this encounter Miscellaneous Notes Telephone Encounter - Belem Sierra - 01/07/2021 11:21 AM CDT Patient is going to wait a couple months to make an appointment and would like to see female doctor at that time. Telephone Encounter - Apoorva García RN - 12/25/2020 9:38 AM CDT Pt has not been seen in over a year, please assist with scheduling appointment to establish care with new provider Telephone Encounter - Apoorva García RN - 12/25/2020 9:38 AM CDT Last refill 07/25/19, last office visit 05/25/19, please advise on refill Telephone Encounter - Juliette Joseph LPN - 12/25/2020 7:12 AM CDT Former Chitra Berumen pt Has not est with a new PCP Please forward to another provider for an ext until seen Last visit in provider department: 03/02/19 Last visit requested medication was discussed:03/02/19 CP Upcoming appointment with provider: Visit date not found Last Rx: 07/25/19 #50g with 3 refills Requested Prescriptions Pending Prescriptions Disp Refills ??? clindamycin-benzoyl peroxide (BENZACLIN) gel 50 g 3 Sig: Apply topically 2 (two) times a day Apply topically 2 times daily Patient is due for CP and Est with a New PCP appointment. PSR/Nurse: Please contact patient to assist with scheduling. Please forward to a provider for ext documented in this encounter Plan of Treatment Not on filedocumented as of this encounter Visit Diagnoses Diagnosis Acne, unspecified acne type documented in this encounter Care Teams Fabric Machine Operator Relationship Specialty Start Date End Date None, Pcp PCP - General Yarn Hauler 03/27/[address] [place] [phone] documented as of this encounter
--- OUTSIDE RECORDS SUMMARY | 2022-07-09 10:04 | XMS_ITS | Encounter Summary ---
:1980 Author Organization [facility] Address [address] [place] [address] Care Team Providers Name Role Phone Unavailable Primary Care Provider Unavailable Encounter Details Date Type Department Care Team Description 05/20/2008 Hospital Encounter [facility] Esme Flores M.D. [address] [place] [address] (Wo rk) Social History Tobacco Use Types [...] or relatives? How often do you attend congregational or Never 2021 sikhism services? 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
--- OUTSIDE RECORDS SUMMARY | 2022-07-09 10:04 | XMS_ITS | Encounter Summary ---
:1980 Author Organization [facility] Address [address] [place] [address] Care Team Providers Name Role Phone None, Pcp Primary Care Provider Unavailable Encounter Details Date Type Department Care Team Description 08/31/2021 Lab [place] [address] [facility] [address] [place], [place] [address] Social History Tobacco Use [...] Name Priority Date/Time Associated Diagnosis Comme nts TSH Routine 08/31/2021 3:09 PM Results f or this DIRECTOR OF LAND procedure are i n the results section . T4, FREE Routine 08/31/2021 3:09 PM Results f or this DIRECTOR OF LAND procedure are i n the results section . documented in this encounter Results T4, free (08/31/2021 3:09 PM DIRECTOR OF LAND) P athologist Signature Free T4 1.32 0.78 - 2.19 09/01/2021 [facility] ng/dL 2:29 PM DIRECTOR OF LAND [facility] Comment: The results from this or any other diagn ostic test should be used and interpreted only in the context of the overall clinical picture. Heterophilic antibodies in serum or plas ma samples may cause interference in immunoassays. ??Exposure to animal antigens, either in the environment or as part of treatment or imaging procedures, may have circulating anti-an imal antibodies present. These antibodies may interfere with the assay reagents to produce unreliable results. ??Results which are inconsistent with clinical observations indicate the need for additional testing. Specimen Anatomical Collection Method Collection Time Receive d Time (Source) Location / / Volume Laterality 08/31/2021 3:09 PM 1 DIRECTOR OF LAND 12:40 PM DIRECTOR OF LAND Outside Referring Lab Provider LAB BLOOD ORDERABLES Performing Organization Address City/[facility]/ZIP Code Phon e Number [facility] [address] [place] [address] TSH (08/31/2021 3:09 PM DIRECTOR OF LAND) P athologist Signature TSH, Sensitive 1.46 0.46 - 09/01/2021 JON MEDICA L 4.68 mIU/L 2:34 PM DIRECTOR OF LAND CENTER LABORAT[facility] Comment: The results from this or any other diagn ostic test should be used and interpreted only in the context of the overall clinical picture. Biotin levels in serum remain elevated f or up to 24 hours after oral or intravenous biotin adminis tration and may interfere with this assay to produce unr eliable results. Heterophilic antibodies in serum or plas ma samples may cause interference in immunoassays. ??Exposure to animal antigens, either in the environment or as part of treatment or imaging procedures, may have circulating anti-an imal antibodies present. These antibodies may interfere with the assay reagents to produce unreliable results. ??Results which are inconsistent with clinical observations indicate the need for additional testing. Specimen Anatomical Collection Method Collection Time Receive d Time (Source) Location / / Volume Laterality 08/31/2021 3:09 PM DIRECTOR OF LAND 12:40 PM DIRECTOR OF LAND Outside Referring Lab Provider LAB BLOOD ORDERABLES Performing Organization Address City/[facility] Code Phon e Number [facility] [address] [place] [address] documented in this encounter Visit Diagnoses Not on filedocumented in this encounter Care Teams Website/Blog Editor Relationship Specialty Start Date End Date None, Pcp PCP - General Paint Roller Winder 03/27/21 [address] [place] [address] documented as of this encounter
--- OUTSIDE RECORDS SUMMARY | 2022-07-09 10:04 | XMS_ITS | Encounter Summary ---
:1980 Author Organization [facility] Address [address] [place] [address] Care Team Providers Name Role Phone None, Pcp Primary Care Provider Unavailable Encounter Details Date Type Department Care Team Description 03/18/2022 Orders Only Avinash Little Tracy Flores Hypothyroidism, [address] [place] unspecified type Avinash Little [place] [address] (Primary Dx) [phone] [place] [address] Social History Tobacco Use Types Packs/Day Years Used Date Never Smoker Smokeless Tobacco: Never Used Alcohol Use Standard Drinks/Week Comments Not Currently 0 (1 standard drink = 0.6 oz pure alcoho l) Sex Assigned at Date Recorded Not on file documented as of this encounter Plan of Treatment Not on filedocumented as of this encounter Visit Diagnoses Diagnosis Hypothyroidism, unspecified type - Prima ry documented in this encounter Care Teams Consumer Marketing Specialist Relationship Specialty Start Date End Date None, Pcp PCP - General Geology Teacher 03/27/21 [address] [place] [address] documented as of this encounter
--- OUTSIDE RECORDS SUMMARY | 2022-07-09 10:04 | XMS_ITS | Encounter Summary ---
:1980 Author Organization [facility] Address [address] [place] [address] Care Team Providers Name Role Phone None, Pcp Primary Care Provider Unavailable Encounter Details Date Type Department Care Team Description 12/28/2021 Telephone [place] Alli Caballero MD [address] [facility] [address] [place], [place] [address] [place], [place] [phone] (Wo rk) Social History Tobacco Use Types [...] on filedocumented in this encounter Care Teams Managed Services Sales Consultant Relationship Specialty Start Date End Date None, Pcp PCP - General Senior Commercial Loan Officer 03/27/21 [address] [place] [address] documented as of this encounter
--- OUTSIDE RECORDS SUMMARY | 2022-07-09 10:04 | XMS_ITS | Encounter Summary ---
:1980 Author Organization [facility] Address [address] [place] [address] Care Team Providers Name Role Phone Unavailable Primary Care Provider Unavailable Encounter Details Date Type Department Care Team Description 12/13/2008 Hospital Encounter HX [facility] INPT/OBSRV Mick Monaco P.A.-C. [address] [place] [address] (Wo rk) Social History Tobacco Use Types [...] or relatives? How often do you attend orthodoxy or Never 2021 worship services? 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
--- OUTSIDE RECORDS SUMMARY | 2022-07-09 10:04 | XMS_ITS | Encounter Summary ---
:1980 Author Organization [facility] Address [address] [place] [address] Care Team Providers Name Role Phone Unavailable Primary Care Provider Unavailable Encounter Details Date Type Department Care Team Description 01/24/2012 Hospital Encounter HX [facility] Tip Hurt, N.P. [address] [place] [address] (Wo rk) Social History Tobacco Use Types [...] do you attend sikhism or Never 2021 zoroastrian services? Do you belong to any clubs [...] at Date Recorded Female 10/20/2021 8:03 PM FACING END TRIMMER documented as of this encounter Last Filed Vital Signs Vital Sign Reading Time Taken Comments Blood Pressure 113/54 01/24/2012 8:01 AM CDT Pulse 66 01/24/2012 8:01 AM CDT Temperature - - Respiratory Rate 20 01/24/2012 8:01 AM CDT Oxygen Saturation - - Inhaled Oxygen Concentration - - Weight 55.5 kg (122 lb 5.7 oz) 01/24/2012 8:01 AM CDT Height - - Body Mass Index - - documented in this encounter Progress Notes Francisco Javier Hurt NKerwin. - 01/24/2012 12:00 AM CDT [id number] CHIEF COMPLAINT/REASON FOR VISIT Sore throat. HISTORY OF PRESENT ILLNESS Ester is a 31-year-old female who is here today with complaints of not feeling well. She states she has actually had cold symptoms, nasal congestion and a bit of cough for approximately two weeks, but then starting three days ago she developed a very severe sore throat. She has not noted any fever. 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 CURRENT MEDICATIONS Medications reviewed. New prescription today includes amoxicillin 500 mg one tablet three times daily x10 days. ALLERGIES No known drug allergies. PAST MEDICAL/SURGICAL HISTORY 1. Gestational diabetes. VITAL SIGNS Temperature 36.2, pulse 66, respirations 20, blood pressure 113/54. PHYSICAL EXAMINATION GENERAL: Ester is alert, oriented x3, appears in no acute distress. HEENT: Head is normocephalic, atraumatic. Bilateral TMs are shiny, juárez, intact with no erythema or effusion present. Nares are patent. Oropharynx is moderately erythematous and does have petechiae extending into the hard palate. NECK: Neck is supple. No lymphadenopathy. HEART: Heart rate is regular; S1, S2 is present. No murmur or rub. LUNGS: Clear to auscultation. DIAGNOSTICS: 1. Rapid strep is positive. IMPRESSION/REPORT/PLAN 1. Strep throat. Plan: 1. Discussed the rapid strep findings with Ester and opted to go ahead and treat her with amoxicillin 500 mg one tablet three times daily x10 days. She is encouraged to use Tylenol or ibuprofen as needed for fever or discomfort and increase her fluids. Toothbrush precautions were discussed. Ester's questions have been addressed and she is agreeable to this plan of care and will follow up as needed. PATIENT EDUCATION: Ready to learn No apparent learning barriers were identified Learning preferences include listening Explained diagnosis and treatment plan Patient/Child/Caregiver expressed understanding of the content Francisco Javier Hurt N.P. /shaka Electronically Signed By: FRANCISCO JAVIER HURT MARKETING REP On: 01/25/2012 10:55 AM Source: [facility]RADSYS Document Id: [id number] documented in this encounter Miscellaneous Notes Miscellaneous - Poly Zhou L.P.N. - 01/24/2012 8:01 AM CDT Adult Head Of Sales Promotion Intake/History Adult Head Of Sales Promotion Intake/History Entered On: 01/24/2012 8:04 CDT Performed On: 01/24/2012 8:01 CDT by POLY ZHOU LPN Intake Chief Complaint : ? strepp URI Temperature Core : 36.2C(Converted to: 97.2DegF) (LOW) Peripheral Pulse Rate : 66/min Respiratory Rate : 20/min Heart Rhythm : Regular Systolic Blood Pressure : 113mmHg Diastolic Blood Pressure : 54mmHg NIBP Mean : 74mmHg BP Location : Left upper extremity Blood Pressure Cuff Size : Regular Actual Weight : 55.5kg(Converted to: 122lb 6oz) Weight Source : Standing scale Dosing Weight Clinic : 55.50kg POLY ZHOU LPN - 01/24/2012 8:01 CDT Subjective Pain Symptoms : Yes POLY ZHOU LPN - 01/24/2012 8:01 CDT Pain Pain Assessment Grid Pain 1 Location : Throat Intensity : 10 POLY ZHOU LPN - 01/24/2012 8:01 CDT Dependent Habits Tobacco Use/Currently Using : No Tobacco Use/Last 12 months : No Tobacco Use/Advised to Quit : No Exposure to Tobacco Smoke : Care provider denies smoking in home Smoking Status : Never smoker POLY ZHOU Albin LADD - 01/24/2012 8:01 CDT Caffeine Use Grid Caffeine Use : Current Type : Soft drinks, Tea Frequency : Daily POLY ZHOU Albin LADD - 01/24/2012 8:01 CDT Recreational Drug Use Grid Drug Use : None POLY ZHOU Albin LADD - 01/24/2012 8:01 CDT Allergy Allergies (Active) NKA Estimated Onset Date: Unspecified ; Created By: LEONOR MEJIA LPN; Reaction Status: Active ;Category: Drug ; Substance: NKA ; Type: Allergy ; Updated By: LEONOR MEJIA LPN; Reviewed Date: 01/03/2012 7:52 CDT Source: [facility] POWERCHART Document Id: [id number] CDT!36 documented in this encounter Plan of Treatment Not on filedocumented as of this encounter Procedures Procedure Name Priority Date/Time Associated Diagnosis Comme nts RAPID STREP A Routine 01/24/2012 8:05 AM Results for this SCREEN CDT procedure are i n the results section. documented in this encounter Results (ABNORMAL) Rapid Strep A Screen (01/24/2012 8:05 AM CDT) [facility] Method Time Signature HXStrep A (POSITIVE) POWERCHART Screen Rapid HXFinal Positive for POWERCHART Group A Strep by rapid screen. Specimen (Source) Anatomical Collection Method Collection Time Re ceived Time Location / / Volume Laterality Throat 01/24/2012 8:05 AM CDT Francisco Javier Hurt N.P. LAB MICROBIOLOGY - GENERAL O RDERABLES Performing Organization Address City/State/ZIP Code Phon e Number POWERCHART documented in this encounter Visit Diagnoses Not on filedocumented in this encounter
--- OUTSIDE RECORDS SUMMARY | 2022-07-09 10:04 | XMS_ITS | Encounter Summary ---
:1980 Author Organization [facility] Address [address] [place] [address] Care Team Providers Name Role Phone None, Pcp Primary Care Provider Unavailable Reason for Visit Reason Comments Injections Rabies Encounter Details Date Type Department Care Team Description 10/29/2021 Immunization Wayne Little Cat bite of hand, right, [address] initial encounter (Primary MARJORIE Tolbert [address] Dx) [phone] Social History Tobacco Use Types Packs/Day Years Used Date Never Smoker Smokeless Tobacco: Never Used Alcohol Use Standard Drinks/Week Comments Not Currently 0 (1 standard drink = 0.6 oz pure alcoho l) Sex Assigned at Date Recorded Not on file documented as of this encounter Plan of Treatment Not on filedocumented as of this encounter Visit Diagnoses Diagnosis Cat bite of hand, right, initial encount er - Primary documented in this encounter Care Teams Certified Medication Aide Relationship Specialty Start Date End Date None, Pcp PCP - General Reverse Unit Operator 03/27/21 [address] [place] [address] documented as of this encounter
--- OUTSIDE RECORDS SUMMARY | 2022-07-09 10:04 | XMS_ITS | Encounter Summary ---
:1980 Author Organization [facility] Address [address] [place] [address] Care Team Providers Name Role Phone None, Pcp Primary Care Provider Unavailable Reason for Visit Reason Comments Foot Injury fell 2 weeks ago, swollen an d bruised at first, left ankle pain with movement Encounter Details Date Type Department Care Team Description 03/27/2021 Office Visit Alli Pisano, Grade 2 ankle sprain, left, initial encounter (Primary Dx); [address] MD Pain in metatarsus of left foot Avinash Little [place] [address] [place] [address] Avinash Little [place] [phone] [id number] Social History Tobacco Use Types Packs/Day Years Used Date Never Smoker Smokeless Tobacco: Never Used Alcohol Use Standard Drinks/Week Comments Not Currently 0 (1 standard drink = 0.6 oz pure alcoho l) Sex Assigned at Date Recorded Not on file documented as of this encounter Last Filed Vital Signs Vital Sign Reading Time Taken Comments Blood Pressure 104/66 03/27/2021 11:17 AM CDT Pulse 60 03/27/2021 11:17 AM CDT Temperature 37.1 ??C (98.7 ??F) 03/27/2021 11:17 AM CDT Respiratory Rate 16 03/27/2021 11:17 AM CDT Oxygen Saturation 98% 03/27/2021 11:17 AM CDT Inhaled Oxygen Concentration - - Weight 66.3 kg (146 lb 3.2 oz) 03/27/2021 11:17 AM CDT Height 167.6 cm (5' 6) 03/27/2021 11:17 AM CDT Body Mass Index 23.6 03/27/2021 11:17 AM CDT documented in this encounter Patient Instructions Patient InstructionsAlli Caballero MD - 03/27/2021 11:00 AM CDT Images from the original note were not included. Patient Education Ankle Sprain An ankle sprain is a stretch or tear in a ligament in the ankle. Ligaments are tissues that connect bones to each other. The two most common types of ankle sprains are: ?? Inversion sprain. This happens when the foot turns inward and the ankle rolls outward. It affectsthe ligament on the outside of the foot (lateral ligament). ?? Eversion sprain. This happens when the foot turns outward and the ankle rolls inward. It affects the ligament on the inner side of the foot (medial ligament). What are the causes? This condition is often caused by accidentally rolling or twisting the ankle. What increases the risk? You are more likely to develop this condition if you play sports. What are the signs or symptoms? Symptoms of this condition include: ?? Pain in your ankle. ?? Swelling. ?? Bruising. This may develop right after you sprain your ankle or 1-2 days later. ?? Trouble standing or walking, especially when you turn or change directions. How is this diagnosed? This condition is diagnosed with: ?? A physical exam. During the exam, your health care provider will press on certain parts of your foot and ankle and try to move them in certain ways. ?? X-ray imaging. These may be taken to see how severe the sprain is and to check for broken bones. How is this treated? This condition may be treated with: ?? A brace or splint. This is used to keep the ankle from moving until it heals. ?? An elastic bandage. This is used to support the ankle. ?? Crutches. ?? Pain medicine. ?? Surgery. This may be needed if the sprain is severe. ?? Physical therapy. This may help to improve the range of motion in the ankle. Follow these instructions at home: If you have a brace or a splint: ?? Wear the brace or splint as told by your health care provider. Remove it only as told by your health care provider. ?? Loosen the brace or splint if your toes tingle, become numb, or turn cold and blue. ?? Keep the brace or splint clean. ?? If the brace or splint is not waterproof: ? Do not let it get wet. ? Cover it with a watertight covering when you take a bath or a shower. If you have an elastic bandage (dressing): ?? Remove it to shower or bathe. ?? Try not to move your ankle much, but wiggle your toes from time to time. This helps to prevent swelling. ?? Adjust the dressing to make it more comfortable if it feels too tight. ?? Loosen the dressing if you have numbness or tingling in your foot, or if your foot becomes cold and blue. Managing pain, stiffness, and swelling ?? Take bhwj-liw-pvjpcew and prescription medicines only as told by your health care provider. ?? For 2-3 days, keep your ankle raised (elevated) above the level of your heart as much as possible. ?? If directed, put ice on the injured area: ? If you have a removable brace or splint, remove it as told by your health care provider. ? Put ice in a plastic bag. ? Place a towel between your skin and the bag. ? Leave the ice on for 20 minutes, 2-3 times a day. General instructions ?? Rest your ankle. ?? Do not use the injured limb to support your body weight until your health care provider says thatyou can. Use crutches as told by your health care provider. ?? Do not use any products that contain nicotine or tobacco, such as cigarettes, e-cigarettes, and chewing tobacco. If you need help quitting, ask your health care provider. ?? Keep all follow-up visits as told by your health care provider. This is important. Contact a health care provider if: ?? You have rapidly increasing bruising or swelling. ?? Your pain is not relieved with medicine. Get help right away if: ?? Your foot or toes become numb or blue. ?? You have severe pain that gets worse. Summary ?? An ankle sprain is a stretch or tear in a ligament in the ankle. Ligaments are tissues that connect bones to each other. ?? This condition is often caused by accidentally rolling or twisting the ankle. ?? Symptoms include pain, swelling, bruising, and trouble walking. ?? To relieve pain and swelling, put ice on the affected ankle, raise your ankle above the level of your heart, and use an elastic bandage. ?? Keep all follow-up visits as told by your health care provider. This is important. This information is not intended to replace advice given to you by your health care provider. Make sure you discuss any questions you have with your health care provider. Document Released: 09/12/2006 Document Revised: 06/05/2019 Document Reviewed: 02/06/2019 [employer] Patient Education ?? 2020 [employer]. documented in this encounter Progress Notes Alli Caballero MD - 03/27/2021 11:00 AM CDT Images from the original note were not included. Subjective Patient ID: Ester Do is a 40 y.o. female. Chief Complaint Patient presents with ??? Foot Injury fell 2 weeks ago, swollen and bruised at first, left ankle pain with movement HPI Patient reports 2 weeks ago she was stepping down some stairs walking sideways and rolled her left ankle. She was unable to bear weight right away and spent that evening with her foot elevated. The next day she was able to bear some weight. Over the past 2 weeks it seems like it is not improved and isstayed the same. Tilting and turning the foot causes pain. Sometimes tilting the foot causes pain toshoot up the leg just above the lateral part for ankle. There is no pain at rest. Walking fast also causes pain. She has been wearing an ankle wrap since the injury. No numbness or tingling in the foot. The following portions of the patient's chart were reviewed in this encounter and updated as appropriate: Tobacco Allergies Meds Med Hx Surg Hx Fam Hx Soc Hx ROS ROS done as noted in HPI Objective Visit Vitals BP 104/66 (BP Location: Left arm, Patient Position: Sitting, BP Cuff Size: Adult) Pulse 60 Temp 37.1 ??C (98.7 ??F) (Temporal) Resp 16 Ht 1.676 m (5' 6) Wt 66.3 kg (146 lb 3.2 oz) SpO2 98% BMI 23.60 kg/m?? Smoking Status Never Smoker BSA 1.76 m?? Physical Exam GEN: well appearing, no acute distress, vital signs reviewed MSK: Minimal swelling on left lateral ankle. Minimal laxity to inversion of left ankle and tenderness to left 5th metatarsal base. No malleolar tenderness. No navicular tenderness. Able to bear weight.Negative talar tilt test. DERM: small ecchymosis on lateral inferior ankle Assessment/Plan Diagnosis Plan 1. Grade 2 ankle sprain, left, initial encounter X-ray Ankle 3+ Views Left X-ray Ankle 3+ Views Left X-ray foot 3+ views left 2. Pain in metatarsus of left foot X-ray foot 3+ views left Independent review of ankle and foot x-ray series reveals no fracture or dislocation. We will followup on official radiology read and update plan if needed. Discussed usual course of grade 2 ankle sprains. Advised on ibuprofen 400 mg 3 times a day with meals for pain and swelling. Advised on rest until able to do light range of motion exercises and can progress as tolerated from there. Patient was given a Aircast brace. If not improving she can return to clinic or give us a call we could get an MRIat that time. Patient Instructions Patient Education Ankle Sprain An ankle sprain is a stretch or tear in a ligament in the ankle. Ligaments are tissues that connect bones to each other. The two most common types of ankle sprains are: ?? Inversion sprain. This happens when the foot turns inward and the ankle rolls outward. It affectsthe ligament on the outside of the foot (lateral ligament). ?? Eversion sprain. This happens when the foot turns outward and the ankle rolls inward. It affects the ligament on the inner side of the foot (medial ligament). What are the causes? This condition is often caused by accidentally rolling or twisting the ankle. What increases the risk? You are more likely to develop this condition if you play sports. What are the signs or symptoms? Symptoms of this condition include: ?? Pain in your ankle. ?? Swelling. ?? Bruising. This may develop right after you sprain your ankle or 1-2 days later. ?? Trouble standing or walking, especially when you turn or change directions. How is this diagnosed? This condition is diagnosed with: ?? A physical exam. During the exam, your health care provider will press on certain parts of your foot and ankle and try to move them in certain ways. ?? X-ray imaging. These may be taken to see how severe the sprain is and to check for broken bones. How is this treated? This condition may be treated with: ?? A brace or splint. This is used to keep the ankle from moving until it heals. ?? An elastic bandage. This is used to support the ankle. ?? Crutches. ?? Pain medicine. ?? Surgery. This may be needed if the sprain is severe. ?? Physical therapy. This may help to improve the range of motion in the ankle. Follow these instructions at home: If you have a brace or a splint: ?? Wear the brace or splint as told by your health care provider. Remove it only as told by your health care provider. ?? Loosen the brace or splint if your toes tingle, become numb, or turn cold and blue. ?? Keep the brace or splint clean. ?? If the brace or splint is not waterproof: ? Do not let it get wet. ? Cover it with a watertight covering when you take a bath or a shower. If you have an elastic bandage (dressing): ?? Remove it to shower or bathe. ?? Try not to move your ankle much, but wiggle your toes from time to time. This helps to prevent swelling. ?? Adjust the dressing to make it more comfortable if it feels too tight. ?? Loosen the dressing if you have numbness or tingling in your foot, or if your foot becomes cold and blue. Managing pain, stiffness, and swelling ?? Take xwie-uzu-zvqzcvx and prescription medicines only as told by your health care provider. ?? For 2-3 days, keep your ankle raised (elevated) above the level of your heart as much as possible. ?? If directed, put ice on the injured area: ? If you have a removable brace or splint, remove it as told by your health care provider. ? Put ice in a plastic bag. ? Place a towel between your skin and the bag. ? Leave the ice on for 20 minutes, 2-3 times a day. General instructions ?? Rest your ankle. ?? Do not use the injured limb to support your body weight until your health care provider says thatyou can. Use crutches as told by your health care provider. ?? Do not use any products that contain nicotine or tobacco, such as cigarettes, e-cigarettes, and chewing tobacco. If you need help quitting, ask your health care provider. ?? Keep all follow-up visits as told by your health care provider. This is important. Contact a health care provider if: ?? You have rapidly increasing bruising or swelling. ?? Your pain is not relieved with medicine. Get help right away if: ?? Your foot or toes become numb or blue. ?? You have severe pain that gets worse. Summary ?? An ankle sprain is a stretch or tear in a ligament in the ankle. Ligaments are tissues that connect bones to each other. ?? This condition is often caused by accidentally rolling or twisting the ankle. ?? Symptoms include pain, swelling, bruising, and trouble walking. ?? To relieve pain and swelling, put ice on the affected ankle, raise your ankle above the level of your heart, and use an elastic bandage. ?? Keep all follow-up visits as told by your health care provider. This is important. This information is not intended to replace advice given to you by your health care provider. Make sure you discuss any questions you have with your health care provider. Document Released: 09/12/2006 Document Revised: 06/05/2019 Document Reviewed: 02/06/2019 [employer] Patient Education ?? 2020 [employer] No follow-ups on file. Note created using voice dictation software. documented in this encounter Plan of Treatment Not on filedocumented as of this encounter Procedures Procedure Name Priority Date/Time Associated Diagnosis Comme nts XR FOOT 3+ VIEWS Routine 03/27/2021 11:51 AM Grade 2 ankle Res ults for this LEFT CDT sprain, left, procedure are in initial encounte r the results Pain in metatarsus section. of left foot XR ANKLE 3+ VIEWS Routine 03/27/2021 11:48 AM Grade 2 ankle Re sults for this LEFT CDT sprain, left, procedure are in initial encounter the result s section. documented in this encounter Results X-ray foot 3+ views left (03/27/2021 11:51 AM CDT) Anatomical Region Laterality Modality Lower Extremities, Foot Left Radiographic Fela ging Specimen (Source) Anatomical Collection Method Collection Time Re ceived Time Location / / Volume Laterality 03/27/2021 11:51 AM CDT Impressions 03/27/2021 12:11 PM CDT IMPRESSION: Negative left foot. If there is clinical concern for occult fracture, consider CT or MRI for further evaluation. Narrative 03/27/2021 12:11 PM CDT INDICATION: pain at base of 5th metatarsal, rolled f oot 2 weeks ago COMPARISON: None available. FINDINGS: 3 VIEWS LEFT FOOT No acute fracture or dislocation identif ied. No significant arthropathy. No suspicious lytic/blastic lesion or ab normal periosteal reaction. Procedure Note Everett Farnsworth MD - 03/27/2021Form atting of this note might be different from the original. INDICATION: pain at base of 5th metatarsal, rolled f oot 2 weeks ago COMPARISON: None available. FINDINGS: 3 VIEWS LEFT FOOT No acute fracture or dislocation identif ied. No significant arthropathy. No suspicious lytic/blastic lesion or ab normal periosteal reaction. IMPRESSION: Negative left foot. If there is clinical concern for occult fracture, consider CT or MRI for further evaluation. 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
--- OUTSIDE RECORDS SUMMARY | 2022-07-09 10:04 | XMS_ITS | Encounter Summary ---
:1980 Author Organization [facility] Address [address] [place] [address] Care Team Providers Name Role Phone Unavailable Primary Care Provider Unavailable Encounter Details Date Type Department Care Team Description 02/15/2012 Hospital Encounter [facility] John Paul Yeung M.D. [address] [id number] (Wo rk) Social History Tobacco [...] do you attend adventism or Never 2021 cheondoism services? 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 - 02/15/2012 12:00 AM CDT [id number] IMPRESSION/REPORT/PLAN Tonsillitis positive for strep. LA Bicillin, amoxicillin, recheck if not improved. Return to clinic in 2-3 days otherwise. CHIEF COMPLAINT/REASON FOR VISIT Sore throat. HISTORY OF PRESENT ILLNESS Sore throat, sense of fever, difficulty swallowing intensity 05/05. No emesis. No rash. PHYSICAL EXAM HEENT: Large tender tonsils. Tender submandibular adenopathy. Exudate evident. LUNGS: Clear, no rash. Stew Dinero M.D. /shaka Electronically Signed By: STEW DINERO MD On: 02/18/2012 09:52 AM Source: [facility] MHSDOLBEYNONRADSYS Document Id: [id number] documented in this encounter Miscellaneous Notes Miscellaneous - Stew Dinero M.D. - 02/15/2012 7:22 PM CDT Ambulatory Depart Summary [id number] [place] [address] Visit Information Name: ESTER DO Visit Date: 02/15/2012 19:22:08 Attending Provider: STEW DINERO MD Primary Care Provider: SHERRON ALONZO DNP, FNP ESTER DO has been given the following list of medications: Your Medications It is important to take your medications as directed. Use a pill box or chart to help remind you to take your medications. Please let your doctor or nurse know if you have problems taking your medications. Medication/Strength Dose Route Frequency Indications/Special Instructions/Comments amoxicillin (amoxicillin 500 mg oral tablet) 1,000 mg Oral two times a day for 10 Days fluconazole (Diflucan) clindamycin-benzoyl peroxide topical (Benzaclin topical gel) 1 armani Topical two times a day in the morning and the evening (apply to only the affected areas) tretinoin topical (tretinoin topical 0.1% cream) 1 armani Topical once a day (at bedtime) (wash hands before applying) Apply to only the affected areas. multivitamin (multivitamin) Oral once a day Attention: If you have any medications at home that are not on this list, DO NOT take them until youcontact your provider for clarification. Additional Information: Source: [facility] POWERCHART Document Id: [id number] Miscellaneous - Stew Dinero M.D. - 02/15/2012 7:22 PM CDT Ambulatory Patient Summary [address] [address] Visit Information Name: ESTER DO Current Date: 02/15/2012 19:22:08 Physicians Attending Provider: STEW DINERO MD Primary Care Provider: SHERRON ALONZO DNP, FNP Your Medications Here is a list of your medications. It is important to take your medications as directed. Use a pillbox or chart to help remind you to take your medications. Please let your doctor or nurse know if you have problems taking your medications. Medication/Strength Dose Route Frequency Indications/Special Instructions/Comments amoxicillin (amoxicillin 500 mg oral tablet) 1,000 mg Oral two times a day for 10 Days fluconazole (Diflucan) clindamycin-benzoyl peroxide topical (Benzaclin topical gel) 1 armani Topical two times a day in the morning and the evening (apply to only the affected areas) tretinoin topical (tretinoin topical 0.1% cream) 1 armani Topical once a day (at bedtime) (wash hands before applying) Apply to only the affected areas. multivitamin (multivitamin) Oral once a day Attention: If you have any medications at home that are not on this list, DO NOT take them until youcontact your provider for clarification. 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 Intake/History Entered On: 02/15/2012 18:50 CDT Performed On: 02/15/2012 18:48 CDT by PHYLICIA JASON Intake Chief Complaint : possible strep Temperature Core : 37.5C(Converted to: 99.5DegF) Peripheral Pulse Rate : 80/min Respiratory Rate : 14/min Heart Rhythm : Regular Systolic Blood Pressure : 110mmHg Diastolic Blood Pressure : 60mmHg NIBP Mean : 77mmHg BP Location : Left upper extremity Blood Pressure Cuff Size : Regular Actual Weight : 54.2kg(Converted to: 119lb 8oz) Weight Source : Standing scale Dosing Weight Clinic : 54.20kg PHYLCIIA JASON - 02/15/2012 18:48 CDT Subjective Pain Symptoms : Yes PHYLICIA JASON 02/15/2012 18:48 CDT Pain Pain Assessment Grid Pain 1 Location : Throat Intensity : 8 PHYLICIA JASON - 02/15/2012 18:48 CDT Dependent Habits Tobacco Use/Currently Using : No Exposure to Tobacco Smoke : Care provider denies smoking in home Smoking Status : Never smoker PHYLICIA JASON - 02/15/2012 18:48 CDT Tobacco Use Grid Last Use : never PHYLICIA JASON - 02/15/2012 18:48 CDT Caffeine Use Grid Caffeine Use : Current Type : Soft drinks, Tea Frequency : Daily PHYLICIA JASON - 02/15/2012 18:48 CDT Recreational Drug Use Grid Drug Use : None PHYLICIA JASON - 02/15/2012 18:48 CDT Allergy Allergies (Active) NKA Estimated Onset Date: Unspecified ; Created By: LEONOR MEJIA LPN; Reaction Status: Active ;Category: Drug ; Substance: NKA ; Type: Allergy ; Updated By: LEONOR MEJIA LPN; Reviewed Date: 01/24/2012 8:04 CDT Source: [facility] POWERCHART Document Id: [id number] documented in this encounter Plan of Treatment Not on filedocumented as of this encounter Procedures Procedure Name Priority Date/Time Associated Diagnosis Comme nts RAPID STREP A Routine 02/15/2012 6:55 PM Results for this SCREEN CDT procedure are i n the results section. documented in this encounter Results (ABNORMAL) Rapid Strep A Screen (02/15/2012 6:55 PM CDT) [facility] Method Time Signature HXStrep A (POSITIVE) POWERCHART Screen Rapid HXFinal Positive for POWERCHART Group A Strep by rapid screen. Specimen (Source) Anatomical Collection Method Collection Time Re ceived Time Location / / Volume Laterality Throat 02/15/2012 6:55 PM CDT Stew Dinero M.D. LAB MICROBIOLOGY - GENERAL O RDERABLES Performing Organization Address City/State/ZIP Code Phon e Number POWERCHART documented in this encounter Visit Diagnoses Not on filedocumented in this encounter
--- OUTSIDE RECORDS SUMMARY | 2022-07-09 10:04 | XMS_ITS | Encounter Summary ---
:[address] [facility] Address [address] [place] [address] Care Team Providers Name Role Phone None, Pcp Primary Care Provider Unavailable Reason for Visit Reason Comments Thyroid Problem Encounter Details Date Type Department Care Team Description 03/17/2022 Office Visit Tracy Kennedy Hypothyroidism, unspecified type (Primary Dx); [address] MD [place] Screening for deficiency anemia; MARJORIE Tolbert [phone] Diabetes mellitus screening; [phone] [place] Fatigue, unspecified type [place]JORIE Tolbert [id number] Social History Tobacco Use Types Packs/Day Years Used Date Never Smoker Smokeless Tobacco: Never Used Alcohol Use Standard Drinks/Week Comments Not Currently 0 (1 standard drink = 0.6 oz pure alcoho l) Sex Assigned at Date Recorded Not on file documented as of this encounter Last Filed Vital Signs Vital Sign Reading Time Taken Comments Blood Pressure 97/61 03/17/2022 8:01 AM CDT Pulse 86 03/17/2022 8:01 AM CDT Temperature 36.7 ??C (98.1 ??F) 03/17/2022 8:01 AM CDT Respiratory Rate 16 03/17/2022 8:01 AM CDT Oxygen Saturation 98% 03/17/2022 8:01 AM CDT Inhaled Oxygen Concentration - - Weight 69.4 kg (153 lb) 03/17/2022 8:01 AM CDT Height 167.6 cm (5' 5.98) 03/17/2022 8:01 AM CDT Body Mass Index 24.71 03/17/2022 8:01 AM CDT documented in this encounter Progress Notes Tracy Flores MD - 03/17/2022 8:00 AM CDT Subjective Patient ID: Ester Do is a 41 y.o. female. HPI the patient is our 41-year-old individual who receives most of her ongoing [facility]. However we do know her we know her family as well as her . She comes in to ask some questions about some clinical concerns. COVID-19 as far as she knows she is never contracted COVID-19 and she had no side effects to the immunizations. HYPOTHYROIDISM which was secondary to Graves' disease status onset during her last [id number] to 11 years ago. It took a little bit of time to adjust her medications and up until about a yearor so ago she was on 112 mcg/day and it was adjusted a year ago and she is now on 125 mcg/day. Overall she does feel like she is done reasonably well since she has been on thyroid medication. However she is not certain that she is at the correct dose at this time. We did review her TSH levels and for the last couple of years that we could review things it looks pretty much normal. She does state that her TSH prior to being on medications was very high so we are assuming was greater than 100 orso. The reason she is a little concerned about things is that in the last 6 weeks she has had some lightheaded or subtle dizzy spells periodically throughout the day. She had 1 episode of what she describes as being vertigo that lasted quite a bit the whole day she had to stay home from any kind of work she had to keep her eyes closed and she was not able to move or do much throughout the entire day. Shehas subsequently recovered from that event but she just does not think that she is recovered that well. She feels like she has been more sleepy more tired may be a 6 pound weight gain but no significant fluid retention. She does not say anything about hair coming out or falling out more than usual she does feel like her fingernails are little more coarse but overall not significantly changed. She feels a little bit lightheaded little bit off kilter just not as energetic as she would like to be. She is getting a few more headaches and will have oftentimes a daily headache and she is only taking ibuprofen once with benefit but she does not want take too much medication. CURRENT MEDICATIONS Zoloft 100 mg daily Levothyroxine 125 mcg daily Vitamins vitamin D Clindamycin-benzoyl peroxide periodically to facial acne MENSTRUAL CYCLES ARE generally regular She tends to have periodic facial acne She feels the last number of weeks to months or so her skin has been a little more itchy. Otherwise her appetites been good no problems with her vision no problems swallowing no shortness ofbreath no chest pain no palpitations occasional nausea when she has had these dizzy spells but no significant constipation diarrhea or change of bowel or bladder function no unusual vaginal discharges other than regular menses. No open skin sores or skin lesions Review of Systems Objective Physical Exam she is alert she appears comfortable her vital signs show the following Blood pressure 97/61 Pulse 86 regular rate and rhythm Temp 98.1 Weight 153 pounds which is up about 6 pounds from a year ago her BMI is 24.7 O2 sats 98% room air at rest Pupils equal conjunctiva clear Neck veins are not distended no obvious thyromegaly and no masses Lungs are clear without wheeze rales or rhonchi Cardiac is regular rate and rhythm with a heart murmur Abdomen soft not tender no hepatosplenomegaly no obvious masses Extremities have no fluid retention Gait and balance appear to be normal Assessment/Plan Diagnoses and all orders for this visit: Hypothyroidism, unspecified type - TSH; Future - T4, free; Future Screening for deficiency anemia Diabetes mellitus screening - Glucose, fasting; Future - Fasting ? Fatigue, unspecified type - ESR-Sed rate; Future Other orders - CBC Branch Off w/Diff The overall assessment is as stated in plan at this time is the following 1. Get some appropriate laboratory testing including thyroid function testing. I am assuming everything is going be okay but will respond to any abnormality. 2. Patient states she would be willing to drop back down to the 112 mcg level of her thyroid pill because somehow she feels she felt just a little better on the smaller dose. We will check her thyroid function testing and make some decisions based upon those results. 3. We will probably have her drop back to levothyroxine 112 mcg once daily for a month and if after a month her symptoms have not improved or if they are still present or have gotten worse I would consider having her see a neurologist secondary to her symptoms of periodic dizziness lightheadedness. Consideration could also be for an MRI scan if her symptoms get worse or persist. documented in this encounter Plan of Treatment Not on filedocumented as of this encounter Procedures Procedure Name Priority Date/Time Associated Comments Diagnosis FASTING ? Routine 03/17/2022 9:02 AM Diabetes mellitus Resu lts for this CDT screening procedure are i n the results section. CBC BRANCH OFFICE Routine 03/17/2022 9:02 AM Resu lts for this W/DIFF CDT procedure are i n the results section. SEDIMENTATION RATE, Routine 03/17/2022 9:02 AM Fatigue, Re sults for this AUTOMATED CDT unspecified type procedure a re in the results section. TSH Routine 03/17/2022 9:02 AM Hypothyroidism, Result s for this CDT unspecified type procedure a re in the results section. T4, FREE Routine 03/17/2022 9:02 AM Hypothyroidism, Result s for this CDT unspecified type procedure a re in the results section. GLUCOSE Routine 03/17/2022 9:02 AM Diabetes mellitus Resu lts for this CDT screening procedure are i n the results section. documented in this encounter Results (ABNORMAL) CBC Branch Off w/Diff (03/17/2022 9:02 AM CDT) [facility] Method Time Signature WBC 5.6 3.5 - 10.5 03/17/2022 [facility] [place] K/uL 9:10 AM CDT [place] RBC 4.52 3.90 - 03/17/2022 [facility] [place] 5.00 M/uL 9:10 AM CDT FALLS Hemoglobin 14.2 12.0 - 03/17/2022 [facility] [place] 15.5 g/dL 9:10 AM CDT F[place] Hematocrit 41.9 35.0 - 03/17/2022 [facility] [place] 44.0 % 9:10 AM CDT [place] Platelets 227 150 - 450 03/17/2022 [facility] [place] K/uL 9:10 AM CDT [place] MCV 92.7 81.6 - 03/17/2022 [facility] [place] 98.3 fL 9:10 AM CDT [place] MCH 31.4 26.0 - 03/17/2022 [facility] [place] [place] 32.0 pg 9:10 AM CDT [place] MCHC 33.9 32.0 - 03/17/2022 [facility] [place] 36.0 g/dL 9:10 AM CDT [place] RDW 11.7 (L) 11.9 - 03/17/2022 [facility] [place] 15.5 % 9:10 AM CDT [place] Lymphocytes % 27.2 % 03/17/2022 [facility] [place] 9:10 AM CDT [place] Mid-size Cells 11.4 % 03/17/2022 [facility] [place] 9:10 AM CDT [place] Granulocytes/Melva 61.4 % 03/17/2022 [facility] [place] trophils 9:10 AM CDT [place] Lymphocytes 1.5 0.9 - 2.9 03/17/2022 [facility] [place] Absolute K/uL 9:10 AM CDT [place] MIDS Absolute 0.6 0.4 - 1.5 03/17/2022 [facility] [place] [place] K/uL 9:10 AM CDT [place] Granulocytes/Melva 3.5 1.7 - 7.0 03/17/2022 [facility] [place] [place] trophils K/uL 9:10 AM CDT [place] Absolute Specimen Anatomical Collection Method Collection Time Receive d Time (Source) Location / / Volume Laterality 03/17/2022 9:02 AM 9:04 CDT AM CDT Tracy Flores MD LAB BLOOD ORDERABLES Performing Organization Address City/State/ZIP Code Phon e Number [facility] [place] [address] [place] [address] Fasting ? (03/17/2022 9:02 AM CDT) P athologist Signature Fasting? No 03/17/2022 [facility] 9:04 AM CDT [facility] Specimen Anatomical Collection Method Collection Time Receive d Time (Source) Location / / Volume Laterality 03/17/2022 9:02 AM 9:04 CDT AM CDT Tracy Flores MD LAB BLOOD ORDERABLES Performing Organization Address City/State/ZIP Code Phon e Number [facility] [address] [place] [address] Glucose, fasting (03/17/2022 9:02 AM CDT) P athologist Signature Glucose 85 70 - 100 03/17/2022 [facility] [place] mg/dL 9:10 AM CDT [place] Specimen Anatomical Collection Method Collection Time Receive d Time (Source) Location / / Volume Laterality Blood (Blood, 03/17/2022 9:02 AM 03/17/20 9:04 Venous) CDT AM CDT Tracy Flores MD LAB BLOOD ORDERABLES Performing Organization Address City/[facility]/ZIP Code Phon e Number [facility] AVINASH LITTLE [address] [place] [address] ESR-Sed rate (03/17/2022 9:02 AM CDT) athologist Signature Sed Rate 10 0 - 29 03/17/2022 [facility] mm/hr 1:31 PM CDT [facility] Specimen Anatomical Collection Method Collection Time Receive d Time (Source) Location / / Volume Laterality Blood 03/17/2022 9:02 AM CDT 12:36 PM CDT Tracy Flores MD LAB BLOOD ORDERABLES Performing Organization Address City/State/ZIP Code Phon e Number [facility] [address] [place] [address] T4, free (03/17/2022 9:02 AM CDT) athologist Signature Free T4 1.18 0.78 - 2.19 03/17/2022 [facility] ng/dL 2:05 PM CDT [facility] Comment: The results from this [...] Location / / Volume Laterality Blood (Blood, 03/17/2022 9:02 AM 03/17/20 Venous) CDT 12:41 PM CDT Tracy Flores MD LAB BLOOD ORDERABLES Performing Organization Address City/State/ZIP Code Phon e Number [facility] [address] [place] [address] TSH (03/17/2022 9:02 AM CDT) P athologist Signature TSH, Sensitive 1.62 0.46 - 03/17/2022 JON MEDICA L 4.68 mIU/L 2:05 PM CDT [facility] Comment: The results from this [...] (Source) Location / / Volume Laterality Blood 03/17/2022 9:02 AM CDT 12:41 PM CDT DPelon Flores MD LAB BLOOD ORDERABLES Performing Organization Address City/[facility]/ZIP Code Phon e Number [facility] [address] [place] [phone] documented in this encounter Visit Diagnoses Diagnosis Hypothyroidism, unspecified type - Prima ry Screening for deficiency anemia Screening for other and unspecified defi ciency anemia Diabetes mellitus screening Screening for diabetes mellitus Fatigue, unspecified type documented in this encounter Care Teams Process Description Writer Relationship Specialty Start Date End Date None, Pcp PCP - General Alarm Technician 03/27/21 [address] [place] [address] documented as of this encounter
--- OUTSIDE RECORDS SUMMARY | 2022-07-09 10:04 | XMS_ITS | Encounter Summary ---
:1980 Author Organization [facility] Address [address] [place] [address] Care Team Providers Name Role Phone Unavailable Primary Care Provider Unavailable Encounter Details Date Type Department Care Team Description 10/18/2011 Hospital Encounter HX [facility] Lexie Alonzo, JOHN, C.N.P., D. N.P. [address] [place] [address] (Wo rk) Social History Tobacco [...] do you attend religious or Never 2021 hoahaoism services? 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 - 10/18/2011 12:00 AM CST [id number] CHIEF COMPLAINT/REASON FOR VISIT Acne. HISTORY OF PRESENT ILLNESS The patient is a 31-year-old female who presents to the clinic today with a chief complaint of acne. She reports that after having her first son, whom is approximately xohl-gcw-x-half years of age, she has more so noticed acne to become a problem during her menstrual cycles. She was previously prescribed tretinoin approximately a lowm-zvo-o-half ago but reports that she then recently found out she was with her second child and was not able to start the tretinoin. She then reports that after the of her son she was not breast-feeding and did not start the tretinoin either only because the prescription was outdated. She reports that she maybe washes her face once a day. She reports that she has not applied any other topical treatment at this time aside from some random irud-lgj-aalclju acne treatments. She states that she is aware that this is mostly exacerbated during her menstrual cycles but does report that she did have a tubal ligation after the of her son, whom is approximately eight months of age at this time. She otherwise denies having any other further concerns or issues at this time. PAST MEDICAL/SURGICAL HISTORY Past medical, surgical history are reviewed. Please see chart. CURRENT MEDICATIONS Reviewed. Please see chart. ALLERGIES Reviewed. Please see chart. PHYSICAL EXAMINATION The patient is an alert, well-nourished 31-year-old female that appears to be in no acute distress. HEENT: Head is normocephalic, atraumatic. I do appreciate some nonpustular acne lesions to the lower cheeks, down to the neck area. No other lesions are noted elsewhere. IMPRESSION/REPORT/PLAN Acne vulgaris. PLAN I discussed the findings at length with the patient. I also provided the patient with some information regarding acne vulgaris from the [facility] site as well. I currently recommend that she wash her face twice per day, morning and evening, as currently we will start the treatment with the tretinoin topical 0.1% cream to apply to the affected areas at bedtime only. She then can incorporate clindamycin with benzyl peroxide (BenzaClin topical gel) twice a day to the affected areas. I advised that it will take up to three months to see how she reach responds to the current treatment plan. I discussed side-effects of medication at length with the patient indicating that I would prefer to try and treat her acne from a topical standpoint at this time considering that currently she does not need control with her history of a tubal ligation as she would also like to refrain from having to go on control as well. The patient will contact me with an update on how she is tolerating the topical acne treatment. The patient otherwise denied having any other further concerns or issues. The patient ambulated out of the clinic in no acute distress. Patient Education Ready to learn No apparent learning barriers were identified Learning preferences include listening Explained diagnosis and treatment plan Patient/Child/Caregiver expressed understanding of the content Lexie Alonzo D.N.P., F.N.P. / Electronically Signed By: LEXIE ALONZO DNP, FNP On: 10/21/2011 11:15 AM Source: [facility] [email or web address] Document Id: [id number] D DEVELOPMENT TEACHER documented in this encounter Miscellaneous Notes Miscellaneous - Lexie Alonzo D.N.P., C.N.P. - 10/18/2011 9:27 AM CHILD DEVELOPMENT TEACHER Ambulatory Patient Summary [facility] [address] [place] [address] Visit Information Name: ESTER DO Current Date: 10/18/2011 09:27:27 Primary Care Provider: LEXIE ALONZO [place], CLOUD ENGINEER Your Medications Here is a list of your medications. It is important to take your medications as directed. Use a pillbox or chart to help remind you to take your medications. Please let your doctor or nurse know if you have problems taking your medications. Medication/Strength Dose Route Frequency Indications/Special Instructions/Comments clindamycin-benzoyl peroxide topical (Benzaclin topical gel) 1 armani Topical two times a day in the morning and the evening (apply to only the affected areas) tretinoin topical (tretinoin topical 0.1% cream) 1 armani Topical once a day (at bedtime) (wash hands before applying) Apply to only the affected areas. multivitamin (multivitamin) Oral once a day Your Allergies & Intolerances Substance Reaction Symptoms Category Comments NKA Drug Your Problem List Problem Status Onset Comments Gestational diabetes Active 09/26/2010 Your Recommendations We want to make sure you get the tests, immunizations, and guidance you need to stay healthy. Here is a customized list of recommendations, based on information we have in your medical record. Your doctor may have additional recommendations for you, based on your personal medical history and risk factors. You can help us by calling us to make an appointment when you are due for your tests. Additional information regarding recommendations: Test/Treatment Last Done Next Due Additional Information Health Assessment every 1 year 10/18/2011 10/17/2012 Screening Pap Smear every 3 years Women 21-65 10/18/2011 Checks for signs of cancer of the cervix. Lipid Panel every 5 years Age 20-75 10/18/2011 Checks blood for good (HDL) and bad (LDL) cholesterol. Know your numbers, they are one indicator of your risk for heart attack and stroke. Vaccine: Tetanus every 10 years 10/18/2011 Immunization to help prevent you from getting the seriousdisease Tetanus (Lockjaw). Your Upcoming Appointments Date Time Location Reason Provider No Appointments found Your Goals/Additional instructions: Source: [facility] POWERCHART Document Id: [id number] D DEVELOPMENT TEACHER Miscellaneous - Lexie Alonzo D.N.P., C.N.P. - 10/18/2011 9:27 AM CHILD DEVELOPMENT TEACHER Ambulatory Depart Summary [facility] [place] [id number] [place] [address] Visit Information Name: ESTER DO Current Date: 10/18/2011 09:27:26 Attending Provider: LEXIE ALONZO DNP, FNP Primary Care Provider: LEXIE ALONZO DNP, FNP ESTER DO has been given the following list of medications: Your Medications It is important to take your medications as directed. Use a pill box or chart to help remind you to take your medications. Please let your doctor or nurse know if you have problems taking your medications. Medication/Strength Dose Route Frequency Indications/Special Instructions/Comments clindamycin-benzoyl peroxide topical (Benzaclin topical gel) 1 armani Topical two times a day in the morning and the evening (apply to only the affected areas) tretinoin topical (tretinoin topical 0.1% cream) 1 armani Topical once a day (at bedtime) (wash hands before applying) Apply to only the affected areas. multivitamin (multivitamin) Oral once a day Additional Information: Yes - Current list of reconciled medications is provided and explained to the patient and/or family, guardian/caregiver. Source: [facility] POWERCHART Document Id: [id number] D DEVELOPMENT TEACHER Miscellaneous - Lesia Chappell L.P.N. - 10/18/2011 8:51 AM CST Health Assessment Health Assessment Entered On: 10/18/2011 8:52 CHILD DEVELOPMENT TEACHER Performed On: 10/18/2011 8:51 CHILD DEVELOPMENT TEACHER by LESIA CHAPPELL LPN Health Assessment Complete Health Assessment Complete or Modified : Annual Health Assessment Annual Health Assessment Completed : Yes LESIA CHAPPELL LPN - 10/18/2011 8:51 CHILD DEVELOPMENT TEACHER Nutrition Nutrition Risk Factors by History Adult : None LESIA CHAPPELL LPN - 10/18/2011 8:51 CHILD DEVELOPMENT TEACHER Functional Current Daily Living Assistance : None LESIA CHAPPELL LPN - 10/18/2011 8:51 CHILD DEVELOPMENT TEACHER Dependent Habits Tobacco Use/Currently Using : No Smoking Status : Never smoker LESIA CHAPPELL LPN - 10/18/2011 8:51 CHILD DEVELOPMENT TEACHER Psychosocial Domestic Abuse Concerns : None LESIA CHAPPELL LPN - 10/18/2011 8:51 CHILD DEVELOPMENT TEACHER Advance Directive Advanced Directives : No LESIA CHAPPELL LPN - 10/18/2011 8:51 CHILD DEVELOPMENT TEACHER Educ Needs Learning Style Preference Adult Grid Patient : None Family : None LESIA CHAPPELL LPN - 10/18/2011 8:51 CHILD DEVELOPMENT TEACHER Source: [employer] Document Id: [id number] CHILD DEVELOPMENT TEACHER!19 D DEVELOPMENT TEACHER Miscellaneous - Lesia Chappell, L.P.N. - 10/18/2011 8:47 AM CST Adult Food And Beverage Intern Intake/History Adult Food And Beverage Intern Intake/History Entered On: 10/18/2011 8:51 CHILD DEVELOPMENT TEACHER Performed On: 10/18/2011 8:47 CHILD DEVELOPMENT TEACHER by LESIA CHAPPELL LPN Intake Chief Complaint : acne is out of control, Temperature Core : 36.1C(Converted to: 97.0DegF) (LOW) Peripheral Pulse Rate : 92/min Respiratory Rate : 18/min Heart Rhythm : Regular Systolic Blood Pressure : 92mmHg Diastolic Blood Pressure : 56mmHg NIBP Mean : 68mmHg BP Location : Left upper extremity Blood Pressure Cuff Size : Regular SpO2 : 98% Oxygen Therapy : Room air Actual Weight : 57.7kg(Converted to: 127lb 3oz) Weight Source : Standing scale Dosing Weight Clinic : 57.70kg LESIA CHAPPELL LPN - 10/18/2011 8:47 CHILD DEVELOPMENT TEACHER Subjective Pain Symptoms : No LESIA CHAPPELL LPN - 10/18/2011 8:47 CHILD DEVELOPMENT TEACHER Dependent Habits Tobacco Use/Currently Using : No Smoking Status : Never smoker Alcohol Use : No LESIA CHAPPELL LPN - 10/18/2011 8:47 CHILD DEVELOPMENT TEACHER Allergy Allergies (Active) NKA Estimated Onset Date: Unspecified ; Created By: LESIA CHAPPELL LPN; Reaction Status: Active ;Category: Drug ; Substance: NKA ; Type: Allergy ; Updated By: LESIA CHAPPELL LPN; Reviewed Date: 10/18/2011 8:47 CHILD DEVELOPMENT TEACHER [facility] Document Id: [id number] CHILD DEVELOPMENT TEACHER!23 D DEVELOPMENT TEACHER documented in this encounter Plan of Treatment Not on filedocumented as of this encounter Visit Diagnoses Not on filedocumented in this encounter
--- OUTSIDE RECORDS SUMMARY | 2022-07-09 10:04 | XMS_ITS | Encounter Summary ---
:1980 Author Organization [facility] Address [address] [place] [address] Care Team Providers Name Role Phone Unavailable Primary Care Provider Unavailable Encounter Details Date Type Department Care Team Description 05/21/2009 Hospital Encounter HX [facility] INPT/OBSRV Mick Monaco P.A.-C. [address] [place] [address] (Wo rk) Social History Tobacco [...] do you attend baptist or Never 2021 latter-day services? 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
--- OUTSIDE RECORDS SUMMARY | 2022-07-09 10:04 | XMS_ITS | Encounter Summary ---
:1980 Author Organization [facility] Address [address] [place] [address] Care Team Providers Name Role Phone None, Pcp Primary Care Provider Unavailable Reason for Visit Reason Comments Check Cat bite Rabies shot Encounter Details Date Type Department Care Team Description 10/22/2021 Office Visit Alli Pisano, Cat bite of hand, right, ini tial encounter (Primary Dx); [address] Yeast infection; [place], [place] [address] Hypothyroidism, unspecified type [address] [place], [place] [phone] [address] Social History Tobacco Use Types Packs/Day Years Used Date Never Smoker Smokeless Tobacco: Never Used Alcohol Use Standard Drinks/Week Comments Not Currently 0 (1 standard drink = 0.6 oz pure alcoho l) Sex Assigned at Date Recorded Not on file documented as of this encounter Last Filed Vital Signs Vital Sign Reading Time Taken Comments Blood Pressure 102/72 10/22/2021 3:00 PM MOVING VAN DRIVER Pulse 68 10/22/2021 3:00 PM MOVING VAN DRIVER Temperature 36.1 ??C (97 ??F) 10/22/2021 3:00 PM MOVING VAN DRIVER Respiratory Rate 18 10/22/2021 3:00 PM MOVING VAN DRIVER Oxygen Saturation 98% 10/22/2021 3:00 PM MOVING VAN DRIVER Inhaled Oxygen Concentration - - Weight 69 kg (152 lb 1.6 oz) 10/22/2021 3:00 PM MOVING VAN DRIVER Height 167.6 cm (5' 5.98) 10/22/2021 3:00 PM MOVING VAN DRIVER Body Mass Index 24.56 10/22/2021 3:00 PM MOVING VAN DRIVER documented in this encounter Progress Notes Alli Caballero MD - 10/22/2021 3:00 PM CST Subjective Patient ID: Ester Do is a 41 y.o. female. Chief Complaint Patient presents with ??? Check Cat bite Rabies shot HPI Feral cat bite on 10/15/2021 to right hand. Seen in ED at [facility]. ED evaluation reviewed. Received RIG and Rabies vaccination that day and on day 3. Today is day 7 since cat bite. She was also prescribed augmentin for the cat bite. Her wounds are healing well. Has been having burning, irritation and clear discharge from vagina and states she thinks she has a yeast infection which has happened in the past when on antibiotic. She declines testing of that todayand prefers oral antifungal empiric treatment. Topicals have not worked for her in the past. She [facility] with [facility] facility for hypothyroidism and has standing TSH order. They had increased synthroid from 112.5 to 125 mcg in July and she would like recheck of that today. The following portions of the patient's chart were reviewed in this encounter and updated as appropriate: Tobacco Allergies Meds Problems Med Hx Surg Hx Fam Hx Current Outpatient Medications Medication Instructions ??? buPROPion XL (WELLBUTRIN XL) 150 MG 24 hr tablet TAKE ONE TABLET BY MOUTH EVERY DAY TAKE IN THE MORNING. DO NOT CUT, CRUSH OR CHEW ??? cholecalciferol (VITAMIN D-3) 1,000 Units, Oral, Daily ??? clindamycin-benzoyl peroxide (BENZACLIN) gel Topical, 2 times daily, Apply topically 2 times daily ??? escitalopram (LEXAPRO) 10 mg, Oral, Daily ??? levothyroxine (SYNTHROID) 125 mcg, Oral, Daily ??? norethindrone-ethinyl estradiol (10/15) 1-20 MG-MCG per tablet 1 tablet, Oral, Daily ??? sertraline (ZOLOFT) 100 mg, Oral, Daily ROS ROS done as noted in HPI Objective Visit Vitals BP 102/72 (BP Location: Left arm, Patient Position: Sitting, BP Cuff Size: Adult long) Pulse 68 Temp 36.1 ??C (97 ??F) (Temporal) Resp 18 Ht 1.676 m (5' 5.98) Wt 69 kg (152 lb 1.6 oz) SpO2 98% BMI 24.56 kg/m?? Smoking Status Never Smoker BSA 1.79 m?? Physical Exam Vitals reviewed. Musculoskeletal: Right hand: No swelling or deformity. Skin: Findings: Wound present. No abscess, bruising, erythema or rash. Neurological: General: No focal deficit present. Mental Status: She is alert. Mental status is at baseline. Assessment/Plan Diagnosis Plan 1. Cat bite of hand, right, initial encounter Rabies vaccine IM 2. Yeast infection fluconazole (Diflucan) 150 MG tablet 3. Hypothyroidism, unspecified type Will need 4th and final dose Rabies vaccine dose in 1 week. There are no Patient Instructions on file for this visit. Return in about 1 week (around 10/29/2021) for rabies vaccine. Note created using voice dictation software. NG VAN DRIVER documented in this encounter Plan of Treatment Not on filedocumented as of this encounter Visit Diagnoses Diagnosis Cat bite of hand, right, initial encount er - Primary Yeast infection Hypothyroidism, unspecified type documented in this encounter Care Teams Front Desk Monitor Relationship Specialty Start Date End Date None, Pcp PCP - General Wrinkle Chaser 03/27/21 [address] [place] [address] documented as of this encounter
--- OUTSIDE RECORDS SUMMARY | 2022-07-09 10:04 | XMS_ITS | Encounter Summary ---
:1980 Author Organization [facility] Address [address] [place] [address] Care Team Providers Name Role Phone Unavailable Primary Care Provider Unavailable Encounter Details Date Type Department Care Team Description 04/26/2008 Hospital Encounter HX [facility]PT[facility] Mick Monaco P.A.-C. [address] [place] [address] (Wo rk) Social History Tobacco [...] do you attend judaism or Never 2021 methodist services? 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
--- OUTSIDE RECORDS SUMMARY | 2022-07-09 10:04 | XMS_ITS | Encounter Summary ---
:1980 Author Organization [facility] Address [address] [place] [address] Care Team Providers Name Role Phone None, Pcp Primary Care Provider Unavailable Reason for Visit Reason Onset Date Comments possible rabies 10/15/2021 Encounter Details Date Type Department Care Team Description 10/15/2021 Telephone Wayne Little None, Pcp possible rabies [address] [place], [place] [address] [place], [place] [phone] Social History Tobacco Use Types Packs/Day Years Used Date Never Smoker Smokeless Tobacco: Never Used Alcohol Use Standard Drinks/Week Comments Not Currently 0 (1 standard drink = 0.6 oz pure alcoho l) Sex Assigned at Date Recorded Not on file documented as of this encounter Miscellaneous Notes Telephone Encounter - Preeti Cruz RN - 10/21/2021 8:19 AM CST Rabies vaccine received. GUN OPERATOR Telephone Encounter - Kat Posadas - 10/16/2021 2:54 PM CST Appt scheduled with Flynn Lyon on 10/22/21. Nurse only visit scheduled for 10/29/21. GUN OPERATOR Telephone Encounter - Preeti Cruz RN - 10/16/2021 1:47 PM CST Please call patient to schedule an appointment with a provider on 10/22 for evaluation of wound and rabies vaccines. Will need nurse only visit on 10/29/21 for rabies vaccine. GUN OPERATOR Telephone Encounter - Tracy Flores MD - 10/16/2021 1:19 PM CST We should probably look at her wounds. GUN OPERATOR Telephone Encounter - Preeti Cruz RN - 10/16/2021 8:22 AM CST Patient stated she went to the ER and had the first rabies vaccination and immunoglobulin given as they didn't know whose cat this was. She said the cat got out but if they catch it again they will bring it to the vet. Patient is set to have dose 2 at the ED in [place] on Tuesday and the 3rd and 4th doses here at the clinic on 10/22 and 10/29. We would need you to order these doses, I have a messageout to the pharmacist for details. Do you want to see her in clinic on 10/22 for evaluation also? GUN OPERATOR Telephone Encounter - Tracy Flores MD - 10/15/2021 5:09 PM CST Good plan of action. GUN OPERATOR Telephone Encounter - Preeti Cruz RN - 10/15/2021 3:55 PM CST Patient reports she was bitten and mauled by a stray cat this afternoon. She has the cat trapped in her garage right now and a possible beer coil cleaner is coming to look at it to see if he is theirs. RN reviewedpossible rabies exposure with Dr. Flores who instructed on the following. IF this cat is not owned and vaccination status can not be proven the patient should take the cat tothe vet to be euthanized and have its brain sent off for testing. Patient will need to go to the ED for evaluation and initiation of the rabies vaccination, possible antibiotic and immunoglobulin. If the cat has proven vaccination status of Rabies she should be okay but was advised that she should start on a possible antibiotic to prevent infection. If the cat is owned but has no proof of vaccination status the patient and beer coil cleaner will need to take the cat to the vet to be monitored per their protocol for any signs of Rabies and the patient should also be vaccinated for Rabies in the ED, receive antibiotics and possible immunoglobulin injection at site of bite. Patient was informed of these situations. She is having the possible cats beer coil cleaner come by to see if heis theirs. RN advised that if vaccination status can not be proven she should aire on the side of caution and start the rabies vaccine protocol tonight. She was informed that if she has to do this she can go to the ED and the finish up the series at [facility] but [facility] would need a day or twonotice to get the vaccine in clinic. Patient verbalized understanding and will let us know if she need anything else. GUN OPERATOR Telephone Encounter - Kat Posadas - 10/15/2021 3:05 PM CST Pt called stating about 30 minutes ago she was mauled by a cat. Pt said she is going to be finding out at about 4:00pm today if a certain person is the beer coil cleaner of the cat. If this cat does not belong to this person, then she thinks it is a feral cat and she may need rabies shots. Please call Pt at [phone] to advise. GUN OPERATOR documented in this encounter Plan of Treatment Not on filedocumented as of this encounter Visit Diagnoses Not on filedocumented in this encounter Care Teams Information Systems Security Analyst Relationship Specialty Start Date End Date None, Pcp PCP - General Warehouse Worker 03/27/[address] [place] [phone] documented as of this encounter
--- OUTSIDE RECORDS SUMMARY | 2022-07-09 10:04 | XMS_ITS | Encounter Summary ---
:1980 Author Organization [facility] Address [address] [place] [address] Care Team Providers Name Role Phone Unavailable Primary Care Provider Unavailable Encounter Details Date Type Department Care Team Description 01/12/2021 [facility] [address] [facility] [address] [place] [address] [place] [address] [phone] (Wo rk) Social History Tobacco Use Types [...]
--- OUTSIDE RECORDS SUMMARY | 2022-07-09 10:04 | XMS_ITS | Encounter Summary ---
:1980 Author Organization [facility] Address [address] [place] [address] Care Team Providers Name Role Phone Unavailable Primary Care Provider Unavailable Encounter Details Date Type Department Care Team Description 02/23/2012 Hospital Encounter HX [facility] FAMILY ME Tip Hurt, N.P. [address] [place] [phone] (Wo rk) Social History Tobacco Use [...] do you attend baptist or Never 2021 restorationism services? 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 - 02/23/2012 12:00 AM CDT [id number] CHIEF COMPLAINT/REASON FOR VISIT Continued sore throat, fatigue. HISTORY OF PRESENT ILLNESS Ester is a 31-year-old female who is here today with concerns about continued sore throat. She was initially seen on the 23 of January which at that time she'd had cold symptoms for approximately two weeks and developed a severe sore throat. She was seen and treated by me for a positive strep test. She was given amoxicillin for a 10-day course which she reports she took it in its entirety. She also followed her toothbrush precaution. She states she felt okay for a couple weeks then but fortunately her symptoms returned and she was evaluated on February 14 and had a positive strep test again. She was given a shot of Bicillin LA and has almost completed another 10-day course of amoxicillin. She reports that her throat has gotten better, but she has been extremely fatigued and has had occasional headaches. She states that she can lie down and take a nap instantaneously which is very unusual for her and she is concerned about something else going on. She denies any nausea or vomiting. She denies any known exposure to illness. CURRENT MEDICATIONS Reviewed. No change. Please see EMR. ALLERGIES No known drug allergies. PAST MEDICAL/SURGICAL HISTORY Past medical history is reviewed and unchanged. Please see EMR. VITAL SIGNS Temperature 36.6 degreesC, pulse 120, respirations 18, blood pressure 84/68. O2 sat is 97% on room air. PHYSICAL EXAMINATION GENERAL: Ester is alert, oriented x3, appears tired but is in no acute distress. HEENT: Head is normocephalic, atraumatic. Bilateral TMs are shiny, juárez, intact with no erythema or effusion present. Oropharynx is without erythema, exudate, or swelling. NECK: Neck is supple. She does have some bilateral posterior cervical lymphadenopathy. CARDIOVASCULAR: Heart rate is regular; S1, S2 is present. No murmur or rub. LUNGS: Clear to auscultation. Diagnostics: 1. A CBC and monospot are pending at time of dictation. IMPRESSION/REPORT/PLAN 1. Sore throat and fatigue. Plan: 1. Discussed with Ester that it seems unlikely that she would continue to be positive for strep in the light that she has been treated appropriately on two different occasions. With her increased fatigue, it does seem reasonable to test her for mono which we will do that today as well as check a complete blood count. Plan will be to call her on the phone with this result and further plan of care will be determined depending on this. Ester's questions have been addressed and she is agreeable to this plan of care. PATIENT EDUCATION: Ready to learn No apparent learning barriers were identified Learning preferences include listening Explained diagnosis and treatment plan Patient/Child/Caregiver expressed understanding of the content Francisco Javier Hurt N.P. /shaka Electronically Signed By: FRANCISCO JAVIER HURT NP On: 02/23/2012 09:53 AM Source: [facility] MHSDOLBEYNONRADSYS Document Id: [id number] documented in this encounter Miscellaneous Notes Miscellaneous - Francisco Javier Hurt N.P. 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 - 02/23/2012 8:30 AM CDT Ambulatory Depart Summary [address] [address] Visit Information Name: ESTER DO Visit Date: 02/23/2012 08:30:13 Attending Provider: FRANCISCO JAVIER HURT BRASS CLEANER Primary Care Provider: SHERRON ALONZO DNP, ELECTRICIAN'S ASSISTANT ESTER DO has been given the following [...] your provider for clarification. Additional Information: Source: [facility] POWERCHART Document Id: [id number] Miscellaneous - Lesia Chappell L.PPelonN. - 02/23/2012 7:43 AM CDT Adult Cupola Patcher Helper Intake/History Adult Cupola Patcher Helper Intake/History Entered On: 02/23/2012 7:47 CDT Performed On: 02/23/2012 7:43 CDT by LESIA CHAPPELL LPN Intake Chief Complaint : sore throat continues, still on abx Onset of Symptoms : 1 week Temperature Core : 36.6C(Converted to: 97.9DegF) Peripheral Pulse Rate : 120/min (HI) Respiratory Rate : 18/min Heart Rhythm : Regular Systolic Blood Pressure : 84mmHg (<LLOW) Diastolic Blood Pressure : 68mmHg NIBP Mean : 73mmHg BP Location : Right upper extremity SpO2 : 97% Oxygen Therapy : Room air LESIA CHAPPELL LPN - 02/23/2012 7:43 CDT Subjective Pain Symptoms : Yes LESIA CHAPPELL LPN - 02/23/2012 7:43 CDT Dependent Habits Tobacco Use/Currently Using : No Exposure to Tobacco Smoke : Care provider denies smoking in home Smoking Status : Never smoker LESIA CHAPPELL LPN - 02/23/2012 7:43 CDT Tobacco Use Grid Last Use : never LESIA CHAPPELL LPN - 02/23/2012 7:43 CDT Alcohol Use : No LESIA CHAPPELL LPN - 02/23/2012 7:43 CDT Caffeine Use Grid Caffeine Use : Current Type : Soft drinks, Tea Frequency : Daily LESIA CHAPPELL LPN - 02/23/2012 7:43 CDT Recreational Drug Use Grid Drug Use : None LESIA CHAPPELL LPN - 02/23/2012 7:43 CDT Allergy Allergies (Active) NKA Estimated Onset Date: Unspecified ; Created By: LESIA CHAPPELL LPN; Reaction Status: Active ;Category: Drug ; Substance: NKA ; Type: Allergy ; Updated By: LESIA CHAPPELL LPN; Reviewed Date: 02/23/2012 7:43 CDT Source: [facility] SpotOnCHART Document Id: [id number] documented in this encounter Plan of Treatment Not on filedocumented as of this encounter Procedures Procedure Name Priority Date/Time Associated Comments Diagnosis POCT MONONUCLEOSIS Routine 02/23/2012 8:10 AM Res ults for this SCREEN CDT procedure are i n the results section. AUTOMATED Routine 02/23/2012 8:10 AM Results f or this DIFFERENTIAL, B CDT procedure ar e in the results section. CBC WITH DIFFERENTIAL, Routine 02/23/2012 8:10 AM Results for this B CDT procedure are i n the results section. documented in this encounter Results Automated Differential (02/23/2012 8:10 AM CDT) P athologist Signature Neutro % 53.9 42.0 - POWERCHART 77.0 Lymphocytes % 33.7 23.0 - POWERCHART 44.0 HX Gosper % 10.5 2.0 - 11.0 POWERCHART HX Eos % 1.9 1.0 - 5.0 POWERCHART HX Baso % 0.0 0.0 - 1.0 POWERCHART Absolute 3.13 1.70 - POWERCHART Neutrophils 7.00 109L Lymphocytes 1.96 0.90 - POWERCHART 2.90 X109L Monocytes 0.61 0.30 - POWERCHART 0.90 X109L Eosinophils 0.11 0.05 - POWERCHART 0.50 X109L Absolute 0.00 0.00 - POWERCHART Basophil 0.30 X109L Specimen Anatomical Collection Method Collection Time Receive d Time (Source) Location / / Volume Laterality Blood 02/23/2012 8:10 AM 2 8:10 CDT AM CDT Francisco Javier Hurt N.P. LAB BLOOD ADD-ON Performing Organization Address City/[facility] Code Phon e Number POWERCHART (ABNORMAL) CBC with Differential (02/23/2012 8:10 AM CDT) [facility] Method Time Signature Leukocytes 5.8 3.4 - 10.5 POWERCHART X109L Erythrocytes 4.72 3.90 - POWERCHART 5.03 [id number] Hemoglobin 14.8 12.0 - POWERCHART 15.5 GDL Hematocrit 40.5 34.9 - POWERCHART 44.5 MCV 85.8 82.0 - POWERCHART 98.0 FL HX RDW 11.4 (L) 11.9 - POWERCHART 15.5 Platelet Count 236 150 - 450 POWERCHART X109L HXDifferential? Auto POWERCHART Specimen (Source) Anatomical Collection Method Collection Time Re ceived Time Location / / Volume Laterality Blood 02/23/2012 8:10 AM CDT Francisco Javier Hurt N.P. LAB BLOOD ADD-ON Performing Organization Address City/[facility] Phon e Number POWERCHART Mononucleosis Screen, POCT (02/23/2012 8:10 AM CDT) [facility] Method Time Signature Infectious POWERCHART Gosper Test, S HXFinal Negative POWERCHART HXFinal Reference: POWERCHART Negative Specimen (Source) Anatomical Collection Method Collection Time Re ceived Time Location / / Volume Laterality Blood 02/23/2012 8:10 AM CDT Francisco Javier Hurt N.P. LAB POCT ORDERABLES-MANUAL Performing Organization Address City/State/ZIP Code Phon e Number POWERCHART documented in this encounter Visit Diagnoses Not on filedocumented in this encounter
--- OUTSIDE RECORDS SUMMARY | 2022-07-09 10:04 | XMS_ITS | Encounter Summary ---
:1980 Author Organization [facility] Address [address] [place] [address] Care Team Providers Name Role Phone None, Pcp Primary Care Provider Unavailable Encounter Details Date Type Department Care Team Description 10/22/2021 Lab [place] [address] [facility] [address] [place], [place] [address] Social History Tobacco Use [...] Date/Time Associated Diagnosis Comme nts TSH Routine 10/22/2021 3:26 PM Results f or this STONE DRILLER procedure are i n the results section . T4, FREE Routine 10/22/2021 3:26 PM Results f or this STONE DRILLER procedure are i n the results section . documented in this encounter Results T4, free (10/22/2021 3:26 PM STONE DRILLER) P athologist Signature Free T4 1.15 0.78 - 2.19 10/23/2021 [facility] ng/dL 3:34 PM [facility] Comment: The results from this [...] Time (Source) Location / / Volume Laterality 10/22/2021 3:26 PM 2 STONE DRILLER 12:39 PM STONE DRILLER Outside Referring Lab Provider LAB BLOOD ORDERABLES Performing Organization Address City/[facility]/ZIP Code Phon e Number [facility] [address] [place] [address] TSH (10/22/2021 3:26 PM STONE DRILLER) P athologist Signature TSH, Sensitive 1.27 0.46 - 10/23/2021 JON MEDICA L 4.68 mIU/L 4:09 PM [facility] Comment: The results from this [...] Time (Source) Location / / Volume Laterality 10/22/2021 3:26 PM 2 STONE DRILLER 12:39 PM STONE DRILLER Outside Referring Lab Provider LAB BLOOD ORDERABLES Performing Organization Address City/[facility]/RUST Code Phon e Number [facility] [address] [place] [address] documented in this encounter Visit Diagnoses Not on filedocumented in this encounter Care Teams It Application Architect Relationship Specialty Start Date End Date None, Pcp PCP - General Commercial Pilot 03/27/21 [address] [place] [phone] documented as of this encounter
--- OUTSIDE RECORDS SUMMARY | 2022-07-09 10:04 | XMS_ITS | Encounter Summary ---
:1980 Author Organization [facility] Address [address] [place] [address] Care Team Providers Name Role Phone Unavailable Primary Care Provider Unavailable Encounter Details Date Type Department Care Team Description 03/07/2012 Hospital Encounter HX [facility] Sherron Alonzo, JOHN, C.N.P., D. N.P. [address] [place] [address] (Wo rk) Social History Tobacco [...] or relatives? How often do you attend restorationist or Never 2021 pentecostalism services? 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 - 03/07/2012 12:00 AM CDT [id number] CHIEF COMPLAINT/REASON FOR VISIT Routine medical examination and multiple issues. HISTORY OF PRESENT ILLNESS The patient is a 31-year-old female that presents to the clinic today for a routine medical examination. She reports that she has been having increasing frequency of headaches and anxiety and also feels that she may be possibly depressed. She states that she feels the same as I did when I was diagnosed with gestational diabetes. She reports that on average she only gets 6-7 hours of sleep per night and despite trying to have a healthy diet including fruits and vegetables and nutritious meals, she will often resort to eating junk food when she is not feeling good about herself. She also indicates that she would also like her vitamin D level to be checked for possible etiology to feeling down about herself. She does indicate that she does have some urinary incontinence just after voiding and reports that she does not perform Kegel exercises to help with her pelvic floor. She currently drinks caffeinated beverages daily and denies tobacco usage. Also note that the patient indicates that she has been having a new onset of headaches with some underlying anxiety issues, though is wondering if possibly there may be an underlying medical etiology to her symptoms. PAST MEDICAL/SURGICAL HISTORY Past medical history includes: Gestational diabetes in 2010. Pharyngeal Streptococcus infections in 2011. Acne vulgaris since 2010. Past surgical history includes: Breast augmentation in 2006. Cholecystectomy in 1999. Tubal ligation in 2010. FAMILY HISTORY Past family history includes a two aunts and a grandmother on her father's side all dying of brain cancer, aunts in their 40s to 50s and grandmother in her 70s from brain cancer. Depression and alcohol abuse in her mother. Father's medical history is unknown. Three brothers that are currently alive and well. SOCIAL HISTORY Patient is presently with two children working part-time. She denies tobacco usage and street drug usage, but does consume caffeine on a daily basis. She denies alcohol usage. ALLERGIES Clindamycin. CURRENT MEDICATIONS Clindamycin with benzyl peroxide, one application twice a day. Tretinoin 0.1% cream applied in the evening. SYSTEMS REVIEW General: Denies extreme fatigue, unexplained weight loss/gain or concerns for depression, thoughts of suicide, trouble concentrating or memory concerns. HEENT: Denies visual changes/disturbances, hearing changes/disturbances, difficulty chewing/swallowing. HEART: Denies palpitations, chest pain, shortness of breath with and without exertion. GI: Denies abdominal pain, difficulty having bowel movements or frequent episodes of diarrhea. : Denies urgency, frequency, or burning with urination. Denies coital or post coital pain or other coital concerns. MUSCULOSKELETAL: Denies joint pain or muscle fatigue. NEURO: Denies frequent headaches, dizziness or numbness/tingling of the extremities. PHYSICAL EXAM OBJECTIVE: Patient is alert/oriented x 3. PSYCH: Patient's speech is focused and well directed, affect is appropriate. HEAD: Normocephalic/atraumatic. PUPILS: YO. OROPHARYNX: [place] and moist. TMS: Bilateral TMs are clear, bony landmarks noted and WNL. NARES: Patent, no erythema or drainage noted. NECK: No anterior/posterior lymphadenopathy or thyromegaly noted. HEART: Regular S1, S2, no murmurs, rubs or gallops noted. LUNGS: Clear to auscultation, no prolonged expiratory phases, wheezing, rales or rhonchi noted. ABDOMEN: Bowel sounds positive in all 4 quadrants, no hepatosplenomegaly noted. BREASTS: Breast implants palpable on breast examination, though breast examination was noted to be otherwise unremarkable. GENITOURINARY: Normal female external genitalia. Normal appearing cervix without unusual discharge and non-friable. Uterus and adnexa are unremarkable. Patient denies cervical motion tenderness. Bimanual vaginal examination reveals a very weak pelvic floor. PULSES: Radial/pedal/tibial pulses +2/4. SKIN: Without unusual rashes or suspicious lesions. EXTREMITIES: Equally strong/intact, no lower extremity edema noted. NEURO: Upper/lower deep tendon reflexes are brisk at +2. Cranial nerves II-XII are grossly intact and symmetric. Patient ambulates with a steady gait. LABS: Vitamin D, CBC, comprehensive, TSH, hemoglobin A1c are presently pending. Pap is presently pending. Lipids are presently pending. MRI of the brain is presently pending. IMPRESSION/REPORT/PLAN 1. Fatigue. 2. Headaches. 3. Depression with possible anxiety. 4. Otherwise unremarkable routine examination. PLAN: Discussed the findings with the patient. PHQ9 was also completed in the office in which she was noted to have a total score of 17. I indicate at this time we will await her laboratory findings and I will plan on contacting her with these results via her cell number which is provided in her chart. I indicated prior to working on her overall daily habits of incorporating fruits and vegetables into her diet and improving on upon her sleep, I did advise that we await these laboratory results. With her history of new onset of headaches and also her family history, we will await an MRI of the head at this time. I did go through pelvic floor strengthening at length with the patient discussing how to perform Kegel exercises at length. We will further await laboratory findings at this time. Patient stated she understands this plan as she otherwise denied having any other further questions or concerns. Patient ambulated out of the clinic in no acute distress. PATIENT EDUCATION: Ready to learn No apparent learning barriers were identified Learning preferences include listening Explained diagnosis and treatment plan Patient/Child/Caregiver expressed understanding of the content Sherron Alonzo D.N.P., F.N.P. /shaka Electronically Signed By: SHERRON ALONZO DNP, FNP On: 03/14/2012 11:19 AM Source[facility] Document Id: [id number] documented in this encounter Nursing Notes Conversion, Historical Provider Ser - 03/15/2012 2:28 PM CDT Referral Referral to Endocrinology for hyperthyroidism. [place]t [place] @ [facility] [place] [place] 10, 2012 @ 1000 (pt to come @ 0940) with Dr. Dickey. Pt to bring photo ID and Insurance card with to register. I will fax notes and labs when available to Dr. Dickey. Electronically Signed By: CRISTIANO PEREIRA LPN On: 03/15/2012 02:32 PM Source: [facility] POWERCHART Document Id: [id number] documented in this encounter Miscellaneous Notes Miscellaneous - Sherron Alonzo D.N.P., C.N.P. - 03/18/2012 10:58 AM CDT Results Notification Document Contains Addenda Addendum by CAROL IRWIN RN on 20 March 2012 10:26:17 CDT Letter to patient. From: SHERRON ALONZO DNP, MENTAL HYGIENIST To: CAROL IRWIN RN Sent: 03/18/2012 10:58:26 CDT ! Show up: 03/18/2012 15:58:26 [facility] Subject: Results Notification Actions: Notify patient of results Source: [facility] POWERCHART Document Id: [id number] Electronically signed by Conversion, [facility] Private Detective [id number] at 02/27/2017 4:56 AM CDT Miscellaneous - Sherron Alonzo D.N.P., C.N.P. - 03/07/2012 7:34 PM CDT Ambulatory Depart Summary [address] [address] Visit Information Name: ESTER DO Visit Date: 03/07/2012 19:34:21 Attending Provider: SHERRON ALONZO DNP, FNP Primary [...] medications. Medication/Strength Dose Route Frequency Indications/Special Instructions/Comments fluconazole (Diflucan) clindamycin-benzoyl peroxide topical (Benzaclin topical [...] youcontact your provider for clarification. Additional Information: Yes - . Source: [facility] POWERCHART Document Id: [id number] Miscellaneous - Sherron Alonzo, D.N.P., C.N.P. - 03/07/2012 7:34 PM CDT Ambulatory Patient Summary [address] [address] Visit Information Name: ESTER DO Current Date: 03/07/2012 19:34:21 Physicians Attending Provider: SHERRON ALONZO DNP, FNP [...] medications. 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 - 03/07/2012 7:33 PM CDT Quality Measures Quality Measures Entered On: 03/07/2012 19:33 CDT Performed On: 03/07/2012 19:33 CDT by SHERRON ALONZO DNP, FNP Depression PHQ-9 Score : 17 SHERRON ALONZO DNP, FNP - 03/07/2012 19:33 CDT Source: [facility] Music [employer] Document Id: [id number] Miscellaneous - Gabby Zhou, L.P.N. - 03/07/2012 7:23 PM CDT PHQ-9 PHQ-9 Entered On: 03/08/2012 19:23 CDT Performed On: 03/07/2012 19:23 CDT by GABBY ZHOU LPN PHQ-9 Little interest or pleasure in doing things : More than half the days Feeling down, depressed, or hopeless : More than half the days Trouble falling or staying asleep, or sleeping too much : Nearly every day Feeling tired or having little energy : Nearly every day Poor appetite or overeating : Nearly every day Feeling bad about yourself or that you are a failure : Several days Trouble concentrating on things : More than half the days Moving or speaking slowly; restless or fidgety : Several days Thoughts that you would be better off /hurting self : Not at all PHQ-9 Calculated Score : 17 GABBY ZHOU LPN - 03/08/2012 19:23 CDT Source: [employer] Document Id: [id number] Miscellaneous - Rose Marie Camarillo L.P.NPelon - 03/07/2012 6:19 PM CDT Health Assessment Health Assessment Entered On: 03/07/2012 18:20 CDT Performed On: 03/07/2012 18:19 CDT by ROSE MARIE CHOI LPN Health Assessment Complete Health Assessment Complete or Modified : Annual Health Assessment Annual Health Assessment Completed : Yes ROSE MARIE CHOI LPN - 03/07/2012 18:19 CDT Nutrition Nutrition Risk Factors by History Adult : None ROSE MARIE CHOI LPN - 03/07/2012 18:19 CDT Functional Current Daily Living Assistance : None ROSE MARIE CHOI LPN - 03/07/2012 18:19 CDT Dependent Habits Tobacco Use/Currently Using : No Exposure to Tobacco Smoke : Care provider denies smoking in home Smoking Status : Never smoker ROSE MARIE CHOI LPN - 03/07/2012 18:19 CDT Tobacco Use Grid Last Use : never ROSE MARIE CHOI LPN - 03/07/2012 18:19 CDT Alcohol Use : No ROSE MARIE CHOI LPN - 03/07/2012 18:19 CDT Caffeine Use Grid Caffeine Use : Current Type : Soft drinks, Tea Frequency : Daily ROSE MARIE CHOI LPN - 03/07/2012 18:19 CDT Recreational Drug Use Grid Drug Use : None ROSE MARIE CHOI BILINGUAL MEDICAL ASSISTANT - 03/07/2012 18:19 CDT Psychosocial Domestic Abuse Concerns : None ROSE MARIE CHOI LPN - 03/07/2012 18:19 CDT Advance Directive Advanced Directives : No ROSE MARIE CHOI LPN - 03/07/2012 18:19 CDT Educ Needs Learning Style Preference Adult Grid Patient : None Family : None ROSE MARIE CHOI LPN - 03/07/2012 18:19 CDT Source: [employer] Document Id: [id number] Miscellaneous - Rose Marie Camarillo L.P.N. 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 Intake/History Entered On: 03/07/2012 18:19 CDT Performed On: 03/07/2012 18:14 CDT by ROSE MARIE CHOI LPN Intake Chief Complaint : physical and pap miscellaneous concerns Temperature Core : 36.8C(Converted to: 98.2DegF) Peripheral Pulse Rate : 84/min Respiratory Rate : 18/min Heart Rhythm : Regular Systolic Blood Pressure : 112mmHg Diastolic Blood Pressure : 54mmHg NIBP Mean : 73mmHg BP Location : Right upper extremity Blood Pressure Cuff Size : Regular Height : 166.0cm(Converted to: 5ft 5inch(es), 65.35inch(es)) Actual Weight : 53.9kg(Converted to: 118lb 13oz) Weight Source : Standing scale Dosing Weight Clinic : 53.90kg Clinic BSA : 1.58 Body Mass Index : 19.56kg/m2 ROSE MARIE CHOI [facility] - 03/07/2012 18:14 CDT Subjective Pain Symptoms : No ROSE MARIE CHOI [facility] - 03/07/2012 18:14 CDT Dependent Habits Tobacco Use/Currently Using : No Exposure to Tobacco Smoke : Care provider denies smoking in home Smoking Status : Never smoker ROSE MARIE CHOI [facility] - 03/07/2012 18:14 CDT Tobacco Use Grid Last Use : never TOYIN CHOIY [facility] - 03/07/2012 18:14 CDT Alcohol Use : No ROSE MARIE CHOI [facility] - 03/07/2012 18:14 CDT Caffeine Use Grid Caffeine Use : Current Type : Soft drinks, Tea Frequency : Daily TOYIN CHOIY [facility] - 03/07/2012 18:14 CDT Recreational Drug Use Grid Drug Use : None TOYIN CHOIY [facility] - 03/07/2012 18:14 CDT Allergy Allergies (Active) NKA Estimated Onset Date: Unspecified ; Created By: LEONOR MEJIA LPN; Reaction Status: Active ;Category: Drug ; Substance: NKA ; Type: Allergy ; Updated By: LEONOR MEJIA LPN; Reviewed Date: 02/23/2012 7:43 CDT Source: [facility] My Digital LifeCHART Document Id: [id number] documented in this encounter Plan of Treatment Not on filedocumented as of this encounter Procedures Procedure Name Priority Date/Time Associated Diagnosis Comme nts HXPHYS INTERP OF Routine 03/07/2012 7:16 PM Resul ts for this THIN PREP, PAP CDT procedure are in the results section. THINPREP SCREEN HPV Routine 03/07/2012 7:16 PM Re sults for this REFLEX CDT procedure are i n the results section. documented in this encounter Results HXPHYS INTERP OF THIN PREP, PAP (03/07/2012 7:16 PM CDT) [facility] Method Time Signature Interpretation Performed POWERCHART Comment: Test Performed by: [facility] [address] [id number] Ship'S Engineer: Jassi allan III, M.D. Specimen Anatomical Collection Method Collection Time Receive d Time (Source) Location / / Volume Laterality Cervix/Endocervi 03/07/2012 7:16 PM 03/09 7:06 x CDT AM CDT Historical Provider LAB HISTORICAL ORDERS Performing Organization Address City/[facility] Code Phon e Number POWERCHART Pathology ThinPrep Screen HPV Reflex (03/07/2012 7:16 PM CDT) [facility] Method Time Signature Interpretation [id number] POWERCHART HXThPrep Scrn See Comment POWERCHART [facility] Comment: A. ??ThinPrep Pap Test Screen (Cervical/ Endocervical HPV Reflex): Satisfactory for evaluation. Negative for intraepithelial lesion or m alignancy. Reactive/Reparative squamous cells prese nt. HXThPrep Scrn [facility] See Comment [facility] RCHART Comment: RESULT: Khushbu Freeman, CT ( ASCP) HXThPrep Scrn [facility] See Comment [facility] RCHART Comment: RESULT: 03/15/2012 15:34 Interpreted by: Latesha Bryson M.D. Report electronically signed by Latesha conteh M.D. Transcribed by: international travel consultant ??03/15/2012 13:44:59 [facility] See Comment POWERCHART Comment: A. ??ThinPrep Pap Test Screen (Cervical/ Endocervical HPV Reflex): Received cloudy specimen in ThinPrep via l. Test Performed by: [facility] [place] [address] Ship'S Engineer: Jassi allna III, M.D. Specimen (Source) Anatomical Collection Method Collection Time Re ceived Time Location / / Volume Laterality Cervix/Endocervix 03/07/2012 7:16 PM CDT Sherron Alonzo APRN, C.N.P., D.N.P. LAB PAP PATHDX ORDERABLES Performing Organization Address [facility] Phon e Number POWERCHART documented in this encounter Visit Diagnoses Not on filedocumented in this encounter Additional Health Concerns Assessment Noted Time PHQ-9 Depression Total Score: 17 03/07/2012 7:23 PM CD T documented as of this encounter
--- OUTSIDE RECORDS SUMMARY | 2022-07-09 10:04 | XMS_ITS | Encounter Summary ---
:1980 Author Organization [facility] Address [address] [place] [address] Care Team Providers Name Role Phone Unavailable Primary Care Provider Unavailable Encounter Details Date Type Department Care Team Description 03/10/2012 Hospital Encounter HX [facility] Lexie Alonzo, JOHN, C.N.P., D.N.P. [address], [place] [phone] (Wo rk) Social History [...] or relatives? How often do you attend yarsanism or Never 2021 hindu services? 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 - 03/14/2012 12:05 PM CDT Results Notification Document Contains Addenda Addendum by GABRIELLE CHOI LPN on 14 March 2012 12:23:41 CDT Copy of labs sent to patient. From: LEXIE ALONZO DNP, COVER SEAMER To: GABRIELLE CHOI LPN Sent: 03/14/2012 12:05:07 CDT ! Show up: 03/14/2012 17:05:07 [facility] Subject: Results Notification Actions: Notify patient of results Source: [facility] POWERCHART Document Id: [id number] Electronically signed by Conversion, [facility] Battery Plate Assembler [id number] at 02/27/2017 4:56 AM CDT documented in this encounter Plan of Treatment Not on filedocumented as of this encounter Procedures Procedure Name Priority Date/Time Associated Comments Diagnosis AUTOMATED Routine 03/10/2012 5:23 PM Results f or this DIFFERENTIAL, B CDT procedure ar e in the results section. 25-HYDROXYVITAMIN D2 Routine 03/10/2012 5:23 PM R esults for this AND D3, S CDT procedure are i n the results section. CBC WITH DIFFERENTIAL, Routine 03/10/2012 5:23 PM Results for this B CDT procedure are i n the results section. THYROID-STIMULATING Routine 03/10/2012 5:23 PM Re sults for this HORMONE-SENSITIVE CDT procedure are in (S-TSH) the results section. HEMOGLOBIN A1C, B Routine 03/10/2012 5:23 PM Resu lts for this CDT procedure are i n the results section. COMPREHENSIVE Routine 03/10/2012 5:23 PM Results for this METABOLIC PANEL, S/P CDT procedu re are in the results section. documented in this encounter Results Automated Differential (03/10/2012 5:23 PM CDT) P athologist Signature Neutro % 59.7 42.0 - POWERCHART 77.0 Lymphocytes % 30.2 23.0 - POWERCHART 44.0 HX Grady % 9.0 2.0 - 18.0 POWERCHART HX Eos % 1.1 1.0 - 5.0 POWERCHART HX Baso % 0.0 0.0 - 1.0 POWERCHART Absolute 4.25 1.70 - POWERCHART Neutrophils 7.00 109L Lymphocytes 2.15 0.90 - POWERCHART 2.90 X109L Monocytes 0.64 0.30 - POWERCHART 0.90 X109L Eosinophils 0.08 0.05 - POWERCHART 0.50 X109L Absolute 0.00 0.00 - POWERCHART Basophil 0.30 X109L Specimen Anatomical Collection Method Collection Time Receive d Time (Source) Location / / Volume Laterality Blood 03/10/2012 5:23 PM 2 5:23 CDT PM CDT Lexie Alonzo APRN, C.N.P., D.N.P. LAB BLOOD ADD- ON Performing Organization Address City/State/ZIP Code Phon e Number POWERCHART (ABNORMAL) CBC with Differential (03/10/2012 5:23 PM CDT) Patholo gist Method Time Signature Leukocytes 7.1 3.4 - 10.5 POWERCHART X109L Erythrocytes 4.38 3.90 - POWERCHART 5.03 [id number] Hemoglobin 13.6 12.0 - POWERCHART 15.5 GDL Hematocrit 37.5 34.9 - POWERCHART 44.5 MCV 85.6 82.0 - POWERCHART 98.0 FL HX RDW 11.3 (L) 11.9 - POWERCHART 15.5 Platelet Count 211 150 - 450 POWERCHART X109L HXDifferential? Auto POWERCHART Specimen (Source) Anatomical Collection Method Collection Time Re ceived Time Location / / Volume Laterality Blood 03/10/2012 5:23 PM CDT Lexie Alonzo APRN C.N.P., D.N.P. LAB BLOOD ADD- ON Performing Organization Address City/State/ZIP Code Phon e Number POWERCHART (ABNORMAL) CMP (Comprehensive Metabolic Panel) (03/10/2012 5:23 PM CDT) [facility] gist Method Time Signature Alanine 23 15 - 37 POWERCHART Amniotransferase, LD UL Albumin, S 4.3 3.5 - 5.0 POWERCHART GDL Alkaline 63 37 - 98 POWERCHART Phosphatase, S UL Aspartate 23 12 - 31 POWERCHART Aminotransferase UL (AST), S Sodium, S 136.2 135.0 - POWERCHART 145.0 MML Potassium, S 3.8 3.6 - 4.8 POWERCHART MML Chloride, S 101 100 - 108 POWERCHART MML CO2 Total 25.8 23.0 - POWERCHART 29.0 MMOLL BUN (Blood Urea 14 7 - 18 POWERCHART Nitrogen), S MGDL Creatinine 0.48 (L) 0.60 - POWERCHART 1.30 MGDL Calcium, Total, S 9.3 8.5 - POWERCHART 10.1 MGDL BUN/Creatinine Ratio 29.0 (H) 10.0 - POWERCHAR T 20.0 Anion Gap 9 (L) 10 - 20 POWERCHART MMOLL HXeGFR (MDRD) >60 (H) <=61 POWERCHART [id number] Comment: A GFR of <60 mL/min is indicative of chr onic kidney disease. (MDRD calculation valid on patients 18 - 70 years.) eGFR Black/ >60 MLMIN PO WERCHART Bilirubin, Total, S 0.4 0.1 - 1.0 MGDL POWER CHART Total Protein, S 6.9 6.3 - 7.9 GDL POWERCHAR T Glucose 105 70 - 139 MGDL POWERCHART Specimen (Source) Anatomical Collection Method Collection Time Re ceived Time Location / / Volume Laterality Blood 03/10/2012 5:23 PM CDT Lexie Alonzo APRN, C.N.P., D.N.P. LAB BLOOD ADD- ON Performing Organization Address City/State/ZIP Code Phon e Number POWERCHART Hemoglobin A1c (03/10/2012 5:23 PM CDT) athologist Signature Hemoglobin A1c, 4.97 4.00 - POWERCHART B 6.00 Specimen (Source) Anatomical Collection Method Collection Time Re ceived Time Location / / Volume Laterality Blood 03/10/2012 5:23 PM CDT Lexie Alonzo APRN, C.N.P., D.N.P. LAB BLOOD ADD- ON Performing Organization Address City/[facility] Phon e Number POWERCHART 25-Hydroxyvitamin D2 and D3 (03/10/2012 5:23 PM CDT) P athologist Signature HX25 HYDROXY D2 <4.0 NGML POWERCHART 25-Hydroxy D3 33 NGML POWERCHART Vitamin D, S 33 NGML POWERCHART Comment: -- REFERENCE VALUE -- 25-HYDROXY D TOTAL (D2+D3) Optimum levels in the normal population are 25-80 Test Performed by: [address] [address] Supervisor Riprap Placing: Jassi allan III, M.D. Specimen (Source) Anatomical Collection Method Collection Time Re ceived Time Location / / Volume Laterality Blood 03/10/2012 5:23 PM CDT Lexie Alonzo APRN, C.N.P., D.N.P. LAB BLOOD ADD- ON Performing Organization Address City/[facility] Code Phon e Number POWERCHART (ABNORMAL) Thyroid-Stimulating Hormone-Sensitive (s-TSH) (03/10/2012 5:23 PM CDT) Patholo gist Method Time Signature TSH <0.00 (L) 0.30 - 5.00 POWERCHART (Thyrotropin) MCIUML Specimen (Source) Anatomical Collection Method Collection Time Re ceived Time Location / / Volume Laterality Blood 03/10/2012 5:23 PM CDT Lexie Alonzo APRN, C.N.P., D.N.P. LAB BLOOD ADD- ON Performing Organization Address City/State/ZIP Code Phon e Number POWERCHART documented in this encounter Visit Diagnoses Not on filedocumented in this encounter Additional Health Concerns Assessment Noted Time PHQ-9 Depression Total Score: 17 03/07/2012 7:23 PM CD T documented as of this encounter
--- OUTSIDE RECORDS SUMMARY | 2022-07-09 10:04 | XMS_ITS | Encounter Summary ---
:1980 Author Organization [facility] Address [address] [place] [address] Care Team Providers Name Role Phone Unavailable Primary Care Provider Unavailable Encounter Details Date Type Department Care Team Description 05/29/2010 Hospital Encounter HX [facility] IN[facility]OBSRV Lexie Pereira, JOHN, C.N.P., D.N.P. [address] [place] [address] (Wo rk) Social History Tobacco [...] you attend oriental orthodox or Never 2021 church services? 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
--- OUTSIDE RECORDS SUMMARY | 2022-07-09 10:04 | XMS_ITS | Encounter Summary ---
:1980 Author Organization [facility] Address [address] [place] [address] Care Team Providers Name Role Phone Chitra Berumen APRN, ASPHALT PAVER OPERATOR Primary Care Provider [phone] Encounter Details Date Type Department Care Team Description 04/25/2020 Lab [place] Screening for lipoid disorde rs; [address] Screening for diabetes melli tus; [place], [place] [address] Screening for thyroid disord er [phone] Social History Tobacco Use Types Packs/Day Years [...] Associated Diagnosis Comme nts THYROID FUNCTION Routine 04/25/2020 8:16 AM Screening for lipo id Results for this CASCADE CDT disorders procedure are in Screening for the results diabetes mellitu s section. Screening for thyroid disorder GLUCOSE Routine 04/25/2020 8:16 AM Screening for lipoid R esults for this CDT disorders procedure are in Screening for the results diabetes mellitu s section. Screening for thyroid disorder LIPID PANEL Routine 04/25/2020 8:16 AM Screening for lipoid R esults for this CDT disorders procedure are in Screening for the results diabetes mellitu s section. Screening for thyroid disorder documented in this encounter Results Thyroid Function [place] (04/25/2020 8:16 AM CDT) P athologist Signature TSH, Sensitive 1.35 0.46 - 04/25/2020 [facility] 4.68 mIU/L 2:53 PM CDT [facility] Comment: The results [...] Location / / Volume Laterality Blood (Blood, 04/25/2020 8:16 AM 04/25/20 20 1:21 Venous) CDT PM CDT Outside Referring Lab Provider LAB BLOOD ORDERABLES Performing Organization Address [facility] Phon e Number [facility] [address] [place], [place] [id number] Glucose (04/25/2020 8:16 AM CDT) athologist Signature Glucose 88 70 - 100 04/25/2020 [facility] mg/dL 2:48 PM CDT [facility] Specimen Anatomical Collection Method Collection Time Receive d Time (Source) Location / / Volume Laterality Blood (Blood, 04/25/2020 8:16 AM 04/25/20 20 1:15 Venous) CDT PM CDT Outside Referring Lab Provider LAB BLOOD ORDERABLES Performing Organization Address [facility] Phon e Number [facility] [address] [place] [phone] Lipid panel (04/25/2020 8:16 AM CDT) athologist Signature Cholesterol 141 0 - 199 04/25/2020 [facility] mg/dL 2:48 PM CDT [facility] Comment: Recommended by National Cholesterol Education Program (ATP III) -------- Cholesterol Ranges -------- <200 ?Desirable 200-239 ? Borderline high >=240 ? High Triglycerides 59 0 - 149 mg/dL 04/25/2020 2:48 PM CDT [facility] Comment: -------- TRIG Ranges -------- <150 ?Normal 150-199 ? Borderline high 200-499 ? High >=500 ? Very high HDL 60 40 - 250 mg/dL 04/25/2020 2:48 PM CDT [facility] Comment: -------- HDL Ranges -------- <40 ?Low 40-59 ?Normal >=60 ? Optimal LDL Calculated 69 0 - 99 mg/dL 04/25/2020 2:48 PM CDT [facility] Comment: -------- LDL Ranges -------- <100 ? Optimal 100-129 ?Near optimal/above op timal 130-159 ?Borderline high 160-189 ?High >=190 ?Very high Fasting? Yes 04/25/2020 8:22 AM CDT [facility] Specimen Anatomical Collection Method Collection Time Receive d Time (Source) Location / / Volume Laterality Blood (Blood, 04/25/2020 8:16 AM 04/25/20 20 1:15 Venous) CDT PM CDT Outside Referring Lab Provider LAB BLOOD ORDERABLES Performing Organization Address City/State/ZIP Code Phon e Number [facility] [address] [place] [address] documented in this encounter Visit Diagnoses Diagnosis Screening for lipoid disorders Screening for diabetes mellitus Screening for thyroid disorder documented in this encounter Care Teams Dental Billing Specialist Relationship Specialty Start Date End Date Chitra Berumen APRN, ASPHALT PAVER OPERATOR PCP - General 05/02/18 06/02/20 [address] [facility] [place] [address] documented as of this encounter
--- OUTSIDE RECORDS SUMMARY | 2022-07-09 10:04 | XMS_ITS | Encounter Summary ---
:1980 Author Organization [facility] Address [address] [place] [address] Care Team Providers Name Role Phone None, Pcp Primary Care Provider Unavailable Encounter Details Date Type Department Care Team Description 03/27/2021 Ancillary Procedure [facility] Radiol[facility] [address] [place], [place] [address] Social History Tobacco Use [...] Pain in metatarsus section. of left foot documented in this encounter Results X-ray foot 3+ views left (03/27/2021 11:51 AM CDT) Anatomical Region Laterality Modality Lower Extremities, Foot Left Radiographic Flea ging Specimen (Source) Anatomical Collection Method Collection [...] evaluation. Alli Caballero MD IMG XR PROCEDURES documented in this encounter Visit Diagnoses Not on filedocumented in this encounter Care Teams Hobbies And Crafts Sales Representative Relationship Specialty Start Date End Date None, Pcp PCP - General Copier Repair Technician 03/27/21 [address] [place] [address] documented as of this encounter
--- OUTSIDE RECORDS SUMMARY | 2022-07-09 10:04 | XMS_ITS | Encounter Summary ---
:1980 Author Organization [facility] Address [address] [place] [address] Care Team Providers Name Role Phone None, Pcp Primary Care Provider Unavailable Reason for Visit Reason Onset Date Comments follow-up to Dr. Flores 04/13/2022 Encounter Details Date Type Department Care Team Description 04/13/2022 Telephone [place] None, Pcp follow-up to [facility] [address] [facility] [address] [place], [place] [address] [address] [phone] [place] [address] Social History Tobacco Use Types Packs/Day Years Used Date Never Smoker Smokeless Tobacco: Never Used Alcohol Use Standard Drinks/Week Comments Not Currently 0 (1 standard drink = 0.6 oz pure alcoho l) Sex Assigned at Date Recorded Not on file documented as of this encounter Miscellaneous Notes Telephone Encounter - Preeti Cruz RN - 04/13/2022 3:35 PM CDT Patient informed. Telephone Encounter - Tracy Flores MD - 04/13/2022 3:28 PM CDT I think if she is feeling improved we can just continue her current dose of thyroid medication at this time. Telephone Encounter - Preeti Cruz RN - 04/13/2022 3:16 PM CDT Please review patient message. Telephone Encounter - Funmilayo Rigoberto - 04/13/2022 2:54 PM CDT F/U since changing to levothyroxine. Current dose good. Seemed to clear up dizziness and lightheadedness. Pt does not think specialist referral needed; but, if Dr. Flores thinks would help, would consider. Advise [phone]. documented in this encounter Plan of Treatment Not on filedocumented as of this encounter Visit Diagnoses Diagnosis Hypothyroidism, unspecified type documented in this encounter Care Teams City Bus Driver Relationship Specialty Start Date End Date None, Pcp PCP - General Patient Accounts Specialist 03/27/[address] [place] [phone] documented as of this encounter
--- OUTSIDE RECORDS SUMMARY | 2022-07-09 10:04 | XMS_ITS | Encounter Summary ---
:1980 Author Organization [facility] Address [address] [place] [address] Care Team Providers Name Role Phone Unavailable Primary Care Provider Unavailable Encounter Details Date Type Department Care Team Description 01/03/2012 Hospital Encounter HX [facility] Sherron Alonzo, JOHN, C.N.P., D. N.P. [address] [place] [address] (Wo rk) Social History Tobacco [...] you attend oriental orthodox or Never 2021 moravian services? 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 - 01/03/2012 12:00 AM CDT [id number] CHIEF COMPLAINT/REASON FOR VISIT Vaginal discomfort. HISTORY OF PRESENT ILLNESS The patient is a 31-year-old female that presents to the clinic today with chief complaint of vaginal discharge and vaginal discomfort that has been present now for the past several days duration. The patient does report that she does have a history of bacterial vaginosis and also yeast in which she indicates that she did have a previously prescribed Diflucan at home in which she did take yesterday but reports that it was as of October 2011 but indicates that she has not had any real improvement from that medication. She otherwise reports that she just recently got over her menses in the past few days and otherwise denies having any other further concerns or issues at this time. PAST MEDICAL/SURGICAL HISTORY Reviewed. Please see chart. CURRENT MEDICATIONS Reviewed. Please see chart. ALLERGIES Reviewed. Please see chart. PHYSICAL EXAMINATION GENERAL: The patient is an alert, well-nourished, 31-year-old female that appears to be in no acute distress. HEAD: Normocephalic. Atraumatic. GENITOURINARY: External vaginal examination shows vaginal mucosa is noted to be erythematous. White vaginal secretions are noted on examination. COLBY wet prep was obtained in which a few yeast were noted. IMPRESSION/REPORT/PLAN Vaginal canal candidiasis. PLAN: Discussed the findings with the patient. Presently, at this time, I did opt to start the patient on Diflucan 150 mg tablets in which she can take one tablet by mouth starting tomorrow x1. I did go over directions with the patient in which she was given a quantity of five tablets with no refills indicating that for future if she develops these symptoms again she can take one tablet of Diflucan. Given her history, also we talked about treatment of bacterial vaginosis in which she was prophylactically prescribed metronidazole 0.75% vaginal gel with an applicator in which she is to apply one application into the vagina twice a day as needed for five days and may only use at night if needed, a number quantity sufficient with three refills were authorized. We did discuss the differential treatment of bacterial vaginosis versus vaginal candidiasis at length. We also discussed routine care and refraining from tampon usage as this may also provide improvement of her symptoms. The patient stated she understands this plan. She will follow-up as needed. Patient ambulated out of the clinic in no acute distress. PATIENT EDUCATION: Ready to learn No apparent learning barriers were identified Learning preferences include listening Explained diagnosis and treatment plan Patient/Child/Caregiver expressed understanding of the content Sherron Alonzo D.N.P., F.N.P. /shaka Electronically Signed By: SHERRON ALONZO DNP, FNP On: 01/04/2012 01:49 PM Source: [facility] MHSDOLBEYNONRADSYS Document Id: [id number] documented in this encounter Miscellaneous Notes Miscellaneous - Sherron Alonzo D.N.P., C.N.P. - 01/03/2012 10:20 AM CDT Ambulatory Patient Summary [id number] [place] [address] Visit Information Name: ESTER DO Current Date: 01/03/2012 10:20:17 Physicians Attending Provider: SHERRON ALONZO DNP, FNP [...] medications. Medication/Strength Dose Route Frequency Indications/Special Instructions/Comments metronidazole topical (metronidazole 0.75% vaginal gel with applicator) 1 armani Vaginal two times a day as needed for vaginal symptoms (May use only at night if needed.) fluconazole (Diflucan 150 mg oral tablet) 150 mg Oral once as needed for yeast infection clindamycin-benzoyl peroxide topical (Benzaclin topical gel) 1 [...] Onset Comments Gestational diabetes Active 09/26/2010 Your Upcoming Appointments Date Time Location Reason Provider No Appointments found Your Goals/Additional instructions: Source: [facility] POWERCHART Document Id: [id number] Miscellaneous - Sherron Alonzo, D.N.P., C.N.P. - 01/03/2012 10:20 AM CDT Ambulatory Depart Summary [id number] [place] [address] Visit Information Name: HASEEBQUINTONCody ESTER NOE Visit Date: 01/03/2012 10:20:16 Attending Provider: SHERRON ALONZO DNP, FNP Primary Care Provider: SHERRON ALONZO DNP, FNP ESTER DOE has been given the following list of medications: Your Medications It is important to take your medications as directed. Use a pill box or chart to help remind you to take your medications. Please let your doctor or nurse know if you have problems taking your medications. Medication/Strength Dose Route Frequency Indications/Special Instructions/Comments metronidazole topical (metronidazole 0.75% vaginal gel with applicator) 1 armani Vaginal two times a day as needed for vaginal symptoms (May use only at night if needed.) fluconazole (Diflucan 150 mg oral tablet) 150 mg Oral once as needed for yeast infection clindamycin-benzoyl peroxide topical (Benzaclin topical gel) 1 [...] clarification. Additional Information: Yes - . Source: [facility] POWERCHART Document Id: [id number] Miscellaneous - Yolis South L.P.N. - 01/03/2012 7:53 AM CDT Adult Retail Service Specialist Intake/History Adult Retail Service Specialist Intake/History Entered On: 01/03/2012 7:57 CDT Performed On: 01/03/2012 7:53 CDT by YOLIS SOUTH LPN Intake Chief Complaint : Yeast or bacterial infection, soreness, itching Temperature Core : 36.0C(Converted to: 96.8DegF) (LOW) Peripheral Pulse Rate : 68/min Respiratory Rate : 16/min Heart Rhythm : Regular Systolic Blood Pressure : 86mmHg (<LLOW) Diastolic Blood Pressure : 60mmHg NIBP Mean : 69mmHg BP Location : Left upper extremity Blood Pressure Cuff Size : Regular Actual Weight : 55.0kg(Converted to: 121lb 4oz) Weight Source : Standing scale Dosing Weight Clinic : 55.00kg YOLIS SOUTH LPN - 01/03/2012 7:53 CDT Subjective Pain Symptoms : No YOLIS SOUTH Albin LADD - 01/03/2012 7:53 CDT Dependent Habits Tobacco Use/Currently Using : No Tobacco Use/Last 12 months : No Tobacco Use/Advised to Quit : No Exposure to Tobacco Smoke : Care provider denies smoking in home Smoking Status : Never smoker Alcohol Use : No YOLIS SOUTH Albin LADD - 01/03/2012 7:53 CDT Caffeine Use Grid Caffeine Use : Current Type : Soft drinks, Tea Frequency : Daily HERNANDEZMADHU Talamantes LPN - 01/03/2012 7:53 CDT Recreational Drug Use Grid Drug Use : None HERNANDEZMADHU Talamantes LPN - 01/03/2012 7:53 CDT Allergy Allergies (Active) NKA Estimated Onset Date: Unspecified ; Created By: LEONOR MEJIA LPN; Reaction Status: Active ;Category: Drug ; Substance: NKA ; Type: Allergy ; Updated By: LEONOR MEJIA LPN; Reviewed Date: 01/03/2012 7:52 CDT Source: [facility] POWERCHART Document Id: [id number] CDT!32 documented in this encounter Plan of Treatment Not on filedocumented as of this encounter Procedures Procedure Name Priority Date/Time Associated Comments Diagnosis WET PREP EXAM, Routine 01/03/2012 8:19 AM Results for this UROGENITAL CDT procedure are i n the results section. documented in this encounter Results (ABNORMAL) Wet Prep Exam, Urogenital (01/03/2012 8:19 AM CDT) Analysis Performed At Patho logist Time Signature HXWet Prep (POSITIVE) POWERCHART HXFinal Trichomonas: POWERCHART None HXFinal Clue Cells: POWERCHART None HXFinal Yeast: Few POWERCHART (0-10/hpf) HXFinal White Blood POWERCHART Cells : moderate Specimen (Source) Anatomical Collection Method Collection Time Re ceived Time Location / / Volume Laterality Vagina 01/03/2012 8:19 AM CDT Sherron Alonzo APRN, C.N.P., D.N.P. LAB MICROBIOLO GY - GENERAL ORDERABLES Performing Organization Address City/State/ZIP Code Phon e Number POWERCHART documented in this encounter Visit Diagnoses Not on filedocumented in this encounter
--- OUTSIDE RECORDS SUMMARY | 2022-07-09 10:04 | XMS_ITS | Encounter Summary ---
:1980 Author Organization [facility] Address [address] [place] [address] Care Team Providers Name Role Phone None, Pcp Primary Care Provider Unavailable Reason for Visit Reason Onset Date Comments outside lab order 08/26/2021 Encounter Details Date Type Department Care Team Description 08/26/2021 Telephone [place] None, Pcp outside lab order [address] [facility] [address] [place] [address] [place], [place] [phone] Social History Tobacco Use Types Packs/Day Years Used Date Never Smoker Smokeless Tobacco: Never Used Alcohol Use Standard Drinks/Week Comments Not Currently 0 (1 standard drink = 0.6 oz pure alcoho l) Sex Assigned at Date Recorded Not on file documented as of this encounter Miscellaneous Notes Telephone Encounter - Khushbu Lackey LPN - 08/31/2021 9:02 AM CST Noted S TENDER STAR SIGNAL Telephone Encounter - Kat Posadas - 08/28/2021 4:18 PM CST Lab appt scheduled for Tuesday08/31/21. S TENDER STAR SIGNAL Telephone Encounter - Kat Posadas - 08/27/2021 12:36 PM CST Left message to schedule non fasting labs. S TENDER STAR SIGNAL Telephone Encounter - Preeti Cruz RN - 08/27/2021 10:00 AM CST Lab orders received, please call patient to schedule nonfasting labs. S TENDER STAR SIGNAL Telephone Encounter - Olivia Kandy - 08/26/2021 4:45 PM CST Patient would like to come in for lab and is wondering if you have received the outside lab orders from [facility] yet? S TENDER STAR SIGNAL documented in this encounter Plan of Treatment Not on filedocumented as of this encounter Visit Diagnoses Not on filedocumented in this encounter Care Teams Heating Engineer Relationship Specialty Start Date End Date None, Pcp PCP - General Manager Embalmer Funeral Director 03/27/[address] [place] [phone] documented as of this encounter
--- OUTSIDE RECORDS SUMMARY | 2022-07-09 10:04 | XMS_ITS | Encounter Summary ---
:1980 Author Organization [facility] Address [address] [place] [address] Care Team Providers Name Role Phone None, Pcp Primary Care Provider Unavailable Encounter Details Date Type Department Care Team Description 03/28/2022 Orders Only Vidalia Tracy Flores MD [address] [facility] [address] [place], [place] [address] [place], [place] [phone] (Wo rk) Social History Tobacco Use Types [...] on filedocumented in this encounter Care Teams Learning And Development Assistant Relationship Specialty Start Date End Date None, Pcp PCP - General Options Trader 03/27/21 [address] [place] [address] documented as of this encounter
--- OUTSIDE RECORDS SUMMARY | 2022-07-09 10:04 | XMS_ITS | Clinical Summary ---
:1980 Author Organization [facility] Address [address] [place] [address] Care Team Providers Name Role Phone None, Pcp Primary Care Provider Unavailable Allergies No known active allergies Medications Medication Sig Dispensed Refills Start Date End Date Status clindamycin-benzoyl Apply topically 2 50 g 3 12/25/2020 Active peroxide (BENZACLIN) (two) times a day gelIndications: Acne, Apply topically 2 unspecified acne type times daily sertraline (ZOLOFT) 100 Take 100 mg by 0 02/20/2021 Active MG tablet mouth 1 (one) time each day cholecalciferol Take 1,000 Units 0 Active (VITAMIN D-3) 25 MCG by mouth 1 (one) (1000 UT) tablet time each day levothyroxine Take ONE a day 90 tablet 3 04/13/2022 Active (Synthroid) 112 MCG for thyroid tabletIndications: Hypothyroidism, unspecified type Active Problems Problem Noted Date Acne 05/25/2019 Major depressive disorder, single episode 05/13/2017 Hypothyroidism 09/09/2016 Encounters Date Type Specialty Care Team Description 04/13/2022 Telephone Family Medicine None, Pcp follow-up to Dr. Flores from Last 3 Months Immunizations Name Administration Dates Next Due Influenza Split 09/26/2009 Influenza, Unspecified 07/13/2013, 09/26/2009 Rabies 10/29/2021, 10/22/2021, 10/18/2021, 09/27 Tdap 10/15/2021, 05/24/2016 Family History Medical History Relation Comments Asthma Brother 1 Heart disease Maternal Grandfather Prostate cancer Maternal Grandfather Stroke Maternal Grandfather Anesthesia problems Maternal Grandmother Hypertension Mother Alcohol abuse Other Anxiety disorder Other Breast cancer Other Depression Other Melanoma Other multiple family memb ers Cancer Paternal Grandmother Relation Status Comments Brother 1 Alive Brother 2 Alive Brother 3 Alive Father Alive Maternal Grandfather Maternal Grandmother Mother Alive Other Paternal Grandmother Son 1 Alive Son 2 Alive Social History Tobacco Use Types Packs/Day Years Used Date Never Smoker Smokeless Tobacco: Never Used Alcohol Use Standard Drinks/Week Comments Not Currently 0 (1 standard drink = 0.6 oz pure alcoho l) Sex Assigned at Date Recorded Not on file Last Filed Vital Signs Vital Sign Reading [...] Mass Index 24.71 03/17/2022 8:01 AM CDT Plan of Treatment Health Maintenance Due Date Last Done Comments Mammogram 1980 Pap Smear 05/13/2020 05/13/2017 COVID-19 Vaccine (3 - Booster 07/16/2021 02/13/2021, for Moderna series) 01/16/2021 HPV Vaccines Aged Out No longer eligib le based on patient's age to complete this to pic Pneumococcal Vaccine: Aged Out No longer eligible based Pediatrics (0 to 5 Years) and on patient's age to At-Risk Patients (6 to 64 comple te this topic Years) Insurance Payer Benefit Plan / Subscriber ID Effective Dates Phone Addre ss Type Group [facility] [id number] 2020-Present [address] [place] [address] Care Teams Water Taxi Captain Relationship Specialty Start Date End Date None, Pcp PCP - General Engineering Illustrator 03/27/21 [address] [place] [address]
--- OUTSIDE RECORDS SUMMARY | 2022-07-09 10:05 | XMS_ITS | Encounter Summary ---
:1980 Author Organization [facility] Address [address] [place] [address] Care Team Providers Name Role Phone Chitra Berumen BLAST FURNACE HELPER, MANAGER QUALITY Primary Care Provider [phone] Reason for Visit Reason Onset Date Comments last PAP? 03/26/2020 Encounter Details Date Type Department Care Team Description 03/26/2020 Telephone Wayne Little Chitra Berumen, last PAP? [address] BLAST FURNACE HELPER, MANAGER QUALITY [place], [place] [address] [address] [facility] [address] [phone] [place], [place] [address] Social History Tobacco Use Types Packs/Day Years Used Date Never Smoker Smokeless Tobacco: Never Used Alcohol Use Standard Drinks/Week Comments Not Currently 0 (1 standard drink = 0.6 oz pure alcoho l) Sex Assigned at Date Recorded Not on file documented as of this encounter Miscellaneous Notes Telephone Encounter - Meseret Winter - 03/31/2020 1:35 PM CDT Noted. Telephone Encounter - Constance Noguera MA - 03/26/2020 4:17 PM CDT Spoke with patient who was informed of last pap. Patient is also requesting the last 3-4 years of lab work, paps and physical information be sent to the [facility] located in the hospital as she will be going there for her physicals until a permanent female provider is here. Patient is not changing PCP's as she will still be coming here for other needs. Patient will fill out an BRIGETTE an her my chart as she stated she has one active or will come in and fill one out so records can be sent. Telephone Encounter - Kat Katharina - 03/26/2020 3:43 PM CDT Pt called wanting to know when her last pap was. Please call Pt at [phone] to advise. documented in this encounter Plan of Treatment Not on filedocumented as of this encounter Visit Diagnoses Not on filedocumented in this encounter Care Teams Housing Installer Relationship Specialty Start Date End Date Chitra Berumen, BLAST FURNACE HELPER, MANAGER QUALITY PCP - General 05/02/18 06/02/20 [address] [facility] [place]REVI[place] [address] documented as of this encounter
--- OUTSIDE RECORDS SUMMARY | 2022-07-09 10:05 | XMS_ITS | Encounter Summary ---
:[address] [facility] Address [address] [place] [address] Care Team Providers Name Role Phone Chitra Berumen APRN, DREW Primary Care Provider [phone] Reason for Visit Reason Onset Date Comments Levothyroxine dose 06/05/2019 Encounter Details Date Type Department Care Team Description 06/05/2019 [place]phone [place], Levothyroxine dose [address] [place], [place] [address] [address] [facility] [address] [phone] [place], [place] [address] Social History Tobacco Use Types Packs/Day Years Used Date Never Smoker Smokeless Tobacco: Never Used Alcohol Use Standard Drinks/Week Comments Not Currently 0 (1 standard drink = 0.6 oz pure alcoho l) Sex Assigned at Date Recorded Not on file documented as of this encounter Miscellaneous Notes Telephone Encounter - Chitra Berumen APRN, CNP - 06/06/2019 9:41 AM CDT Spoke with the patient and renewed the Synthroid 112 mcg daily x one year. Telephone Encounter - Kat Posadas - 06/05/2019 4:13 PM CDT Pt called stating when she saw the OB for the D & C she was told to suggest to her primary to keep her Levothyroxine at a steadty 112ML and not alternate anything. Please call Pt at [phone] asnecessary. documented in this encounter Plan of Treatment Not on filedocumented as of this encounter Visit Diagnoses Not on filedocumented in this encounter Care Teams Auto Radio Mechanic Relationship Specialty Start Date End Date Chitra Berumen APRN, OPTICAL GOODS DRILLING MACHINE OPERATOR PCP - General 05/02/18 06/02/20 [address] [facility] [place] GARNET[place] [address] documented as of this encounter
--- OUTSIDE RECORDS SUMMARY | 2022-07-09 10:05 | XMS_ITS | Encounter Summary ---
:1980 Author Organization [facility] Address [address] [place] [address] Care Team Providers Name Role Phone Chitra Berumen PLATING INSPECTOR, MULTIMEDIA JOURNALIST Primary Care Provider [phone] Reason for Visit Reason Onset Date Comments lab work 04/22/2020 Encounter Details Date Type Department Care Team Description 04/22/2020 Telephone Wayne Little Chitra Berumen, lab work [address] PLATING INSPECTOR, MULTIMEDIA JOURNALIST [place], [place] [address] [address] [facility] [address] [phone] [place], [place] [address] Social History Tobacco Use Types Packs/Day Years Used Date Never Smoker Smokeless Tobacco: Never Used Alcohol Use Standard Drinks/Week Comments Not Currently 0 (1 standard drink = 0.6 oz pure alcoho l) Sex Assigned at Date Recorded Not on file documented as of this encounter Miscellaneous Notes Addendum Note - Samir Cruz RN - 04/22/2020 12:06 PM CDT Addended by: SAMIR CRUZ on: 04/22/2020 12:06 PM Modules accepted: Orders Telephone Encounter - Samir Cruz RN - 04/22/2020 12:05 PM CDT Patient was looking to have outside orders done from [place]. Lab has received these and RN will cancel orders placed by Dr. Flores. Telephone Encounter - Tracy Flores MD - 04/22/2020 11:59 AM CDT I have placed lab orders for her TSH, fasting blood sugar, CBC and cholesterol panel. If she is OK with all of these this is fine. If not then remove whatever she doesn't wish to have done. Telephone Encounter - Samir Cruz RN - 04/22/2020 11:[address] necessary orders for Fridays labs. Telephone Encounter - Kat Posadas - 04/22/2020 9:51 AM CDT Pt called and made an appt for lab work for Tuesday morning 04/25/20. Pt wanted to make sure there kane diagnosis and that everything is ready to go for Tuesday. Please call Pt at [phone] to advise. documented in this encounter Plan of Treatment Not on filedocumented as of this encounter Visit Diagnoses Diagnosis Hypothyroidism, unspecified type - Prima ry Screening for deficiency anemia Screening for other and unspecified defi ciency anemia Diabetes mellitus screening Screening for diabetes mellitus Screening cholesterol level Screening for lipoid disorders documented in this encounter Care Teams Stacker And Sorter Operator Relationship Specialty Start Date End Date Chitra Berumen, PLATING INSPECTOR, MULTIMEDIA JOURNALIST PCP - General 05/02/18 06/02/20 100 [place] [address] documented as of this encounter
--- OUTSIDE RECORDS SUMMARY | 2022-07-09 10:05 | XMS_ITS | Encounter Summary ---
:1980 Author Organization [facility] Address [address] [place] [address] Care Team Providers Name Role Phone Chitra Berumen PRINT SUPPORT SPECIALIST, TILE MOLDER HAND Primary Care Provider [phone] Encounter Details Date Type Department Care Team Description 02/16/2019 Orders Only Wayne Little Chitra Berumen, Hypothyroidism, [address] PRINT SUPPORT SPECIALIST, TILE MOLDER HAND unspecified type MARJORIE Tolbert [address] (Primary Dx) [address] [place] [address] Social History Tobacco Use Types Packs/Day Years Used Date Never Assessed Sex Assigned at Date Recorded Not on file documented as of this encounter Plan of Treatment Not on filedocumented as of this encounter Results T4, free (02/16/2019 2:03 PM CDT) P athologist Signature Free T4 1.02 0.78 - 2.19 02/16/2019 [facility] ng/dL 9:56 PM CDT [facility] Comment: The results [...] Location / / Volume Laterality Blood (Blood, 02/16/2019 2:03 PM 02/17/20 19 5:38 Venous) CDT PM CDT Chitra Berumen APRN, CNP LAB BLOOD ORDERABLES Performing Organization Address City/[facility]/ZIP Code Phon e Number [facility] [address] [place] [phone] (ABNORMAL) T3 (02/16/2019 2:03 PM CDT) P athologist Signature T3, Total 0.91 (L) 0.97 - 1.69 02/16/2019 [facility] ng/mL 10:15 PM CDT [facility] Comment: The results [...] Location / / Volume Laterality Blood (Blood, 02/16/2019 2:03 PM 02/17/20 19 5:38 Venous) CDT PM CDT Chitra Berumen APRN, CNP LAB BLOOD ORDERABLES Performing Organization Address [facility] Phon e Number [facility] [address] [place] [phone] (ABNORMAL) TSH (02/16/2019 2:03 PM CDT) Analysis Performed At Patho logist Time Signature TSH, Sensitive 4.89 (H) 0.46 - 02/16/2019 [facility] 4.68 mIU/L 10:15 PM CDT [facility] Comment: The results from this [...] Location / / Volume Laterality Blood (Blood, 02/16/2019 2:03 PM 02/17/20 19 5:38 Venous) CDT PM CDT Chitra Berumen APRN, CNP LAB BLOOD ORDERABLES Performing Organization Address City/State/ZIP Code Phon e Number [facility] [address] [place] [address] documented in this encounter Visit Diagnoses Diagnosis Hypothyroidism, unspecified type - Prima ry documented in this encounter Care Teams Tablet Machine Operator Relationship Specialty Start Date End Date Chitra Berumen APRN, TILE MOLDER HAND PCP - General 05/02/18 06/02/[address] [place] [address] documented as of this encounter
--- OUTSIDE RECORDS SUMMARY | 2022-07-09 10:05 | XMS_ITS | Encounter Summary ---
:1980 Author Organization [facility] Address [address] [place] [address] Care Team Providers Name Role Phone Chitra Berumen CAR RUNNER, CHARTERED ACCOUNTANT Primary Care Provider [phone] Encounter Details Date Type Department Care Team Description 06/05/2019 Orders Only Avinash Little Chitra Berumen, Hypothyroidism, [address] DRE[place]OPEZ unspecified type Avinash Little [place] [address] [facility] [address] [place] [address] Social History Tobacco Use Types Packs/Day Years [...] type documented in this encounter Care Teams Pediatric Speech Language Pathologist Relationship Specialty Start Date End Date Chitra Berumen, JOHN, CHARTERED ACCOUNTANT PCP - General 05/02/18 06/02/20 100 [place] [address] documented as of this encounter
--- OUTSIDE RECORDS SUMMARY | 2022-07-09 10:05 | XMS_ITS | Encounter Summary ---
:1980 Author Organization [facility] Address [address] [place] [address] Care Team Providers Name Role Phone None, Pcp Primary Care Provider Unavailable Encounter Details Date Type Department Care Team Description 04/18/2020 Telephone Wayne Little Chitra Berumen, [address] WIND TURBINE INSTALLER, [place], [place] [address] [address] [facility] [address] [phone] [place], [place] [address] Social History Tobacco Use [...] on filedocumented in this encounter Care Teams Foot Orthopedist Relationship Specialty Start Date End Date None, Pcp PCP - General Gift Consultant 03/27/21 [address] [place] [address] documented as of this encounter
--- OUTSIDE RECORDS SUMMARY | 2022-07-09 10:05 | XMS_ITS | Encounter Summary ---
:1980 Author Organization [facility] Address [address] [place] [address] Care Team Providers Name Role Phone Chitra Berumen CLIP COATER, PHOTOGRAPHIC INTELLIGENCE OFFICER Primary Care Provider [phone] Reason for Visit Reason Onset Date Comments Med Refill 07/25/2019 Encounter Details Date Type Department Care Team Description 07/25/2019 Refill [place] Chitra Berumen, Acne, unspecified acne [address] CLIP COATER, PHOTOGRAPHIC INTELLIGENCE OFFICER type (Primary Dx) [place], [place] [address] [address] [facility] [address] [phone] [place], [place] [address] Social History Tobacco Use Types Packs/Day Years Used Date Never Smoker Smokeless Tobacco: Never Used Alcohol Use Standard Drinks/Week Comments Not Currently 0 (1 standard drink = 0.6 oz pure alcoho l) Sex Assigned at Date Recorded Not on file documented as of this encounter Miscellaneous Notes Telephone Encounter - Izabella Riojas MA - 07/25/2019 11:57 AM CDT Last visit in Provider Department: 03/02/2019 [facility] Upcoming appointment with Provider: None Last Rx: no information found in chart regarding last rx Requested Prescriptions Pending Prescriptions Disp Refills ??? clindamycin-benzoyl peroxide (BENZACLIN) gel 50 g 0 Sig: Apply topically 2 (two) times a day Apply topically 2 times daily documented in this encounter Plan of Treatment Not on filedocumented as of this encounter Visit Diagnoses Diagnosis Acne, unspecified acne type - Primary documented in this encounter Care Teams Yard Loader Operator Relationship Specialty Start Date End Date Chitra Berumen, CLIP COATER, PHOTOGRAPHIC INTELLIGENCE OFFICER PCP - General 05/02/18 06/02/20 [address] [facility] [place] [address] documented as of this encounter
--- OUTSIDE RECORDS SUMMARY | 2022-07-09 10:05 | XMS_ITS | Encounter Summary ---
:1980 Author Organization [facility] Address [address] [place] [address] Care Team Providers Name Role Phone Chitra Berumen PLISSE MACHINE OPERATOR, MEDIA PLANNER Primary Care Provider [phone] Reason for Visit Reason Onset Date Comments U/S referral 05/08/2019 Encounter Details Date Type Department Care Team Description 05/08/2019 Telephone [place] Chitra Berumen, U/S referral [address] PLISSE MACHINE OPERATOR, MEDIA PLANNER [place], [place] [address] [address] [facility] [address] [phone] [place], [place] [address] Social History Tobacco Use Types Packs/Day Years Used Date Never Smoker Smokeless Tobacco: Never Used Alcohol Use Standard Drinks/Week Comments Not Currently 0 (1 standard drink = 0.6 oz pure alcoho l) Sex Assigned at Date Recorded Not on file documented as of this encounter Miscellaneous Notes Telephone Encounter - Khushbu Lackey LPN - 05/08/2019 12:07 PM CDT Noted Telephone Encounter - Kat Posadas - 05/08/2019 11:41 AM CDT Pt called, information was relayed to her, she is going to call [facility] radiology to schedule the U/S. Telephone Encounter - Kat Posadas - 05/08/2019 11:21 AM CDT Kim with [facility] radiology called stating they received the ultrasound referral for thePt. When trying to call to schedule the appointment they are unable to reach her or to leave a message, as her mailbox is full. She said they generally do not call the emergency contact center professional (Pt's ) or send a letter...but she said if we want to, that's fine. If we can somehow let the patient know she can call [phone] to schedule the ultrasound they would appreciate it. documented in this encounter Plan of Treatment Not on filedocumented as of this encounter Visit Diagnoses Not on filedocumented in this encounter Care Teams Director Supply Chain Relationship Specialty Start Date End Date Chitra Berumen, PLISSE MACHINE OPERATOR, MEDIA PLANNER PCP - General 05/02/18 06/02/[address] [place] [address] documented as of this encounter
--- OUTSIDE RECORDS SUMMARY | 2022-07-09 10:05 | XMS_ITS | Encounter Summary ---
:1980 Author Organization [facility] Address [address] [place] [address] Care Team Providers Name Role Phone Chitra Berumen APRN, DREW Primary Care Provider Reason for Visit Reason Onset Date Comments Med Refill 09/20/2018 Encounter Details Date Type Department Care Team Description 09/20/2018 Refill Wayne Little Chitra Berumen, Hypothyroidism, [address] WATER RESOURCE ENGINEERING SPECIALISTDREW [place] unspecified type MARJORIE Tolbert [address] [address] [address] (Primary Dx) [phone] [place] GARNET[place] [address] Social History Tobacco Use Types Packs/Day Years Used Date Never Assessed Sex Assigned at Date Recorded Not on file documented as of this encounter Miscellaneous Notes Telephone Encounter - Esperanza Herrera MA - 09/20/2018 3:17 PM CST I have pended a medication refill for your review. PPING SHOVEL OILER documented in this encounter Plan of Treatment Not on filedocumented as of this encounter Visit Diagnoses Diagnosis Hypothyroidism, unspecified type - Prima ry documented in this encounter Care Teams Appeals Analyst Relationship Specialty Start Date End Date Chitra Berumen APRN, DREW PCP - General 05/02/18 06/02/[address] [place] [id number] documented as of this encounter
--- OUTSIDE RECORDS SUMMARY | 2022-07-09 10:05 | XMS_ITS | Encounter Summary ---
:[address] [facility] Address [address] [place] [address] Care Team Providers Name Role Phone Chitra Berumen APRN, CNP Primary Care Provider [phone] Reason for Referral Consultation (Routine) - Closed Specialty Diagnoses / Procedures Referred By Contact Refer red To Contact Diagnoses Dysfunctional uterine bleeding Chitra Berumen, [facility] g [facility] [address] [place] [address] [place] [address] Phone: Fax: Referral ID Status Reason Start Date Expiration Date Visits Requ ested Visits Authorized [id number] Closed 05/07/2019 05/07/2020 1 1 Encounter Details Date Type Department Care Team Description 05/07/2019 Telephone [place] Chitra Berumen, [address] [facility] [address] DRE[place] LOPE[place], [place] [address] [address] [phone] [place], [place] [address] Social History Tobacco Use Types Packs/Day Years Used Date Never Smoker Smokeless Tobacco: Never Used Alcohol Use Standard Drinks/Week Comments Not Currently 0 (1 standard drink = 0.6 oz pure alcoho l) Sex Assigned at Date Recorded Not on file documented as of this encounter Miscellaneous Notes Telephone Encounter - Meseret Winter - 05/08/2019 9:15 AM CDT Referral faxed. Telephone Encounter - Preeti Cruz RN - 05/08/2019 8:38 AM CDT Please fax US order to [facility] Radiology. Telephone Encounter - Chitra Berumen APRN, CNP - 05/07/2019 5:13 PM CDT The patient will proceed with a pelvic ultrasound for dysfunctional uterine bleeding at [facility]. documented in this encounter Plan of Treatment Scheduled Referrals Name Type Priority Associated Diagnoses Order S [facility] Ambulatory External Outpatient Referral Routine Dysfunctional uterine Ordered: Referral bleeding 05/07/2019 documented as of this encounter Visit Diagnoses Diagnosis Dysfunctional uterine bleeding - Primary Other disorder of menstruation and other abnormal bleeding from female genital tract documented in this encounter Care Teams Composition Floor Setter Relationship Specialty Start Date End Date Chitra Berumen APRN, RUGBY UNION FOOTBALLER PCP - General 05/02/18 06/02/[address] [place] [address] documented as of this encounter
--- OUTSIDE RECORDS SUMMARY | 2022-07-09 10:05 | XMS_ITS | Encounter Summary ---
:1980 Author Organization [facility] Address [address] [place] [address] Care Team Providers Name Role Phone Chitra Berumen APRN, CNP Primary Care Provider [phone] Reason for Visit Reason Onset Date Comments Med Refill 09/28/2018 Encounter Details Date Type Department Care Team Description 09/28/2018 Refill Wayne Little Chitra Berumen, Major depressive [address] DREW LOPEZ disorder with single [place] Tol[place] [address] episode, remission [phone] [place] [address] status unspecified (Primary Dx) Social History Tobacco Use Types Packs/Day Years Used Date Never Assessed Sex Assigned at Date Recorded Not on file documented as of this encounter Miscellaneous Notes Telephone Encounter - Esperanza Herrera MA - 09/28/2018 12:31 PM CST I have pended a medication refill for your review. CH DEVELOPER documented in this encounter Plan of Treatment Not on filedocumented as of this encounter Visit Diagnoses Diagnosis Major depressive disorder with single ep isode, remission status unspecified - Primary documented in this encounter Care Teams Editorial Manager Relationship Specialty Start Date End Date Chitra Berumen, DREW LOPEZ PCP - General 05/02/18 06/02/[address] [place] [address] documented as of this encounter
--- OUTSIDE RECORDS SUMMARY | 2022-07-09 10:05 | XMS_ITS | Encounter Summary ---
:1980 Author Organization [facility] Address [address] [place] [address] Care Team Providers Name Role Phone Chitra Berumen APRN, CHEMICAL CHECKER Primary Care Provider [phone] Reason for Visit Reason Onset Date Comments Ultrasound 05/17/2019 Encounter Details Date Type Department Care Team Description 05/17/2019 Telephone AlturasChitra aTbor, Ultrasound [address] OIL GAUGER, CHEMICAL CHECKER [place], [place] [address] [facility] [address] [phone] [place], [place] [address] Social History Tobacco Use Types Packs/Day Years Used Date Never Smoker Smokeless Tobacco: Never Used Alcohol Use Standard Drinks/Week Comments Not Currently 0 (1 standard drink = 0.6 oz pure alcoho l) Sex Assigned at Date Recorded Not on file documented as of this encounter Miscellaneous Notes Telephone Encounter - Preeti Cruz RN - 05/17/2019 11:09 AM CDT Report on providers desk. Telephone Encounter - Preeti Cruz RN - 05/17/2019 9:36 AM CDT Patient report requested. Telephone Encounter - Chitra Berumen APRN, CHEMICAL CHECKER - 05/17/2019 8:54 AM CDT Please call [facility] and request the ultrasound report. Ishaan Blake Telephone Encounter - Kat Katharina - 05/17/2019 8:09 AM CDT Pt called to let Ishaan Berumen know she had her ultrasound completed at [facility] on Tuesday05/11/19. documented in this encounter Plan of Treatment Not on filedocumented as of this encounter Visit Diagnoses Not on filedocumented in this encounter Care Teams Sales Ambassador Relationship Specialty Start Date End Date Chitra Berumen APRN, CHEMICAL CHECKER PCP - General 05/02/18 06/02/[address] [place] [id number] documented as of this encounter
--- OUTSIDE RECORDS SUMMARY | 2022-07-09 10:05 | XMS_ITS | Encounter Summary ---
:1980 Author Organization [facility] Address [address] [place] [address] Care Team Providers Name Role Phone Chitra Berumen LIVING SKILLS ADVISOR, DIESEL DINKEY ENGINEER Primary Care Provider [phone] Reason for Visit Reason Comments Med Refill Encounter Details Date Type Department Care Team Description 05/02/2019 Refill Avinash Little Chitra Berumen, Anxiety; [address] LIVING SKILLS ADVISOR, DIESEL DINKEY ENGINEER Depression, unspecified depression type Avinash Little [place] [address] [address] [facility] [address] [phone] [place], [place] [address] Social History Tobacco Use Types Packs/Day Years Used Date Never Smoker Smokeless Tobacco: Never Used Alcohol Use Standard Drinks/Week Comments Not Currently 0 (1 standard drink = 0.6 oz pure alcoho l) Sex Assigned at Date Recorded Not on file documented as of this encounter Miscellaneous Notes Telephone Encounter - Susanna Roy MA - 05/07/2019 3:26 PM CDT Last visit in Provider Department: 03/02/19 Upcoming appointment with Provider: None Last Rx: 03/02/19 # 30, 1 refill Requested Prescriptions Pending Prescriptions Disp Refills ??? buPROPion XL (WELLBUTRIN XL) 150 MG 24 hr tablet [Pharmacy Med Name: BUPROPION HCL ER (XL) [id number]] 30 tablet 1 Sig: TAKE ONE TABLET BY MOUTH EVERY DAY TAKE IN THE MORNING. DO NOT CUT, CRUSH OR CHEW 03/02/19 PHQ9: 11 / GAD7: 11 documented in this encounter Plan of Treatment Not on filedocumented as of this encounter Visit Diagnoses Diagnosis Anxiety Anxiety state, unspecified Depression, unspecified depression type documented in this encounter Care Teams Group Program Manager Relationship Specialty Start Date End Date Chitra Berumen APRN, DIESEL DINKEY ENGINEER PCP - General 05/02/18 06/02/20 [address] [facility] [place] [address] documented as of this encounter
--- OUTSIDE RECORDS SUMMARY | 2022-07-09 10:05 | XMS_ITS | Encounter Summary ---
:1980 Author Organization [facility] Address [address] [place] [address] Care Team Providers Name Role Phone Ata Chitra Morales APRN, COOKER SODA Primary Care Provider [phone] Encounter Details Date Type Department Care Team Description 02/16/2019 Lab Wayne Little Hypothyroidism, unspecified [address] type [place] [address] Social History Tobacco Use Types Packs/Day Years Used Date Never Assessed Sex Assigned at Date Recorded Not on file documented as of this encounter Plan of Treatment Not on filedocumented as of this encounter Procedures Procedure Name Priority Date/Time Associated Diagnosis Comme nts T3 Routine 02/16/2019 2:03 PM Hypothyroidism, Result s for this CDT unspecified type procedure a re in the results section. TSH Routine 02/16/2019 2:03 PM Hypothyroidism, Result s for this CDT unspecified type procedure a re in the results section. T4, FREE Routine 02/16/2019 2:03 PM Hypothyroidism, Result s for this CDT unspecified type procedure a re in the results section. documented in this encounter Results (ABNORMAL) TSH (02/16/2019 2:03 PM CDT) Analysis Performed At [facility] Time Signature TSH, Sensitive 4.89 (H) 0.46 - 02/16/2019 [place] 4.68 mIU/L 10:15 PM [facility] Comment: The results from this or [...] CNP LAB BLOOD ORDERABLES Performing Organization Address [facility] Phon e Number [facility] [address] [place] [address] (ABNORMAL) T3 (02/16/2019 2:03 PM CDT) athologist Signature T3, Total 0.91 (L) 0.97 [...] CNP LAB BLOOD ORDERABLES Performing Organization Address [facility] Phon e Number [facility] [address] [place] [address] T4, free (02/16/2019 2:03 PM CDT) athologist Signature Free T4 1.02 0.78 - 2.19 02/16/2019 [facility] ng/dL 9:56 PM CDT [facility] Comment: [...] Organization Address City/State/ZIP Code Phon e Number [facility] [address] [place] [phone] documented in this encounter Visit Diagnoses Diagnosis Hypothyroidism, unspecified type documented in this encounter Care Teams Site Controller Relationship Specialty Start Date End Date Chitra Berumen APRN, COOKER SODA PCP - General 05/02/18 06/02/[address] [place] [id number] documented as of this encounter
--- OUTSIDE RECORDS SUMMARY | 2022-07-09 10:05 | XMS_ITS | Encounter Summary ---
:[address] [facility] Address [address] [place] [address] Care Team Providers Name Role Phone Chitra Berumen APRN, CNP Primary Care Provider [phone] Reason for Visit Reason Comments Annual Exam Encounter Details Date Type Department Care Team Description 03/02/2019 Office Visit Avinash Little Chitra Berumen Annual physical exam (Primar y Dx); [address] M, DREW LOPEZ Hypothyroidism, unspecified type; Avinash Little [place] [address] Anxiety; [address] [place] [address] Depression, unspecified depression type; [phone] Dysfunct ional uterine bleeding Social History Tobacco Use Types Packs/Day Years Used Date Never Smoker Smokeless Tobacco: Never Used Alcohol Use Standard Drinks/Week Comments Not Currently 0 (1 standard drink = 0.6 oz pure alcoho l) Sex Assigned at Date Recorded Not on file documented as of this encounter Last Filed Vital Signs Vital Sign Reading Time Taken Comments Blood Pressure 92/66 03/02/2019 8:03 AM CDT Pulse 88 03/02/2019 8:03 AM CDT Temperature 37 ??C (98.6 ??F) 03/02/2019 8:03 AM CDT Respiratory Rate 16 03/02/2019 8:03 AM CDT Oxygen Saturation 98% 03/02/2019 8:03 AM CDT Inhaled Oxygen Concentration - - Weight 67 kg (147 lb 11.3 oz) 03/02/2019 8:03 AM CDT Height 167 cm (5' 5.75) 03/02/2019 8:03 AM CDT Body Mass Index 24.02 03/02/2019 8:03 AM CDT documented in this encounter Patient Instructions Patient InstructionsChrisnieves Berumen APRN, CNP - 03/02/2019 8:00 AM CDT Decrease Lexapro to 5 mg daily x one week and start the Wellbutrin 150 XL mg daily. x 3 months documented in this encounter Progress Notes Chitra Berumen APRN, CNP - 03/02/2019 8:00 AM CDT Well Adult - Estab Subjective Patient ID: Ester Do is a 38 y.o. female presenting for the following concerns. Chief Complaint Patient presents with ??? Annual Exam HISTORY OF PRESENT ILLNESS: The patient is an otherwise healthy 38-year-old female presenting ambulatory to the clinical settingtoday for an annual physical. The patient reports she formally exercises for 30 minutes most days ofthe week. The patient feels she attains an adequate amount of dietary calcium by drinking almond milk, and eating string cheese and yogurt. The patient's immunizations are up to date, having had the Tdap on 05/24/2016. 2, para 2. The patient had a normal Pap smear on 05/13/2017, no HPV co-testing, and will be due 2019. No abnormal Pap smears. The patient???s last menstrual period was a week andhalf ago, having an abnormal menstrual pattern since September, having a menses every 2 weeks. 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 She is sexually active with a male partner, her , and had tubal ligationin 2010, as a form of contraception. The patient's past medical history includes headaches, hypothyroidism secondary to Graves' disease, gestational diabetes, chronic neck pain, acne, having one grand mal seizure when she was younger, decreased hearing, stress incontinence, depression, and general anxiety disorder. The patient is no longer having headaches. The patient sees Dr. Castillo for her chronic neck pain with fair relief. The patient was diagnosed with Graves' disease at the age of 32, had radiation to her thyroid, and then became hypothyroid. She is currently on levothyroxine 112 mcg alternating with 100 mcg every other day, having normal TSH levels. The patient has a history of anxiety and depression and is currently on Lexapro 10 mg daily, which is not effective in controlling her symptoms. The patient feels the Lexapro may be causing fatigue and weight gain. The patient reports she has gained 30 to 35 pounds since starting the Lexapro about five years ago; with increasing weight in her lower abdomen and arms. The patient has only been on Lexapro, and at one time she was on 15 mg daily, which caused her to feel fatigued and foggy; therefore, it was decreased to 10 mg daily. The patient feels her symptoms are predominately anxiety, and she infrequently has palpitations when her anxiety level is high. The patient completed a PHQ-9 and CAYLA-7 form today. The patient has a strong family history of melanoma, including a brother diagnosed at the age of 35. The patient does has a yearly dermatology examination, in [place], because of this family history. The patient???s family members all go to the same skull grinder. 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 The patient reports she has an audiology appointment scheduled for today, for her persistent decreased hearing for the past 5 or 10 years, which she feels may be have from loud exposure to music or wearing ear buds. No ear injury. The following portions of the patient's chart were reviewed in this encounter and updated as appropriate: Tobacco Allergies Meds Problems Med Hx Surg Hx Fam Hx Soc Hx Current Outpatient Medications: ??? escitalopram (LEXAPRO) 10 MG tablet, Take 1 tablet (10 mg total) by mouth 1 (one) time each day,Disp: 90 tablet, Rfl: 2 ??? levothyroxine (SYNTHROID, LEVOTHROID) 100 MCG tablet, Take 1 tablet (100 mcg total) by mouth every other day ALTERNATING WITH 112mcg every other day., Disp: 45 tablet, Rfl: 3 ??? levothyroxine (SYNTHROID, LEVOTHROID) 112 MCG tablet, Taking one tablet by mouth every other dayALTERNATING with 100 mcg every other day., Disp: 45 tablet, Rfl: 3 ??? buPROPion XL (WELLBUTRIN XL) 150 MG 24 hr tablet, Take 1 tablet (150 mg total) by mouth 1 (one) time each day in the morning Do not crush, chew, or split., Disp: 30 tablet, Rfl: 1 ??? norethindrone-ethinyl estradiol (10/15) 1-20 MG-MCG per tablet, Take 1 tablet by mouth 1(one) time each day, Disp: 84 tablet, Rfl: 0 No Known Allergies Immunization History Administered Date(s) Administered ??? Influenza, Unspecified 09/26/2009, 07/13/2013 ??? Tdap 05/24/2016 Past Medical History: Diagnosis Date ??? Acne ??? Depression ??? Diabetes, gestational ??? Generalized anxiety disorder ??? Graves disease ??? Headache ??? Hyperthyroidism ??? Neck pain ??? Seizure grand mal Past Surgical History: Procedure Laterality Date ??? CHOLECYSTECTOMY 2001 ??? TUBAL LIGATION 2011 Family History Problem Relation Age of Onset ??? Hypertension Mother ??? Asthma Brother ??? Anesthesia problems Maternal Grandmother ??? Heart disease Maternal Grandfather ??? Prostate cancer Maternal Grandfather ??? Stroke Maternal Grandfather ??? Cancer Paternal Grandmother ??? Breast cancer Other ??? Depression Other ??? Anxiety disorder Other ??? Melanoma Other multiple family members ??? Alcohol abuse Other Social History Socioeconomic History ??? Marital status: Spouse name: Not on file ??? Number of children: Not on file ??? Years of education: Not on file ??? Highest education level: Not on file Occupational History ??? Occupation: 2 part-time jobs Social Needs ??? Financial resource strain: Not on file ??? Food insecurity: Worry: Not on file Inability: Not on file ??? Transportation needs: Medical: Not on file Non-medical: Not on file Tobacco Use ??? Smoking status: Never Smoker ??? Smokeless tobacco: Never Used Substance and Sexual Activity ??? Alcohol use: Not Currently ??? Drug use: Not Currently ??? Sexual activity: Not on file Lifestyle ??? Physical activity: Days per week: Not on file Minutes per session: Not on file ??? Stress: Not on file Relationships ??? Social connections: Talks on phone: Not on file Gets together: Not on file Attends jew service: Not on file Active member of club or organization: Not on file Attends meetings of clubs or organizations: Not on file Relationship status: Not on file ??? Intimate partner violence: Fear of current or ex partner: Not on file Emotionally abused: Not on file Physically abused: Not on file Forced sexual activity: Not on file Other Topics Concern ??? Not on file Social History Narrative ??? Not on file REVIEW OF SYSTEMS: GENERAL: No fever, chills and/or change in appetite. The patient reports she has gained 30 to 35 pounds since starting Lexapro 5 years ago. The patient has a certain level of fatigue. INTEGUMENTARY: See HPI. There is a strong family history of melanoma, including a brother diagnosed at the age of 35. The patient has a yearly dermatology examination, because of this family history, and the family members all go to the same skull grinder. The patient reports she recently had a biopsyin her mid back, which was positive for single cell carcinoma, and she continues to be under dermatology care on a yearly basis. HEAD AND NECK: The patient has a history of headaches, has been treated by Ольга Castillo, with a marked decreased in the frequency of her headaches. The patient denies any dizziness. EYES: No visual changes. She does not wear corrective lenses. The patient does not see an eye doctoron a regular basis. EARS: The patient reports hearing loss in both of her ears, for the past 5 to 10 years, which is worsening. She feels this may be from loud music and wearing ear buds as a teenager. She did not work danny [employer] nor have ear infections as a child. No tinnitus. The patient is scheduled to see an laser beam machine operator this afternoon. NOSE: No chronic sinusitis. MOUTH AND THROAT: No problems with her teeth or gums. She sees a dentist on a regular basis. CARDIOVASCULAR: The patient denies chest pain, discomfort, palpitations, peripheral edema, murmurs, syncope, presyncope, lightheadedness and/or dizziness. RESPIRATORY: No dyspnea on exertion, cough, asthma and/or wheezing. BREASTS: No nipple discharge, change in appearance, and/or masses. The patient did have bilateral breast implants in 2009. GASTROINTESTINAL: No nausea, vomiting, abdominal pain, diarrhea, constipation and/or hematochezia. GENITOURINARY: No urinary frequency, dysuria, or urgency. The patient has stress incontinence with sneezing, coughing, and laughing. GYNECOLOGIC: 2, para 2. The patient is sexually active and had a tubal ligation in 2010 as aform of contraception. The patient had a normal Pap smear on 05/13/2017, due in 2019. No abnormal Papsmears. The patient's last menstrual period was a week and a half ago, having one every 14 days, which is new, since September 26 after starting a new job, with 17 female coworkers. ENDOCRINE: The patient has a history of Graves' diagnosed at the age of 32, had radiation to her thyroid, now hypothyroidism, and currently on Synthroid 112 mcg alternating with Synthroid 110 mcg everyother day. History of gestational diabetes. MUSCULOSKELETAL: The patient reports she jammed her left hand when taking her brothers dog out of the house, weeks ago, injuring it against a door, with significant pain, as she points to the CMC joint. She evaluated at [facility], was diagnosed with a fracture, as she points to the lower portion of the palmar surface of her hand, and wore a brace. The patient reports she persistent discomfort as she points to the CMC joint, and is uncertain if this is still a healing process, or if there issomething to be concerned about. NEUROLOGIC: No numbness, tingling, weakness, syncope, and/or vertigo. PSYCHIATRIC: The patient has a longstanding history of anxiety an depression and is currently on Lexapro 10 mg daily, which is not controlling her symptoms, and possibly leading to weight gain and fatigue. Objective Visit Vitals BP 92/66 (BP Location: Left arm, Patient Position: Sitting) Pulse 88 Temp 37 ??C (98.6 ??F) (Temporal) Resp 16 Ht 1.67 m (5' 5.75) Wt 67 kg (147 lb 11.3 oz) SpO2 98% BMI 24.02 kg/m?? Smoking Status Never Smoker BSA 1.76 m?? GENERAL: The patient is alert, orientated, and in no apparent distress. HEENT: Head normocephalic. Eyes - pupils round and reactive to light. EOMs intact without nystagmus.Ears normal canals, normal pearly juárez TMs bilaterally. NECK: Supple. No cervical or posterior lymphadenopathy, no thyromegaly. THROAT: Normal oropharynx. Uvula rises midline. BREASTS: Symmetric. Bilateral breast implants. No retractions, discharge or lesions. Contour and consistency firm and homogenous. No masses or tenderness. No lymphadenopathy. INTEGUMENTARY: Skin is warm and dry. The patient has a healing scar on her proximal thoracic back, where she had her skin biopsy. RESPIRATORY: Lungs are clear bilaterally. No wheezing. CARDIOVASCULAR: Normal heart rate and rhythm. No murmur. No peripheral edema. GASTROINTESTINAL: Abdomen soft, non-tender, no organomegaly, positive bowel sounds. CRYPTANALYST: The patient declines an examination. MUSCULOSKELETAL: The patient moves freely about the room. NEUROLOGICAL: The patient is alert, oriented to person, place, time, and situation. PSYCHIATRIC: The patient's PHQ-9 score was 11 and CAYLA-7 score was 11 today. DIAGNOSTICS: None. Assessment/Plan Ester was seen today for annual exam. Diagnoses and all orders for this visit: Annual physical exam (Primary) Hypothyroidism, unspecified type - levothyroxine (SYNTHROID, LEVOTHROID) 112 MCG tablet; Taking one tablet by mouth every other day ALTERNATING with 100 mcg every other day. - levothyroxine (SYNTHROID, LEVOTHROID) 100 MCG tablet; Take 1 tablet (100 mcg total) by mouth everyother day ALTERNATING WITH 112mcg every other day. Anxiety - buPROPion XL (WELLBUTRIN XL) 150 MG 24 hr tablet; Take 1 tablet (150 mg total) by mouth 1 (one) time each day in the morning Do not crush, chew, or split. Depression, unspecified depression type - buPROPion XL (WELLBUTRIN XL) 150 MG 24 hr tablet; Take 1 tablet (150 mg total) by mouth 1 (one) time each day in the morning Do not crush, chew, or split. Dysfunctional uterine bleeding - norethindrone-ethinyl estradiol (10/15) 1-20 MG-MCG per tablet; Take 1 tablet by mouth 1 (one) time each day Discussed the plan of care with the patient. The patient was encouraged to continue to formally exercise for 30 minutes a day. The patient attains an adequate amount of dietary calcium, 1000 mg daily. She had a Tdap in 05/16/2016. The patient had a normal Pap smear in 2016 and will be due in 2019. Prescribed X 3 months for cycle regulation. The patient will continue levothyroxine 112 mcg alternating with levothyroxine 110 mcg every other day for her hyperthyroidism. The patient will discontinuethe Lexapro, decreasing to 5 mg daily x1 week then discontinuing; and concurrently starting Wellbutrin 150 mg XL daily, quantity 30 tablets, with 1 refill. If this is effective the patient may call in for a refill, if ineffective, she should return for a follow up visit. The patient will continue a yearly dermatology evaluation. The patient was encouraged to consider an eye appointment and will proceed with her audiology appointment today. The patient was encouraged to call [facility] regardi ng the persistent discomfort she has in her left CMC joint. The patient agrees and understands this plan of care. Chitra Berumen APRN, DREW documented in this encounter Plan of Treatment Not on filedocumented as of this encounter Visit Diagnoses Diagnosis Annual physical exam - Primary Routine general medical examination at a health care facility Hypothyroidism, unspecified type Anxiety Anxiety state, unspecified Depression, unspecified depression type Dysfunctional uterine bleeding Other disorder of menstruation and other abnormal bleeding from female genital tract documented in this encounter Care Teams Automatic Furnace Operator Relationship Specialty Start Date End Date Chitra Berumen APRN, SELF PROPELLED MINING MACHINE OPERATOR PCP - General 05/02/18 06/02/20 [address] [facility] [address] [place] [address] documented as of this encounter
--- OUTSIDE RECORDS SUMMARY | 2022-07-09 10:05 | XMS_ITS | Encounter Summary ---
:1980 Author Organization [facility] Address [address] [place] [address] Care Team Providers Name Role Phone Chitra Berumen INTEGRATION TECHNICIAN, HEAVY REPAIRER Primary Care Provider [phone] Reason for Visit Reason Onset Date Comments Wellbutrin Rx refill 03/30/2019 Encounter Details Date Type Department Care Team Description 03/30/2019 Telephone [place] Chitra Berumen, Wellbutrin Rx refill [address] INTEGRATION TECHNICIAN, HEAVY REPAIRER [place], [place] [address] [address] [facility] [address] [phone] [place], [place] [address] Social History Tobacco Use Types Packs/Day Years Used Date Never Smoker Smokeless Tobacco: Never Used Alcohol Use Standard Drinks/Week Comments Not Currently 0 (1 standard drink = 0.6 oz pure alcoho l) Sex Assigned at Date Recorded Not on file documented as of this encounter Miscellaneous Notes Telephone Encounter - Khushbu Lackey LPN - 03/30/2019 12:33 PM CDT Patient informed there is a refill and pharmacy was going to fill it today for her. Telephone Encounter - Kat Posadas - 03/30/2019 12:24 PM CDT Pt called stating she contacted [facility] about a week ago for her Wellbutrin refill and they have not heard from her provider yet. Pt will be out of her medication on Tuesday. Please call Pt at [phone] to advise. documented in this encounter Plan of Treatment Not on filedocumented as of this encounter Visit Diagnoses Not on filedocumented in this encounter Care Teams Information Technology Internship Relationship Specialty Start Date End Date Chitra Berumen APRN, HEAVY REPAIRER PCP - General 05/02/18 06/02/20 100 [facility] [place] [id number] documented as of this encounter
--- OUTSIDE RECORDS SUMMARY | 2022-07-09 10:05 | XMS_ITS | Encounter Summary ---
:1980 Author Organization [facility] Address [address] [place] [address] Care Team Providers Name Role Phone Chitra Berumen APRN, DREW Primary Care Provider [phone] Reason for Visit Reason Onset Date Comments Thyroid lab requested 02/16/2019 Encounter Details Date Type Department Care Team Description 02/16/2019 Telephone [place] Chitra Berumen, Thyroid lab requested [address] DRE[place] LOPEZ [place], [place] [address] [address] [facility] [phone] [place], [place] [address] Social History Tobacco Use Types Packs/Day Years Used Date Never Assessed Sex Assigned at Date Recorded Not on file documented as of this encounter Miscellaneous Notes Telephone Encounter - Chitra Berumen APRN, CNP - 02/16/2019 11:56 AM CDT Orders placed. Telephone Encounter - Esperanza Herrera MA - 02/16/2019 11:[address] order. Telephone Encounter - Kat Posadas - 02/16/2019 11:34 AM CDT Pt called and made her annual exam appt for Tuesday03/02/19 with Ishaan Berumen. She wants to come in prior to that to have her thyroid level tested, so it can be discussed at her appt. Pt is coming in today 02/16/19 at 2:00 for her thyroid lab test. Please have orders ready. documented in this encounter Plan of Treatment Not on filedocumented as of this encounter Visit Diagnoses Not on filedocumented in this encounter Care Teams Honey Processor Relationship Specialty Start Date End Date Chitra Berumen, TELEVISION PICTURE TUBE REBUILDER, RN OBGYN PCP - General 05/02/18 06/02/20 [address] [place] [id number] documented as of this encounter
--- OUTSIDE RECORDS SUMMARY | 2022-07-09 10:05 | XMS_ITS | Encounter Summary ---
:1980 Author Organization [facility] Address [address] [place] [address] Care Team Providers Name Role Phone Chitra Berumen PATIENT APPOINTMENT COORDINATOR, FOOD SERVICE TECHNICIAN Primary Care Provider [phone] Encounter Details Date Type Department Care Team Description 05/19/2019 Telephone [place] Chitra Berumen, [address] PATIENT APPOINTMENT COORDINATOR, FOOD SERVICE TECHNICIAN [place] [address] [address] [facility] [phone] [place], [place] [address] Social History Tobacco Use Types Packs/Day Years Used Date Never Smoker Smokeless Tobacco: Never Used Alcohol Use Standard Drinks/Week Comments Not Currently 0 (1 standard drink = 0.6 oz pure alcoho l) Sex Assigned at Date Recorded Not on file documented as of this encounter Miscellaneous Notes Telephone Encounter - Khushbu Lackey LPN - 05/21/2019 12:25 PM CDT Noted Telephone Encounter - Kat Posadas - 05/21/2019 12:23 PM CDT Paperwork faxed to [facility] at [phone] as requested. Telephone Encounter - Preeti Cruz RN - 05/21/2019 11:53 AM CDT Please fax OV note to the [facility] at the [facility] and [facility]. Telephone Encounter - Chitra Berumen APRN, CNP - 05/19/2019 10:13 AM CDT Discussed the patient's pelvic ultrasound report with her. Copy mailed to her. The patient has an upcoming ELECTRICIAN WIRING appointment scheduled for May 25. The patient's annual exam was faxed to [place] per the patient's request. documented in this encounter Plan of Treatment Not on filedocumented as of this encounter Visit Diagnoses Not on filedocumented in this encounter Care Teams Pediatric Pathologist Relationship Specialty Start Date End Date Chitra Berumen APRN, CNP PCP - General 05/02/18 06/02/[address] [place] [id number] documented as of this encounter
--- OUTSIDE RECORDS SUMMARY | 2022-07-09 10:05 | XMS_ITS | Encounter Summary ---
:1980 Author Organization [facility] Address [address] [place] [address] Care Team Providers Name Role Phone Chitra Berumen APRN, DREW Primary Care Provider [phone] Reason for Visit Reason Onset Date Comments control issues 04/30/2019 Encounter Details Date Type Department Care Team Description 04/30/2019 [place]phone [place], control issues [address]Z [place], [place] [address] [address] [facility] [address] [phone] [place], [place] [address] Social History Tobacco Use Types Packs/Day Years Used Date Never Smoker Smokeless Tobacco: Never Used Alcohol Use Standard Drinks/Week Comments Not Currently 0 (1 standard drink = 0.6 oz pure alcoho l) Sex Assigned at Date Recorded Not on file documented as of this encounter Miscellaneous Notes Telephone Encounter - Chitra Berumen APRN, CNP - 05/01/2019 1:28 PM CDT The patient does not a referral to OBGyn, as she continues to bleed despite the oral control. Will have her see OBGyn specialty. Telephone Encounter - Khushbu Lackey LPN - 04/30/2019 4:52 PM CDT Do you understand this Ishaan or do you want me to inquire Telephone Encounter - Eliana Linares - 04/30/2019 4:05 PM CDT control working the way she thought. documented in this encounter Plan of Treatment Not on filedocumented as of this encounter Visit Diagnoses Not on filedocumented in this encounter Care Teams Life Sciences Instructor Relationship Specialty Start Date End Date Chitra Berumen, LOCATION DIRECTOR, TRANSPORTATION MANAGER PCP - General 05/02/18 06/02/[address] [place], [place] [address], [place] [address] documented as of this encounter
[2022-07-09 11:34] LABS: Vitamin D 25 Hydroxy* 32 ng/mL (30-80)
[2022-07-09 12:22] LABS: Free T4 Free Thyroxine* 1.11 ng/dL (0.70-1.85)
[2022-07-09 16:41] LABS: Glucose* 83 mg/dL (60-115)
== END 2022-07-09 09:31 | disposition home or self-care (01) ==
PROVIDERS: Visit Provider Registered Nurse
DX: Z01.419 Encounter for gynecological examination (general) (routine) without abnormal findings (principal); R53.83 Other fatigue; E03.9 Hypothyroidism, unspecified; Z86.32 Personal history of gestational diabetes
CPT/HCPCS: 82306; 82947; 84439; 84443

== ENCOUNTER 2022-10-01 14:33 | Outpatient (CLI) | payer OTHER, SELFPAY ==
--- NOTE | 2022-10-01 14:40 | CRLHL7_ITS ---
For Patients: As a result of the Cures Act, medical imaging exams and procedure reports are released immediately into your electronic medical record. You may view this report before your referring provider. If you have questions, please contact your health care provider. BILATERAL SCREENING MAMMOGRAM WITH COMPUTER-AIDED DETECTION AND TOMOSYNTHESIS TECHNIQUE: CC, MLO and Implant-displaced views were obtained. These mammographic images have been obtained using full-field digital technique. These mammographic images were interpreted with the benefit of computer-aided detection. Breast Tomosynthesis was used in this interpretation. COMPARISON FILM: 09/11/21. FINDINGS: The breasts are heterogeneously dense, which may obscure small masses IMPRESSION: There is no radiographic evidence for malignancy. ASSESSMENT: BI-RADS Category 2: Benign RECOMMENDATION: Routine screening mammogram in 1 year. A lay language report of this examination will be provided to the patient. Garo Beverly M.D. Diagnostic Radiologist [email or web address] NEIL/pina Transcribed: 2:49 p.mPelon heller/Dictated by: Garo Beverly MD @ 10/04/2022 12:18:00 PM (Electronically Signed)
== END 2022-10-01 14:34 | disposition home or self-care (01) ==
LOC: MAMMO 14:35
PROVIDERS: Visit Provider Registered Nurse
DX: Z12.31 Encounter for screening mammogram for malignant neoplasm of breast (principal); R92.2 Inconclusive mammogram
CPT/HCPCS: 77063; 77067

== ENCOUNTER 2024-02-03 13:34 | Outpatient (CLI) | payer OTHER, SELFPAY ==
--- OUTSIDE RECORDS SUMMARY | 2024-02-03 13:39 | XMS_ITS | Encounter Summary ---
Author Name Unknown Organization [facility] Address [address] [place] [address] Care Team Providers Care Sewer Inspector Name Role Phone Melinda Yancey APRN Primary Care Provider Encounter Details Date Type Department Care Team (Late st Contact Info) Description 12/15/2023 Telephone [place] [address] [place] [address] Melinda Yancey APRN [address] [place] [id number] Social History Tobacco Use Types Packs/Day Years Used Date Smoking Tobacco: Never Smokeless Tobacco: Never Alcohol Use Standard Drinks/Week Comments Not Currently 0 (1 standard drink = 0.6 oz pur e alcohol) Humiliation, Afraid, Rape, and Kick questionnair e Answer Date Recorded Within the last year, have y ou been afraid of your partner or ex-partner? No 10/21/2023 Within the last year, have y ou been humiliated or emotionally abused in other ways by your partner or ex-partner? No Within the last year, have y ou been kicked, hit, slapped, or otherwise physically hurt by your partner or ex-partner? No 10/21/2023 Within the last year, have y ou been raped or forced to have any kind of sexual activity by your partner or ex-partner? No 10/21/2023 Social Connection and Isolat ion Panel [NHANES] Answer Date Recorded In a typical week, how many times do you talk on the phone with family, friends, or neighbors? More than three times a week 10/21/2023 How often do you get togethe r with friends or relatives? Once a week 10/21/2023 How often do you attend chur ch or orthodoxy services? Never 10/21/2023 Do you belong to any clubs o r organizations such as spiritism groups, unions, fraternal or athletic groups, or school groups? No 10/21/2023 How often do you attend meet ings of the clubs or organizations you belong to? Never 10/21/2023 Are you , , di vorced, , never , or living with a partner? 10/21/2023 AUDIT-C Answer Date Recorded Q1: How often do you have a drink containing alcohol? Never 10/21/2023 Q2: How many drinks containi ng alcohol do you have on a typical day when you are drinking? Patient does not drink Q3: How often do you have si x or more drinks on one occasion? Never 10/21/2023 Overall Financial Resource Strain (CARDIA) Answe r Date Recorded How hard is it for you to pa y for the very basics like food, housing, medical care, and heating? Not hard at all 10/21/2023 PHQ-2 Answer Date Recorded PHQ-9 Total Score 0 12/15/2023 [facility] - Occupational Stress Questionnaire Answer Date Recorded Do you feel stress - tense, restless, nervous, or anxious, or unable to sleep at night because your mind is troubled all the time - these days? Only a little 10/21/2023 Exercise Vital Sign Answer Date Recorde d On average, how many days pe r week do you engage in moderate to strenuous exercise (like a brisk walk)? 0 days 10/21/2023 On average, how many minutes do you engage in exercise at this level? 0 min 10/21/2023 Hunger Vital Sign Answer Date Recorded Within the past 12 months, y ou worried that your food would run out before you got the money to buy more. Never true 10/21/19 24 Within the past 12 months, t he food you bought just didn't last and you didn't have money to get more. Never true 10/21/2023 PRAPARE - Transportation Answer Date Re corded In the past 12 months, has l ack of transportation kept you from medical appointments or from getting medications? No 09/27 In the past 12 months, has l ack of transportation kept you from meetings, work, or from getting things needed for daily living? No 10/21/2023 Housing Stability Vital Sign Answer Sriram e Recorded In the last 12 months, was t here a time when you were not able to pay the mortgage or rent on time? No 10/21/2023 In the last 12 months, how many places have you lived? 1 10/21/2023 In the last 12 months, was t here a time when you did not have a steady place to sleep or slept in a penitentiary (including now)? No 10/21/2023 Sex and Gender Information Value Date Recorded Sex Assigned at Not on file Gender Identity Not on file Sexual Orientation Not on file documented as of this encounter Miscellaneous Notes * Telephone Encounter - Khushbu Lackey LPN - 12/15/2023 10:56 AM CDT Symptoms: Feet and body have been itching all week. Body and joints aching all week as well. This morning she woke up and her body / joints were really aching. Also this morning her hands were swollen. Her hands almost feel numb. Headache: only while cleaning the house this morning N/V: no Abdominal pain: no No swelling in feet or ankles No shoulder pain This morning she forced herself to go clean a house Fatigue going up the stairs, while she was cleaning this house this morning. Patient is wondering if she should be seen here or ER? [phone] documented in this encounter Plan of Treatment Not on file documented as of this encounter Visit Diagnoses Not on filedocumented in this encounter Care Teams Sewer Inspector Relationship Specialty Start Date End Date Melinda Yancey APRN [address] [place] [address] PCP - General 07/14/23 documented as of this encounter
--- OUTSIDE RECORDS SUMMARY | 2024-02-03 13:39 | XMS_ITS | Clinical Summary ---
Author Name Unknown Organization [facility] er Address [address] [place] [id number] Care Team Providers Care Volunteer Services Coordinator Name Role Phone Melinda Yancey APRN Primary Care Provider Allergies No known active allergies Medications Medication Sig Dispensed Refills Start Date End Date Status cholecalciferol (VITAMIN D-3) 25 MCG (1000 UT) tablet Take 1 tablet (1,000 Units total) by mouth 1 (one) time each day Active omega-3 (FISH OIL) 1000 MG capsule Take 1,200 mg by mouth 1 (one) time each day Active levothyroxine (SYNTHROID) 125 MCG tabletIndications:Hyp othyroidism, unspecified type Take 1 tablet (125 mcg total) by mouth 1 (one) time each day 90 tablet 3 10/28/2023 10/27/2024 Active sertraline (ZOLOFT) 100 MG tabletIndications:Anx iety with depression Take 1 tablet (100 mg total) by mouth 1 (one) time each day 90 tablet 3 10/28/2023 10/27/2024 Active sertraline (ZOLOFT) 50 MG tabletIndications:Anx iety with depression Take 1 tablet (50 mg total) by mouth 1 (one) time each day 90 tablet 3 10/28/2023 10/27/2024 Active Active Problems Problem Noted Date Diagnosed Date Visit for annual health examination 10/28/2023 Last Assessment & Plan: Declines Covid and Influenza vaccines Having Mammogram done on 10/31/2023 at outside facility Pap completed today Lab work ordered today, will contact patient with results Benign paroxysmal positional vertigo 10/28/2023 Last Assessment & Plan: Please call [facility] to schedule physical therapy appointment UARS (upper airway resistance syndrome) 02/25/20 Hypersomnolence 02/24/2023 Anxiety with depression 01/14/2023 Last Assessment & Plan: Psychological condition is improving with treatment. Continue current treatment regimen. Regular aerobic exercise. Psychological condition will be reassessed at the next regular appointment. Ester does see a phycologist Continue using Sertraline 150 mg daily Graves' disease 01/14/2023 Major depressive disorder, single episode 2016 Hypothyroidism 09/09/2016 Last Assessment & Plan: Continue using Levothyroxine 125 mcg daily Resolved Problems Problem Noted Date Diagnosed Date Resolved Date Acne 05/25/2019 01/26/2023 Encounters Date Type Department Care Team Description 12/15/2023 12:40 PM CDT Office Visit [place] [address] [facility] [address] [place] [address] Alli Caballero MD Arthralgia, unspecified joint (Primary Dx); Generalized pruritus 12/15/2023 Telephone [place] [address] [facility] [address] [place] [address] Melinda Yancey, CABLE TV INSTALLER from Last 3 Months Immunizations Name Administration Dates Next Due Influenza 6mo-64yrs Quad Pre servative Free IM 07/13/2013,09/26/2009 Influenza Split 09/26/2009 Influenza, Unspecified 07/13/2013,09/26/2009 Rabies 10/29/2021, 2,10/18/2021,2021 Tdap 10/15/2021,05/24/2016 Family History Medical History Relation Comments Asthma Brother 1 Heart disease Maternal Grandfather Prostate cancer Maternal Grandfather Stroke Maternal Grandfather Anesthesia problems Maternal Grandmother Hypertension Mother Alcohol abuse Other Anxiety disorder Other Breast cancer Other Depression Other Melanoma Other multiple family members Cancer Paternal Grandmother Relation Status Comments Brother 1 Alive Brother 2 Alive Brother 3 Alive Father Alive Maternal Grandfather Maternal Grandmother Mother Alive Other Paternal Grandmother Son 1 Alive Son 2 Alive Social History Tobacco Use Types Packs/Day Years Used Date Smoking Tobacco: Never Smokeless Tobacco: Never Tobacco Cessation:Counseling Given: Not Answered Alcohol Use Standard Drinks/Week Comments Not Currently [...] often do you attend chur ch or catholic services? Never 10/21/2023 Do you belong to any clubs o r organizations such as zoroastrianism groups, unions, fraternal or athletic groups, or [...] Date Recorded PHQ-9 Total Score 0 12/15/2023 [facility] Questionnaire Answer Date Recorded [...] slept in a nursing home (including now)? No 10/21/2023 Sex and Gender Information Value Date Recorded Sex Assigned at Not on file Gender Identity Not on file Sexual Orientation Not on file Last Filed Vital Signs Vital Sign Reading Time Taken Comments Blood Pressure 103/63 12/15/2023 12:44 PM CDT Pulse 78 12/15/2023 1:29 PM CDT Temperature 36.5 ??C (97.7 ??F) 12/15/2023 12:44 PM C DT Respiratory Rate 16 12/15/2023 12:44 PM CDT Oxygen Saturation 99% 12/15/2023 12:44 PM CDT Inhaled Oxygen Concentration - - Weight 69.4 kg (153 lb 1.6 oz) 12/15/2023 12:44 PM CDT Height 167 cm (5' 5.75) 10/28/2023 8:51 AM WAITER WAITRESS Body Mass Index 24.9 10/28/2023 8:51 AM WAITER WAITRESS Plan of Treatment Health Maintenance Due Date Last Done Comments COVID-19 Vaccine ( season) 2023 02/13/2021, 01/16/2021 Mammogram 09/29/2023 09/29/2022 Influenza Vaccine (Season Ended) 2024 07/13/2013, 07/13/2013, 09/26/2009, Additional history exists Pap Smear 10/28/2026 10/28/2023, 03/2020, 05/13/2017 DTaP,Tdap,and Td Vaccines (3 - Td or Tdap) 10/15/2031 10/15/2021, 05/24/2016 HPV Vaccines Aged Out No longer eligi ble based on patient's age to complete this topic Pneumococcal Vaccine: Pediatrics (0 to 5 Years) and At-Risk Patients (6 to 64 Years) Aged Out No longer eligible based on patient's age to complete this topic Procedures Procedure Name Priority Date/Time Associated Diagnosis Comments PAP TEST Routine 10/28/2023 9:29 AM WAITER WAITRESS Visit for annual health examination from Last 3 Months or Most Recently Relevant to Health Maintenance Results * Pap Smear (10/28/2023 9:29 AM WAITER WAITRESS) Sure Path PAP, screen 10/28/2023 9:29 AM WAITER WAITRESS 10/28/2023 1:58 PM WAITER WAITRESS Narrative [facility] - 11/02/2023 3:52 PM WAITER WAITRESS ? [facility] ? [address] ?[place] [address] ? Patient: ?ESTER DO ?Procedure: ? 10/28/2023 09:29 /Age/Sex: ??1980, 43 Y, F ? Received: ?10/28/2023 13:58 ?Accession #: ?? [id number] Billing: ?[id number] ?Patient Location: [facility] ?OFFICE Ordered by: ?? MEILNDA YANCEY APRN ? Attending: ? MELINDA YANCEY, ? CABLE TV INSTALLER ? FACTORY LAY OUT ENGINEER CYTOLOGY FINAL REPORT SPECIMEN: (A) SURE PATH PAP, SCREEN SPECIMEN DESCRIPTION: Cervical Received mucoid specimen in SurePath vial. CLINICAL INFORMATION: LMP: 09/30/2023 ?? Prev.normal: 2020 ?? SPECIMEN ADEQUACY: Satisfactory for Evaluation. ??Endocervical cells/transformation zone component present. GENERAL CATEGORIZATION: Negative for Intraepithelial Lesion or Malignancy (NILM). PAP Test Disclaimer Cervical cytology is a screening test primarily for squamous cancer and its precursors and has associated false-negative and false-positive results. Regular sampling and follow-up of unexplained clinical signs and symptoms are recommended to minimize the impact of false negative and false positive results. Screened By: ISABEL NGUYỄN(ASCP) Signed By: CANDIE FELTON <Sign Out Dr. Jovel> Reported: ??11/02/2023 ? Page 1 of 1 Melinda Yancey APRN LAB CYTOLOGY O RDERABLES [facility] [address] [place] [address] from Last 3 Months or Most Recently Relevant to Health Maintenance Care Teams Volunteer Services Coordinator Relationship Specialty Start Date End Date Melinda Yancey APRN [address] [place] [id number] PCP - General 07/14/23
--- OUTSIDE RECORDS SUMMARY | 2024-02-03 13:39 | XMS_ITS | Encounter Summary ---
Author Name Unknown Organization [facility] er Address [address] [place] [address] Care Team Providers Care Automatic Lathe Tender Name Role Phone Melinda Yancey APRN Primary Care Provider Reason for Visit * Reason Comments hand swelling Bilateral hand swell ing all week. Worse in the morning. Joint pain, redness, skin feel like it's stretched. Itching all over, feet are the worst. Headache, SOB with stairs Encounter Details Date Type Department Care Team (Late st Contact Info) Description 12/15/2023 12:40 PM CDT Office Visit [place] [address] [address] Alli Caballero MD [address] [place] [phone] Arthralgia, unspecified joint (Primary Dx); Generalized pruritus Social History Tobacco Use Types Packs/Day Years [...] often do you attend chur ch or restoration services? Never 10/21/2023 Do you belong to any clubs o r organizations such as pentecostal groups, unions, fraternal [...] Date Recorded PHQ-9 Total Score 0 12/15/2023 [facility] - Occupational Stress Questionnaire Answer Date [...] slept in a long term (including now)? 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 female here for Chief Complaint Patient presents with hand swelling Bilateral hand swelling all week. Worse in the morning. Joint pain, redness, skin feel like it's stretched. Itching all over, feet are the worst. Headache, SOB with stairs History of Present Illness The patient presents for evaluation of multiple medical concerns. Earlier this week, her feet were itching really bad, so she thought they were dry. Throughout the week, she realized she was itching everywhere. It started Tuesday or Tuesday. It started on the sides of her feet and then to the top. She denies any rash. She realized throughout the week that she was scratching herself all over. She thought it was due to water softener. It is worse at night when she is sitting around. She scratches her hair, forehead, arms, legs, back, and chest. This morning, she woke up and her hands were swollen and hurting really bad. Her joints started hurting really bad this week too. Today, they hurt really bad and it feels like her skin is stretched. It feels like every single bone joint is hurting in her hand. It feels like the skin is going to rip open and it feels hot. The swelling has gone down a little bit. She forces herself to go to work and use her hands a little bit. She woke up in the morning with stiffness and swelling in her hands. Her MCP joints hurt the worst. Her hands fell asleep while she was asleep. She got up and tried moving them and heating pack, but the feelings never went away. Her mobility is a little bit better, but it still hurts. This has never happened before. When she was at work, she was huffing and puffing and then she started getting a headache. She normally goes up a flight of stairs at work every day and does not have any p roblems. All of her joints are hurting really bad this week in her knees and hips, but nothing is really swollen. 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 Her ankles hurt when she is walking. She has been taking ibuprofen 800 mg once a day with food for her joints. She tries to take it oncea, but every once in a while, she has to do it twice a day. She denies any cough, cold, sniffles, rashes, or exposure to someone who is sick. She denies any sore throat or cough. Her last period was about 3 weeks ago. Her periods are regular. She denies any chance of .She had a tubal ligation. She gets hot flashes at night. She might have a couple of weeks where the hot flashes are harder tomanage and then she might not have them for a month or 2. She denies any recent travel. She denies any nausea or vomiting. She denies any stomach pain or diarrhea. She denies any change to her medications or adding in supplements. She denies any exposure toanything new. She has numbness in her hands. She commonly has soreness and discomfort in her hands. She wears a splint at night when it gets bad. She denies any numbness, tingling, [id number], or burning sensation. She has not been checked for carpal tunnel syndrome. She got light headed nauseuos when physical exam testing for carpal tunnel syndrome here in office. This is the first time she has been nauseous since all this happened. She denies any chest pain. She denies any rash. She feels lightheaded. She is taking her thyroid medication. She had an ablation 5 years ago. She feels lightheaded, but the nauseousness is better when she lays down. She last took ibuprofen at 6 a.m. She has been fatigued more than normal. She had gestational diabetes when she was with her second child. Supplemental Information She has a history of Graves' disease. She had an ablation 5 years ago. She denies any family history of autoimmune disease. ROS: ROS done as noted in HPI. Objective Vitals: 12/15/23 1244 12/15/23 1327 12/15/23 1328 12/15/23 1329 BP: 103/63 BP Location: Left arm Patient Position: Sitting BP Cuff Size: Adult Pulse: 81 74 76 78 Resp: 16 Temp: 36.5 ??C (97.7 ??F) TempSrc: Temporal SpO2: 99% Weight: 69.4 kg (153 lb 1.6 oz) Physical Exam Vital Signs Orthostatic blood pressures were reviewed with the patient and normal without evidence of orthostasis. Gen: vitals reviewed MSK: no swollen or erythematous joints of hands or wrists; negative Phalen's test for carpal tunnel Derm: No rash on exposed skin, no jaundice Results Assessment Diagnosis Plan 1. Arthralgia, unspecified joint CBC Branch Off w/Diff Comprehensive metabolic panel C-reactive protein ESR-Sed rate 2. Generalized pruritus Assessment & Plan Generalized arthralgias Generalized pruritis She will try Benadryl. If her symptoms do not improve, we will consider gabapentin. She was advised to take ibuprofen 400 mg every 8 hours with food. If she develops chest pain, shortness of breath, radiating arm pain or jaw pain, she will go to the ER or call 911. I have ordered some basic lab work in case symptoms do not improve. Total time spent in patient care was over 20 minutes which included the pre- work, visit work, and post-visit work. There are no Patient Instructions on file for this visit. Return if symptoms worsen or fail to improve. documented in this encounter Plan of Treatment Scheduled Orders Name Type Priority Associated Diagnoses Orde r Schedule CBC Branch Off w/Diff Lab Routine Arthralgia, unspecified joint Expected: 12/15/2023, Expires: 12/14/2024 Comprehensive metabolic panel Lab Routine Arthralgia, unspecified joint Expected: 12/15/2023, Expires: 12/14/2024 C-reactive protein Lab Routine Arthralgia, unspecified joint Expected: 12/15/2023, Expires: 12/14/2024 ESR-Sed rate Lab Routine Arthralgia, unspecified joint Expected: 12/15/2023, Expires: 12/14/2024 documented as of this encounter Visit Diagnoses Diagnosis Arthralgia, unspecified joint- Primary Generalized pruritus Unspecified pruritic disorder documented in this encounter Care Teams Automatic Lathe Tender Relationship Specialty Start Date End Date Melinda Yancey APRN [address] [place] [id number] PCP - General 07/14/23 documented as of this encounter
--- OUTSIDE RECORDS SUMMARY | 2024-02-03 13:39 | XMS_ITS | Encounter Summary ---
Author Name Unknown Organization [facility] er Address [address] [place] [address] Care Team Providers Care Dry Cleaner Hand Name Role Phone Melinda aYncey APRN Primary Care Provider Encounter Details Date Type Department Care Team (Late st Contact Info) Description 10/28/2023 9:45 AM WALLPAPER EMBOSSER HELPER Lab [place] [address] [place] [address] Visit for annual health examination Social History Tobacco Use Types Packs/Day Years [...] often do you attend chur ch or temple services? Never 10/21/2023 Do you belong to any clubs o r organizations such as faith groups, unions, fraternal [...] PHQ-2 Answer Date Recorded PHQ-9 Total Score 4 10/21/2023 [facility] - Occupational Stress [...] or slept in a prison (including now)? No 10/21/2023 Sex and Gender Information Value Date Recorded Sex Assigned at Not on file Gender Identity Not on file Sexual Orientation Not on file documented as of this encounter Plan of Treatment Not on file documented as of this encounter Procedures Procedure Name Priority Date/Time Associated Diagnosis Comments ESTIMATED GLOMERULAR FILTRATION RATE (EGFR) Routine 10/28/2023 9:43 AM WALLPAPER EMBOSSER HELPER Visit for annual health examination CBC BRANCH OFFICE W/DIFF Routine 10/28/2023 9:43 AM WALLPAPER EMBOSSER HELPER Visit for annual health examination TSH Routine 10/28/2023 9:43 AM WALLPAPER EMBOSSER HELPER Visit for annual health examination LIPID PANEL Routine 10/28/2023 9:43 AM WALLPAPER EMBOSSER HELPER Visit for annual health examination BASIC METABOLIC PANEL Routine 10/28/2023 9:43 AM WALLPAPER EMBOSSER HELPER Visit for annual health examination documented in this encounter Results * Estimated Glomerular Filtration Rate (eGFR) (10/28/2023 9:43 AM WALLPAPER EMBOSSER HELPER) Estimated Glomerular Filtration Rate (eGFR) >60 10/28/2023 2:11 PM WALLPAPER EMBOSSER HELPER [facility] Comment: GFR calculated from serum creatinine value Chronic Kidney Disease less than 60 mL/min/1.73 m2 Kidney Failure less than 15 mL/min/1.73 m2 Note: effective 09/22/2022: 2020 CKD-EPI Equation used 10/28/2023 9:43 AM WALLPAPER EMBOSSER HELPER 10/28/2023 9:43 AM WALLPAPER EMBOSSER HELPER Melinda Yancey APRN LAB BLOOD ORDE JOSE MANUEL [facility] [address] [place] [address] * CBC Branch Off w/Diff (10/28/2023 9:43 AM WALLPAPER EMBOSSER HELPER) WBC 5.5 3.5 - 10.5 K/uL 10/28/2023 10:04 AM WALLPAPER EMBOSSER HELPER [facility] RBC 4.55 3.90 - 5.00 M/uL 10/28/2023 10:04 AM WALLPAPER EMBOSSER HELPER [facility] Hemoglobin 13.9 12.0 - 15.5 g/dL 10/28/2023 10:04 AM WALLPAPER EMBOSSER HELPER [facility] Hematocrit 40.8 35.0 - 44.0 % 10/28/2023 10:04 AM WALLPAPER EMBOSSER HELPER [facility] Platelets 246 150 - 450 K/uL 10/28/2023 10:04 AM WALLPAPER EMBOSSER HELPER [facility] MCV 89.7 81.6 - 98.3 fL 10/28/2023 10:04 AM WALLPAPER EMBOSSER HELPER [facility] MCH 30.5 26.0 - 32.0 pg 10/28/2023 10:04 AM WALLPAPER EMBOSSER HELPER [facility] MCHC 34.1 32.0 - 36.0 g/dL 10/28/2023 10:04 AM WALLPAPER EMBOSSER HELPER [facility] RDW 12.1 11.9 - 15.5 % 10/28/2023 10:04 AM WALLPAPER EMBOSSER HELPER [facility] Lymphocytes % 33.0 % 10/28/2023 10:04 AM WALLPAPER EMBOSSER HELPER [facility] Mid-size Cells 8.2 % 10/28/2023 10:04 AM WALLPAPER EMBOSSER HELPER [facility] Granulocytes/Melva trophils 58.8 % 10/28/2023 10:04 AM WALLPAPER EMBOSSER HELPER [facility] Lymphocytes Absolute 1.8 0.9 - 2.9 K/uL 10/28/2023 10:04 AM WALLPAPER EMBOSSER HELPER [facility] MIDS Absolute 0.5 0.4 - 1.5 K/uL 10/28/2023 10:04 AM WALLPAPER EMBOSSER HELPER [facility] Granulocytes/Melva trophils Absolute 3.2 1.7 - 7.0 K/uL 10/28/2023 10:04 AM WALLPAPER EMBOSSER HELPER [facility] Blood 10/28/2023 9:43 AM WALLPAPER EMBOSSER HELPER 10/28/2023 9:43 AM WALLPAPER EMBOSSER HELPER Melinda Yancey APRN LAB BLOOD ORDE TASNEEMJEFRY Performing Organization Address [facility]/ZIP Co de Phone Number [facility] [address] [place] [address] * Basic metabolic panel (10/28/2023 9:43 AM WALLPAPER EMBOSSER HELPER) Pathologist [facility] Sodium 137 135 - 145 mEq/L 10/28/2023 2:11 PM [facility] Potassium 4.3 3.5 - 5.1 mEq/L 10/28/2023 2:11 PM [facility] Chloride 103 98 - 107 mEq/L 10/28/2023 2:11 PM [facility] CO2 28 22 - 29 mmol/L 10/28/2023 2:11 PM [facility] Creatinine 0.63 0.40 - 1.20 mg/dL 10/28/2023 2:11 PM [facility] BUN 12 5 - 25 mg/dL 10/28/2023 2:11 PM [facility] Glucose 91 70 - 100 mg/dL 10/28/2023 2:11 PM [facility] Calcium, Total,S 9.7 8.4 - 10.2 mg/dL 10/28/2023 2:11 PM [facility] Anion Gap 6 4 - 13 10/28/2023 2:11 PM [facility] Comment: The anion gap is calculated with the following formula: AGAP = Na ? (Cl + CO2). Blood 10/28/2023 9:43 AM WALLPAPER EMBOSSER HELPER 10/28/2023 12:24 PM WALLPAPER EMBOSSER HELPER Melinda Yancey APRN LAB BLOOD ORDE TASNEEMJEFRY Performing Organization Address City/[facility]/ZIP Co de Phone Number [facility] [address] [place] [address] * (ABNORMAL) Lipid panel (10/28/2023 9:43 AM [facility] [[email or web address] Cholesterol 201(H) 0 - 199 mg/dL 10/28/2023 2:11 PM [facility] Comment: Recommended by National Cholesterol Education Program (ATP III) -------- Cholesterol Ranges -------- <200 ?Desirable 200-239 ? Borderline high >=240 ? High Triglycerides 76 0 - 149 mg/dL 10/28/2023 2:11 PM [facility] Comment: -------- TRIG Ranges -------- <150 ?Normal 150-199 ? Borderline high 200-499 ? High >=500 ? Very high HDL 73 40 - 250 mg/dL 10/28/2023 2:11 PM [facility] Comment: -------- HDL Ranges -------- <40 ?Low 40-59 ?Normal >=60 ? Optimal LDL Calculated 113(H) 0 - 99 mg/dL 10/28/2023 2:11 PM [facility] Comment: -------- LDL Ranges -------- <100 ? Optimal 100-129 ?Near optimal/above optimal 130-159 ?Borderline high 160-189 ?High >=190 ?Very high Fasting? Yes 10/28/2023 9:43 AM [facility] Blood 10/28/2023 9:43 AM WALLPAPER EMBOSSER HELPER 10/28/2023 12:24 PM WALLPAPER EMBOSSER HELPER Melinda Yancey APRN LAB BLOOD IRAM RICHARD [facility] [address] [place] [address] * TSH (10/28/2023 9:43 AM WALLPAPER EMBOSSER HELPER) TSH, Sensitive 2.10 0.46 - 4.68 mIU/L 10/28/2023 6:31 PM WALLPAPER EMBOSSER HELPER [facility] Comment: The results from this or any other diagnostic test should be used and interpreted only in the context of the overall clinical picture. Biotin levels in serum remain elevated for up to 24 hours after oral or intravenous biotin administration and may interfere with this assay to produce unreliable results. Heterophilic antibodies in serum or plasma samples may cause interference in immunoassays. ??Exposure to animal antigens, either in the environment or as part of treatment or imaging procedures, may have circulating anti-animal antibodies present. These antibodies may interfere with the assay reagents to produce unreliable results. ??Results which are inconsistent with clinical observations indicate the need for additional testing. Blood (Blood, Venous) 10/28/2023 9:43 AM WALLPAPER EMBOSSER HELPER 10/28/2023 5:14 PM WALLPAPER EMBOSSER HELPER Melinda Yancey APRN LAB BLOOD [facility] [address] [place] [phone] documented in this encounter Visit Diagnoses Diagnosis Visit for annual health examination documented in this encounter Care Teams Dry Cleaner Hand Relationship Specialty Start Date End Date Melinda Yancey APRN [address] [place] [phone] PCP - General 07/14/23 documented as of this encounter
--- NOTE | 2024-02-03 13:40 | MM_ITS ---
Patient: JOB VERAS Facility:?[facility] Patient ID:?[id number] Site Patient ID:?[id number] Site :?1980 Study:?XRay-Breast Bilateral 3D W/CAD-02/03/2024 3:16:45 PM Ordering Physician:Lamont Duran Final Report: BILATERAL SCREENING MAMMOGRAM WITH COMPUTER-AIDED DETECTION AND TOMOSYNTHESIS TECHNIQUE: CC and MLO views were obtained. These mammographic images have been obtained using full-field digital technique. These mammographic images were interpreted with the benefit of computer-aided detection. Breast Tomosynthesis was used in this interpretation. COMPARISON FILM: 10/01/22, 09/11/21. FINDINGS: The breasts are heterogeneously dense, which may obscure small masses. IMPRESSION: There is no radiographic evidence for malignancy. ASSESSMENT: BI-RADS Category 2: Benign RECOMMENDATION: Routine screening mammogram in 1 year. A lay language report of this examination will be provided to the patient. Garo Beverly M.D. Diagnostic Radiologist [email or web address] DSM/sp R& Transcribed: 3:53 p.m. SP/Dictated by: Garo Beverly MD @ 02/06/2024 10:47:00 AM Signed by:?Garo Beverly MD @02/06/2024 4:00:54 PM (Electronic Signature)
--- OUTSIDE RECORDS SUMMARY | 2024-02-03 13:40 | XMS_ITS ---
Author Name Unknown Organization [facility] Address [address] [place] [address] Care Team Providers Care Manager Financial Name Role Phone Unavailable Unavailable Unavailable Surgery Details Not on file Complications Check Surgery Details section. Procedure Estimated Blood Loss Check Surgery Details section. Procedure Findings Check Surgery Details section. Procedure Specimens Taken Check Surgery Details section.
--- OUTSIDE RECORDS SUMMARY | 2024-02-03 13:40 | XMS_ITS | Encounter Summary ---
Author Name Unknown Organization [facility] Address [address] [place] [address] Care Team Providers Care Detective Youth Bureau Name Role Phone None Reported, Pcp Primary Care Provider Unavail able Encounter Details Date Type Department Care Team (Late st Contact Info) Description 12/25/2020 Orders Only [facility] [address] [phone] Alli Caballero II, M.D. [address] [phone] Social History Tobacco Use Types Packs/Day Years Used Date Smoking Tobacco: Never Smokeless Tobacco: Never Nutrition Answer Date Recorded Nutrition: EVOO Fat Source Unknown 11/26 Nutrition: Servings of Fruits/Vegetables per Day Not on file 11/26/2020 Dental Answer Date Recorded Dental: Regular Dentist Unknown 11/27/19 21 Sex and Gender Information Value Date Recorded Sex Assigned at Female 10/20/2021 8:03 PM RAILROAD BRAKEMAN Gender Identity Female 10/20/2021 8:03 PM RAILROAD BRAKEMAN Sexual Orientation Straight 10/20/2021 8: 03 PM RAILROAD BRAKEMAN documented as of this encounter Plan of Treatment Not on file documented as of this encounter Visit Diagnoses Not on filedocumented in this encounter Additional Health Concerns Assessment Noted Time PHQ-9 Depression Total Score: 3 12/21/19 17 9:55 AM CDT documented as of this encounter Care Teams Detective Youth Bureau Relationship Specialty Start Date End Date None Reported, Pcp PCP - General Family Medicine 08/26/23 documented as of this encounter
--- OUTSIDE RECORDS SUMMARY | 2024-02-03 13:40 | XMS_ITS | Encounter Summary ---
Author Name Unknown Organization [facility] er Address [address] [place] [address] Care Team Providers Care Dock Superintendent Name Role Phone Melinda Yancey APRN Primary Care Provider Encounter Details Date Type Department Care Team (Late st Contact Info) Description 04/18/2020 Telephone [place] [address] [place] [address] Chitra Berumen, BRUISE TRIMMER, ADMINISTRATIVE PERSONAL ASSISTANT [address] [place] [address] Social History Tobacco Use Types Packs/Day Years Used Date Smoking Tobacco: Never Smokeless Tobacco: Never Alcohol Use Standard Drinks/Week Comments Not Currently 0 (1 standard drink = 0.6 oz pur e alcohol) PHQ-2 Answer Date Recorded PHQ-2 Score 11 03/02/2019 Sex and Gender Information Value Date Recorded Sex Assigned at Not on file Gender Identity Not on file Sexual Orientation Not on file documented as of this encounter Plan of Treatment Not on file documented as of this encounter Visit Diagnoses Not on filedocumented in this encounter Care Teams Dock Superintendent Relationship Specialty Start Date End Date Melinda Yancey BRUISE TRIMMER [address] [place] [id number] PCP - General 07/14/23 documented as of this encounter
--- OUTSIDE RECORDS SUMMARY | 2024-02-03 13:40 | XMS_ITS | Clinical Summary ---
Author Name Unknown Organization [facility] Address [address] [place] [address] Care Team Providers Care Bandoleer Straightener Stamper Name Role Phone Needs Pcp, Assignment Primary Care Provider [phone] Source Comments You are receiving this document as you are listed as the primary care provider,follow-up provider, or the patient has been referred to you for consultation.This is in compliance with the Medicare and[facility] EHR Incentive Program,which states Providers who transition their patient to another setting of careor provider of care or refers their patient to another provider of care shouldprovide summary care record for each transition of care or referral. Formerly [facility] Allergies No known active allergies Medications Medication Sig Dispensed Refills Start Date End Date Status levothyroxine (AKA SYNTHROID) 112 MCG tablet Take 112 mcg by mouth daily (every 24 hours). 02/09/2013 Active tretinoin (AKA RETIN-A) 0.1 % cream Apply topically nightly. Apply to cleansed and dried skin. 02/09/2013 Active clindamycin (CLINDAGEL) 1 % gel Apply topically 2 times daily. 02/09/2013 Active escitalopram oxalate (AKA LEXAPRO) 5 MG tablet Take 5 mg by mouth daily (every 24 hours). 03/25/2014 Active escitalopram oxalate (AKA LEXAPRO) 10 MG tablet Take 10 mg by mouth daily (every 24 hours). 03/25/2014 Active cholecalciferol (VITAMIN D3) 1000 units tablet Take 1,000 Units by mouth daily. Active sertraline (ZOLOFT) 50 MG tablet daily. 07/10/2020 Active tretinoin, Facial Wrinkles, (REFISSA) 0.05 % cream Apply topically nightly. Apply to cleansed and dried skin. 45 g 11 03/25/2014 04/07/2015 Discontinued (Duplicate Therapy) Social History Tobacco Use Types Packs/Day Years Used Date Smoking Tobacco: Never Smokeless Tobacco: Never Sex and Gender Information Value Date Recorded Sex Assigned at Not on file Gender Identity Not on file Sexual Orientation Not on file Plan of Treatment Health Maintenance Due Date Last Done Comments Cervical Cancer Screening Due 1981 Hep C Screening (Preventive Services) 1981 HIV Screening (Preventive Services) 1997 Adult Preventive Visit 1999 HepB (1) 2000 COVID-19 Vaccine (3 - 2022-2 4 season) 2023 02/13/2021, 01/16/2021 Influenza (Season Ended) 2024 013, 09/26/2009 DTaP/Tdap/Td (2 - Tdap) 05/24/2026 05/24/2016 Zoster/Shingles (1 of 2) 2031 HPV Vaccine Aged Out No longer eligi ble based on patient's age to complete this topic HepA Aged Out No longer eligi ble based on patient's age to complete this topic Hib Aged Out No longer eligi ble based on patient's age to complete this topic IPV (Polio) Aged Out No longer eligi ble based on patient's age to complete this topic MCV4 Aged Out No longer eligi ble based on patient's age to complete this topic Pneumococcal Aged Out No longer eligi ble based on patient's age to complete this topic Care Teams Bandoleer Straightener Stamper Relationship Specialty Start Date End Date Needs Pcp, [place] [address] PCP - General 04/06/17
--- OUTSIDE RECORDS SUMMARY | 2024-02-03 13:40 | XMS_ITS | Encounter Summary ---
Author Name Unknown Organization [facility] er Address [address] [place] [address] Care Team Providers Care Lamp Shade Joiner Name Role Phone Melinda Yancey APRN Primary Care Provider Encounter Details Date Type Department Care Team (Late st Contact Info) Description 12/28/2021 Telephone [place] [address] [facility] [place] [address] Alli Caballero MD [address] [facility] [address] [place] [address] Social History Tobacco Use Types Packs/Day Years Used Date Smoking Tobacco: Never Smokeless Tobacco: Never Alcohol Use Standard Drinks/Week Comments Not Currently 0 (1 standard drink = 0.6 oz pur e alcohol) PHQ-2 Answer Date Recorded PHQ-9 Total Score 0 10/22/2021 Sex and Gender Information Value Date Recorded Sex Assigned at Not on file Gender Identity Not on file Sexual Orientation Not on file documented as of this encounter Plan of Treatment Not on file documented as of this encounter Visit Diagnoses Not on filedocumented in this encounter Care Teams Lamp Shade Joiner Relationship Specialty Start Date End Date Melinda Yancey APRN [address] [place] [phone] PCP - General 07/14/23 documented as of this encounter
--- OUTSIDE RECORDS SUMMARY | 2024-02-03 13:40 | XMS_ITS | Clinical Summary ---
Author Name Unknown Organization [employer] [facility] Address [place], [place] [address] Care Team Providers Care It Applications Developer Name Role Phone Lexie Pereira Albin HOIST OPERATOR Primary Care Provider [phone]- [phone] Social History Tobacco Use Types Packs/Day Years Used Date Smoking Tobacco: Never Assessed Sex and Gender Information Value Date Recorded Sex Assigned at Not on file Gender Identity Not on file Sexual Orientation Not on file Plan of Treatment Health Maintenance Due Date Last Done Comments Tdap 1992 Depression screening for age 12+ 1993 HIV for age 15-65 1996 BMI (ht and wt on same day) for age 18+ 1999 Hepatitis C screening for ag e 18-79 1999 Tetanus booster 2001 Pap test for age 21-65 05/02/2023 0, 05/02/2020 COVID-19 vaccine series (2022-24 season) 2023 Influenza for age 9-49 05/27/2024 Pneumococcal series for age 6-64 Aged Out No longer eligible b ased on patient's age to complete this topic Procedures Procedure Name Priority Date/Time Associated Diagnosis Comments BEHAVIORAL SCIENCE CHAIR THIN PREP PAP SCREEN IMAGED Routine 05/02/2020 8:30 AM CDT from Last 3 Months or Most Recently Relevant to Health Maintenance Results * BEHAVIORAL SCIENCE CHAIR THIN PREP PAP SCREEN IMAGED (05/02/2020 8:30 AM CDT) Case Report Gynecologic Cytology Report ? Case: [id number] ? Authorizing Provider: ??Coni Gilbert MD ?Collected: ? 05/02/2020 0830 ? Ordering Location: ? [facility] ?Received: ?05/03/2020 1055 ? First Screen: ?Kayley Pepe ? Specimen: ?BEHAVIORAL SCIENCE CHAIR ThinPrep Vial Screening, Cervical/Vaginal ? 05/13/2020 11:11 AM CDT [facility] INTERPRETATION/ RESULT NEGATIVE FOR INTRAEPITHELIAL LESION OR MALIGNANCY (NIL) (none) 05/13/2020 11:11 AM CDT [facility] IMEN ADEQUACY Satisfactory for evaluation No endocervical component seen 05/13/2020 11:11 AM CDT [facility] HPV REQUEST HPV and PAP 05/13/2020 11:11 AM CDT [facility] Date of LMP 04/25/2020 05/13/2020 11:11 AM CDT [facility] Last Pap Date 05/13/2017 05/13/2020 11:11 AM CDT [facility] Last Pap Result NIL 0 11:11 AM CDT [facility] Additional Information 05/13/2020 11:[address] [facility] LAB[facility]ATORY Comment: Interpreted at [facility] - [address], [place] [address] Automated Review Successful 05/13/2020 11:11 AM CDT [facility] Comment:Specimen processed s uccessfully by automated ibm bpm architect device, Sp[employer] Imaging System, [employer] ANCILLARY TESTING BEHAVIORAL SCIENCE CHAIR HPV Ordered, Please see separate report 05/13/2020 11:11 AM CDT [facility] EN[facility] Note The pap test is a screening technique, not a diagnostic procedure. It is used primarily to screen for squamous cancers and precursor lesions. Published studies have shown that it is subject to both false negative and false positive results. The pap test should not be used as the sole means to diagnose or exclude pre-malignant and malignant lesions. 05/13/2020 11:11 AM CDT [facility] Other (Cervical/Vagina l) 05/02/2020 8:30 AM CDT 05/03/2020 10:55 AM CDT Coni Gilbert MD PATHOLOGY/CYTOLOGY [facility] [address] [place] [address], from Last 3 Months or Most Recently Relevant to Health Maintenance Care Teams It Applications Developer Relationship Specialty Start Date End Date Lexie Pereira NP [address] [place] [address] PCP - General Nurse Practitioner 04/11/12
--- OUTSIDE RECORDS SUMMARY | 2024-02-03 13:40 | XMS_ITS | Encounter Summary ---
Author Name Unknown Organization [facility] er Address [address] [place] [id number] Care Team Providers Care Check Inspector Name Role Phone Melinda Yancey APRN Primary Care Provider Reason for Visit * Reason Comments Establish Care Encounter Details Date Type Department Care Team (Late st Contact Info) Description 10/28/2023 9:00 AM [employer] Office Visit [place] [address] [place] [address] Melinda Yancey APRN [address] [place] [id number] Anxiety with depression (Primary Dx); Hypothyroidism, unspecified type; Visit for annual health examination; Benign paroxysmal positional vertigo, unspecified laterality Social History Tobacco Use Types Packs/Day Years Used Date Smoking Tobacco: Never Smokeless Tobacco: Never Tobacco Cessation:Counseling Given: No Alcohol Use Standard Drinks/Week Comments Not Currently [...] often do you attend chur ch or zoroastrian services? Never 10/21/2023 Do you belong to any clubs o r organizations such as yazdanism groups, unions, fraternal or athletic groups, or [...] Date Recorded PHQ-9 Total Score 4 10/21/2023 [facility] Answer Date [...] or slept in a longterm (including now)? No 10/21/2023 Sex and Gender Information Value Date Recorded Sex Assigned at Not on file Gender Identity Not on file Sexual Orientation Not on file documented as of this encounter Last Filed Vital Signs Vital Sign Reading Time Taken Comments Blood Pressure 114/72 10/28/2023 8:51 AM [employer] Pulse 74 10/28/2023 8:51 AM [employer] Temperature 36.5 ??C (97.7 ??F) 10/28/2023 8:51 AM CS T Respiratory Rate 16 10/28/2023 8:51 AM [employer] Oxygen Saturation 98% 10/28/2023 8:51 AM [employer] Inhaled Oxygen Concentration - - Weight 70.5 kg (155 lb 8 oz) 10/28/2023 8:51 AM [employer] Height 167 cm (5' 5.75) 10/28/2023 8:51 AM [employer] Body Mass Index 25.29 10/28/2023 8:51 AM [employer] documented in this encounter Patient Instructions * Patient Instructions* Melinda Yancey APRN - 10/28/2023 9:00 AM [employer] Call [facility] for Therapy appointment for Vertigo. [employer] documented in this encounter Progress Notes * Kristina Yanceyelle M., CASTER OPERATOR - 10/28/2023 9:00 AM CST PREVENTIVE FEMALE VISIT Subjective Ester Do is a 43 y.o. female who presents for a routine preventive physical exam. The patient has the following concerns: 1. Bilateral thumbs and up into wrist hurts. Rates it about a 7/8 out of 10 throbbing dull pain. She uses Tylenol/Ibuprofen for the pain and topical pain relievers. She did order braces to wear at night. I advised her if they continue to cause pain, lets get X-rays and get her a referral to ortho. She also has been having vertigo lately. She thought a previous provider had sent a referral but shehas not been contacted. Looks like referral was placed to [facility] [place]. I told her to give them a call since referrals outside of [facility] will not contact you. Social History Substance and Sexual Activity Alcohol Use Not Currently Social History Tobacco Use Smoking Status Never Smokeless Tobacco Never Diet: General Regular diet Exercise: Physician Vice President Patient's medications, allergies, past medical, surgical, social and family histories were reviewedand updated as appropriate. Objective Utilization / Navigation of Health Care Systems: PHQ-9 mental health screening. Scored: CAYLA-7 anxiety screening. Scored: BMI/weight management reviewed. BMI: Body mass index is 25.29 kg/m??. VITAL SIGNS Visit Vitals BP 114/72 (BP Location: Left arm, Patient Position: Sitting, BP Cuff Size: Adult) Pulse 74 Temp 36.5 ??C (97.7 ??F) (Temporal) Resp 16 Ht 1.67 m (5' 5.75) Wt 70.5 kg (155 lb 8 oz) SpO2 98% BMI 25.29 kg/m?? Smoking Status Never BSA 1.81 m?? PHYSICAL EXAMINATION Gen: alert, NAD Psych: affect and mood normal HEENT: NCAT, eyes anicteric, no conjunctival injection, nose: nares patent, no turbinate inflammation mouth: MMM, dentition in good repair, oropharynx unremarkable, ears: bilateral TM and external canals normal Neck: supple, no LAD, thyromegaly nodules or masses palpated Heart: S1 S2 RRR, no murmur appreciated Lungs: normal work of breathing on room air, CTAB without wheezes rales or rhonchi Abdomen: normoactive BS, soft, non-distended, non-tender : normal external genitalia without lesions, physiologic vaginal discharge only, vaginal mucosa moist, cervix normal appearance without lesions/non- friable. Ovaries not palpable, no masses or cervical motional tenderness on bimanual exam Ext: no edema Neuro: A&Ox3, EOMI, PERRLA, visual marcano intact, speech fluent, comprehension intact, recent memory intact MSK: normal muscle tone and bulk, no obvious deformities Skin: no rashes, warm and dry Assessment/Plan Health Maintenance/Well adult exam Anticipatory guidance/counseling given included: --Discussed moderation in sodium/caffeine intake, caloric balance, sufficient fresh fruits/vegetables, fiber, daily folate intake (0.4 - 0.8mg supplement if capable of ) --Discussed eye exams & dental care --Encouraged regular exercise at least 30 minutes daily five days per week --Discussed tobacco, alcohol, or other drug use; availability of treatment for abuse. Immunizations: reviewed today, discussed vaccines that she is due for. PREVENTIVE HEALTH STUDIES Reviewed and updated health maintenance in the chart with patient. Health Maintenance Topic Date Due Pap Smear 05/13/2020 COVID-19 Vaccine (3 - 2022-24 season) 2023 Influenza Vaccine (1) 05/27/2023 Mammogram 09/29/2023 DTaP,Tdap,and Td Vaccines (3 - Td or Tdap) 10/15/2031 Pneumococcal Vaccine: Pediatrics (0 to 5 Years) and At-Risk Patients (6 to 64 Years) Aged Out HPV Vaccines Aged Out Problem List Items Addressed This Visit Endocrine and Metabolic Hypothyroidism Continue using Levothyroxine 125 mcg daily Relevant Medications levothyroxine (SYNTHROID) 125 MCG tablet ENT Benign paroxysmal positional vertigo [facility] Mental Health Anxiety with depression - Primary Psychological condition is improving with treatment. Continue current treatment regimen. Regular aerobic exercise. Psychological condition will be reassessed at the next regular appointment. Ester does see a phycologist Continue using Sertraline 150 mg daily Relevant Medications sertraline (ZOLOFT) 100 MG tablet sertraline (ZOLOFT) 50 MG tablet Health Encounters Visit for annual health examination Declines Covid and Influenza vaccines Having Mammogram done on 10/31/2023 at outside facility Pap completed today Lab work ordered today, will contact patient with results Relevant Orders CBC Branch Off w/Diff Basic metabolic panel Lipid panel (Completed) TSH HPV High Risk DNA Detection with Genotyping Pap Smear Melinda Yancey APRN [employer] documented in this encounter Miscellaneous Notes * Assessment & Plan Note - Melinda Yancey APRN - 10/28/2023 9:52 AM [employer] Associated Problem(s): Visit for annual health examination Declines Covid and Influenza vaccines Having Mammogram done on 10/31/2023 at outside facility Pap completed today Lab work ordered today, will contact patient with results [employer] * Assessment & Plan Note - Melinda Yancey APRN - 10/28/2023 9:49 AM [employer] Associated Problem(s): Anxiety with depression Psychological condition is improving with treatment. Continue current treatment regimen. Regular aerobic exercise. Psychological condition will be reassessed at the next regular appointment. Ester does see a phycologist Continue using Sertraline 150 mg daily [employer] * Assessment & Plan Note - Melinda Yancey APRN - 10/28/2023 9:48 AM [employer] Associated Problem(s): Benign paroxysmal positional vertigo Please call [facility] [place] to schedule physical therapy appointment [employer] * Assessment & Plan Note - Melinda Yancey APRN - 10/28/2023 9:47 AM [employer] Associated Problem(s): Hypothyroidism Continue using Levothyroxine 125 mcg daily [employer] documented in this encounter Plan of Treatment Not on file documented as of this encounter Procedures Procedure Name Priority Date/Time Associated Diagnosis Comments HPV HIGH RISK DNA DETECTION WITH GENOTYPING Routine 10/28/2023 9:29 AM [employer] Visit for annual health examination PAP TEST Routine 10/28/2023 9:29 AM [employer] Visit for annual health examination documented in this encounter Results * TSH (10/28/2023 9:43 AM [employer]) TSH, Sensitive 2.10 0.46 - 4.68 mIU/L 10/28/2023 6:31 PM [employer] [facility] Comment: The results from this [...] testing. Blood (Blood, Venous) 10/28/2023 9:43 AM [employer] 10/28/2023 5:14 PM [employer] Melinda Yancey APRN LAB BLOOD IRAM RICHARD [facility] [address] [place] [address] * (ABNORMAL) Lipid panel (10/28/2023 9:43 AM [employer]) Cholesterol 201(H) 0 - 199 mg/dL 10/28/2023 2:11 PM [employer] [facility] Comment: Recommended by National Cholesterol Education Program (ATP III) -------- Cholesterol Ranges -------- <200 ?Desirable 200-239 ? Borderline high >=240 ? High Triglycerides 76 0 - 149 mg/dL 10/28/2023 2:11 PM [facility] Comment: -------- TRIG Ranges -------- <150 ?Normal 150-199 ? Borderline high 200-499 ? High >=500 ? Very high HDL 73 40 - 250 mg/dL 10/28/2023 2:11 PM [facility] Comment: -------- HDL Ranges -------- <40 ?Low 40-59 ?Normal >=60 ? Optimal LDL Calculated 113(H) 0 - 99 mg/dL 10/28/2023 2:11 PM [facility] Comment: -------- LDL Ranges -------- <100 ? Optimal 100-129 ?Near optimal/above optimal 130-159 ?Borderline high 160-189 ?High >=190 ?Very high Fasting? Yes 10/28/2023 9:43 AM [facility] Blood 10/28/2023 9:43 AM [employer] 10/28/2023 12:24 PM [facility] Melinda Yancey APRN LAB BLOOD OCTAVIOE JOSE MANUEL [facility] [address] [place] [address] * Basic metabolic panel (10/28/2023 9:43 AM [facility]) Sodium 137 135 - 145 mEq/L 10/28/2023 2:11 PM [facility] Potassium 4.3 3.5 - 5.1 mEq/L 10/28/2023 2:11 PM [facility] Chloride 103 98 - 107 mEq/L 10/28/2023 2:11 PM [facility] CO2 28 22 - 29 mmol/L 10/28/2023 2:11 PM [facility] Creatinine 0.63 0.40 - 1.20 mg/dL 10/28/2023 2:11 PM [facility] BUN 12 5 - 25 mg/dL 10/28/2023 2:11 PM [facility] Glucose 91 70 - 100 mg/dL 10/28/2023 2:11 PM [facility] Calcium, Total,S 9.7 8.4 - 10.2 mg/dL 10/28/2023 2:11 PM [facility] Anion Gap 6 4 - 13 10/28/2023 2:11 PM [facility] Comment: The anion gap is calculated with the following formula: AGAP = Na ? (Cl + CO2). Blood 10/28/2023 9:43 AM [employer] 10/28/2023 12:24 PM [employer] Melinda Yancey APRN LAB BLOOD ORDE JOSE MANUEL [facility] [address] [place], [place] [id number] * CBC Branch Off w/Diff (10/28/2023 9:43 AM [facility]) WBC 5.5 3.5 - 10.5 K/uL 10/28/2023 10:04 AM [employer] [facility] [place] RBC 4.55 3.90 - 5.00 M/uL 10/28/2023 10:04 AM [employer] [facility] [place] Hemoglobin 13.9 12.0 - 15.5 g/dL 10/28/2023 10:04 AM [employer] [facility] [place] Hematocrit 40.8 35.0 - 44.0 % 10/28/2023 10:04 AM [employer] [facility] [place] Platelets 246 150 - 450 K/uL 10/28/2023 10:04 AM [employer] [facility] [place] MCV 89.7 81.6 - 98.3 fL 10/28/2023 10:04 AM [employer] [place] MCH 30.5 26.0 - 32.0 pg 10/28/2023 10:04 AM [employer] [facility] [place] MCHC 34.1 32.0 - 36.0 g/dL 10/28/2023 10:04 AM [employer] [facility] [place] RDW 12.1 11.9 - 15.5 % 10/28/2023 10:04 AM [employer] [facility] [place] Lymphocytes % 33.0 % 10/28/2023 10:04 AM [employer] [facility] [place] Mid-size Cells 8.2 % 10/28/2023 10:04 AM [employer] [facility] [place] Granulocytes/Melva trophils 58.8 % 10/28/2023 10:04 AM [employer] [facility] [place] Lymphocytes Absolute 1.8 0.9 - 2.9 K/uL 10/28/2023 10:04 AM [employer] [place] MIDS Absolute 0.5 0.4 - 1.5 K/uL 10/28/2023 10:04 AM [employer] [facility] [place] Granulocytes/Melva trophils Absolute 3.2 1.7 - 7.0 K/uL 10/28/2023 10:04 AM [employer] [facility] [place] Blood 10/28/2023 9:43 AM [employer] 10/28/2023 9:43 AM [employer] Melinda Yancey APRN LAB BLOOD [facility] Organization Address City/State/[facility] Co de Phone Number [facility] [place] [address] [place] [address] * Pap Smear (10/28/2023 9:29 AM [employer]) Sure Path PAP, screen 10/28/2023 9:29 AM [employer] 10/28/2023 1:58 PM [employer] Narrative [facility] - 11/02/2023 3:52 PM [employer] ? [facility] ? [address] ?[place] [address] ? Patient: ?ESTER DO ?Procedure: ? 10/28/2023 09:29 /Age/Sex: ??1980, 43 Y, F ? Received: ?10/28/2023 13:58 ?Accession #: ?? [id number] Billing: ?[id number] ?Patient Location: [facility] [place] ?OFFICE Ordered by: ?? MELINDA YANCEY APRN ? Attending: ? MELINDA YANCEY, ? CASTER OPERATOR ? ROUGH PATCHER CYTOLOGY FINAL REPORT SPECIMEN: (A) SURE PATH [...] Melinda Yancey APRN LAB CYTOLOGY O RDERABLES [facility] [address] [place] [address] * HPV High Risk DNA Detection with Genotyping (10/28/2023 9:29 AM [employer]) Source Cervical 11/01/2023 6:34 PM [employer] [place] [facility] HPV Type 16 Negative Negative 11/01/2023 6:34 PM [employer]OR [employer] [facility] HPV Type 18 Negative Negative 11/01/2023 6:34 PM [employer] [place] [facility] HPV non-Type 16 or 18 Negative Negative 11/01/2023 6:34 PM [facility] Comment: The following Other High Risk HPV types were not detected: 31, 33, 35, 39, 45, 51, 52, 56, 58, 59, 66, and 68 ADDITIONAL INFORMATION Testing was performed using the sydney HPV assay ([employer] This report is intended for use in clinical monitoring and management of patients. ??It is not intended for use in medical-legal applications. This test has been modified from the blending tank helper's instructions. ??Its performance characteristics were determined by [facility] in a manner consistent with CLIA requirements. ??This test has not been cleared or approved by the U.S. Food and Drug Administration. Test Performed by: [facility] [address] [place] [address] System Specialist: Moses Sanchez M.D. Ph.D.; CLIA# [id number] Pap collection bottle 10/28/2023 9:29 AM [employer] 10/28/2023 1:34 PM [employer] Melinda Yancey APRN LAB CYTOLOGY O RDERABLES [facility] see result attachment for specific address documented in this encounter Visit Diagnoses Diagnosis Anxiety with depression- Primary Hypothyroidism, unspecified type Visit for annual health examination Benign paroxysmal positional vertigo, unspecified laterality documented in this encounter Care Teams Check Inspector Relationship Specialty Start Date End Date Melinda Yancey APRN [address] [place] [id number] PCP - General 07/14/23 documented as of this encounter
--- OUTSIDE RECORDS SUMMARY | 2024-02-03 13:40 | XMS_ITS | Referral Summary ---
Author Name Unknown Organization [facility] Address [address] [place] [address] Care Team Providers Care Pilot Manager Name Role Phone None Reported, Pcp Primary Care Provider Unavail able Source Comments Patient records contain information from all sites at [facility]. For routine questions regarding patient records, call [phone] during business hours, M-F 8:00 AM - 5:00 PM Central Time. Record requests for emergency care only can be directed to [phone] at any time.[facility] Encounters Date Type Department Care Team Description 11/22/2023 7:00 AM ACCOUNTING PROFESSOR Comprehensive Visit Department of Rehabilitation Services in [address] [phone] Lamont Flores M.D. Kat Milner, P.T. from Last 3 Months Allergies No known active allergies Medications Medication Sig Dispensed Refills Start Date End Date Status clindamycin-benzoyl peroxide (BENZACLIN) 1-5 % gel Apply topically 2 (two) times a day. 50 g 2 01/25/2018 Active cholecalciferol (VITAMIN D3) 1,000 Unit tablet Take 1,000 Units by mouth. Active levothyroxine (SYNTHROID, LEVOTHROID) 100 mcg tablet 2 03/02/2019 Active levothyroxine (SYNTHROID, LEVOTHROID) 112 mcg tablet Taking one tablet by mouth every other day ALTERNATING with 100 mcg every other day. 11/27/2012 Active UNABLE TO FIND Take 1 each by mouth daily. CBD oil, for depression 1 each 05/25/2019 Active amoxicillin-pot clavulanate (AUGMENTIN) 875-125 mg per tablet Take 1 tablet by mouth every 12 (twelve) hours. 20 tablet 10/15/2021 Active Additional Information Patient not taking.Reported on 04/19/2022 levothyroxine (SYNTHROID, LEVOTHROID) 125 mcg tablet Take 1 tablet (125 mcg total) by mouth daily. 90 tablet 07/12/2022 Active sertraline (ZOLOFT) 100 mg tablet Take 1 tablet (100 mg total) by mouth every morning. 30 tablet 5 10/08/2022 Active sertraline (ZOLOFT) 50 mg tablet Take 1 tablet (50 mg total) by mouth every morning along with 100 mg tablet for a total dose of 150 mg daily. 30 tablet 5 10/08/2022 Active levothyroxine (SYNTHROID, LEVOTHROID) 125 mcg tablet Take 1 tablet (125 mcg total) by mouth daily. 30 tablet 01/07/2023 Active fluconazole (DIFLUCAN) 150 mg tablet Take 1 tablet (150 mg total) by mouth 1 (one) time for 1 dose. 1 tablet 10/18/2023 Active Active Problems Problem Noted Date Diagnosed Date Pain Knee Left 11/09/2021 Bite Cat Hand Open Sequela Left 10/18/2021 Hypothyroidism 05/25/2019 Acne 05/25/2019 Depression Major Recurrent Severe 01/28/2014 Overview: Stopped RX treatment 03/2019 Immunizations Name Administration Dates Next Due Influenza Split 09/26/2009 Influenza, Unspecified 07/13/2013,09/26/2009 Rabies (Imovax) 10/18/2021,10/15/2021 Rabies (Rabavert) 10/29/2021,10/18/2021,10/15/19 22 Rabies, intramuscular, historical 10/22/2021 Tdap 10/15/2021,05/24/2016 influenza vaccine quad (FLUZ ONE/FLUARIX) (6 months and older)(PF) 07/13/2013,09/26/2009 Social History Tobacco Use Types Packs/Day Years Used Date Smoking Tobacco: Never Smokeless Tobacco: Never Humiliation, Afraid, Rape, and Kick questionnair e Answer Date Recorded Within the last year, have y ou been afraid of your partner or ex-partner? No 10/20/2021 Within the last year, have y ou been humiliated or emotionally abused in other ways by your partner or ex-partner? No Within the last year, have y ou been kicked, hit, slapped, or otherwise physically hurt by your partner or ex-partner? No 10/20/2021 Within the last year, have y ou been raped or forced to have any kind of sexual activity by your partner or ex-partner? No 10/20/2021 Social Connection and Isolat ion Panel [NHANES] Answer Date Recorded In a typical week, how many times do you talk on the phone with family, friends, or neighbors? More than three times a week 10/20/2021 How often do you get togethe r with friends or relatives? Twice a week 10/20/2021 How often do you attend chur ch or amish services? Never 10/20/2021 Do you belong to any clubs o r organizations such as taoism groups, unions, fraternal or athletic groups, or school groups? No 10/20/2021 How often do you attend meet ings of the clubs or organizations you belong to? Never 10/20/2021 Are you , , di vorced, , never , or living with a partner? 10/20/2021 AUDIT-C Answer Date Recorded Q1: How often do you have a drink containing alc ohol? Never 10/20/2021 Average Number of Drinks Not on file 022 Frequency of Binge Drinking Not on file 09/27 Overall Financial Resource Strain (CARDIA) Answe r Date Recorded How hard is it for you to pa y for the very basics like food, housing, medical care, and heating? Not hard at all 10/20/2021 [facility] of Occupat ional Health - Occupational Stress Questionnaire Answer Date Recorded Do you feel stress - tense, restless, nervous, or anxious, or unable to sleep at night because your mind is troubled all the time - these days? Not at all 10/20/2021 Exercise Vital Sign Answer Date Recorde d On average, how many days pe r week do you engage in moderate to strenuous exercise (like a brisk walk)? 0 days 10/20/2021 On average, how many minutes do you engage in exercise at this level? 0 min 10/20/2021 Hunger Vital Sign Answer Date Recorded Within the past 12 months, y ou worried that your food would run out before you got the money to buy more. Never true 10/20/19 Within the past 12 months, t he food you bought just didn't last and you didn't have money to get more. Never true 10/20/2021 PRAPARE - Transportation Answer Date Re corded In the past 12 months, has l ack of transportation kept you from medical appointments or from getting medications? No 09/27 In the past 12 months, has l ack of transportation kept you from meetings, work, or from getting things needed for daily living? No 10/20/2021 Housing Stability Vital Sign Answer Sriram e Recorded In the last 12 months, was t here a time when you were not able to pay the mortgage or rent on time? No 10/20/2021 In the last 12 months, how many places have you lived? 1 10/20/2021 In the last 12 months, was t here a time when you did not have a steady place to sleep or slept in a custodial (including now)? No 10/20/2021 Nutrition Answer Date Recorded Nutrition: EVOO Fat Source Yes 10/20 On average, how many serving s of fruits and vegetables do you eat per day (serving size is equal to 1 cup or approximately the size of a tennis ball)? 2-3 10/20/2021 Dental Answer Date Recorded Dental: Regular Dentist Yes 10/20/19 Employment Answer Date Recorded Employment status Employed and actively working without restrictions 10/20/2021 Education Answer Date Recorded What is the highest level of school you have completed or the highest degree you have received? Associate degree: occupational, technical, or vocational program 10/20/2021 Sex and Gender Information Value Date Recorded Sex Assigned at Female 10/20/2021 8:03 PM ACCOUNTING PROFESSOR Gender Identity Female 10/20/2021 8:03 PM ACCOUNTING PROFESSOR Sexual Orientation Straight 10/20/2021 8: 03 PM ACCOUNTING PROFESSOR Last Filed Vital Signs Vital Sign Reading Time Taken Comments Blood Pressure 136/74 10/15/2021 4:40 PM ACCOUNTING PROFESSOR Pulse 74 10/15/2021 4:40 PM ACCOUNTING PROFESSOR Temperature 36.8 ??C (98.2 ??F) 10/15/2021 4:40 PM CS T Respiratory Rate 16 10/15/2021 4:40 PM ACCOUNTING PROFESSOR Oxygen Saturation 98% 10/15/2021 4:40 PM ACCOUNTING PROFESSOR Inhaled Oxygen Concentration - - Weight 65 kg (143 lb 4.8 oz) 10/15/2021 4:56 PM ACCOUNTING PROFESSOR Height 164 cm (5' 4.57) 05/25/2019 11:33 AM CDT Body Mass Index 24.17 05/25/2019 11:33 AM CDT Plan of Treatment Not on file Procedures Procedure Name Priority Date/Time Associated Diagnosis Comments EXTI LIPID PANEL, S Routine 10/28/2023 9 :43 AM ACCOUNTING PROFESSOR EXTI THYROID-STIMULATING HORMONE-SENSITIVE (S-TSH), S Routine 10/28/2023 9:43 AM ACCOUNTING PROFESSOR EXT THINPREP W/HPV CO-TEST SCREEN Routine 05/02/2020 8:30 AM CDT from Last 3 Months or Most Recently Relevant to Health Maintenance Results * EXT ThinPrep w/HPV Co-Test Screen (05/02/2020 8:30 AM CDT) EXT ThinPrep w/HPV Co-Test Screen Normal - See Scanned Report for Details Normal - See Scanned Report for Details, [facility] - Report Received and Scanned Comment:See care everywhere for results Thin Prep Vial (Cervix/Endocervi x) 05/02/2020 8:30 AM CDT Impressions Liset Connelly - 05/13/2020 11:11 AM CDT Specimen Collected: 05/02/20 08:30 Last Resulted: 05/13/20 11:11 [facility] Result Received: 02/24/22 16:20 Historical Provider LAB PAP PATHDX ORDER ANTOLIN from Last 3 Months or Most Recently Relevant to Health Maintenance Administered Medications Care Teams Pilot Manager Relationship Specialty Start Date End Date None Reported, Pcp PCP - General Family Medicine 08/26/23
--- OUTSIDE RECORDS SUMMARY | 2024-02-03 13:40 | XMS_ITS | Encounter Summary ---
Author Name Unknown Organization [facility] Address [address] [place] [address] Care Team Providers Care Yarder Operator Name Role Phone Melinda Yancey APRN Primary Care Provider Reason for Visit * Reason Onset Date Comments Med Refill 12/25/2020 Encounter Details Date Type Department Care Team (Late st Contact Info) Description 12/25/2020 Refill [place] [address] [place] [address] Chitra Berumen, ANVIL WORKER, [address] [place] [address] Acne, unspecified acne type Social History Tobacco Use Types [...] encounter Miscellaneous Notes * Telephone Encounter - Belem Sierra - 01/07/2021 11:21 AM CDT Patient is going to wait a couple months to make an appointment and would like to see female doctorat that time. * Telephone Encounter - Apoorva García RN - 12/25/2020 9:38 AM CDT Pt has not been seen in over a year, please assist with scheduling appointment to establish care with new provider * Telephone Encounter - Apoorva García RN - 12/25/2020 9:38 AM CDT Last refill 07/25/19, last office visit 05/25/19, please advise on refill * Telephone Encounter - Juliette Joseph LPN - [...] type documented in this encounter Care Teams Yarder Operator Relationship Specialty Start Date End Date Melinda Ynacey, ANVIL WORKER [address] [place] [id number] PCP - General 07/14/23 documented as of this encounter
--- OUTSIDE RECORDS SUMMARY | 2024-02-03 13:40 | XMS_ITS | Clinical Summary ---
Author Name Unknown Organization [facility] Address [address] [place] [address] Care Team Providers Care Woodworking Machine Offbearer Name Role Phone None Reported, Pcp Primary Care Provider Unavail able Source Comments Patient records contain information from all sites at [facility]. For routine questions regarding patient records, call [phone] during business hours, M-F 8:00 AM - 5:00 PM Central Time. Record requests for emergency care only can be directed to [phone] at any time.[facility] Allergies No known active allergies [...] Stopped RX treatment 03/2019 Encounters Date Type Department Care Team Description 11/22/2023 7:00 AM SERVICE PLANNER Comprehensive Visit Department of Rehabilitation Services in [address] [phone] Lamont Flores M.D. Kat Milner, P.T. from Last 3 Months Immunizations Name Administration Dates Next Due Influenza Split 09/26/2009 Influenza, Unspecified 07/13/2013,09/26/2009 Rabies (Imovax) 10/18/2021,10/15/2021 Rabies (Rabavert) 10/29/2021,10/18/2021,10/15/19 22 Rabies, intramuscular, historical 10/22/2021 Tdap 10/15/2021,05/24/2016 influenza vaccine quad (FLUZ ONE/FLUARIX) (6 months and older)(PF) 07/13/2013,09/26/2009 Family History Medical History Relation Name Comments [...] often do you attend chur ch or quaker services? Never 10/20/2021 Do you belong to any clubs o r organizations such as buddhist groups, unions, fraternal or athletic groups, or [...] and heating? Not hard at all 10/20/2021 [facility] [place] of Occupat ional Health - Occupational Stress [...] slept in a group home (including now)? No 10/20/2021 Nutrition Answer Date [...] Sex Assigned at Female 10/20/2021 8:03 PM SERVICE PLANNER Gender Identity Female 10/20/2021 8:03 PM SERVICE PLANNER Sexual Orientation Straight 10/20/2021 8: 03 PM SERVICE PLANNER Last Filed Vital Signs Vital Sign Reading Time Taken Comments Blood Pressure 136/74 10/15/2021 4:40 PM SERVICE PLANNER Pulse 74 10/15/2021 4:40 PM SERVICE PLANNER Temperature 36.8 ??C (98.2 ??F) 10/15/2021 4:40 PM CS T Respiratory Rate 16 10/15/2021 4:40 PM SERVICE PLANNER Oxygen Saturation 98% 10/15/2021 4:40 PM SERVICE PLANNER Inhaled Oxygen Concentration - - Weight 65 kg (143 lb 4.8 oz) 10/15/2021 4:56 PM SERVICE PLANNER Height 164 cm (5' 4.57) 05/25/2019 11:33 AM CDT Body Mass Index 24.17 05/25/2019 11:33 AM CDT Plan of Treatment Health Maintenance Due Date Last Done Comments Depression Monitoring (PHQ-9) 1981 HIV Screening 1981 Hepatitis C Screening 1981 Mammogram 1981 Hepatitis B Vaccines (1 of 3 - 19+ 3-dose series) 2000 COVID-19 Vaccine (3 - 2022-24 season) 2023 02/13/2021, 01/16/2021 Influenza Vaccine (#1) 2023 3, 07/13/2013, 09/26/2009, Additional history exists Thyroid Stimulating Hormone (TSH) test for thyroid function 10/28/2024 10/28/2023, 01/14/2023, 03/17/2022, Additional history exists Cervical Cancer Screening 10/28/20262023, 05/02/2020, 05/02/2020, Additional history exists Lipid (Cholesterol) Screening 10/28/2028 10/28/2023, 04/25/2020, 03/17/2012 DTaP,Tdap,and Td Vaccines (3 - Td or Tdap) 10/15/2031 10/15/2021, 05/24/2016 HPV Vaccines Aged Out No longer eligi ble based on patient's age to complete this topic Pneumococcal vaccine (0-64 years) Aged Out No longer eligible based on patient's age to complete this topic Procedures Procedure Name Priority Date/Time Associated Diagnosis Comments EXTI LIPID PANEL, S Routine 10/28/2023 9 :43 AM SERVICE PLANNER EXTI THYROID-STIMULATING HORMONE-SENSITIVE (S-TSH), S Routine 10/28/2023 9:43 AM SERVICE PLANNER EXT THINPREP W/HPV CO-TEST SCREEN Routine 05/02/2020 [...] 08:30 Last Resulted: 05/13/20 11:11 [facility] Result Received: 02/24/22 16:20 Historical Provider LAB PAP PATHDX ORDER ANTOLIN from Last 3 Months or Most Recently Relevant to Health Maintenance Care Teams Woodworking Machine Offbearer Relationship Specialty Start Date End Date None Reported, Pcp PCP - General Family Medicine 08/26/23
--- OUTSIDE RECORDS SUMMARY | 2024-02-03 13:40 | XMS_ITS | Encounter Summary ---
Author Name Unknown Organization [facility] Address [address] [place] [address] Care Team Providers Care Bellman Captain Name Role Phone None Reported, Pcp Primary Care Provider Unavail able Encounter Details Date Type Department Care Team (Late st Contact Info) Description 11/22/2023 7:00 AM PROGRAM MANAGER RN Comprehensive Visit Department of Rehabilitation Services in [address] [phone] Lamont Flores M.D. [address] [phone] Kat Milner, P.T. [address] [place] [phone] Social History Tobacco Use Types Packs/Day Years [...] often do you attend chur ch or pentecostal services? Never 10/20/2021 Do you belong to any clubs o r organizations such as adventism groups, unions, fraternal [...] and heating? Not hard at all 10/20/2021 [facility] of Occupat ionil Health - Occupational Stress Questionnaire Answer Date [...] money to buy more. Never true 10/20/19 22 Within the past 12 months, t he [...] in a nursing home (including now)? No 10/20/2021 Nutrition Answer [...] Sex Assigned at Female 10/20/2021 8:03 PM PROGRAM MANAGER RN Gender Identity Female 10/20/2021 8:03 PM PROGRAM MANAGER RN Sexual Orientation Straight 10/20/2021 8: 03 PM PROGRAM MANAGER RN documented as of this encounter Consult Notes * Kat Milner, P.T. - 11/22/2023 7:00 AM CST Physical Therapy Outpatient Evaluation/Treatment By co-signing this note, the provider certifies the therapy being provided to this patient is reasonable and necessary for the diagnosis or treatment of this patient. SUBJECTIVE Patient's Name: Ester Loraymundomarielos Referring Provider: Lamont Flores M.D. Visit Diagnosis: No diagnosis found. Reason for Referral: Physical therapy evaluate and treat Payor: [email or web address] / Plan: [employer] / Product Type: Indemnity / Epic Visit Count: 1 PERTINENT MEDICAL / SURGICAL HISTORY: Patient Active Problem List Diagnosis Depression Major Recurrent Severe (HCC) Hypothyroidism Acne Bite Cat Hand Open Sequela Left Pain Knee Left Past Surgical History: Procedure Laterality Date AUGMENTATION MAMMOPLASTY N/A 09/26/2006 Breast augmentation CHOLECYSTECTOMY N/A 2000 Cholecystectomy LIGATION OF FALLOPIAN TUBE N/A 2011 Tubal ligation Patient presents to outpatient physical therapy for evaluation of symptoms including: Dizziness Overall patient reports status remains the same. History of Present Illness: Patient reports intermittent history of dizziness. Patient has had previous episodes of this in the past. Aggravating Factors: Looking up Relieving Factors: Controlled head positioning Previous Treatments: None Prior Function/Occupational Profile: Intermittent history of vertigo. Additional Staff Present During Session: no Patient goals: Resolution of symptoms OBJECTIVE PHYSICAL EXAM Pain: Patient feels pressure behind her eyes. Ortho Exam Patient ambulates back to physical therapy today safely independently. Cervical range of motion is within normal limits. Hallpike [place] test was positive for right posterior canal nystagmus and symptom reproduction. TREATMENT Treatment today consisted of: Performed canalith repositioning for the right posterior canal x2. Home Exercise Program/Education: Patient was educated on canalith reposition to perform at home if needed for future recurrence. Patient was also instructed on Arizmendi Daroff exercises as an alternative option. Assessment Clinical Impression: Patient presents to physical therapy with signs and symptoms consistent with BPPV. Impairments: Dizziness Functional deficits: Decreased positional activity tolerance Rehab Potential: Patient has good potential to achieve established physical therapy goals within the time frame outlined below, provided active participation in the physical therapy treatment plan and home program. Functional Goals and Timeframes: PT Outpatient Goals PT Goal #1: Patient reports symptom resolution. PT Goal #1 Date: 12/09/23 PT Goal #2: Patient will to look up without symptom reproduction. PT Goal #2 Date: 12/09/23 PT Goal #3: Patient will be able to independently perform home exercises to resolve symptoms. PT Goal #3 Date: 12/09/23 Plan Patient was educated regarding evaluative findings, diagnosis, prognosis, potential risks and benefits of rehabilitation interventions. A collaborative effort was used to establish goals and plan of care. The patient was informed of the right to make decisions regarding care, including refusal of examination or treatment or selection of services from another provider if desired. The treatment plan may be progressed or modified based upon the patient's response to treatment. Treatment Plan: Start of Plan of Care: 11/22/2023 Number of Visits: 3 visits PT Duration: 3 weeks PT Frequency: As needed for symptom resolution Treatment interventions may include: Canalith repositioning Plan for next session: Patient will contact therapist if symptoms persist. Time Spent with Patient Evaluations PT Eval - Low Complexity: 21 min Time Tracking Total Treatment Time (min): 21 min RAM MANAGER RN documented in this encounter Plan of Treatment Not on file documented as of this encounter Visit Diagnoses Not on filedocumented in this encounter Additional Health Concerns Assessment Noted Time PHQ-9 Depression Total Score: 3 12/21/19 17 9:55 AM CDT documented as of this encounter Care Teams Bellman Captain Relationship Specialty Start Date End Date None Reported, Pcp PCP - General Family Medicine 08/26/23 documented as of this encounter
== END 2024-02-03 13:35 | disposition home or self-care (01) ==
LOC: MAMMO 13:37
PROVIDERS: PCP Family Medicine; Visit Provider Family Medicine
DX: Z12.31 Encounter for screening mammogram for malignant neoplasm of breast (principal); R92.2 Inconclusive mammogram
CPT/HCPCS: 77063; 77067

== ENCOUNTER 2025-02-14 14:26 | Outpatient (CLI) | payer OTHER, SELFPAY ==
--- NOTE | 2025-02-14 14:40 | CRLHL7_ITS ---
For Patients: As a result of the Century Cures Act, medical imaging exams and procedure reports are released immediately into your electronic medical record. You may view this report before your referring provider. If you have questions, please contact your health care provider. INDICATION: BILATERAL SCREENING MAMMOGRAM W/IMPLANTS, ASYMPTOMATIC 44 Y/O FEMALE COMPARISON: 02/03/2024, 10/01/2022, 09/11/2021 TECHNIQUE: Digital mammogram in CC and MLO projections including computer-aided detection (CAD) and tomosynthesis. BREAST COMPOSITION: There are scattered areas of fibroglandular density. FINDINGS: No suspicious findings. ASSESSMENT: BI-RADS 2 Benign RECOMMENDATION: Annual screening mammogram. A lay language report of this examination will be provided to the patient. Dictated by: Garo Beverly MD @ 02/15/2025 09:59:37 (Electronically Signed)
== END 2025-02-14 14:27 | disposition home or self-care (01) ==
LOC: MAMMO 14:26
PROVIDERS: PCP Family Medicine; Visit Provider Family Medicine
DX: Z12.31 Encounter for screening mammogram for malignant neoplasm of breast (principal)
CPT/HCPCS: 77063; 77067